=== PATIENT | female | born 1935 | race Caucasian/White ===

== ENCOUNTER 2016-09-02 21:01 | Emergency (ER) | payer OTHER, BC ==
[~2016-09-02] VITALS: Ht 154.9 cm; Wt 75.7 kg
[~2016-09-02 21:01] MED LIST: HYDR4TAB78 PO; NAPR1TAB9 PO
[2016-09-02 21:04] VITALS: TEMP 36.6; Ht 154.9 cm; Wt 75.7 kg
[2016-09-02] MEDS ORDERED: ATOR-22 PO (21:17)
[2016-09-02] MEDS ORDERED: LOSA1TAB PO (21:17)
[2016-09-02] MEDS ORDERED: ASPI81TA28 PO (21:17)
[2016-09-02] MEDS ORDERED: CHOL100041 PO (21:18)
[2016-09-02] MEDS ORDERED: PROPARACAINE HCL 0.5% OP SOLN 15 ML BTL ONE (21:44)
[2016-09-02] MEDS ORDERED: HOMATROPINE 5% OP SOLN 5 ML BTL OPR ONE (22:30)
[2016-09-02] MEDS ORDERED: ARTIFICIAL TEARS OP SOLN OPR STA ×2 (23:29)
[2016-09-02 23:56] VITALS: BP 155/95; PULSE 62; O2SAT 98
--- NOTE | 2016-09-03 02:31 | EMERGENCY ROOM VISIT NOTE ---
History Report prepared by Rj: Orville Reynoso Under the Supervision of: Dr. Partha Franco M.D. First contact with patient: 21:42 Chief Complaint: EYE ASSESSMENT Stated Complaint: SORENESS IN RT EYE History of Present Illness The patient is an 80 year old female who presents to the Emergency Room with complaints of constant right eye pain beginning prior to arrival. She currently rates her discomfort a 5/10 in severity. The patient states that she was sitting down watching television, and her vision began to blur. She reports that she felt is coming on. The patient notes that light makes her symptoms worse. She states that she has never had anything like this before. The patient reports that she has had cataracts removed from both her eyes, and she recently had a cleaning of her left eye. Pt denies LOC, headache, fevers, chills, diaphoresis, neck pain, chest pain, breathing difficulties, nausea, vomiting, abdominal pain, back pain, melena, hematochezia, urinary symptoms, numbness, weakness, lymphadenopathy, rash, or other complaints. Source of History: patient Onset: prior to arrival Position: eye (right) Symptom Intensity: 5/10 Timing: constant Modifying Factors (Worsening): other (light) Note: Associated symptoms: blurred vision Review of Systems See HPI for pertinent positives and negatives. A total of ten systems were reviewed and were otherwise negative. Past Medical & Surgical Medical Problems: (1) Bronchitis (2) Cholecystectomy (3) Deep venous thrombosis of lower extremity (4) Kidney stone (5) Knee surgery (6) Pancreatitis (7) Sciatica (8) Shoulder surgery Family History No pertinent family history stated. Social History Smoking Status: Never Smoker Alcohol Use: none Marital Status: Housing Status: lives with significant other Occupation Status: retired Current/Historical Medications Scheduled Aspirin (Aspirin Ec), 81 MG PO DAILY Atorvastatin (Lipitor), 1 TAB PO DAILY Cholecalciferol (D 1000), 1,000 PO DAILY Losartan Potassium (Cozaar), 1 TAB PO DAILY Allergies Coded Allergies: Latex (Verified Allergy, Intermediate, RASH - ITCHING, 09/02/16) Sulfa Antibiotics (Verified Allergy, Intermediate, HIVES, 09/02/16) Adhesives (Verified Allergy, Mild, RASH, 09/02/16) Amoxicillin (Verified Allergy, Mild, RASH, 09/02/16) Clavulanic Acid (Verified Allergy, Mild, RASH, 09/02/16) Oxycodone (Verified Allergy, Mild, RACING HEART, 09/02/16) Prednisone (Verified Adverse Reaction, Mild, GI SYMPTOMS, 09/02/16) Salicylates (Verified Adverse Reaction, Mild, GI SYMPTOMS, 09/02/16) Aspirin (Unverified Adverse Reaction, Unknown, NAUSEA, 09/02/16) Naproxen (Verified Adverse Reaction, Unknown, GI SYMPTOMS, 09/02/16) Penicillins (Unverified Adverse Reaction, Unknown, NAUSEA, 09/02/16) Procaine (Unverified Adverse Reaction, Unknown, HEART RACING, 09/02/16) Physical Exam Vital Signs Date Time Temp Pulse Resp B/P (MAP) Pulse Ox O2 Delivery O2 Flow Rate FiO2 09/02/16 23:56 62 16 155/95 98 09/02/16 23:20 62 16 155/95 96 Room Air 09/02/16 22:33 61 16 145/90 96 Room Air 09/02/16 21:04 36.6 67 16 193/91 98 Room Air Right Eye Acuity: 20/25, with no correction Left Eye Acuity: 20/25 Physical Exam GENERAL: Awake, alert, well-appearing, in no distress HENT: Normocephalic, atraumatic. Oropharynx unremarkable. EYES: PERRL, EOMI, see slit lamp procedure. NECK: Supple. No nuchal rigidity. FROM. No JVD. RESPIRATORY: Clear to auscultation. CARDIAC: Regular rate, normal rhythm. Extremities warm and well perfused. Pulses equal. MUSCULOSKELETAL: Chest examination reveals no tenderness. The back is symmetrical on inspection without obvious abnormality. There is no CVA tenderness to palpation. No joint edema. NEURO: Normal sensorium. No sensory or motor deficits noted. SKIN: No rash or jaundice noted. Medical Decision & Procedures Medications Administered Medications (Trade) Dose Ordered Sig/Doris Route Start Time Stop Time Status Last Admin Dose Admin Homatropine HBr (Isopto Homatropine 5% Oph Soln) 1 drops NOW ONCE OPR 09/02/16 22:30 09/02/16 22:31 DC 09/02/16 22:54 1 DROPS Artificial Tears (Artificial Tears) 2 drops NOW STAT OPR 09/02/16 23:29 09/02/16 23:30 DC 09/02/16 23:37 2 DROPS Procedure Slit Lamp Examination Indication: right eye pain The right eye was prepped with topical proparacaine. Slit lamp examination was performed in the standard fashion. Cornea appeared clear. Anterior chamber clear. Scleral and limbus injection are present. No discharge present. Fluorescein examination performed and revealed no ulcers, mild chemosis. No foreign bodies noted. Negative Santi sign. The patient tolerated the procedure well without complication. Pressure in the right eye was 11.5. Pressure in the left eye was 16. ED Course 2145: The patient was evaluated in room C03. A complete history and physical exam was performed. 2211: I discussed the patient's case with Dr. Lynn, Optometry. He agreed with the treatment plan, and a hold on antibiotics and oral antiinflammatory. 2230: Ordered Homatropine HBr 1 drops OPR 2238: I reevaluated the patient, and she is resting. 2321: I reevaluated the patient. Discussed results and discharge instructions: she verbalized understanding and agreement. The patient is ready for discharge. 2329: Ordered Artificial Tears 2 drops OPR Medical Decision Medication Reconciliation: I attest that I have personally reviewed the patient' s current medication list Blood pressure screening: Patient was found to have an elevated blood pressure and was referred to their primary doctor for recheck and further treatment. Triage Nursing notes reviewed and agree them. Additional history obtained from the patient's . The patient's history was concerning for eye complaints. Differential diagnosis: Etiologies such as trauma, corneal abrasion, corneal ulcer, foreign body, iritis , scleritis, retinal injury, vascular occlusion, hyphema, hypopyon, and orbital cellulitis, periorbital cellulitis, as well as others were entertained. Physical examination findings: As above. No periorbital cellulitis. There is no hyphema. No evidence of glaucoma. ~ Slit-lamp examination revealed limbal and scleral injection. ER treatment provided: Homatropine On reassessment the patient felt much better. Artificial tears Diagnostics interpretation by me: Deferred Consultation: A consultation was placed with the field inspector supervisor fabrication, Dr. Lynn. The case was discussed and diagnostics were reviewed. He recommended dilating drops, artificial tears, and anti-inflammatories. The patient is allergic to aspirin but can take Aleve by her and her 's report. She will do this when she is home. The patient was told to follow-up with his office tomorrow morning. By the evaluation outlined above emergent etiologies such as~trauma, corneal abrasion, corneal ulcer, foreign body, globe penetration, hyphema, hypopyon, and orbital cellulitis, periorbital cellulitis, as well as others were deemed relatively unlikely. The patient and were informed about the findings as listed above. All questions were answered and they were pleased with the treatment. Return instructions were outlined and the patient was discharged in stable condition. Outpatient prescription management: Homatropine Referral: The patient was referred to Dr. Lynn for follow-up for a recheck of the current condition tomorrow. Consults Time Called: 2205 Consulting Physician: Dr. Lynn, Optometry Returned Call: 2210 I discussed the patient's case with Dr. Lynn, Optometry. He agreed with the treatment plan, and a hold on antibiotics and oral antiinflammatory. Impression Primary Impression: Pain, eye, right Additional Impressions: Iritis Episcleritis Scribe Attestation The scribe's documentation has been prepared under my direction and personally reviewed by me in its entirety. I confirm that the note above accurately reflects all work, treatment, procedures, and medical decision making performed by me. Departure Information Dispostion Home / Self-Care Referrals No Doctor, Assigned (PCP) Forms HOME CARE DOCUMENTATION FORM, IMPORTANT VISIT INFORMATION, WORK / SCHOOL INSTRUCTIONS Patient Instructions My [facility] Additional Instructions Follow-up with Dr. Lynn tomorrow. Call the office at 8:30 for follow-up. Homatropine drops: One drop to the right eye twice daily until directed otherwise by ophthalmology. Artificial tears: 2 drops every 2-3 hours as needed. Acetaminophen(Tylenol) may be used for fever or pain. Use 1000mg every six hours as needed. Avoid using more than 4000mg in a 24 hour period. And/or Use Aleve as discussed. Cool compresses for 20 minutes at a time four times daily for 2-3 days. Avoid bright lights, wear sun glasses. Return to the ER for facial swelling, worsening vision, severe eye pain, fevers or as needed. Problem Qualifiers
== END 2016-09-02 23:35 | disposition home or self-care (01) ==
LOC: C.EDB 21:03 → C.EDC 23:35
DX: H57.11 Ocular pain, right eye (principal); H20.9 Unspecified iridocyclitis; H15.102 Unspecified episcleritis, left eye; Z79.82 Long term (current) use of aspirin; Z79.899 Other long term (current) drug therapy; Z87.09 Personal history of other diseases of the respiratory system; Z87.442 Personal history of urinary calculi; Z86.718 Personal history of other venous thrombosis and embolism

== ENCOUNTER → 2017-07-14 | Outpatient (CLI) | payer OTHER, BC ==
[~2017-07-14] MED LIST changes: +ASPI81TA28 PO; +ATOR-22 PO; +CHOL100041 PO; -HYDR4TAB78 PO; +LOSA1TAB PO; -NAPR1TAB9 PO
== END | disposition home or self-care (01) ==
LOC: C.LABSPEC 10:30
PROVIDERS: ATTEND Urology
DX: N39.0 Urinary tract infection, site not specified (principal)

== ENCOUNTER 2019-09-05 07:10 | Inpatient (IN) ==
[2019-09-05] MEDS ORDERED: MoRPHine SULFATE 4 MG/ML 1 ML CARP\\VIAL IV PRN ×2 (07:39→07:49)
[2019-09-05 07:57] LABS: Basophils # (auto) 0.01 K/uL (0-0.2); Basophils % (auto) 0.1 %; Eosinophils # (auto) 0.05 K/uL (0-0.5); Eosinophils % (auto) 0.4 %; Hematocrit (blood only) 41.7 % (37-47); Hemoglobin 13.7 g/dL (12.0-16.0); Immature Granulocytes # (auto) 0.02 K/uL (0.00-0.02); Immature Granulocytes % (auto) 0.2 %; Lymphocytes # (auto) 1.25 K/uL (1.2-3.4); Lymphocytes % (auto) 10.6 %; Mean Corpuscular Hemoglobin 31.6 pg (25-34); Mean Corpuscular Hgb Conc 32.9 g/dL (32-36); Mean Corpuscular Volume 96.3 fL (80-100); Mean Platelet Volume 8.9 fL (7.4-10.4); Monocytes # (auto) 0.57 K/uL (0.11-0.59); Monocytes % (auto) 4.9 %; Neutrophils # (auto) 9.85 K/uL (1.4-6.5); Neutrophils % (auto) 83.8 %; Platelet Count 244 K/uL (130-400); RDW Coefficient of Variation 14.6 % (11.5-14.5); RDW Standard Deviation 51.8 fL (36.4-46.3); Red Blood Count 4.33 M/uL (4.2-5.4); White Blood Count 11.75 K/uL (4.8-10.8)
[2019-09-05 08:14] LABS: Appearance Urine Cloudy (Clear); Bacteria Urine Automated Negative (Negative); Bilirubin Urine Negative (Negative); Blood Urine Negative (Negative); Color Urine Dark Yellow; Epithelial Cell Urine Auto >30 /lpf (0-5); Glucose Urine UA Negative (Negative); Ketones Urine Negative (Negative); Leukocyte Esterase Urine 3+ (Negative); Nitrite Urine Negative (Negative); Protein Urine Negative (Negative); Specific Gravity Urine 1.022 (1.000-1.030); Urobilinogen Urine Negative (Negative); pH Urine 7.5 (4.5-7.5)
--- NOTE | 2019-09-05 08:20 | Emergency Department Note ---
ED Visit Note This patient was seen in concert with Dr. Martinez. We discussed and agreed upon the history, physical, assessment and plan. . Resident Activity Tracking Resident Involvement: Resident Care Provided Care Provided: Adult ED : Abdominal pain Qualifiers: Abdominal location: lower abdomen, unspecified Qualified Code(s): R10.30 - Lower abdominal pain, unspecified
[2019-09-05 08:34] LABS: Alanine Aminotransferase 26 U/L (12-78); Albumin Level 3.1 gm/dl (3.4-5.0); Aspartate Aminotransferase 12 U/L (15-37); BUN Creatinine Ratio 21.1 (10-20); Blood Urea Nitrogen 17 mg/dl (7-18); Calcium 9.2 mg/dl (8.5-10.1); Carbon Dioxide 24 mmol/L (21-32); Chloride 106 mmol/L (98-107); Est GFR (African American) 77.9; Est GFR (Non-African American) 67.2; Glucose 118 mg/dl (70-99); Lipase 70 U/L (73-393); Potassium 3.5 mmol/L (3.5-5.1); Sodium 137 mmol/L (136-145)
[2019-09-05 08:37] LABS: Albumin Globulin Ratio 0.8 (0.9-2); Alkaline Phosphatase 94 U/L (45-117); Bilirubin,Total 1.2 mg/dl (0.2-1); Total Protein 7.1 gm/dl (6.4-8.2)
--- NOTE | 2019-09-05 08:48 | Emergency Department Note ---
Impression & Plan Diverticulitis, Abdominal pain ED Provider Note NAME: BRANDAN BALDERAS AGE: 83 SEX: F : 1935 ARRIVES VIA: Walk-In INFORMANT: Patient, ED PROVIDER(S): Mohit Martinez DO CHIEF COMPLAINT: Abdominal pain HPI: The patient is an 83-year-old female who presented to the emergency department for an acute onset of abdominal pain. She states his abdominal pain began last evening. She states the pain is lower in the suprapubic region and pelvic region but goes down into her vagina. She feels pain down into her rectum as well. She denied any GI bleeding. The patient has had no vomiting. She denies having any chest pain or trouble breathing. The patient does have a pessary which is normally changed at multiple times for the year. She denies having any vaginal bleeding or discharge. She denies having any dysuria freque ncy. She was not seen by her primary care physician for these complaints yet. ROS: See above HPI for pertinent positives & negatives. A total of 10 systems re viewed and were otherwise negative. PAST MEDICAL HISTORY: See Below PAST SURGICAL HISTORY: See Below FAMILY HISTORY: See Below SOCIAL HISTORY: See Below HOME MEDICATIONS: See Below ALLERGIES: See Below VITALS: See Below PHYSICAL EXAMINATION: GENERAL: The patient is awake and alert. She is uncomfortable appearing and looks anxious. EYES: The conjunctivae are clear. The pupils are round and reactive. EARS, NOSE, MOUTH AND THROAT: The nose is without any evidence of any deformity. Mucous membranes are moist. Tongue is midline. NECK: The neck is nontender and supple. RESPIRATORY: Normal respiratory effort is noted there is no evidence of wheezing rhonchi or rales CARDIOVASCULAR: Regular rate and rhythm noted there no murmurs rubs or gallops normal S1 normal S2. GASTROINTESTINAL: The abdomen is moderately distended and diffusely tender. There is guarding in the left lower quadrant. MUSCULOSKELETAL/EXTREMITIES: There is no evidence of gross deformity full range of motion is noted in the hips and shoulders. SKIN: There is no obvious evidence of any rash. Trace pedal edema was noted bilaterally. NEUROLOGIC: Patient is awake alert and oriented x3 strength is symmetric patellar reflexes are 2+ bilaterally MEDICAL DECISION MAKING: The patient is an 83-year-old female who presented to the emergency department for an evaluation of abdominal discomfort. The patient abdominal distention abdominal pain and radiation to the pelvis. The patient was treated with pain medication in the emergency department. We discussed the patient's laboratory and radiographic studies with her. Ultimately she was found to have signs of diverticulitis on CAT scan the abdomen and pelvis with microperforation. She was given IV antibiotics. We discussed her case with the on-call general surgical group as well as the on-call [facility] hospitalist group. They will evaluate the patient in the emergency department for further management and disposition. Triage Nursing notes reviewed. Prior medical records reviewed Vital Signs: reviewed and remarkable for no significant abnormalities Differential diagnosis: Etiologies such as appendicitis, diverticulitis, obstruction, inflammatory bowel disease, renal colic, PUD, biliary pathology, pancreatitis, mesenteric ischemia, aortic pathology, infections, genitourinary, UTI, perforated viscus, as well as others were entertained. ER treatment provided: See below Diagnostics interpreted by me: ECG: none Cardiac Monitoring: An order was placed for continuous cardiac monitoring. The monitor shows a rate of 88 with sinus rhythm. Laboratory studies: As stated above and show below. Imaging studies: See below Consultation(s): 1000: We discussed this case with the on-call surgical group. We discussed this case with Bradley Peters they will evaluate the patient in the emergency department for further management and disposition. 1005: We discussed this case with Abida who is on-call for the [facility] hospitalist group. They will evaluate the patient in the emergency department for further management and disposition. Past Med/Surg History Medical History (Updated 09/05/19 @ 12:48 by Lalita Tse PA-C) Chronic lower back pain (Chronic) Dyslipidemia Factor V Leiden HTN (hypertension) KIM (obstructive sleep apnea) Surgical History (Updated 09/05/19 @ 12:48 by Lalita Tse PA-C) H/O colonoscopy 2008: mild-moderate diverticulosis sigmoid colon History of cataract surgery Hx laparoscopic cholecystectomy Family History (Updated 09/05/19 @ 12:49 by Lalita Tse PA-C) Other Cancer Diabetes Heart disease Social History (Updated 09/05/19 @ 12:49 by Lalita Tse PA-C) Preferred Language: Greek Feels Safe at Home: Yes Smoking Status: Never smoker Hx Alcohol Use: No Hx Substance Use: No Allergies Allergies Allergy/AdvReac Type Severity Reaction Status Date / Time latex Allergy Intermediate RASH - Verified 09/05/19 08:15 ITCHING Sulfa (Sulfonamide Allergy Intermediate HIVES Verified 09/05/19 08:15 Antibiotics) adhesive Allergy Mild RASH Verified 09/05/19 08:15 amoxicillin Allergy Mild RASH Verified 09/05/19 08:15 clavulanic acid Allergy Mild RASH Verified 09/05/19 08:15 oxycodone Allergy Mild RACING Verified 09/05/19 08:15 HEART prednisone AdvReac Mild GI SYMPTOMS Verified 09/05/19 08:15 salicylates AdvReac Mild GI SYMPTOMS Verified 09/05/19 08:15 aspirin AdvReac Unknown NAUSEA Unverified 09/05/19 08:15 naproxen AdvReac Unknown GI SYMPTOMS Verified 09/05/19 08:15 Penicillins AdvReac Unknown NAUSEA Unverified 09/05/19 08:15 procaine AdvReac Unknown HEART Unverified 09/05/19 08:15 RACING Home Meds Home Medications Medication Instructions Recorded Confirmed aspirin 81 mg PO QAM #0 09/02/16 09/05/19 atorvastatin [Lipitor] 20 mg PO PM #0 tab 09/10/17 09/05/19 losartan [Cozaar] 25 mg PO QAM #0 tab 09/10/17 09/05/19 albuterol sulfate [Ventolin HFA] 3 puff INHALATION Q6H PRN 09/05/19 09/05/19 fluticasone propionate 1 spray INTRANASAL BID PRN 09/05/19 09/05/19 ibuprofen [Advil] 200 mg PO Q6H PRN 09/05/19 09/05/19 Results & Data (ED) Vital Signs Vital Signs - 24 hr 09/05/19 07:15 09/05/19 07:48 09/05/19 08:00 Temperature 36.9 C Temperature Source Oral Pulse Rate 94 H 82 Pulse Rate from SpO2 Sensor 83 Respiratory Rate 17 22 Respiratory Effort / Characteristics Non-Labored Respiratory Depth Normal Respiratory Pattern Regular Blood Pressure 157/68 H 154/67 H Blood Pressure Mean 97 80 Blood Pressure Position Sitting Pulse Oximetry 96 95 98 Oxygen Delivery Method Room Air Room Air Room Air Sepsis Recent Fever Within 48 Hours No Sepsis New/Unexplained Change in Mental Status No Sepsis Action Taken by Nursing No Action Required 09/05/19 08:30 09/05/19 09:10 09/05/19 09:30 Temperature Temperature Source Pulse Rate 83 87 78 Pulse Rate from SpO2 Sensor 82 87 78 Respiratory Rate 24 22 26 H Respiratory Effort / Characteristics Respiratory Depth Respiratory Pattern Blood Pressure 144/66 H 143/76 H 133/64 Blood Pressure Mean 93 113 102 Blood Pressure Position Pulse Oximetry 96 96 95 Oxygen Delivery Method Room Air Room Air Room Air Sepsis Recent Fever Within 48 Hours Sepsis New/Unexplained Change in Mental Status Sepsis Action Taken by Nursing 09/05/19 10:00 09/05/19 10:30 09/05/19 11:00 Temperature Temperature Source Pulse Rate 74 81 82 Pulse Rate from SpO2 Sensor 75 82 82 Respiratory Rate 24 24 19 Respiratory Effort / Characteristics Respiratory Depth Respiratory Pattern Blood Pressure 133/67 142/62 H 143/78 H Blood Pressure Mean 106 72 106 Blood Pressure Position Pulse Oximetry 97 96 95 Oxygen Delivery Method Room Air Room Air Room Air Sepsis Recent Fever Within 48 Hours Sepsis New/Unexplained Change in Mental Status Sepsis Action Taken by Nursing 09/05/19 11:31 09/05/19 12:00 09/05/19 12:30 Temperature Temperature Source Pulse Rate 89 70 72 Pulse Rate from SpO2 Sensor 89 70 72 Respiratory Rate 19 20 21 Respiratory Effort / Characteristics Respiratory Depth Respiratory Pattern Blood Pressure 123/65 106/49 L 127/55 L Blood Pressure Mean 93 60 60 Blood Pressure Position Pulse Oximetry 97 93 93 Oxygen Delivery Method Sepsis Recent Fever Within 48 Hours Sepsis New/Unexplained Change in Mental Status Sepsis Action Taken by Nursing 09/05/19 13:01 09/05/19 13:30 09/05/19 14:00 Temperature Temperature Source Pulse Rate 78 71 75 Pulse Rate from SpO2 Sensor 78 72 75 Respiratory Rate 21 22 24 Respiratory Effort / Characteristics Respiratory Depth Respiratory Pattern Blood Pressure 122/54 L 115/49 L 124/49 L Blood Pressure Mean 84 63 71 Blood Pressure Position Pulse Oximetry 97 98 95 Oxygen Delivery Method Sepsis Recent Fever Within 48 Hours Sepsis New/Unexplained Change in Mental Status Sepsis Action Taken by Nursing 09/05/19 14:30 Temperature Temperature Source Pulse Rate 77 Pulse Rate from SpO2 Sensor 77 Respiratory Rate 23 Respiratory Effort / Characteristics Respiratory Depth Respiratory Pattern Blood Pressure 124/59 L Blood Pressure Mean 90 Blood Pressure Position Pulse Oximetry 93 Oxygen Delivery Method Sepsis Recent Fever Within 48 Hours Sepsis New/Unexplained Change in Mental Status Sepsis Action Taken by [place] Medications Current Medication List: was personally reviewed by me Laboratory Data Attestation: I reviewed the patient's lab results. Result diagrams: 09/05/19 07:48 09/05/19 07:48 Lab Results 09/05/19 09/05/19 09/05/19 Range/Units 07:48 07:48 07:48 WBC 11.75 H (4.8-10.8) K/uL RBC 4.33 (4.2-5.4) M/uL Hgb 13.7 (12.0-16.0) g/dL Hct 41.7 (37-47) % MCV 96.3 (80-100) fL MCH 31.6 (25-34) pg MCHC 32.9 (32-36) g/dL RDW Std Deviation 51.8 H (36.4-46.3) fL RDW Coeff of Gunner 14.6 H (11.5-14.5) % Plt Count 244 (130-400) K/uL MPV 8.9 (7.4-10.4) fL Immature Gran % (Auto) 0.2 % Neut % (Auto) 83.8 % Lymph % (Auto) 10.6 % [place] % (Auto) 4.9 % Eos % (Auto) 0.4 % Baso % (Auto) 0.1 % Neut # (Auto) 9.85 H (1.4-6.5) K/uL Lymph # (Auto) 1.25 (1.2-3.4) K/uL [place] # (Auto) 0.57 (0.11-0.59) K/uL Eos # (Auto) 0.05 (0-0.5) K/uL Baso # (Auto) 0.01 (0-0.2) K/uL Immature Gran # (Auto) 0.02 (0.00-0.02) K/uL Sodium 137 (136-145) mmol/L Potassium 3.5 (3.5-5.1) mmol/L Chloride 106 (98-107) mmol/L Carbon Dioxide 24 (21-32) mmol/L Anion Gap 8.0 (3-11) BUN 17 (7-18) mg/dl Creatinine 0.80 (0.6-1.2) mg/dl Est Cr Clr Drug Dosing Not Reportable Est GFR ( Amer) 77.9 Est GFR (Non-Af Amer) 67.2 BUN/Creatinine Ratio 21.1 H (10-20) Glucose 118 H (70-99) mg/dl Calcium 9.2 (8.5-10.1) mg/dl Total Bilirubin 1.2 H (0.2-1) mg/dl AST 12 L (15-37) U/L ALT 26 (12-78) U/L Alkaline Phosphatase 94 (45-117) U/L Total Protein 7.1 (6.4-8.2) gm/dl Albumin 3.1 L (3.4-5.0) gm/dl Globulin 4.0 (2.5-4.0) gm/dl Albumin/Globulin Ratio 0.8 L (0.9-2) Lipase 70 L (73-393) U/L Urine Color Dark Yellow Urine Appearance Cloudy A (Clear) Urine pH 7.5 (4.5-7.5) Ur Specific [place] 1.022 (1.000-1.030) Urine Protein Negative (Negative) Urine Glucose (UA) Negative (Negative) Urine Ketones Negative (Negative) Urine Blood Negative (Negative) Urine Nitrite Negative (Negative) Urine Bilirubin Negative (Negative) Urine Urobilinogen Negative (Negative) Ur Leukocyte Esterase 3+ H (Negative) Urine WBC (Auto) 10-30 H (0-5) /hpf Urine RBC (Auto) 5-10 H (0-4) /hpf U Hyaline Cast (Auto) 5-10 H (0-5) /lpf U Epithel Cells (Auto) >30 H (0-5) /lpf Urine Bacteria (Auto) Negative (Negative) Administered Medications Promethazine HCl 6.25 mg/ (Sodium Chloride) 50.25 mls @ 201 mls/hr IV Q6H PRN PRN Reason: Nausea And Vomiting Stop: 10/05/19 11:07 Last Infusion: 09/05/19 12:16 Dose: 0 mls/hr Documented by: [id number] Admin: 09/05/19 11:47 Dose: 201 mls/hr Documented by: [id number] Potassium Chloride/Dextrose/Sod Cl (D5nss + 20meq Kcl) 20 meq in 1,000 mls @ 80 mls/hr IV .[id number] Stop: 09/06/19 14:16 Last Admin: 09/05/19 14:36 Dose: 80 mls/hr Documented by: [id number] Ioversol (Optiray 320 100ml) 94 ml IV ONCE PRN PRN Reason: Interaction Checking Stop: 09/09/19 09:10 Last Admin: 09/05/19 09:12 Dose: 94 ml Documented by: [id number] Morphine Sulfate (Morphine Sulfate) 2 mg IV Q15M PRN PRN Reason: Pain Stop: 09/19/19 07:38 Last Admin: 09/05/19 08:07 Dose: 2 mg Documented by: [id number] Discontinued Medications Ciprofloxacin (Cipro) 400 mg in 200 mls @ 100 mls/hr IV ONE ONE; Protocol Stop: 09/05/19 11:56 Last Infusion: 09/05/19 12:16 Dose: 0 mls/hr Documented by: [id number] Admin: 09/05/19 10:11 Dose: 100 mls/hr Documented by: [id number] Metronidazole (Flagyl) 500 mg in 100 mls @ 100 mls/hr IV NOW STA Stop: 09/05/19 10:54 Last Infusion: 09/05/19 11:38 Dose: 0 mls/hr Documented by: [id number] Admin: 09/05/19 10:12 Dose: 100 mls/hr Documented by: [id number] Promethazine HCl (Phenergan) Confirm Administered Dose 6.25 mg IV .STK-MED ONE Stop: 09/05/19 11:44 Last Admin: 09/05/19 11:53 Dose: Not Given Documented by: [id number] Imaging Data Radiologist's Impression: ABDOMEN AND PELVIS CT WITH IV CONTRAST CT DOSE: HISTORY: lower abd pain TECHNIQUE: Multiaxial CT images of the abdomen and pelvis were performed following the use of intravenous contrast. A dose lowering technique was utilized adhering to the principles of ALARA. COMPARISON STUDY: Abdomen and pelvis CT 12/24/2012. FINDINGS: Mild interstitial thickening at the lung bases. This is likely chronic. No suspicious lytic or blastic osseous lesions. There is a 1.8 cm ill- defined hypodense lesion within the anterior segment of the right hepatic lobe. This was preceded demonstrated to be a probable cyst and measured 5.1 cm. The appearance favors an involuting cyst. A few additional subcentimeter lesion noted within the liver also favor cysts. Dilated common bile duct, unchanged. This is likely due to the patient's postcholecystectomy state. The spleen, adrenal glands, pancreas, and kidneys are unremarkable. No retroperitoneal lymphadenopathy. Normal caliber abdominal aorta. Mild bladder wall thickening is likely due to underdistention. A pessary device is noted. The uterus and bilateral adnexa are within normal limits. Multiple colonic diverticula. Mild pericolonic fat stranding at the mid sigmoid colon. There is a punctate focus of extraluminal gas adjacent to the mid sigmoid colon best in image 304. Therefore, this is consistent with microperforation in the setting of an acute diverticulitis. No abscess identified. No evidence for bowel obstruction. Normal appendix. Mild thickening of the mid sigmoid colon is also noted. IMPRESSION: 1. Mild thickening and pericolonic fat stranding within the mid sigmoid colon. There is also a punctate focus of extraluminal gas consistent with microperforation in the setting of acute diverticulitis. No abscess identified. Recommend follow-up to ensure resolution. 2. Cholecystectomy. 3. Decrease in size in the ill-defined 1.8 cm hypodense lesion within the anterior segment of the right hepatic lobe. This favors an involuting cyst. 4. Additional findings as described above. ACT 112: Negative or not required by law. Electronically signed by: Rony Andrew M.D. 09/05/2019 9:39 AM Dictated: 09/05/19928 Transcribed: 09/05/19928 Blood Pressure Blood Pressure Findings: Normal blood pressure Discharge Plan Visit Data Chief Complaint: Abdominal Pain Stated Complaint: VAGINAL PAIN THROUGH TO RECTUM ED Provider: Mohit Martinez ED Midlevel Provider: Marsha Granda Discharge Problem: Diverticulitis, Abdominal pain Patient Disposition: Being Evaluated by Hospitalist Condition: Good Forms Stand Alone Forms: [facility], Virtual Emergency Department, Important Visit Information Prescriptions Prescriptions: No Action aspirin 81 mg Tablet,Delayed Release (Dr/Ec) 81 mg PO QAM Qty: 0 RF: 0 atorvastatin [Lipitor] 20 mg Tablet 20 mg PO PM Qty: 0 RF: 0 losartan [Cozaar] 25 mg Tablet 25 mg PO QAM Qty: 0 RF: 0 ibuprofen [Advil] 200 mg Tablet 200 mg PO Q6H PRN (Reason: Pain) RF: 0 fluticasone propionate 50 mcg/actuation spray,suspension 1 spray INTRANASAL BID PRN (Reason: Allergy Symptoms) RF: 0 albuterol sulfate [Ventolin HFA] 90 mcg/actuation Hfa Aerosol Inhaler 3 puff INHALATION Q6H PRN (Reason: SOB) RF: 0 Referrals Referrals: Jana Spears DO [Primary Care Provider] - Discharge Problem: Abdominal pain Qualifiers: Abdominal location: lower abdomen, unspecified Qualified Code(s): R10.30 - Lower abdominal pain, unspecified
[2019-09-05] MEDS ORDERED: IOVERSOL 100ml IV PRN (09:11)
--- NOTE | 2019-09-05 09:40 | CT Scan Report ---
ABDOMEN AND PELVIS CT WITH IV CONTRAST CT DOSE: HISTORY: lower abd pain TECHNIQUE: Multiaxial CT images of the abdomen and pelvis were performed following the use of intrave nous contrast. A dose lowering technique was utilized adhering to the principles of ALARA. COMPARISON STUDY: Abdomen and pelvis CT 12/24/2012. FINDINGS: Mild interstitial thickening at the lung bases. This is likely chronic. No suspicious lytic or blastic osseous lesions. There is a 1.8 cm ill-defined hypodense lesion within the anterior segme nt of the right hepatic lobe. This was preceded demonstrated to be a probable cyst and measured 5.1 c m. The appearance favors an involuting cyst. A few additional subcentimeter lesion noted within the l iver also favor cysts. Dilated common bile duct, unchanged. This is likely due to the patient's postc holecystectomy state. The spleen, adrenal glands, pancreas, and kidneys are unremarkable. No retroper itoneal lymphadenopathy. Normal caliber abdominal aorta. Mild bladder wall thickening is likely due t o underdistention. A pessary device is noted. The uterus and bilateral adnexa are within normal limit s. Multiple colonic diverticula. Mild pericolonic fat stranding at the mid sigmoid colon. There is a punctate focus of extraluminal gas adjacent to the mid sigmoid colon best in image 304. Therefore, th is is consistent with microperforation in the setting of an acute diverticulitis. No abscess identifi ed. No evidence for bowel obstruction. Normal appendix. Mild thickening of the mid sigmoid colon is a lso noted. IMPRESSION: 1. Mild thickening and pericolonic fat stranding within the mid sigmoid colon. There is also a puncta te focus of extraluminal gas consistent with microperforation in the setting of acute diverticulitis. No abscess identified. Recommend follow-up to ensure resolution. 2. Cholecystectomy. 3. Decrease in size in the ill-defined 1.8 cm hypodense lesion within the anterior segment of the rig ht hepatic lobe. This favors an involuting cyst. 4. Additional findings as described above. ACT 112: Negative or not required by law. Electronically signed by: Rony Andrew M.D. 09/05/2019 9:39 AM
[2019-09-05] MEDS ORDERED: metroNIDAZOLE 500 MG/100 ML BAG IV STA (09:55)
[2019-09-05] MEDS ORDERED: CIPROFLOXACIN / D5W 400 MG/200 ML BAG IV ONE (09:57)
--- NOTE | 2019-09-05 11:24 | History & Physical Report ---
Date of Service September 05, 2019 Assessment & Plan (1) Diverticulitis: (2) Abdominal pain: Diverticulitis, microperforation Pt is 83 y/o F with PMH HTN, dyslipidemia, Factor V Leiden, H/O RLE ?DVT in 05/2019, KIM presented to ER with c/o left lower abdominal pain started yesterday evening. Denies nausea or vomiting. Chills, no recorded fever In ER pt afebrile, P: 94, R: 17, BP: 157/68, 96% on RA. WBC: 11.7, UA: 3+ leuk est, 10-30 WBC, >[address] ABD/PELVIS: Mild thickening and pericolonic fat stranding within the mid sigmoid colon. There is also a punctate focus of extraluminal gas consistent with microperforation in the setting of acute diverticulitis. No abscess identified. Cholecystectomy. Decrease in size in the ill-defined 1.8 cm hypodense lesion within the anterior segment of the right hepatic lobe. This favors an involuting cyst. -In ER given Cipro, Flagyl, 2mg Morphine -Urine culture pending -Continue Cipro, Flagyl -NPO -IVF -General surgery consult, Dr Woody saw pt. Planned conservative management at this time -CBC, BMP in am (3) HTN (hypertension): Stable -Continue losartan with holding parameters (4) Dyslipidemia: -Hold atorvastatin for now (5) Factor V Leiden: H/O DVT many years ago Pt reports in 05/2019 in [place] had red sore spot to RLE and reports had US and had "blood clot" and took Xarelto for one week and f/u with vascular surgeon who recommended to discontinue Xarelto -On daily aspirin 81 mg (6) KIM (obstructive sleep apnea): -CPAP HS DVT Prophylaxis -Heparin SQ DNR/DNI as per discussion with pt Follows with Dr Jana Spears for routine care Pt was seen and care coordinated with Dr Graham. See addendum History of Present Illness Chief Complaint: Abdominal pain Primary Care Provider: Jana Spears, DO Pt is 83 y/o F with PMH HTN, dyslipidemia, Factor V Leiden, H/O RLE ?DVT in 05/2019, KIM presented to ER with c/o left lower abdominal pain started yesterday evening. Describes pain as sharp and constant and across mid lower and left lower abdomen and radiates to groin. Denies nausea or vomiting. Reports past week with constipation and yesterday morning took Miralax and had formed BM after. Last night felt hot and cold, did not take temperature. This morning with generalized weakness. No prior treatment. Denies vaginal discharge or bleeding. Reports chronic post nasal drip and cough in morning for years. Throat feels dry in mornings after removes CPAP. Denies any worsening cough, recent travel, known COVID exposure. Pt reports in 05/2019 in [place] had red sore spot to RLE and reports had US and had "blood clot" and took Xarelto for one week and f/u with vascular surgeon who recommended to discontinue Xarelto. Denies diaphoresis, melena, hematochezia, [place], dizziness, syncope, vision changes, neck pain, CP, SOB, orthopnea, palpitations, choking, otalgia, rhinorrhea, paresthesias, extremity edema, exremity erythema, rashes, urinary symptoms. H/O colonoscopy in 2007: mild-moderate diverticulosis sigmoid colon. Allergies Allergy/AdvReac Type Severity Reaction Status Date / Time latex Allergy Intermediate RASH - Verified 09/05/19 08:15 ITCHING Sulfa (Sulfonamide Allergy Intermediate HIVES Verified 09/05/19 08:15 Antibiotics) adhesive Allergy Mild RASH Verified 09/05/19 08:15 amoxicillin Allergy Mild RASH Verified 09/05/19 08:15 clavulanic acid Allergy Mild RASH Verified 09/05/19 08:15 oxycodone Allergy Mild RACING Verified 09/05/19 08:15 HEART prednisone AdvReac Mild GI SYMPTOMS Verified 09/05/19 08:15 salicylates AdvReac Mild GI SYMPTOMS Verified 09/05/19 08:15 aspirin AdvReac Unknown NAUSEA Unverified 09/05/19 08:15 naproxen AdvReac Unknown GI SYMPTOMS Verified 09/05/19 08:15 Penicillins AdvReac Unknown NAUSEA Unverified 09/05/19 08:15 procaine AdvReac Unknown HEART Unverified 09/05/19 08:15 RACING Home Medications Home Medications Medication Instructions Recorded Confirmed Type aspirin 81 mg PO QAM #0 09/02/16 09/05/19 History atorvastatin [Lipitor] 20 mg PO PM #0 tab 09/10/17 09/05/19 History losartan [Cozaar] 25 mg PO QAM #0 tab 09/10/17 09/05/19 History albuterol sulfate [Ventolin HFA] 3 puff INHALATION Q6H PRN 09/05/19 09/05/19 History fluticasone propionate 1 spray INTRANASAL BID PRN 09/05/19 09/05/19 History ibuprofen [Advil] 200 mg PO Q6H PRN 09/05/19 09/05/19 History Past Med/Surg History Medical History (Updated 09/05/19 @ 12:48 by Lalita Tse PA-C) Chronic lower back pain (Chronic) Dyslipidemia Factor V Leiden HTN (hypertension) KIM (obstructive sleep apnea) Surgical History (Updated 09/05/19 @ 12:48 by Lalita Tse PA-C) H/O colonoscopy 2008: mild-moderate diverticulosis sigmoid colon History of cataract surgery Hx laparoscopic cholecystectomy Family History (Updated 09/05/19 @ 12:49 by Lalita Tse PA-C) Other Cancer Diabetes Heart disease Social History (Updated 09/05/19 @ 12:49 by Lalita Tse PA-C) Preferred Language: Arabic Communication Ability: Effective Materials Management Manager Required: No Beliefs That Will Affect Care: None Current Living Situation: Spouse Feels Safe at Home: Yes Smoking Status: Never smoker Second Hand Exposure: No ; Hx Alcohol Use: No Hx Substance Use: No Review of Systems Review of Systems: All systems reviewed & are unremarkable except as noted in HPI & below Physical Exam Physical Exam: General: no distress, obese Head: normocephalic, atraumatic Eyes: PERRL, EOM's intact, conjunctiva non-injected, anicteric ENT: normal inspection external ears, nose, mucous membranes dry Neck: supple, trachea midline Lungs: clear, no respiratory distress, no wheezing/rhonchi/rales CV: RRR, no murmur, no pretibial edema Abd: normal BS, soft, protuberant, +tenderness to palpation across entire lower abdomen greatest over LLQ, no rebound Ext: no cyanosis or erythema, no calf tenderness Neuro: A&O x 3, no focal deficits noted, normal affect Skin: warm, dry Results & Data Results & Data ([facility]) Vital Signs (Past 12 Hours) Vital Signs Temp Pulse Resp BP Pulse Ox 09/05/19 11:00 82 19 143/78 H 95 09/05/19 10:30 81 24 142/62 H 96 09/05/19 10:00 74 24 133/67 97 09/05/19 09:30 78 26 H 133/64 95 09/05/19 09:10 87 22 143/76 H 96 09/05/19 08:30 83 24 144/66 H 96 09/05/19 08:00 82 22 154/67 H 98 09/05/19 07:48 95 09/05/19 07:15 36.9 C 94 H 17 157/68 H 96 Laboratory Results Short CBC 09/05/19 Range/Units 07:48 WBC 11.75 H (4.8-10.8) K/uL Hgb 13.7 (12.0-16.0) g/dL Hct 41.7 (37-47) % Plt Count 244 (130-400) K/uL BMP 09/05/19 07:48 Sodium 137 Potassium 3.5 Chloride 106 Carbon Dioxide 24 BUN 17 Creatinine 0.80 Glucose 118 H Calcium 9.2 Liver Function 09/05/19 Range/Units 07:48 Total Bilirubin 1.2 H (0.2-1) mg/dl AST 12 L (15-37) U/L ALT 26 (12-78) U/L Alkaline Phosphatase 94 (45-117) U/L Albumin 3.1 L (3.4-5.0) gm/dl Urine 09/05/19 Range/Units 07:48 Urine Color Dark Yellow Urine Appearance Cloudy A (Clear) Urine pH 7.5 (4.5-7.5) Ur Specific [place] 1.022 (1.000-1.030) Urine Protein Negative (Negative) Urine Glucose (UA) Negative (Negative) Diagnostic Findings CT ABD/PELVIS: IMPRESSION: 1. Mild thickening and pericolonic fat stranding within the mid sigmoid colon. There is also a punctate focus of extraluminal gas consistent with microperforation in the setting of acute diverticulitis. No abscess identified. Recommend follow-up to ensure resolution. 2. Cholecystectomy. 3. Decrease in size in the ill-defined 1.8 cm hypodense lesion within the anterior segment of the right hepatic lobe. This favors an involuting cyst. 4. Additional findings as described above. Code Status & VTE Plan VTE Prophylaxis Plan VTE Prophylaxis will be ordered: Yes Supervising Physician Co-Signing Physician Notes Patient is an 82-year-old female with history of factor V Leiden, GERD dyslipidemia, hypertension and other medical problems presents with left lower abdominal pain which is sharp, constant, radiates to groin. Please review HPI for complete details of presentation. CT abdomen showed findings suggestive of microperforation in setting of acute diverticulitis. Also noted ill-defined 1.8 cm hypodense lesion within the anterior segment of the right hepatic lobe. On exam patient is obese, no apparent distress, normocephalic atraumatic, lungs are clear to auscultation, S1-S2, no murmur, abdomen soft, tender lower abdomen, predominantly left lower, trace pedal edema, grossly no focal neurological deficit. Patient is admitted for management of acute diverticulitis with microperforation. Agree with bowel rest, IV fluids, IV antibiotics, pain control. Appreciate surgery input. I personally reviewed the record. Patient is interviewed and examined at bedside. Patient's care is coordinated with Lalita Tse PA-C. Please refer to the documentation above for details of patient's presentation and for discussion of other issues. (1) Abdominal pain Abdominal location: lower abdomen, unspecified Qualified Code(s): R10.30 - Lower abdominal pain, unspecified
--- NOTE | 2019-09-05 11:29 | Surgery Consultation ---
Date of Consultation September 05, 2019 Assessment & Plan (1) Diverticulitis: No acute abdominal findings. Cipro, Flagyl ordered given PCN allergy. NPO for tonight, clears tomorrow if improving. Seen in ED with Dr. Woody. Supervising Physician Co-Signing Physician Notes Patient seen and examined, labs and imaging reviewed, agree with above. 83-year-old female with onset of lower abdominal pain. CT scan reveals diver ticulitis with microperforation. No evidence of abscess or free air. Afebrile, stable vitals. Slight leukocytosis. CT reviewed, and appears consistent with acute, uncomplicated diverticulitis. No acute surgical intervention indicated N.p.o., IV antibiotics Admit to medicine, appreciate assistance with patient Surgery will follow, call with questions or concerns History of Present Illness History of Present Illness 83 y/o female with history of diverticulitis 20 years ago ate a lot of corn yesterday, began having lower abdominal pain last night. No other attacks of diverticulitis since treated in [place] years ago. Last colonscopy 6 years ago or so and was not planning to repeat. Allergies Allergy/AdvReac Type Severity Reaction Status Date / Time latex Allergy Intermediate RASH - Verified 09/05/19 08:15 ITCHING Sulfa (Sulfonamide Allergy Intermediate HIVES Verified 09/05/19 08:15 Antibiotics) adhesive Allergy Mild RASH Verified 09/05/19 08:15 amoxicillin Allergy Mild RASH Verified 09/05/19 08:15 clavulanic acid Allergy Mild RASH Verified 09/05/19 08:15 oxycodone Allergy Mild RACING Verified 09/05/19 08:15 HEART prednisone AdvReac Mild GI SYMPTOMS Verified 09/05/19 08:15 salicylates AdvReac Mild GI SYMPTOMS Verified 09/05/19 08:15 aspirin AdvReac Unknown NAUSEA Unverified 09/05/19 08:15 naproxen AdvReac Unknown GI SYMPTOMS Verified 09/05/19 08:15 Penicillins AdvReac Unknown NAUSEA Unverified 09/05/19 08:15 procaine AdvReac Unknown HEART Unverified 09/05/19 08:15 RACING Home Medications Home Medications Medication Instructions Recorded Confirmed Type aspirin 81 mg PO QAM #0 09/02/16 09/05/19 History atorvastatin [Lipitor] 20 mg PO PM #0 tab 09/10/17 09/05/19 History losartan [Cozaar] 25 mg PO QAM #0 tab 09/10/17 09/05/19 History albuterol sulfate [Ventolin HFA] 3 puff INHALATION Q6H PRN 09/05/19 09/05/19 History fluticasone propionate 1 spray INTRANASAL BID PRN 09/05/19 09/05/19 History ibuprofen [Advil] 200 mg PO Q6H PRN 09/05/19 09/05/19 History Patient History Medical History Chronic lower back pain (Chronic) Surgical History (Updated 09/05/19 @ 11:32 by Dakota Mclaughlin Jr, PA-C) Hx laparoscopic cholecystectomy Social History Preferred Language: Mongolian Feels Safe at Home: Yes Smoking Status: Never smoker Review of Systems Constitutional: no fever and no chills Gastrointestinal: + abdominal pain, + bloating and + constipation; no nausea and no vomiting Physical Exam Constitutional: WD/WN, vitals as above Respiratory: normal respiratory effort Cardiovascular: Rate/Rhythm: regular rate Gastrointestinal (Abdomen): Inspection/Auscultation: + abdomen distended (slightly) Percussion/Palpation: + abdomen tender (moderate LLQ) and abdomen soft Results & Data Vital Signs (Past 12 Hours) Vital Signs Temp Pulse Resp BP Pulse Ox 09/05/19 11:00 82 19 143/78 H 95 09/05/19 10:30 81 24 142/62 H 96 09/05/19 10:00 74 24 133/67 97 09/05/19 09:30 78 26 H 133/64 95 09/05/19 09:10 87 22 143/76 H 96 09/05/19 08:30 83 24 144/66 H 96 09/05/19 08:00 82 22 154/67 H 98 09/05/19 07:48 95 09/05/19 07:15 36.9 C 94 H 17 157/68 H 96 PG Care Time/CCT Total # of Minutes Spent Total Time Spent with Patient: Total time spent is greater than 50% in coordination of care (as documented) at patient's floor/unit and/or counseling patient: Coding Level of Care Code 09315 Initial Inpt Care Lvl 1 Diagnoses Diverticulitis K57.92
[2019-09-05] MEDS: PROMETHAZINE HCL 6.25 MG in SODIUM CHLORIDE 0.9% 50 ML IV PRN (11:47)
[2019-09-05] MEDS: PROMETHAZINE 6.25 MG/50.25 ML NSS IV ONE ×2 (11:47→11:53)
[2019-09-05] MEDS: D5NSS + 20MEQ KCL 20 MEQ/1,000 ML BAG IV SCH (14:36)
[2019-09-05] MEDS ORDERED: ACETAMINOPHEN 325 MG TAB PO PRN (16:00)
[2019-09-05] MEDS ORDERED: FLUTICASONE PROPIONATE NA SPR 16 GM BTL NAE PRN (16:00)
[2019-09-05] MEDS ORDERED: ACETAMINOPHEN 1,000 MG/100 ML VIAL IV PRN (16:00)
[2019-09-05] MEDS ORDERED: ALBUTEROL HFA 8 GM INHALER INH PRN (16:00)
[2019-09-05] MEDS: HEPARIN SOD 5,000 UNIT/0.5 ML VIAL SQ SCH ×2 (16:34→22:09)
[2019-09-05] MEDS: metroNIDAZOLE 500 MG/100 ML BAG IV SCH (18:35)
[2019-09-05] MEDS: MoRPHine SULFATE 2 MG/ML CARP IV PRN (18:37)
[2019-09-05] MEDS: CIPROFLOXACIN / D5W 400 MG/200 ML BAG IV SCH (22:09)
[2019-09-06] MEDS: metroNIDAZOLE 500 MG/100 ML BAG IV SCH ×3 (03:03→18:02)
[2019-09-06] MEDS: D5NSS + 20MEQ KCL 20 MEQ/1,000 ML BAG IV SCH ×2 (04:05→18:05)
[2019-09-06] MEDS: HEPARIN SOD 5,000 UNIT/0.5 ML VIAL SQ SCH ×3 (06:14→21:55)
[2019-09-06 06:15] LABS: Hematocrit (blood only) 37.1 % (37-47); Hemoglobin 11.9 g/dL (12.0-16.0); Mean Corpuscular Hemoglobin 31.3 pg (25-34); Mean Corpuscular Hgb Conc 32.1 g/dL (32-36); Mean Corpuscular Volume 97.6 fL (80-100); Mean Platelet Volume 9.5 fL (7.4-10.4); Platelet Count 227 K/uL (130-400); RDW Coefficient of Variation 14.9 % (11.5-14.5); RDW Standard Deviation 52.9 fL (36.4-46.3); White Blood Count 7.48 K/uL (4.8-10.8)
[2019-09-06 06:54] LABS: BUN Creatinine Ratio 13.7 (10-20); Calcium 8.6 mg/dl (8.5-10.1); Creatinine Clr Calc Pharmacy 57.5 ml/min; Est GFR (Non-African American) 79.4; Potassium 3.9 mmol/L (3.5-5.1)
[2019-09-06] MEDS: MoRPHine SULFATE 2 MG/ML CARP IV PRN ×3 (07:24→19:26)
[2019-09-06] MEDS: LOSARTAN POTASSIUM 25 MG TAB PO SCH (07:30)
[2019-09-06] MEDS: ASPIRIN 81 MG ECTAB PO SCH (07:30)
--- NOTE | 2019-09-06 08:21 | Surgery Progress Note ---
Date of Service September 06, 2019 Assessment & Plan (1) Diverticulitis: improved WBC normal, afebrile left flank pain more musculoskeletal clear liquids Supervising Physician Co-Signing Physician Notes Patient seen and examined, labs reviewed, agree with above. Admitted for diverticulitis, pain improved, afebrile with normal white count. On exam minimally tender in left lower quadrant, improved from yesterday. Advance to clears this morning, may advance to low residual diet over the next 24 hours if doing well. Follow-up for colonoscopy as an outpatient. Subjective c/o left flank pain this Am, some nausea after pain meds Physical Exam Gastrointestinal (Abdomen): Inspection/Auscultation: abdomen not distended Percussion/Palpation: + abdomen tender (less tender LLQ) and abdomen soft Results & Data Vital Signs (Past 12 Hours) Vital Signs Temp Pulse Pulse Resp BP Pulse Ox 09/06/19 07:51 98 H 09/06/19 07:29 36.7 C 79 18 158/64 H 95 09/06/19 03:00 36.9 C 72 20 113/73 90 09/06/19 01:03 76 09/05/19 22:00 36.8 C 87 16 161/79 H 92 PG Care Time/CCT Total # of Minutes Spent Total Time Spent with Patient: Total time spent is greater than 50% in coordination of care (as documented) at patient's floor/unit and/or counseling patient: Coding Level of Care Code 70255 Inpt Consult Level 1 Diagnoses Diverticulitis K57.92
--- NOTE | 2019-09-06 09:19 | Hospitalist Progress Note ---
Date of Service September 06, 2019 Assessment & Plan (1) Diverticulitis: (2) Abdominal pain: Diverticulitis, suspected microperforation Admitted 09/05/2019 for lower abdominal pain without fever. Pt is 83 y/o F with PMH HTN, dyslipidemia, Factor V Leiden, H/O RLE ?DVT in 05/2019, KIM presented to ER with c/o left lower abdominal pain started yesterday evening. Denies nausea or vomiting. Chills, no recorded fever CT ABD/PELVIS: Mild thickening and pericolonic fat stranding within the mid sigmoid colon. There is also a punctate focus of extraluminal gas consistent with microperforation in the setting of acute diverticulitis. No abscess identified. Cholecystectomy. Decrease in size in the ill-defined 1.8 cm hypodense lesion within the anterior segment of the right hepatic lobe. This favors an involuting cyst. -Overnight vitals stable, no fever or chills -Reports decreased lower abdominal pain today -Today with resolved leukocytosis, yesterday mild leukocytosis with WBC: 11.8 -New left flank pain without CVA tenderness. Will obtain KUB to r/o air. Yesterday CT without mention of renal stones. DDX: musculoskeletal. Was able to reposition pt to more upright position in bed with relief of left flank discomfort -KUB WNL -Urine culture and blood cultures pending -Continue Giancarlo Art -General surgery consult, Dr Woody saw pt. Planned conservative management at this time. Will advance diet to clear liquids today -CBC, BMP in am (3) HTN (hypertension): Stable -Continue losartan with holding parameters (4) Dyslipidemia: -Hold atorvastatin for now (5) Factor V Leiden: H/O DVT many years ago Pt reports in 05/2019 in [place] had red sore spot to RLE and reports had US and had "blood clot" and took Xarelto for one week and f/u with vascular surgeon who recommended to discontinue Xarelto -On daily aspirin 81 mg (6) H/O sciatica: h/o left sided sciatica Feels aggravated with sleeping position last night. Pt able to be repositioned in bed with improvement of left buttock discomfort Monitor. may need to consider adding head pack, lidocaine patch, or muscle relaxer or considering outpatient PT (7) KIM (obstructive sleep apnea): -CPAP HS DVT Prophylaxis -Heparin SQ Pt was seen and care coordinated with Dr Graham. See addendum Admission and Anticipated Discharge Date Admission Date: September 05, 2019 Supervising Physician Co-Signing Physician Notes Patient is seen and examined at bedside. Abdominal pain is much improved today. Tolerating clear liquid diet. Denies nausea, vomiting. Complains of left- sided muscular pain which improved. On exam patient is moderately built and nourished, no apparent distress, normocephalic atraumatic, lungs are clear to auscultation, S1-S2, no murmur, trace pedal edema, abdomen soft, mild tenderness left lower quadrant, no guarding or rigidity, normal bowel sounds, grossly no focal neurological deficits. Will continue IV fluids, IV antibiotics for perf orated diverticulitis. No surgical intervention needed currently. White blood cell count normalized. Will need colonoscopy as outpatient. We will plan to advance diet as tolerated. Appreciate surgery input.I personally reviewed the record. Patient is interviewed and examined at bedside. Patient's care is coordinated with Lalita Tse PA-C. Please refer to the documentation above for details of patient's presentation and for discussion of other issues. Subjective Pt seen and examined. Lying slouched down in bed. Reports still with lower abdominal pain but feels it has decreased since yesterday. Reports during the night started with pain to left side that is aching and aggravated with movement. Pain improved with sitting in upright position and no pain when up ambulating. denies pain with inspiration. Denies dysuria, hematuria, urinary frequency or retention. Reports chronic sciatica type pain to left buttocks. She feels her positioning in bed has aggravated her left buttock pain. Had some nausea after receiving dose of morphine. Pt reports always gets nausea with pain medication. Reports passing flatus. No BM today. Denies fever/chills, diaphoresis, vomiting, [place], dizziness, syncope, vision changes, neck pain, CP, SOB, orthopnea, palpitations, cough, sore throat, choking, otalgia, rhinorrhea, paresthesias, extremity weakness, extremity edema, rashes. Review of Systems Review of Systems: All systems reviewed & are unremarkable except as noted in HPI & below Physical Exam Physical Exam: General: no distress, obese Head: normocephalic, atraumatic Eyes: conjunctiva non-injected, anicteric ENT: normal inspection external ears, nose, mucous membranes dry Neck: supple, trachea midline Lungs: clear, no respiratory distress, no wheezing/rhonchi/rales CV: RRR, no murmur, no pretibial edema Abd: normal BS, soft, protuberant, +tenderness to palpation across entire lower abdomen, no rebound, +slight tenderness to palpation around left flank however +tenderness to left flank with rotation of torso, no CVA tenderness to percussion; no skin discolorations Back: no spinous process tenderness to palpation, +tenderness to palpation of left buttock, no skin discolorations Ext: no cyanosis or erythema, no calf tenderness Neuro: A&O x 3, no focal deficits noted, normal affect Skin: warm, dry Results & Data Results & Data ([facility]) Vital Signs (Past 12 Hours) Vital Signs Temp Pulse Pulse Resp BP Pulse Ox 09/06/19 07:51 98 H 09/06/19 07:29 36.7 C 79 18 158/64 H 95 09/06/19 03:00 36.9 C 72 20 113/73 90 09/06/19 01:03 76 09/05/19 22:00 36.8 C 87 16 161/79 H 92 Laboratory Results Short CBC 09/06/19 Range/Units 05:50 WBC 7.48 (4.8-10.8) K/uL Hgb 11.9 L (12.0-16.0) g/dL Hct 37.1 (37-47) % Plt Count 227 (130-400) K/uL BMP 09/06/19 05:50 Sodium 139 Potassium 3.9 Chloride 111 H Carbon Dioxide 24 BUN 9 D Creatinine 0.69 Glucose 126 H Calcium 8.6 (1) Abdominal pain Abdominal location: lower abdomen, unspecified Qualified Code(s): R10.30 - Lower abdominal pain, unspecified
[2019-09-06] MEDS: CIPROFLOXACIN / D5W 400 MG/200 ML BAG IV SCH ×2 (10:28→21:54)
--- NOTE | 2019-09-06 10:31 | XRay Report ---
XR KUB/Abdomen 1 view CLINICAL HISTORY: left abd pain pain COMPARISON STUDY: No previous studies for comparison. FINDINGS: The soft tissues, psoas shadows, renal outlines and intestinal gas pattern appear normal. T here is no evidence for bowel obstruction. No abnormal abdominal calcifications are seen. IMPRESSION: Normal study. ACT 112: Negative or not required by law. The above report was generated using voice recognition software. It may contain grammatical, syntax or spelling errors. Electronically signed by: Pernell Diaz M.D. 09/06/2019 10:29 AM
[2019-09-06] MEDS: PROMETHAZINE HCL 6.25 MG in SODIUM CHLORIDE 0.9% 50 ML IV PRN (17:59)
[2019-09-07] MEDS: metroNIDAZOLE 500 MG/100 ML BAG IV SCH ×3 (01:57→17:35)
[2019-09-07] MEDS: MoRPHine SULFATE 2 MG/ML CARP IV PRN ×2 (03:11→08:19)
[2019-09-07] MEDS: HEPARIN SOD 5,000 UNIT/0.5 ML VIAL SQ SCH ×3 (06:21→21:05)
[2019-09-07] MEDS: D5NSS + 20MEQ KCL 20 MEQ/1,000 ML BAG IV SCH ×2 (06:23→17:35)
[2019-09-07] MEDS: LOSARTAN POTASSIUM 25 MG TAB PO SCH (08:20)
[2019-09-07] MEDS: ASPIRIN 81 MG ECTAB PO SCH (08:20)
[2019-09-07 08:24] LABS: Hematocrit (blood only) 39.1 % (37-47); Hemoglobin 12.8 g/dL (12.0-16.0); Mean Corpuscular Hemoglobin 31.4 pg (25-34); Mean Corpuscular Hgb Conc 32.7 g/dL (32-36); Mean Corpuscular Volume 95.8 fL (80-100); Mean Platelet Volume 9.6 fL (7.4-10.4); Platelet Count 231 K/uL (130-400); RDW Coefficient of Variation 14.5 % (11.5-14.5); RDW Standard Deviation 51.3 fL (36.4-46.3); Red Blood Count 4.08 M/uL (4.2-5.4); White Blood Count 5.42 K/uL (4.8-10.8)
--- NOTE | 2019-09-07 08:43 | Surgery Progress Note ---
Date of Service September 07, 2019 Assessment & Plan (1) Diverticulitis: appears to be getting better. wbc normal yesterday. symptoms c/w left kidney stone. +blood in urine on recent UA will obtain CT scan with renal stone protocol to evaluate symptom control. Dr. Stanlye covering for weekend. (2) Flank pain, acute: Subjective pt seen. her "diverticulitis" pain has essentially resolved however she now has a left flank pain that is colicky and states feel similar to her prior kidney stones. Physical Exam Physical Exam: alert. intermittently uncomfortable . holding left upper flank abd: soft. mild LLQ ttp. no g/r/r. Results & Data Vital Signs (Past 12 Hours) Vital Signs Temp Pulse Pulse Resp BP Pulse Ox 09/07/19 07:27 37.1 C 72 18 154/74 H 93 09/07/19 07:17 66 09/07/19 03:20 36.6 C 66 20 124/76 96 09/07/19 01:30 78 09/06/19 23:00 37.3 C 77 20 129/70 94 PG Care Time/CCT Total # of Minutes Spent Total Time Spent with Patient: Total time spent is greater than 50% in coordination of care (as documented) at patient's floor/unit and/or counseling patient: Coding Level of Care Code 04738 Subseq Hosp Care Lvl 3 Diagnoses Diverticulitis K57.92 Flank pain, acute R10.9
--- NOTE | 2019-09-07 08:43 | Surgery Progress Note ---
Date of Service September 07, 2019 Assessment & Plan (1) Diverticulitis: Patient here with diverticulitis WBC 5.4 today and patient afebrile Appears to be improving from abdominal standpoint, however patient with ongoing complaints of L flank pain. UA had + RBC's. We will obtain a CT a/p to evaluate for kidney stones. CT will also give us a picture of how her diverticulitis is doing Pending CT scan results she may be able to advance her diet as tolerates May need Urology consult if + for kidney stones Will need to complete course of abx Should obtain colonoscopy in 6-8 weeks Subjective Patient examined sitting up in chair. Abdominal pain improving, but since yesterday has been complaining of waxing and waning left flank pain. She is tolerating clears. Physical Exam Physical Exam: awake/alert Constitutional: sitting in chair. Appears in some pain due to L flank pain, using Ice pack. Results & Data Vital Signs (Past 12 Hours) Vital Signs Temp Pulse Pulse Resp BP Pulse Ox 09/07/19 07:27 37.1 C 72 18 154/74 H 93 09/07/19 07:17 66 09/07/19 03:20 36.6 C 66 20 124/76 96 09/07/19 01:30 78 09/06/19 23:00 37.3 C 77 20 129/70 94 PG Care Time/CCT Total # of Minutes Spent Total Time Spent with Patient: Total time spent is greater than 50% in coordina tion of care (as documented) at patient's floor/unit and/or counseling patient: Coding Level of Care Code 50090 Subseq Hosp Care Lvl 1 Diagnoses Diverticulitis K57.92
[2019-09-07 08:45] LABS: Calcium 8.6 mg/dl (8.5-10.1); Creatinine Clr Calc Pharmacy 61.5 ml/min; Est GFR (African American) 93.8; Potassium 3.8 mmol/L (3.5-5.1)
[2019-09-07] MEDS: CIPROFLOXACIN / D5W 400 MG/200 ML BAG IV SCH ×2 (10:05→21:00)
--- NOTE | 2019-09-07 10:31 | CT Scan Report ---
CT OF THE ABDOMEN AND PELVIS WITHOUT CONTRAST CLINICAL HISTORY: L flank pain, evaluate for kidney stones. COMPARISON STUDY: CT of the abdomen and pelvis September 05, 2019. KUB September 06, 2019. TECHNIQUE: Axial images of the abdomen and pelvis were obtained without IV contrast. Images were revi ewed in the axial, sagittal, and coronal planes. Automated exposure control was utilized for the adarsh dy. A dose lowering technique was utilized adhering to the principles of ALARA. FINDINGS: Minimal airspace opacity within the left lower lobe is noted. Biliary ductal dilatation is unchanged and likely related to cholecystectomy. The spleen, adrenal glands and pancreas are unremark able on this unenhanced examination. No renal, ureteral or bladder calculi are present. There is no h ydronephrosis or hydroureter. Colonic diverticulosis is noted. Mild infiltration adjacent to the mid sigmoid colon is similar to prior exam. A locule of extraluminal gas is noted. There is no abscess. P essary device is in place. There are no suspicious osseous lesions. IMPRESSION: 1. No urinary calculi or hydronephrosis. 2. No significant change in findings consistent with acute sigmoid diverticulitis. Minimal extralumin al gas, as before. No abscess. ACT 112: Negative or not required by law. Electronically signed by: Blu Betancur M.D. 09/07/2019 10:29 AM
--- NOTE | 2019-09-07 14:30 | XRay Report ---
XR chest 2V PA/lateral HISTORY: cough COMPARISON: Chest 09/10/2017. FINDINGS: Cardiac silhouette is normal in size. No pleural effusions. No pneumothorax. Mild chronic i nterstitial thickening, unchanged. No new focal lung consolidations. Mild calcified plaque within the aortic arch. IMPRESSION: No significant change compared to the prior study. No acute process. ACT 112: Negative or not required by law. Electronically signed by: Rony Andrew M.D. 09/07/2019 2:29 PM
[2019-09-07] MEDS ORDERED: POLYETHYLENE (MIRALAX) 17 GM PACK PO PRN (17:55)
[2019-09-07] MEDS ORDERED: LOSARTAN POTASSIUM 25 MG TAB PO SCH (18:00)
--- NOTE | 2019-09-07 18:05 | Hospitalist Progress Note ---
Date of Service September 07, 2019 Assessment & Plan (1) Diverticulitis: (2) Abdominal pain: Acute Diverticulitis Suspected microperforation --CT ABD: Mild thickening and pericolonic fat stranding within the mid sigmoid colon. There is also a punctate focus of extraluminal gas consistent with ronel roperforation in the setting of acute diverticulitis. No abscess identified. Cholecystectomy. Decrease in size in the ill-defined 1.8 cm hypodense lesion within the anterior segment of the right hepatic lobe. This favors an involuting cyst. -Continue IV antibiotics --No surgical intervention needed currently --Appreciate surgery input --Continue IV fluids --Pain control --Advance diet as tolerated Left flank pain without CVA tenderness Likely musculoskeletal in origin H/O sciatica Repeat CT ABD:No urinary calculi or hydronephrosis. No significant change in findings consistent with acute sigmoid diverticulitis. Minimal extraluminal gas, as before. No abscess. Pain control Cough CXR:No significant change compared to the prior study. No acute process. Continue antibiotics as above for possible bronchitis (3) HTN (hypertension): BP elevated Likely situational secondary to pain Continue losartan Monitor BP (4) Dyslipidemia: Resume atorvastatin as able (5) Factor V Leiden: H/O DVT many years ago Pt reports in 05/2019 in [place] had red sore spot to RLE and reports had US and had "blood clot" and took Xarelto for one week and f/u with vascular surgeon who recommended to discontinue Xarelto On daily aspirin 81 mg (6) H/O sciatica: Management as above (7) KIM (obstructive sleep apnea): CPAP HS DVT Px Heparin SQ Admission and Anticipated Discharge Date Admission Date: September 05, 2019 Subjective Patient is seen and examined at bedside Abdominal pain much improved States having left flank pain CT not suggestive of nephrolithiasis/ureteral stone States having cough Denies chest pain, shortness of breath, dizziness Tolerating diet Review of Systems Review of Systems: All systems reviewed & are unremarkable except as noted in HPI & below Physical Exam Physical Exam: Physical Exam: Vitals signs as noted above General Appearance:Moderately built and nourished, no apparent distress Head: normocephalic, Atraumatic Eyes: normal inspection, EOMI Neck: supple, Trachea midline Respiratory/Chest: Normal breath sounds, CTA Cardiovascular: S1, S2, No murmur Abdomen/GI:Soft, mild LLQ tender, Mild left flank tender, Bowel sounds present Extremities/Musculoskelatal:normal inspection, no edema Neurologic/Psych:AAOX3, grossly no focal neurological deficits Skin: normal color, warm Results & Data Results & Data ([facility]) Vital Signs (Past 12 Hours) Vital Signs Temp Pulse Pulse Resp BP Pulse Ox 09/07/19 15:37 36.4 C L 63 18 174/84 H 94 09/07/19 15:09 77 09/07/19 11:35 36.5 C 72 18 131/73 93 09/07/19 07:27 37.1 C 72 18 154/74 H 93 09/07/19 07:17 66 Laboratory Results Short CBC 09/07/19 Range/Units 07:45 WBC 5.42 (4.8-10.8) K/uL Hgb 12.8 (12.0-16.0) g/dL Hct 39.1 (37-47) % Plt Count 231 (130-400) K/uL BMP 09/07/19 07:45 Sodium 141 Potassium 3.8 Chloride 112 H Carbon Dioxide 23 BUN 5 L Creatinine 0.65 Glucose 115 H Calcium 8.6 (1) Abdominal pain Abdominal location: lower abdomen, unspecified Qualified Code(s): R10.30 - Lower abdominal pain, unspecified
[2019-09-07] MEDS ORDERED: LIDOCAINE 5% 1 PATCH TD SCH (18:15)
[2019-09-07] MEDS ORDERED: Nursing to Pharmacy Communication SCH (20:00)
[2019-09-07] MEDS: LIDOCAINE 5% 1 PATCH TD SCH (21:03)
[2019-09-08] MEDS: metroNIDAZOLE 500 MG/100 ML BAG IV SCH ×3 (02:31→19:00)
[2019-09-08] MEDS: HEPARIN SOD 5,000 UNIT/0.5 ML VIAL SQ SCH ×3 (06:27→21:56)
[2019-09-08] MEDS: LOSARTAN POTASSIUM 25 MG TAB PO SCH (07:44)
[2019-09-08] MEDS: ASPIRIN 81 MG ECTAB PO SCH (07:45)
[2019-09-08 08:23] LABS: Hematocrit (blood only) 40.9 % (37-47); Hemoglobin 13.3 g/dL (12.0-16.0); Mean Corpuscular Hemoglobin 31.1 pg (25-34); Mean Corpuscular Hgb Conc 32.5 g/dL (32-36); Mean Corpuscular Volume 95.8 fL (80-100); Mean Platelet Volume 10.3 fL (7.4-10.4); Platelet Count 255 K/uL (130-400); RDW Coefficient of Variation 14.4 % (11.5-14.5); RDW Standard Deviation 50.5 fL (36.4-46.3); Red Blood Count 4.27 M/uL (4.2-5.4); White Blood Count 4.65 K/uL (4.8-10.8)
--- NOTE | 2019-09-08 08:24 | Surgery Progress Note ---
Date of Service September 08, 2019 Assessment & Plan (1) Diverticulitis: switch to po abx soon advance diet as tolerated home soon Present on Admission?: Yes Subjective eating well CT scan without stones or abdominal issues clinically improving without fevers and pain minimal Review of Systems Constitutional: no fever and no chills Respiratory: no cough and no dyspnea Cardiovascular: no chest pain Gastrointestinal: + abdominal pain (better); no nausea, no vomiting and no change in bowel habits Musculoskeletal: + back pain Integumentary: no rash and no lesions Physical Exam Constitutional: well developed and well nourished Neck: trachea midline Respiratory: normal respiratory effort, lungs clear to auscultation Cardiovascular: RRR, no murmur, no edema Gastrointestinal (Abdomen): Inspection/Auscultation: abdomen normal to inspection and normal bowel sounds; abdomen not distended Percussion/Palpation: + abdomen tender and abdomen soft; no guarding and abdomen not rigid Musculoskeletal: Head/Neck/Chest: normocephalic and head atraumatic Skin: no rashes, warm and dry Results & Data Vital Signs (Past 12 Hours) Vital Signs Temp Pulse Pulse Resp BP BP Pulse Ox 09/08/19 07:30 36.6 C 74 20 187/82 H 96 09/08/19 04:09 36.8 C 80 18 174/82 H 94 09/07/19 23:13 36.9 C 77 18 149/74 H 95 09/07/19 22:[address] OF THE ABDOMEN AND PELVIS WITHOUT CONTRAST CLINICAL HISTORY: L flank pain, evaluate for kidney stones. COMPARISON STUDY: CT of the abdomen and pelvis September 05, 2019. KUB September 06, 2019. TECHNIQUE: Axial images of the abdomen and pelvis were obtained without IV contrast. Images were reviewed in the axial, sagittal, and coronal planes. Automated exposure control was utilized for the study. A dose lowering technique was utilized adhering to the principles of ALARA. FINDINGS: Minimal airspace opacity within the left lower lobe is noted. Biliary ductal dilatation is unchanged and likely related to cholecystectomy. The spleen, adrenal glands and pancreas are unremarkable on this unenhanced examination. No renal, ureteral or bladder calculi are present. There is no hydronephrosis or hydroureter. Colonic diverticulosis is noted. Mild infiltrat ion adjacent to the mid sigmoid colon is similar to prior exam. A locule of extraluminal gas is noted. There is no abscess. Pessary device is in place. There are no suspicious osseous lesions. IMPRESSION: 1. No urinary calculi or hydronephrosis. 2. No significant change in findings consistent with acute sigmoid diverticulitis. Minimal extraluminal gas, as before. No abscess.
[2019-09-08 08:46] LABS: BUN Creatinine Ratio 5.1 (10-20); Calcium 9.1 mg/dl (8.5-10.1); Creatinine Clr Calc Pharmacy 60.8 ml/min; Est GFR (African American) 93.4; Est GFR (Non-African American) 80.6; Potassium 3.9 mmol/L (3.5-5.1)
[2019-09-08] MEDS: CIPROFLOXACIN / D5W 400 MG/200 ML BAG IV SCH (11:56)
[2019-09-08] MEDS: D5NSS + 20MEQ KCL 20 MEQ/1,000 ML BAG IV SCH (16:33)
--- NOTE | 2019-09-08 17:00 | Hospitalist Progress Note ---
Date of Service September 08, 2019 Assessment & Plan (1) Diverticulitis: (2) Abdominal pain: Acute Diverticulitis Suspected microperforation --CT ABD: Mild thickening and pericolonic fat stranding within the mid sigmoid colon. There is also a punctate focus of extraluminal gas consistent with mi croperforation in the setting of acute diverticulitis. No abscess identified. Cholecystectomy. Decrease in size in the ill-defined 1.8 cm hypodense lesion within the anterior segment of the right hepatic lobe. This favors an involuting cyst. --Repeat CT: No urinary calculi or hydronephrosis. No significant change in findings consistent with acute sigmoid diverticulitis. Minimal extraluminal gas, as before. No abscess. --Continue IV antibiotics --No surgical intervention needed currently --Appreciate surgery input --Received IV fluids --Pain is controlled --Tolerating low fiber diet --Plan to transition PO antibiotics tmw Left flank pain without CVA tenderness Likely musculoskeletal in origin H/O sciatica Repeat CT ABD:No urinary calculi or hydronephrosis. No significant change in fin dings consistent with acute sigmoid diverticulitis. Minimal extraluminal gas, as before. No abscess. Pain control Cough CXR:No significant change compared to the prior study. No acute process. Continue antibiotics as above for possible bronchitis (3) HTN (hypertension): BP Variable Likely situational secondary to pain Continue losartan Monitor BP (4) Dyslipidemia: On statin (5) Factor V Leiden: H/O DVT many years ago Pt reports in 05/2019 in [place] had red sore spot to RLE and reports had US and had "blood clot" and took Xarelto for one week and f/u with vascular surgeon who recommended to discontinue Xarelto On daily aspirin 81 mg (6) H/O sciatica: Management as above (7) KIM (obstructive sleep apnea): CPAP HS DVT Px Heparin SQ Admission and Anticipated Discharge Date Admission Date: September 05, 2019 Subjective Patient is seen and examined at bedside Doing better today Tolerating diet Afebrile Cough improved Had bowel movement today Left lower quadrant abdominal pain, flank pain improved Denies chest pain, shortness of breath, dizziness Review of Systems Review of Systems: All systems reviewed & are unremarkable except as noted in HPI & below Physical Exam Physical Exam: Physical Exam: Vitals signs as noted above General Appearance:Moderately built and nourished, no apparent distress Head: normocephalic, Atraumatic Eyes: normal inspection, EOMI Neck: supple, Trachea midline Respiratory/Chest: Normal breath sounds, CTA Cardiovascular: S1, S2, No murmur Abdomen/GI:Soft, mild LLQ tender, Mild left flank tender, Bowel sounds present Extremities/Musculoskelatal:normal inspection, no edema Neurologic/Psych:AAOX3, grossly no focal neurological deficits Skin: normal color, warm Results & Data Results & Data ([facility]) Vital Signs (Past 12 Hours) Vital Signs Temp Pulse Resp BP BP Pulse Ox 09/08/19 15:50 36.4 C L 79 20 164/78 H 96 09/08/19 10:55 168/74 H 09/08/19 07:30 36.6 C 74 20 187/82 H 96 Laboratory Results Short CBC 09/08/19 Range/Units 07:48 WBC 4.65 L (4.8-10.8) K/uL Hgb 13.3 (12.0-16.0) g/dL Hct 40.9 (37-47) % Plt Count 255 (130-400) K/uL BMP 09/08/19 07:48 Sodium 139 Potassium 3.9 Chloride 111 H Carbon Dioxide 22 BUN 3 L Creatinine 0.66 Glucose 116 H Calcium 9.1 (1) Abdominal pain Abdominal location: lower abdomen, unspecified Qualified Code(s): R10.30 - Lower abdominal pain, unspecified
[2019-09-08] MEDS: LIDOCAINE 5% 1 PATCH TD SCH (19:03)
[2019-09-08] MEDS ORDERED: ATORVASTATIN 20 MG TAB PO SCH (21:00)
[2019-09-09] MEDS: CIPROFLOXACIN / D5W 400 MG/200 ML BAG IV SCH ×2 (00:02→12:16)
[2019-09-09] MEDS: metroNIDAZOLE 500 MG/100 ML BAG IV SCH ×2 (04:14→12:17)
[2019-09-09] MEDS: HEPARIN SOD 5,000 UNIT/0.5 ML VIAL SQ SCH ×2 (05:52→14:01)
[2019-09-09] MEDS: PROMETHAZINE HCL 6.25 MG in SODIUM CHLORIDE 0.9% 50 ML IV PRN (08:03)
[2019-09-09] MEDS: LOSARTAN POTASSIUM 25 MG TAB PO SCH (08:04)
[2019-09-09] MEDS: ASPIRIN 81 MG ECTAB PO SCH (08:04)
--- NOTE | 2019-09-09 09:33 | Surgery Progress Note ---
Date of Service September 09, 2019 Assessment & Plan (1) Diverticulitis: steady improvement switch to po abx and discharge per medical team will need 10days abx Present on Admission?: Yes Subjective HD #2 feels well but some nausea last night taking po well no fevers or chills Review of Systems Constitutional: no fever, no chills and no anorexia Respiratory: no cough and no dyspnea Cardiovascular: no chest pain Gastrointestinal: + abdominal pain; no nausea, no vomiting and no change in bowel habits Genitourinary: no dysuria Musculoskeletal: no back pain Integumentary: no rash and no lesions Neurologic: no localized weakness and no generalized weakness Physical Exam Constitutional: WD/WN, vitals as above Neck: trachea midline Respiratory: normal respiratory effort, lungs clear to auscultation Cardiovascular: RRR, no murmur, no edema Gastrointestinal (Abdomen): Inspection/Auscultation: abdomen normal to i nspection and normal bowel sounds; abdomen not distended Percussion/Palpation: abdomen nontender, no guarding and no hernia Musculoskeletal: Head/Neck/Chest: normocephalic and head atraumatic Skin: no rashes, warm and dry Results & Data Vital Signs (Past 12 Hours) Vital Signs Temp Pulse Pulse Resp BP BP Pulse Ox 09/09/19 07:39 36.7 C 87 20 174/70 H 93 09/09/19 02:52 36.9 C 69 19 165/75 H 93 09/09/19 01:18 82 09/08/19 23:13 36.8 C 82 18 155/75 H 95
--- NOTE | 2019-09-09 12:53 | Hospitalist Progress Note ---
Date of Service September 09, 2019 Assessment & Plan (1) Diverticulitis: (2) Abdominal pain: Acute Diverticulitis Suspected microperforation --CT ABD: Mild thickening and pericolonic fat stranding within the mid sigmoid colon. There is also a punctate focus of extraluminal gas consistent with mi croperforation in the setting of acute diverticulitis. No abscess identified. Cholecystectomy. Decrease in size in the ill-defined 1.8 cm hypodense lesion within the anterior segment of the right hepatic lobe. This favors an involuting cyst. --Repeat CT: No urinary calculi or hydronephrosis. No significant change in findings consistent with acute sigmoid diverticulitis. Minimal extraluminal gas, as before. No abscess. --Received IV antibiotics--Cipro, flagyl --No surgical intervention needed currently --Appreciate surgery input --Received IV fluids --Pain is controlled --Tolerated low fiber diet --Plan to transition to PO antibiotics to complete 10-day course of antibiotics. Needs follow-up with surgery upon discharge Left flank pain without CVA tenderness Likely musculoskeletal in origin H/O sciatica Repeat CT ABD:No urinary calculi or hydronephrosis. No significant change in findings consistent with acute sigmoid diverticulitis. Minimal extraluminal gas, as before. No abscess. Pain control Cough CXR:No significant change compared to the prior study. No acute process. Continue antibiotics as above for possible bronchitis Improved (3) HTN (hypertension): BP Variable Likely situational secondary to pain Continue losartan Monitor BP Will increase losartan to 50 mg daily to better control blood pressure (4) Dyslipidemia: On statin (5) Factor V Leiden: H/O DVT many years ago Pt reports in 05/2019 in [place] had red sore spot to RLE and reports had US and had "blood clot" and took Xarelto for one week and f/u with vascular surgeon who recommended to discontinue Xarelto On daily aspirin 81 mg (6) H/O sciatica: Management as above (7) KIM (obstructive sleep apnea): CPAP HS DVT Px Heparin SQ Admission and Anticipated Discharge Date Admission Date: September 05, 2019 Subjective Patient is seen and examined at bedside Doing well today Abdominal pain only minimal Tolerating diet No new complaints Denies chest pain, shortness of breath, dizziness Review of Systems Review of Systems: All systems reviewed & are unremarkable except as noted in HPI & below Physical Exam Physical Exam: Physical Exam: Vitals signs as noted above General Appearance:Moderately built and nourished, no apparent distress Head: normocephalic, Atraumatic Eyes: normal inspection, EOMI Neck: supple, Trachea midline Respiratory/Chest: Normal breath sounds, CTA Cardiovascular: S1, S2, No murmur Abdomen/GI:Soft, non tender, Bowel sounds present Extremities/Musculoskelatal:normal inspection, no edema Neurologic/Psych:AAOX3, grossly no focal neurological deficits Skin: normal color, warm Results & Data Results & Data ([facility]) Vital Signs (Past 12 Hours) Vital Signs Temp Pulse Pulse Resp BP Pulse Ox 09/09/19 07:39 36.7 C 87 20 174/70 H 93 09/09/19 07:00 72 09/09/19 02:52 36.9 C 69 19 165/75 H 93 09/09/19 01:18 82 (1) Abdominal pain Abdominal location: lower abdomen, unspecified Qualified Code(s): R10.30 - Lower abdominal pain, unspecified
--- NOTE | 2019-09-09 13:01 | Discharge Summary ---
Date of Service September 09, 2019 Admission HPI Per Admitting Provider Pt is 83 y/o F with PMH HTN, dyslipidemia, Factor V Leiden, H/O RLE ?DVT in 05/2019, KIM presented to ER with c/o left lower abdominal pain started yesterday evening. Describes pain as sharp and constant and across mid lower and left lower abdomen and radiates to groin. Denies nausea or vomiting. Reports past week with constipation and yesterday morning took Miralax and had formed BM after. Last night felt hot and cold, did not take temperature. This morning with generalized weakness. No prior treatment. Denies vaginal discharge or bleeding. Reports chronic post nasal drip and cough in morning for years. Throat feels dry in mornings after removes CPAP. Denies any worsening cough, recent travel, known COVID exposure. Pt reports in 05/2019 in [place] had red sore spot to RLE and reports had US and had "blood clot" and took Xarelto for one week and f/u with vascular surgeon who recommended to discontinue Xarelto. Denies diaphoresis, melena, hematochezia, [place], dizziness, syncope, vision changes, neck pain, CP, SOB, or thopnea, palpitations, choking, otalgia, rhinorrhea, paresthesias, extremity edema, exremity erythema, rashes, urinary symptoms. H/O colonoscopy in 2007: mild-moderate diverticulosis sigmoid colon. Admission Exam Per Admitting Provider Physical Exam Physical Exam: General: no distress, obese Head: normocephalic, atraumatic Eyes: PERRL, EOM's intact, conjunctiva non-injected, anicteric ENT: normal inspection external ears, nose, mucous membranes dry Neck: supple, trachea midline Lungs: clear, no respiratory distress, no wheezing/rhonchi/rales CV: RRR, no murmur, no pretibial edema Abd: normal BS, soft, protuberant, +tenderness to palpation across entire lower abdomen greatest over LLQ, no rebound Ext: no cyanosis or erythema, no calf tenderness Neuro: A&O x 3, no focal deficits noted, normal affect Skin: warm, dry Principal Diagnosis Acute Diverticulitis Suspected microperforation Discharge Data Allergies Allergy/AdvReac Type Severity Reaction Status Date / Time latex Allergy Intermediate RASH - Verified 09/05/19 08:15 ITCHING Sulfa (Sulfonamide Allergy Intermediate HIVES Verified 09/05/19 08:15 Antibiotics) adhesive Allergy Mild RASH Verified 09/05/19 08:15 amoxicillin Allergy Mild RASH Verified 09/05/19 08:15 clavulanic acid Allergy Mild RASH Verified 09/05/19 08:15 oxycodone Allergy Mild RACING Verified 09/05/19 08:15 HEART prednisone AdvReac Mild GI SYMPTOMS Verified 09/05/19 08:15 salicylates AdvReac Mild GI SYMPTOMS Verified 09/05/19 08:15 aspirin AdvReac Unknown NAUSEA Unverified 09/05/19 08:15 naproxen AdvReac Unknown GI SYMPTOMS Verified 09/05/19 08:15 Penicillins AdvReac Unknown NAUSEA Unverified 09/05/19 08:15 procaine AdvReac Unknown HEART Unverified 09/05/19 08:15 RACING chocolate flavor AdvReac Verified 09/06/19 11:21 Orion And Derivatives AdvReac Verified 09/06/19 11:40 peanut AdvReac Verified 09/06/19 11:21 Consultations 09/05/19 10:08 ED Decision to Admit Stat 09/05/19 16:00 Consult Case Management - Discharge Planning Routine Consult General Surgery Routine Procedures Performed --CT ABD: Mild thickening and pericolonic fat stranding within the mid sigmoid colon. There is also a punctate focus of extraluminal gas consistent with microperforation in the setting of acute diverticulitis. No abscess identified. Cholecystectomy. Decrease in size in the ill-defined 1.8 cm hypodense lesion within the anterior segment of the right hepatic lobe. This favors an involuting cyst. --Repeat CT: No urinary calculi or hydronephrosis. No significant change in findings consistent with acute sigmoid diverticulitis. Minimal extraluminal gas, as before. No abscess. Ordered Studies 09/05/19 07:45 CT abd pelvis IV con only Stat 09/07/19 08:22 CT abd pelvis wo con Routine Hospital Course (1) Diverticulitis: (2) Abdominal pain: Acute Diverticulitis Suspected microperforation --CT ABD: Mild thickening and pericolonic fat stranding within the mid sigmoid colon. There is also a punctate focus of extraluminal gas consistent with microperforation in the setting of acute diverticulitis. No abscess identified. Cholecystectomy. Decrease in size in the ill-defined 1.8 cm hypodense lesion within the anterior segment of the right hepatic lobe. This favors an involuting cyst. --Repeat CT: No urinary calculi or hydronephrosis. No significant change in findings consistent with acute sigmoid diverticulitis. Minimal extraluminal gas, as before. No abscess. --Received IV antibiotics--Cipro, flagyl --No surgical intervention needed currently --Appreciate surgery input --Received IV fluids --Pain is controlled --Tolerated low fiber diet --Plan to transition to PO antibiotics to complete 10-day course of antibiotics. Needs follow-up with surgery upon discharge Left flank pain without CVA tenderness Likely musculoskeletal in origin H/O sciatica Repeat CT ABD:No urinary calculi or hydronephrosis. No significant change in findings consistent with acute sigmoid diverticulitis. Minimal extraluminal gas, as before. No abscess. Pain control Cough CXR:No significant change compared to the prior study. No acute process. Continue antibiotics as above for possible bronchitis Improved (3) HTN (hypertension): BP Variable Likely situational secondary to pain Continue losartan Monitor BP Will increase losartan to 50 mg daily to better control blood pressure (4) Dyslipidemia: On statin (5) Factor V Leiden: H/O DVT many years ago Pt reports in 05/2019 in [place] had red sore spot to RLE and reports had US and had "blood clot" and took Xarelto for one week and f/u with vascular surgeon who recommended to discontinue Xarelto On daily aspirin 81 mg (6) H/O sciatica: Management as above (7) KIM (obstructive sleep apnea): CPAP HS DVT Px Heparin SQ Total Time Total Time Spent Total Time Spent (In Minutes): 37 minutes Total Time Includes: Examination of the Patient, Discharge Planning, Medication Reconciliation, Communication With Other Providers and Other Discharge Plan Discharge Items Patient Disposition: Home - Self-Care Reason For Visit: DIVERTICULITIS Discharge Diagnosis: Acute Diverticulitis Suspected microperforation Condition on Discharge: Good Activity: Resume your previous activity Exercise/Sports: Gradually increase as tolerated Non-emergency contact: Primary Care Provider and Surgeon Call non-emergency contact if: you have any medication questions, your symptoms worsen, your pain is not controlled, your pain is worsening, your pain is unusual for you, your pain is concerning for you and you have a fever Follow-up/Referrals: Jana Spears, [Primary Care Provider] - 09/11/19 12:00 pm (09/11/2019 12:00 PM Provider Duane Ramírez MD Department Family Practice [facility] ) Diet: Low Fiber Addtl Attending Provider Instructions: Follow-up with your primary care physician Dr. Mitchell in 1 week as advised Follow-up with your surgeon Dr. Woody in 2 to 3 weeks Complete antibiotic course as prescribed: Ciprofloxacin and metronidazole for 5 more days. Your losartan is increased from 25 mg daily to 50 mg daily for better control of your blood pressure. Follow-up with your primary care physician for further adjustment of your medications for blood pressure control. Final blood cultures are pending at the time of discharge. Follow-up with your physician for results. Avoid using ibuprofen and other nonsteroidal anti-inflammatory drugs if able. If your pain is uncontrolled, discussed with your physician for further assistance. Seek immediate medical attention if your symptoms reoccur or worsen Pending Studies at Discharge: Yes Studies:: Blood Cultures Stand-Alone Forms: My [facility], Smoking Cessation Medications and DC Order Prescriptions: New ciprofloxacin HCl 500 mg tablet 500 mg PO BID 5 Days Qty: 10 RF: 0 metronidazole [Flagyl] 500 mg tablet 500 mg PO Q8H 5 Days Qty: 15 RF: 0 losartan 50 mg tablet 50 mg PO DAILY Qty: 30 RF: 0 Continued aspirin 81 mg Tablet,Delayed Release (Dr/Ec) 81 mg PO QAM Qty: 0 RF: 0 atorvastatin [Lipitor] 20 mg Tablet 20 mg PO PM Qty: 0 RF: 0 fluticasone propionate 50 mcg/actuation spray,suspension 1 spray INTRANASAL BID PRN (Reason: Allergy Symptoms) RF: 0 albuterol sulfate [Ventolin HFA] 90 mcg/actuation Hfa Aerosol Inhaler 3 puff INHALATION Q6H PRN (Reason: SOB) RF: 0 Changed ibuprofen [Advil] 200 mg Tablet 200 mg PO Q12 PRN (Reason: Pain) Qty: 0 RF: 0 Discontinued losartan [Cozaar] 25 mg Tablet 25 mg PO QAM Qty: 0 RF: 0 Discharge Orders: Discharge Order (Routine); Ordered 09/09/19 Ordered By: Paulino Graham Admission Data Admit Date/Time: 09/05/19 10:29 Attending Provider: Paulino Graham Admit Provider: Paulino Graham Primary Care Provider: Jana Spears Other Providers: Paulino Graham ; Fidel Woody Other Interventions: Discharge Summary Assessment (RN) Last Done: 09/09/19 14:46 DC Date/Time DO NOT enter until pt leaves facility: 09/09/19 15:36
== END 2019-09-09 15:36 | disposition home or self-care (01) | DRG 392 ==
LOC: ED 07:10 → 2W 10:29

== ENCOUNTER 2021-09-05 16:16 | Inpatient (IN) ==
[2021-09-05] MEDS ORDERED: hydrALAZINE HCL 20 MG/ML VIAL IV STA (16:30)
--- NOTE | 2021-09-05 17:05 | XRay Report ---
XR knee RT 1 or 2V routine CLINICAL HISTORY: Trauma TECHNIQUE: 2 views of the right knee were obtained. Comparison: None available at the time of this dictation. FINDINGS: There is no evidence of an acute fracture. Degenerative changes are seen in the knee joint. These are most prominent in the medial compartment. No joint effusion is seen. No soft tissue abnormality is s een. IMPRESSION: No evidence of acute osseous injury. ACT 112: Negative or not required by law. Electronically signed by: Ayan Villa M.D. 09/05/2021 5:04 PM
--- NOTE | 2021-09-05 17:05 | XRay Report ---
XR shoulder RT min 2V routine CLINICAL HISTORY: Trauma TECHNIQUE: 3 views of the right shoulder were obtained. Comparison: Comparison is made to right shoulder 07/26/2021 FINDINGS: There is no evidence of an acute fracture. Joint spaces are well-preserved. The overlying soft tissue s are unremarkable. The visualized portions of the lungs are clear. IMPRESSION: No evidence of acute osseous injury. ACT 112: Negative or not required by law. Electronically signed by: Ayan Villa M.D. 09/05/2021 5:03 PM
--- NOTE | 2021-09-05 17:22 | CT Scan Report ---
CT head/brain wo con CLINICAL HISTORY: Trauma Technique: Contiguous axial CT images of the head were acquired from the base of the skull to the michelle jacinto without intravenous contrast administration. Images were viewed in brain, subdural and [facility] . Automated dose lowering techniques and/or adjustment according to patient size were utilized for this exam. Comparison: None available at the time of this dictation. Findings: The ventricles, basal cisterns, and cerebral sulci are normal. There is no acute intracranial hemorrh age or evidence of acute territorial infarction. Neither mass effect, shift of the midline structures , nor abnormal extra-axial fluid collections are shown. Imaged portions of the paranasal sinuses and mastoid air cells are clear. The orbits appear normal. There are no acute fractures of the calvaria or scalp swelling. Impression: No acute intracranial hemorrhage, no evidence of acute territorial infarction or other acute intracra nial disease process. ACT 112: Negative or not required by law. Electronically signed by: Ayan Villa M.D. 09/05/2021 5:20 PM
--- NOTE | 2021-09-05 17:23 | CT Scan Report ---
CT cervical spine wo con CLINICAL HISTORY: Fall TECHNIQUE: Multidetector row helical CT of the cervical spine was performed without administration of intravenous contrast. Coronal and sagittal reformations were obtained. Automated dose lowering techn iques and/or adjustment according to patient size were utilized for this exam. Comparison: None available at the time of this dictation. FINDINGS: No acute fractures or subluxations are identified. Degenerative changes are seen in the visualized sp ine. The alignment is normal. Soft tissues are unremarkable. IMPRESSION: Degenerative changes without evidence of acute bony injury. ACT 112: Negative or not required by law. Electronically signed by: Ayan Villa M.D. 09/05/2021 5:21 PM
--- NOTE | 2021-09-05 17:30 | CT Scan Report ---
CT facial bones wo con CLINICAL HISTORY: Fall TECHNIQUE: Multidetector row helical CT of the maxillofacial bones was performed without administrati on of intravenous contrast, and processed with bone and soft tissue algorithms. Coronal and sagittal reformations were obtained. Automated dose lowering techniques and/or adjustment according to patient size were utilized for this exam. Comparison: None available at the time of this dictation. FINDINGS: Nasal bones are normal. The mandible is intact. The temporomandibular joints are anatomically aligned . Pterygoid plates are intact. There is a fracture of the right zygomatic arch which appears chronic with no surrounding edema or hematoma. The globes are normal and symmetric, without proptosis, obvious disruption or lens dislocation. Ther e is no orbital radiopaque foreign body. The orbital reich are intact. The retrobulbar fat is without evidence of disruption. Extraocular muscles are normal and symmetric. Optic nerve sheath complexes are normal in course and caliber. Mucous retention cyst is seen in the left maxillary sinus. IMPRESSION: 1. No acute facial fracture. 2. Right zygomatic arch fracture is favored to be chronic. ACT 112: Negative or not required by law. Electronically signed by: Ayan Villa M.D. 09/05/2021 5:28 PM
[2021-09-05 18:01] LABS: Basophils # (auto) 0.03 K/uL (0-0.2); Basophils % (auto) 0.3 %; Eosinophils # (auto) 0.31 K/uL (0-0.5); Eosinophils % (auto) 3.2 %; Hematocrit (blood only) 38.5 % (37-47); Hemoglobin 12.8 g/dL (12.0-16.0); Immature Granulocytes # (auto) 0.05 K/uL (0.00-0.02); Immature Granulocytes % (auto) 0.5 %; Lymphocytes # (auto) 1.54 K/uL (1.2-3.4); Lymphocytes % (auto) 16.1 %; Mean Corpuscular Hemoglobin 30.4 pg (25-34); Mean Corpuscular Hgb Conc 33.2 g/dL (32-36); Mean Corpuscular Volume 91.4 fL (80-100); Mean Platelet Volume 9.3 fL (7.4-10.4); Monocytes # (auto) 0.78 K/uL (0.11-0.59); Monocytes % (auto) 8.1 %; Neutrophils # (auto) 6.88 K/uL (1.4-6.5); Neutrophils % (auto) 71.8 %; Platelet Count 398 K/uL (130-400); RDW Coefficient of Variation 13.4 % (11.5-14.5); RDW Standard Deviation 44.5 fL (36.4-46.3); Red Blood Count 4.21 M/uL (4.2-5.4); White Blood Count 9.59 K/uL (4.8-10.8)
[2021-09-05 18:11] LABS: Alanine Aminotransferase 13 U/L (7-52); Albumin Globulin Ratio 1.1 (0.9-2); Albumin Level 3.7 gm/dl (3.4-5.0); Alkaline Phosphatase 109 U/L (34-104); Anion Gap 6 (3-11); Aspartate Aminotransferase 20 U/L (13-39); BUN Creatinine Ratio 28.4 (10-20); Bilirubin,Total 0.6 mg/dl (0.2-1.0); Blood Urea Nitrogen 23 mg/dl (6-23); Calcium 9.7 mg/dl (8.5-10.1); Carbon Dioxide 30 mmol/L (21-32); Chloride 103 mmol/L (98-107); Est GFR (African American) 75.7 ml/min; Est GFR (Non-African American) 65.3 ml/min; Globulin 3.5 gm/dl (2.5-4.0); Glucose 117 mg/dl (70-99(Fasting)); Potassium 4.2 mmol/L (3.5-5.1); Sodium 139 mmol/L (136-145); Total Protein 7.2 gm/dl (6.0-8.3)
[2021-09-05] MEDS ORDERED: LABETALOL HCL IV 5 MG/ML 20ML IV STA (18:38)
--- NOTE | 2021-09-05 18:57 | XRay Report ---
XR chest 1V portable CLINICAL HISTORY: chest pain TECHNIQUE: Single frontal radiograph of the chest was obtained. Comparison: Comparison is made to rib series 12/21/2019 FINDINGS: No lines and tubes are seen. The aorta is tortuous. The remainder of the cardiomediastinal silhouette is unremarkable. Prominence and cephalization of the vasculature is seen. No evidence of pleural eff usion or pneumothorax. IMPRESSION: Mild pulmonary edema. ACT 112: Negative or not required by law. Electronically signed by: Ayan Villa M.D. 09/05/2021 6:55 PM
--- NOTE | 2021-09-05 18:58 | XRay Report ---
XR finger(s) RT min 2V CLINICAL HISTORY: middle, trauma TECHNIQUE: 3 views of the right third digit were obtained. Comparison: None available at the time of this dictation. FINDINGS: There is no evidence of an acute fracture. Joint spaces are well-maintained. No soft tissue abnormali ty is seen. IMPRESSION: No evidence of acute osseous injury. ACT 112: Negative or not required by law. Electronically signed by: Ayan Villa M.D. 09/05/2021 6:56 PM
[2021-09-05] MEDS ORDERED: FUROSEMIDE INJ 20 MG/2 ML VIAL IV STA (19:07)
[2021-09-05 19:37] LABS: Partial Thromboplastin Time 27.3 Seconds (21.0-31.0)
[2021-09-05] MEDS ORDERED: NITROGLYCERIN SL 0.4 MG/TAB TAB SL STA (19:55)
--- NOTE | 2021-09-05 20:04 | History & Physical Report ---
Date of Service September 05, 2021 Assessment & Plan (1) CHF (congestive heart failure): Plan: Possibly from uncontrolled hypertension/fluid retention from NSAID intake Chest pain secondary to above hx coronary artery calcification on previous imaging Musculoskeletal component given reproducibility Rule out ACS given nitro relief hyperlipidemia on statin Rx hx DVT, history of factor V Leiden mutation, no prior history off anticoagulation as per patient account Hyperglycemia rule out DM Fall PCU Strict I/Os, daily weights, CHF education Add beta-job patient BP regimen Stop home metoprolol TTE, Cardiology consult Re: CHF 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 Lovenox subcu Full code Text document was generated using [employer] voice recognition software. It may contain grammatical or spelling errors. Kindly contact undersigned for clarification of any documentation item in question. History of Present Illness Chief Complaint: Chest pain, fall Primary Care Provider: Paco Spears, History obtained from patient, family, and records. Medical history significant for coronary artery calcification on previous imaging as per records, hypertension, hyperlipidemia, history of DVT, history of factor V Leiden mutation as per records. Last confinement September 2019 for acute diverticulitis with suspected microperforation status post conservative management. Patient has been having intermittent left-sided chest discomfort going across her chest since last night. Some shortness of breath. No cough symptoms. Usual stress at home. Patient not sure about fluid retention. Chest pain not related to shoulder pain for which [id number] Etodolac has been prescribed the last few months by email campaign specialist. Patient stumbled at her daughter's home today resulting in some head trauma and right hand pain. No LOC, no syncope. Patient brought to the ER for evaluation. Initial SBP at the ER 230s. Labetalol and hydralazine subsequently administered. Lasix given for CHF. Some improvement of chest pain with nitroglycerin administration at the ER. 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 Allergies Allergy/AdvReac Type Severity Reaction Status Date / Time latex Allergy Intermediate RASH - Verified 09/05/21 17:30 ITCHING Sulfa (Sulfonamide Allergy Intermediate HIVES Verified 09/05/21 17:30 Antibiotics) adhesive Allergy Mild RASH Verified 01/30/20 11:18 amoxicillin Allergy Mild RASH Verified 09/05/21 17:30 clavulanic acid Allergy Mild RASH Verified 09/05/21 17:30 oxycodone Allergy Mild RACING Verified 09/05/21 17:30 HEART prednisone AdvReac Mild GI SYMPTOMS Verified 09/05/21 17:30 salicylates AdvReac Mild GI SYMPTOMS Verified 09/05/21 17:30 tramadol AdvReac Mild did not Verified 09/05/21 21:51 feel well aspirin AdvReac Unknown NAUSEA Unverified 09/05/21 17:30 naproxen AdvReac Unknown GI SYMPTOMS Verified 09/05/21 17:30 Penicillins AdvReac Unknown NAUSEA Unverified 01/30/20 11:18 procaine AdvReac Unknown HEART Unverified 01/30/20 11:18 RACING chocolate flavor AdvReac Verified 09/05/21 17:31 Rooks And Derivatives AdvReac Verified 09/05/21 17:31 peanut AdvReac Verified 09/05/21 17:31 Home Medications Medication Instructions Recorded Confirmed Type atorvastatin 20 mg tablet (Lipitor) 20 mg PO HS #0 tab 09/10/17 09/05/21 History losartan 25 mg tablet 25 mg PO QAM 07/26/21 09/05/21 History aspirin 81 mg tablet,delayed 81 mg PO DAILY 09/05/21 09/05/21 History release etodolac 500 mg tablet 500 mg PO .AM &HS 09/05/21 09/05/21 History Past Med/Surg History Medical History (Updated 09/06/21 @ 04:46 by Kyle Baldwin MD) Blood clot in vein Chronic lower back pain Dyslipidemia Factor V Leiden H/O sciatica HTN (hypertension) KIM (obstructive sleep apnea) Surgical History H/O colonoscopy 2007: mild-moderate diverticulosis sigmoid colon History of cataract surgery Hx laparoscopic cholecystectomy Family History Other Cancer Diabetes Heart disease Social History Smoking Status: Unknown if ever smoked Second Hand Exposure: No; Hx Alcohol Use: No Hx Substance Use: No Preferred Language: Mosotho Communication Ability: Effective 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 Beliefs That Will Affect Care: None marital status: Current Living Situation: Spouse current occupational status: retired How many Children do You have: 4 Other Information That Helps Us Care for You: No Feels Safe at Home: Yes Safety Concerns: Feels Safe At This Time Assistive Devices: None Review of Systems Review of Systems: As per HPI, all other systems reviewed and negative Physical Exam Physical Exam: GENERAL: Comfortable, slightly anxious, obese, no respiratory distress SKIN: Normal color, warm HEENT: [place] palpebral conjunctivae, no ptosis, dry buccal mucosa NECK : Supple, short neck, no tenderness CHEST : CTA, anterior chest wall tenderness HEART : RRR, no obvious murmurs ABDOMEN: Some distention, nontender EXTREMITIES : Minimal LE swelling, no LE tenderness, chronic shoulder tenderness NEUROLOGIC : Coherent, no facial asymmetry, no other gross focality Results & Data Results & Data ([facility]) Vital Signs (Past 12 Hours) Vital Signs Temp Pulse Resp BP Pulse Ox 09/05/21 18:40 103 H 99 09/05/21 18:33 146/113 H 97 09/05/21 18:32 139 H 09/05/21 18:20 101 H 26 H 09/05/21 18:10 97 H 26 H 09/05/21 18:00 94 H 19 143/90 H 98 09/05/21 17:50 96 H 30 H 99 09/05/21 17:40 86 32 H 97 09/05/21 17:37 78 27 H 183/74 H 97 09/05/21 17:31 70 22 215/69 H 94 09/05/21 17:30 70 21 95 09/05/21 17:20 74 25 H 96 09/05/21 17:15 76 33 H 09/05/21 17:00 73 22 212/73 H 95 09/05/21 16:50 73 29 H 95 09/05/21 16:40 67 27 H 94 09/05/21 16:35 77 23 213/124 H 95 09/05/21 16:30 76 20 234/97 H 96 09/05/21 16:29 238/99 H 09/05/21 16:28 99 09/05/21 16:05 36.4 C L 70 20 238/99 H 96 Laboratory Results Laboratory Results WBC 9.59 K/uL (4.8-10.8) 09/05/21 17: RBC 4.21 M/uL (4.2-5.4) 09/05/21 17:28 Hgb 12.8 g/dL (12.0-16.0) 09/05/21 17:28 Hct 38.5 % (37-47) 09/05/21 17:28 MCV 91.4 fL (80-100) 09/05/21 17:28 MCH 30.4 pg (25-34) 09/05/21 17: MCHC 33.2 g/dL (32-36) 09/05/21 17: RDW Std Deviation 44.5 fL (36.4-46.3) 09/05/21 17: RDW Coeff of Gunner 13.4 % (11.5-14.5) 09/05/21 17: Plt Count 398 K/uL (130-400) 09/05/21 17: MPV 9.3 fL (7.4-10.4) 09/05/21 17:28 Immature Gran % (Auto) 0.5 % 09/05/21 17: Neut % (Auto) 71.8 % 09/05/21 17:28 Lymph % (Auto) 16.1 % 09/05/21 17:28 [place] % (Auto) 8.1 % 09/05/21 17:28 Eos % (Auto) 3.2 % 09/05/21 17:28 Baso % (Auto) 0.3 % 09/05/21 17:28 Neut # (Auto) 6.88 K/uL (1.4-6.5) H 09/05/21 17:28 Lymph # (Auto) 1.54 K/uL (1.2-3.4) 09/05/21 17:28 [place] # (Auto) 0.78 K/uL (0.11-0.59) H 09/05/21 17:28 Eos # (Auto) 0.31 K/uL (0-0.5) 09/05/21 17:28 Baso # (Auto) 0.03 K/uL (0-0.2) 09/05/21 17:28 Immature Gran # (Auto) 0.05 K/uL (0.00-0.02) H 09/05/21 17:28 APTT 27.3 Seconds (21.0-31.0) 09/05/21 17:28 PTT Ratio 1.0 09/05/21 17:28 Sodium 139 mmol/L (136-145) 09/05/21 17:28 Potassium 4.2 mmol/L (3.5-5.1) 09/05/21 17:28 Chloride 103 mmol/L (98-107) 09/05/21 17:28 Carbon Dioxide 30 mmol/L (21-32) 09/05/21 17:28 Anion Gap 6 (3-11) 09/05/21 17:28 BUN 23 mg/dl (6-23) 09/05/21 17: Creatinine 0.81 mg/dl (0.6-1.2) 09/05/21 17:28 Est Cr Clr Drug Dosing Not Reportable 09/05/21 17:28 Est GFR ( Amer) 75.7 ml/min 09/05/21 17:28 Est GFR (Non-Af Amer) 65.3 ml/min 09/05/21 17:28 BUN/Creatinine Ratio 28.4 (10-20) H 09/05/21 17:28 Glucose 117 mg/dl (70-99(Fasting)) H 09/05/21 17:28 Calcium 9.7 mg/dl (8.5-10.1) 09/05/21 17:28 Magnesium 2.1 mg/dl (1.7-2.4) 09/05/21 17:28 Total Bilirubin 0.6 mg/dl (0.2-1.0) 09/05/21 17:28 AST 20 U/L (13-39) 09/05/21 17:28 ALT 13 U/L (7-52) 09/05/21 17:28 Alkaline Phosphatase 109 U/L (34-104) H 09/05/21 17:28 Troponin I High Sens 6.6 pg/ml (0-14) 09/05/21 17:28 Total Protein 7.2 gm/dl (6.0-8.3) 09/05/21 17:28 Albumin 3.7 gm/dl (3.4-5.0) 09/05/21 17:28 Globulin 3.5 gm/dl (2.5-4.0) 09/05/21 17:28 Albumin/Globulin Ratio 1.1 (0.9-2) 09/05/21 17:28 TSH 3.329 uIu/ml (0.300-4.500) 09/05/21 17:28 SARS-CoV-2, RNA, NAAT NEGATIVE (NEGATIVE) 09/05/21 19:26 Impressions Knee X-Ray 09/05/21 16:28 XR knee RT 1 or 2V routine CLINICAL HISTORY: Trauma TECHNIQUE: 2 views of the right knee were obtained. Comparison: None available at the time of this dictation. FINDINGS: There is no evidence of an acute fracture. Degenerative changes are seen in the knee joint. These are most prominent in the medial compartment. No joint effusion is seen. No soft tissue abnormality is seen. IMPRESSION: No evidence of acute osseous injury. ACT 112: Negative or not required by law. Electronically signed by: Ayan Villa M.D. 09/05/2021 5:04 PM Shoulder X-Ray 09/05/21 16:28 XR shoulder RT min 2V routine CLINICAL HISTORY: Trauma TECHNIQUE: 3 views of the right shoulder were obtained. Comparison: Comparison is made to right shoulder 07/26/2021 FINDINGS: There is no evidence of an acute fracture. Joint spaces are well-preserved. The overlying soft tissues are unremarkable. The visualized portions of the lungs are clear. IMPRESSION: No evidence of acute osseous injury. ACT 112: Negative or not required by law. Electronically signed by: Ayan Villa M.D. 09/05/2021 5:[address] 09/05/21 16:30 CT cervical spine wo con CLINICAL HISTORY: Fall TECHNIQUE: Multidetector row helical CT of the cervical spine was performed without administration of intravenous contrast. Coronal and sagittal reformations were obtained. Automated dose lowering techniques and/or adjustment according to patient size were utilized for this exam. Comparison: None available at the time of this dictation. FINDINGS: No acute fractures or subluxations are identified. Degenerative changes are seen in the visualized spine. The alignment is normal. Soft tissues are unremarkable. IMPRESSION: Degenerative changes without evidence of acute bony injury. ACT 112: Negative or not required by law. Electronically signed by: Ayan Villa M.D. 09/05/2021 5:[address] 09/05/21 16:30 CT facial bones wo con CLINICAL HISTORY: Fall TECHNIQUE: Multidetector row helical CT of the maxillofacial bones was performed without administration of intravenous contrast, and processed with bone and soft tissue algorithms. Coronal and sagittal reformations were obtained. Automated dose lowering techniques and/or adjustment according to patient size were utilized for this exam. Comparison: None available at the time of this dictation. FINDINGS: Nasal bones are normal. The mandible is intact. The temporomandibular joints are anatomically aligned. Pterygoid plates are intact. There is a fracture of the right zygomatic arch which appears chronic with no surrounding edema or hematoma. The globes are normal and symmetric, without proptosis, obvious disruption or lens dislocation. There is no orbital radiopaque foreign body. The orbital reich are intact. The retrobulbar fat is without evidence of disruption. Extraocular muscles are normal and symmetric. Optic nerve sheath complexes are normal in course and caliber. Mucous retention cyst is seen in the left maxillary sinus. IMPRESSION: 1. No acute facial fracture. 2. Right zygomatic arch fracture is favored to be chronic. ACT 112: Negative or not required by law. Electronically signed by: Ayan Villa M.D. 09/05/2021 5:[address] 09/05/21 16:30 CT head/brain wo con CLINICAL HISTORY: Trauma Technique: Contiguous axial CT images of the head were acquired from the base of the skull to the vertex without intravenous contrast administration. Images were viewed in brain, subdural and bone windows. Automated dose lowering techniques and/or adjustment according to patient size were utilized for this exam. Comparison: None available at the time of this dictation. Findings: The ventricles, basal cisterns, and cerebral sulci are normal. There is no acute intracranial hemorrhage or evidence of acute territorial infarction. Neither mass effect, shift of the midline structures, nor abnormal extra-axial fluid collections are shown. Imaged portions of the paranasal sinuses and mastoid air cells are clear. The orbits appear normal. There are no acute fractures of the calvaria or scalp swelling. Impression: No acute intracranial hemorrhage, no evidence of acute territorial infarction or other acute intracranial disease process. ACT 112: Negative or not required by law. Electronically signed by: Ayan Villa M.D. 09/05/2021 5:20 PM Chest X-Ray 09/05/21 18:15 XR chest 1V portable CLINICAL HISTORY: chest pain TECHNIQUE: Single frontal radiograph of the chest was obtained. Comparison: Comparison is made to rib series 12/21/2019 FINDINGS: No lines and tubes are seen. The aorta is tortuous. The remainder of the cardiomediastinal silhouette is unremarkable. Prominence and cephalization of the vasculature is seen. No evidence of pleural effusion or pneumothorax. IMPRESSION: Mild pulmonary edema. ACT 112: Negative or not required by law. Electronically signed by: Ayan Villa M.D. 09/05/2021 6:55 PM Finger X-Ray 09/05/21 18:38 XR finger(s) RT min 2V CLINICAL HISTORY: middle, trauma TECHNIQUE: 3 views of the right third digit were obtained. Comparison: None available at the time of this dictation. FINDINGS: There is no evidence of an acute fracture. Joint spaces are well-maintained. No soft tissue abnormality is seen. IMPRESSION: No evidence of acute osseous injury. ACT 112: Negative or not required by law. Electronically signed by: Ayan Villa M.D. 09/05/2021 6:56 PM Diagnostic Findings EKG as per my interpretation: Rate 95, NSR, LAD, LAFB, LVH, septal infarct Code Status & VTE Plan VTE Prophylaxis Plan VTE Prophylaxis will be ordered: Yes
[2021-09-05] MEDS ORDERED: XOPENEX/ATROVENT 1.25mg/0.5MG NEB COMBO NEB STA (20:20)
[2021-09-05] MEDS ORDERED: traMADol HCL 50 MG TABLET PO PRN (21:01)
[2021-09-05] MEDS ORDERED: PROMETHAZINE HCL 12.5 MG in SODIUM CHLORIDE 0.9% 50 ML IV PRN (21:01)
[2021-09-05] MEDS ORDERED: NITROGLYCERIN SL 0.4 MG/TAB TAB SL PRN (21:01)
[2021-09-05] MEDS ORDERED: MoRPHine SULFATE 2 MG/ML CARP IV PRN (21:01)
[2021-09-05] MEDS ORDERED: ACETAMINOPHEN W/CODEINE #3 1 TAB PO PRN (21:50)
[2021-09-05] MEDS: METOPROLOL TARTRATE 25 MG TAB PO SCH (21:54)
[2021-09-05] MEDS: ATORVASTATIN 20 MG TAB PO SCH (21:54)
[2021-09-05] MEDS: ACETAMINOPHEN 325 MG TAB PO PRN (21:54)
[2021-09-05] MEDS: IPRATROPIUM BROMIDE NEB SOLN 0.02% 2.5 ML VIAL INH SCH (23:55)
[2021-09-05] MEDS: LEVALBUTEROL 1.25MG/0.5ML NEB INH SCH (23:55)
[2021-09-06] MEDS ORDERED: Heparin IV Adult Wt-Based Standard *NO* Bolus Protocol IV STA (01:28)
--- NOTE | 2021-09-06 01:30 | Communication Note ---
Date of Service: September 06, 2021 Made aware by RN of progressive troponin elevation. 0 -> 48.4 -> 367.5 Patient currently comfortable. AP Non-STEMI Initiate IV heparin
[2021-09-06 02:18] LABS: Basophils # (auto) 0.03 K/uL (0-0.2); Basophils % (auto) 0.3 %; Eosinophils # (auto) 0.26 K/uL (0-0.5); Eosinophils % (auto) 2.9 %; Hematocrit (blood only) 37.6 % (37-47); Hemoglobin 12.5 g/dL (12.0-16.0); Immature Granulocytes # (auto) 0.02 K/uL (0.00-0.02); Immature Granulocytes % (auto) 0.2 %; Lymphocytes # (auto) 2.39 K/uL (1.2-3.4); Lymphocytes % (auto) 27.1 %; Mean Corpuscular Hemoglobin 30.3 pg (25-34); Mean Platelet Volume 9.1 fL (7.4-10.4); Monocytes # (auto) 0.79 K/uL (0.11-0.59); Monocytes % (auto) 8.9 %; Neutrophils # (auto) 5.34 K/uL (1.4-6.5); Neutrophils % (auto) 60.6 %; Platelet Count 345 K/uL (130-400); RDW Coefficient of Variation 13.6 % (11.5-14.5); RDW Standard Deviation 45.2 fL (36.4-46.3); Red Blood Count 4.13 M/uL (4.2-5.4); White Blood Count 8.83 K/uL (4.8-10.8)
[2021-09-06 02:27] LABS: Partial Thromboplastin Time 27.4 Seconds (21.0-31.0); Prothrombin Time 10.7 Seconds (9.0-12.0)
[2021-09-06 02:30] LABS: Potassium 3.8 mmol/L (3.5-5.1)
[2021-09-06 02:34] LABS: Mean Corpuscular Hgb Conc 33.2 g/dL (32-36)
[2021-09-06 02:48] LABS: BUN Creatinine Ratio 38.3 (10-20); Calcium 9.2 mg/dl (8.5-10.1); Chol HDL Ratio 2.2 (0-5); Creatinine Clr Calc Pharmacy 64.6 ml/min
[2021-09-06] MEDS: HEPARIN SODIUM/DEXTROSE 25,000 UNITS/500 ML BAG IV SCH (02:49)
[2021-09-06] MEDS: ASPIRIN 81 MG ECTAB PO SCH (08:04)
[2021-09-06] MEDS: METOPROLOL TARTRATE 25 MG TAB PO SCH ×2 (08:05→20:49)
[2021-09-06] MEDS: LOSARTAN POTASSIUM 25 MG TAB PO SCH (08:05)
[2021-09-06] MEDS ORDERED: ENOXAPARIN INJ 40 MG/0.4 ML SYR SQ SCH (09:00)
[2021-09-06 09:47] LABS: Partial Thromboplastin Ratio 1.8
[2021-09-06 09:55] LABS: Partial Thromboplastin Time 50.1 Seconds (21.0-31.0)
--- NOTE | 2021-09-06 13:45 | Cardiology Consultation ---
Date of Consultation September 06, 2021 Assessment & Plan (1) NSTEMI (non-ST elevated myocardial infarction): (2) Factor V Leiden: (3) HTN (hypertension): (4) Dyslipidemia: 85-year-old female (1) NSTEMI (non-ST elevated myocardial infarction): -Patient found to have elevated at bedtime troponin, abnormal EKG which is progressed since her initial presentation. Her symptoms are difficult to characterize, as there does appear to be a reproducible chest wall pain, however she describes a separate vague chest tightness that occurred 2 days prior to her most recent fall and is suggestive of angina. Currently she is asymptomatic from a cardiac perspective, without on going angina. She is on unfractionated heparin infusion. Echocardiogram reveals normal biventricular wall motion and LVEF. Recommend ongoing medical therapy with aspirin, metoprolol, losartan, atorv astatin, unfractionated heparin. I am however concerned about her risk of venous thromboembolic disease as described below. (2) Factor V Leiden: The patient has a history of homozygous Factor V Leiden mutation as well as IgG positive anticardiolipin antibody dating back to 1998. I am uncertain why the hypercoagulable work-up was performed before, as the hematology note from that time specifically describes lack of clinical history of venous thromboembolic event. Her outpatient chart does describe diagnosis of " DVT, October 2012" however I specifically found a scanned venous duplex report performed at [facility] at that time that was actually negative for DVT, and I do not see evidence in the patient's chart that she has ever been on long-term anticoagulation. Given her history of inherited hypercoagulable state, recommend proceeding with CT angiogram to exclude pulmonary embolism prior to further cardiac work-up. (3) HTN (hypertension): -Blood pressure elevated on presentation with noted measurement of 238/99 yesterday at 1605. Patient's pain is now well controlled, and she is on her home antihypertensives and most recent blood pressure well controlled at 119/76. Continue metoprolol, losartan. (4) Dyslipidemia: Continue atorvastatin. Most recent LDL cholesterol as an outpatient April, was well controlled at 48 mg/dL. History of Present Illness Attending Physician: Paulino Graham MD History of Present Illness Tanisha Hollingsworth is an 85 year old female seen in cardiology consultation per the request of Dr Baldwin for the evaluation of chest pain, suspected NSTEMI. Patient describes that the recent concerns with her health dates back to 2 years. She had a mechanical fall with resultant fracture of the left proximal humerus. She had a long slow recovery to that regard, and has been following with Dr. 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 She believes that she has had a total of four significant falls over the last 2 years. She notes that both of her arms hurt her on a chronic basis, and her activity has been limited. She has been taking Etodolac for this discomfort especially in her right shoulder, and the dose had recently been increased a few weeks ago. Yesterday she was at her daughter's house, and at 4:00, upon getting ready to leave for the visit, she got up and describes having had a fall impacting her right side on a wall. She presented to the emergency department and trauma work-up was negative. Chest x-ray however was interpreted as revealing mild interstitial edema. Her EKG revealed inferior T wave inversions. At bedtime troponin was trended, with initial measurement 09/05/2021 that was low at 6.6, however it has since trended up to 48.4, 367.5, and 387 PG per mL, with most recent measurement having been performed at 5:11 AM this morning. Her EKG has evolved as well, with repeat EKG having been performed at 2:40 AM revealing progressive deep T wave inversions in the inferior leads, as well as new T wave inversions in the anterior precordial leads. No ST segment elevation. On further discussion with the patient, she recalls that 2 evenings ago on 09/04/2021, she had vague chest discomfort that waxed and waned when she was in bed. At present, she describes an ache in her chest that is reproduced on palpation. Patient's history is notable for having homozygous Factor V Leiden mutation. She had been seen by hematology dating back to 1998, and her IgG anticardiolipin antibody was also positive at that time. She has no clinical history of venous thrombotic disease. Family History: Notes a strong family history of coronary heart disease with her father having of an HI in his 60s, paternal grandfather of a presumed myocardial infarction at age of 31, brother of myocardial infarction at the age of 60, and she has a sister who is alive, who had cardiac stents in her early 80s. Social History: , lives with , Willy. 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 Allergies Allergy/AdvReac Type Severity Reaction Status Date / Time latex Allergy Intermediate RASH - Verified 09/05/21 17:30 ITCHING Sulfa (Sulfonamide Allergy Intermediate HIVES Verified 09/05/21 17:30 Antibiotics) adhesive Allergy Mild RASH Verified 01/30/20 11:18 amoxicillin Allergy Mild RASH Verified 09/05/21 17:30 clavulanic acid Allergy Mild RASH Verified 09/05/21 17:30 oxycodone Allergy Mild RACING Verified 09/05/21 17:30 HEART prednisone AdvReac Mild GI SYMPTOMS Verified 09/05/21 17:30 salicylates AdvReac Mild GI SYMPTOMS Verified 09/05/21 17:30 tramadol AdvReac Mild did not Verified 09/05/21 21:51 feel well aspirin AdvReac Unknown NAUSEA Unverified 09/05/21 17:30 naproxen AdvReac Unknown GI SYMPTOMS Verified 09/05/21 17:30 Penicillins AdvReac Unknown NAUSEA Unverified 01/30/20 11:18 procaine AdvReac Unknown HEART Unverified 01/30/20 11:18 RACING chocolate flavor AdvReac Verified 09/05/21 17:31 [place] And Derivatives AdvReac Verified 09/05/21 17:31 peanut AdvReac Verified 09/05/21 17:31 Home Medications Medication Instructions Recorded Confirmed Type atorvastatin 20 mg tablet (Lipitor) 20 mg PO HS #0 tab 09/10/17 09/05/21 History losartan 25 mg tablet 25 mg PO QAM 07/26/21 09/05/21 History aspirin 81 mg tablet,delayed 81 mg PO DAILY 09/05/21 09/05/21 History release etodolac 500 mg tablet 500 mg PO .AM &HS 09/05/21 09/05/21 History Patient History Medical History (Updated 09/06/21 @ 14:02 by Darrius Leslie, ) Blood clot in vein Chronic lower back pain Dyslipidemia Factor V Leiden H/O sciatica HTN (hypertension) KIM (obstructive sleep apnea) Surgical History H/O colonoscopy 2008: mild-moderate diverticulosis sigmoid colon History of cataract surgery Hx laparoscopic cholecystectomy Family History Other Cancer Diabetes Heart disease Social History Smoking Status: Unknown if ever smoked Second Hand Exposure: No; Hx Alcohol Use: No Hx Substance Use: No Preferred Language: Cymro Communication Ability: Effective Golf Ball 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 Required: No Beliefs That Will Affect Care: None marital status: Current Living Situation: Spouse current occupational status: retired How many Children do You have: 4 Other Information That Helps Us Care for You: No Feels Safe at Home: Yes Safety Concerns: Feels Safe At This Time Assistive Devices: None Review of Systems Review of Systems: All systems reviewed & are unremarkable except as noted in HPI & below Physical Exam Constitutional: WD/WN, vitals as above Respiratory: normal respiratory effort, lungs clear to auscultation Cardiovascular: RRR, no murmur, no edema Chest (Breasts): Additional Comments: Some degree of reproducible chest discomfort on palpation Gastrointestinal (Abdomen): normal bowel sounds, soft, nontender, no hepatosplenomegaly Neurologic: PERRL, EOMI, accommodation nl, no face palsy, no dysarthria Results & Data ([facility]) Vital Signs (Past 12 Hours) Vital Signs Temp Pulse Pulse Resp BP Pulse Ox 09/06/21 09:30 60 18 119/76 90 09/06/21 07:59 36.8 C 62 18 159/75 H 96 09/06/21 07:32 58 L 09/06/21 03:00 37.0 C 59 L 18 128/75 93 Laboratory Results Cardiac Enzymes 09/05/21 09/05/21 09/05/21 Range/Units 17:28 17:28 20:35 AST 20 (13-39) U/L Troponin I High Sens 6.6 48.4 H D (0-14) pg/ml 09/06/21 09/06/21 Range/Units 00:42 05:11 AST (13-39) U/L Troponin I High Sens 367.5 H* D 387.0 H* (0-14) pg/ml Coagulation 09/05/21 09/06/21 09/06/21 Range/Units 17:28 02:01 08:33 PT 10.7 (9.0-12.0) Seconds APTT 27.3 27.4 50.1 H* (21.0-31.0) Seconds Lipids 09/06/21 Range/Units 02:01 Triglycerides 43 (0-150) mg/dl Cholesterol 111 (0-200) mg/dl HDL Cholesterol 51 mg/dl Cholesterol/HDL Ratio 2.2 (0-5) CBC 09/05/21 09/06/21 Range/Units 17:28 02:01 WBC 9.59 8.83 (4.8-10.8) K/uL RBC 4.21 4.13 L (4.2-5.4) M/uL Hgb 12.8 12.5 (12.0-16.0) g/dL Hct 38.5 37.6 (37-47) % Plt Count 398 345 (130-400) K/uL Neut # (Auto) 6.88 H 5.34 (1.4-6.5) K/uL Lymph # (Auto) 1.54 2.39 (1.2-3.4) K/uL [place] # (Auto) 0.78 H 0.79 H (0.11-0.59) K/uL Eos # (Auto) 0.31 0.26 (0-0.5) K/uL Baso # (Auto) 0.03 0.03 (0-0.2) K/uL Comprehensive Metabolic Panel 09/05/21 09/06/21 Range/Units 17:28 02:01 Sodium 139 136 (136-145) mmol/L Potassium 4.2 3.8 (3.5-5.1) mmol/L Chloride 103 104 (98-107) mmol/L Carbon Dioxide 30 24 (21-32) mmol/L BUN 23 23 (6-23) mg/dl Creatinine 0.81 0.60 (0.6-1.2) mg/dl Glucose 117 H 121 H (70-99(Fasting)) mg/dl Calcium 9.7 9.2 (8.5-10.1) mg/dl AST 20 (13-39) U/L ALT 13 (7-52) U/L Alkaline Phosphatase 109 H (34-104) U/L Total Protein 7.2 (6.0-8.3) gm/dl Albumin 3.7 (3.4-5.0) gm/dl Intake and Output 09/05/21 09/06/21 09/06/21 22:59 06:59 14:59 Intake Total 170.5 / 170.5 159.867 / 159.867 Output Total 400 / 900 500 / 900 Balance -400 / -729.5 -329.5 / -729.5 159.867 / 159.867 Intake: IV 50.5 / 50.5 159.867 / 159.867 Heparin Sodium/Dextrose 25,000 159.867 / 159.867 units In 500 ml @ 1,100 UNITS/ HR 22 mls/hr IV .[id number] [facility] Rx #:[id number] Promethazine HCl 12.5 mg In 50.5 / 50.5 Sodium Chloride 0.9% 50 ml @ 202 mls/hr IV Q6H PRN Rx#: [id number] Oral 120 / 120 Output: Urine 400 / 900 500 / 900 Other: Weight 86.5 kg 85.2 kg Weight Measurement Method Standing Scale Built in [facility] Diagnostic Findings Echocardiogram performed today and reviewed independently revealed moderate concentric left ventricular hypertrophy, left ventricular ejection fraction 55 to 60%, with normal left ventricular wall motion, normal right ventricular chamber size and systolic function. The aortic valve is mildly calcified without aortic stenosis. Grade 1 diastolic dysfunction noted.
--- NOTE | 2021-09-06 14:38 | Hospitalist Progress Note ---
Date of Service September 06, 2021 Assessment & Plan (1) CHF (congestive heart failure): Plan: NSTEMI Pulmonary Edema --ECHO: Moderate concentric LVH. No regional wall motion abnormality. EF 55 to 60%. Right ventricle is normal in size and function. Grade 1 diastolic dysfunction. --CXR:Mild pulmonary edema. --CTA pending Continue aspirin, metoprolol, losartan, atorvastatin Continue IV heparin Appreciate cardiology input Planned for Cardiac cath as able Monitor volume status Hypertensive Urgency Likely situational Continue Metoprolol, Losartan Factor V [place] H/O DVT Currently not on any anticoagulation baseline On IV heparin for now H/O coronary artery calcification on previous imaging Continue home medications Hyperlipidemia on statin Hyperglycemia A1c pending Fall Reports H/O multiple Falls Face CT:Right zygomatic arch fracture is favored to be chronic. CT Head:No acute intracranial hemorrhage, no evidence of acute territorial infarction or other acute intracranial disease process. R finger X ray:No evidence of acute osseous injury. Neck CT:Degenerative changes without evidence of acute bony injury. R Shoulder X ray:No evidence of acute osseous injury. R middle finger X ray:No evidence of acute osseous injury. Pain control Fall Precautions PT/OT as able DVT Px: IV Heparin Code Status Full code Admission and Anticipated Discharge Date Admission Date: September 05, 2021 Subjective Patient is seen and examined at bedside States feeling tired today Had transient episode of nausea associated with dizziness while sitting in chair, resolved on lying Denies any chest pain during my encounter Also denies any shortness of breath, abdominal pain Discussed with cardiology Offers no other complaints Review of Systems Review of Systems: All systems reviewed & are unremarkable except as noted in Subjective Physical Exam Physical Exam: Physical Exam: Vitals signs as noted above General Appearance:Moderately built and nourished, no apparent distress Head: normocephalic, Atraumatic Eyes: normal inspection, EOMI Neck: supple, Trachea midline Respiratory/Chest: Normal breath sounds, CTA, No accessory muscle use, +reproducible chest pain Cardiovascular: S1, S2, No murmur Abdomen/GI:Soft, Non tender, Bowel sounds present Extremities/Musculoskeletal:normal inspection, Trace edema, R middle finger swelling, tender Neurologic/Psych:AAOX3, grossly no focal neurological deficits Skin: normal color, warm Results & Data Results & Data ([facility]) Vital Signs (Past 12 Hours) Vital Signs Temp Pulse Pulse Resp BP Pulse Ox 09/06/21 09:30 60 18 119/76 90 09/06/21 07:59 36.8 C 62 18 159/75 H 96 09/06/21 07:32 58 L 09/06/21 03:00 37.0 C 59 L 18 128/75 93 Laboratory Results Short CBC 09/05/21 09/06/21 Range/Units 17:28 02:01 WBC 9.59 8.83 (4.8-10.8) K/uL Hgb 12.8 12.5 (12.0-16.0) g/dL Hct 38.5 37.6 (37-47) % Plt Count 398 345 (130-400) K/uL BMP 09/05/21 09/06/21 17:28 02:01 Sodium 139 136 Potassium 4.2 3.8 Chloride 103 104 Carbon Dioxide 30 24 BUN 23 23 Creatinine 0.81 0.60 Glucose 117 H 121 H Calcium 9.7 9.2 Liver Function 09/05/21 Range/Units 17:28 Total Bilirubin 0.6 (0.2-1.0) mg/dl AST 20 (13-39) U/L ALT 13 (7-52) U/L Alkaline Phosphatase 109 H (34-104) U/L Albumin 3.7 (3.4-5.0) gm/dl
--- NOTE | 2021-09-06 15:11 | Emergency Department Note ---
Impression & Plan Closed fracture of zygomatic arch with routine healing, Fall as cause of accidental injury at home as place of occurrence, Contusion of right shoulder, Contusion of knee, Closed head injury ED Provider Note CHIEF COMPLAINT: Fall, right shoulder pain, right knee pain, closed head injury HISTORY OF PRESENT ILLNESS: This 85-year-old female patient presents to the emergency department with complaints of a fall. Patient states she was visiting her daughter's house today when she was walking through the dining room on her way out the car. She lost her balance and fell against the wall, hitting her head, then landing on her right knee, right shoulder and onto her anterior chest and abdomen. Patient denies losing consciousness. Her family was able to assist her immediately. She does not use a walker or cane regularly although she has not fallen 5 times in the last year. She and her reside at [facility]. She states she has been instructed to use a cane although uses the railing along the wall most of the time. She denies any recent fevers, chills, chest pain shortness of breath. She denies any recent urinary symptoms. Patient is noted to be hypertensive and states she did take her blood pressure medications this morning. REVIEW OF SYSTEMS: A review of systems was performed with positives and pertinent negatives listed in the history of present illness. 10 systems were reviewed and are otherwise negative. ALLERGIES: see below MEDICATIONS: see below PMH: see below SOCIAL HISTORY: see below DDx: Fracture, dislocation, contusion, intra-abdominal, pneumothorax, intrathoracic, intracranial, neurologic, compartment syndrome, rhabdomyolysis, as well as other pathologies. PHYSICAL EXAM: Vital signs reviewed. General: Elderly 85-year-old female, in no significant distress. HEENT: No scleral icterus, PERRLA, neck supple. Atraumatic. Cardiovascular: Regular rate and rhythm, no extra sounds. Pulmonary: Clear to auscultation bilaterally, normal work of breathing. Abdomen: Soft, nontender, nondistended, positive bowel sounds. No evidence of trauma. Musculoskeletal: Atraumatic, no peripheral edema. Tender to palpation of the left paraspinous muscles of the neck, nontender to the thoracic and lumbar spine. Minimal ecchymotic area noted along the right shoulder and right knee over the patella. No crepitus or significant pain with range of motion of the knee or shoulder. There is no discomfort to palpation in the anterior chest and ribs. Neurologic: Patient awake alert and oriented x 3, speech is clear Skin: Warm, dry, no rash EMERGENCY DEPARTMENT COURSE/MDM: This patient was evaluated and appeared to be in no significant distress. IV access was obtained and laboratory work was drawn. Patient was medicated with IV hydralazine for marked elevation in the blood pressure. CT imaging was performed of the head, face and neck and is negative for acute traumatic finding. There is evidence of an old right zygomatic arch fracture. X-ray of the right shoulder, right knee and right middle finger were performed and are negative for acute fracture or dislocation. Chest x-ray was performed and is significant for some mild pulmonary vascular change. Laboratory work was fairly reassuring. Patient was medicated with 20 mg of IV Lasix. I did explain the findings to the patient and her at the bedside. She developed some chest discomfort. An EKG was repeated and reveals an intraventricular conduction delay and a tachycardia. A second EKG was performed and not transmitted to [facility] for documentation. A troponin was added to the patient's laboratory work, she was given IV labetalol 10 mg for rate control and further blood pressure management. It is unclear if the patient is suffering a musculoskeletal chest pain from the mechanical fall onto her chest and abdomen or if this is indicative of a cardiac process. Patient's initial troponin is negative however I am concerned that the patient may have mendoza ffered a coronary event secondary to the stress of the fall and the marked hypertension. EKG changes are indicative. Patient is also unsteady on her feet and will require PT/OT evaluation for further recommendation. Patient's case was discussed with the [facility] hospitalist who will evaluate the patient for admission and further management. MONITORING: An order for cardiac monitoring was placed and the patient is noted to be in a normal sinus rhythm at 76 beats per minute. RADIOLOGY: See below EKG: NSR 73 bpm, T wave inversion in inferior and anterior leads. QTc 451, no PVC, no PAC. When compared to previous dated September 10, 2017, T wave inversions are new. 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: 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 Beliefs That Will Affect Care: None marital status: Current Living Situation: Spouse current occupational status: retired How many Children do You have: 4 Other Information That Helps Us Care for You: No Feels Safe at Home: Yes Safety Concerns: Feels Safe At This Time Assistive Devices: None Allergies Allergies Allergy/AdvReac Type Severity Reaction Status Date / Time latex Allergy Intermediate RASH - Verified 09/05/21 17:30 ITCHING Sulfa (Sulfonamide Allergy Intermediate HIVES Verified 09/05/21 17:30 Antibiotics) adhesive Allergy Mild RASH Verified 01/30/20 11:18 amoxicillin Allergy Mild RASH Verified 09/05/21 17:30 clavulanic acid Allergy Mild RASH Verified 09/05/21 17:30 oxycodone Allergy Mild RACING Verified 09/05/21 17:30 HEART prednisone AdvReac Mild GI SYMPTOMS Verified 09/05/21 17:30 salicylates AdvReac Mild GI SYMPTOMS Verified 09/05/21 17:30 tramadol AdvReac Mild did not Verified 09/05/21 21:51 feel well aspirin AdvReac Unknown NAUSEA Unverified 09/05/21 17:30 naproxen AdvReac Unknown GI SYMPTOMS Verified 09/05/21 17:30 Penicillins AdvReac Unknown NAUSEA Unverified 01/30/20 11:18 procaine AdvReac Unknown HEART Unverified 01/30/20 11:18 RACING chocolate flavor AdvReac Verified 09/05/21 17:31 [place] And Derivatives AdvReac Verified 09/05/21 17:31 peanut AdvReac Verified 09/05/21 17:31 Home Meds Home Medications Medication Instructions Recorded Confirmed atorvastatin 20 mg tablet (Lipitor) 20 mg PO HS #0 tab 09/10/17 09/05/21 losartan 25 mg tablet 25 mg PO QAM 07/26/21 09/05/21 aspirin 81 mg tablet,delayed 81 mg PO DAILY 09/05/21 09/05/21 release etodolac 500 mg tablet 500 mg PO .AM &HS 09/05/21 09/05/21 Results & Data (ED) Vital Signs Vital Signs - 24 hr 09/05/21 16:05 09/05/21 16:28 09/05/21 16:29 Temperature 36.4 C L Temperature Source Oral Pulse Rate 70 Pulse Rate from SpO2 Sensor Pulse Rhythm Regular Pulse Strength Normal Respiratory Rate 20 Respiratory Effort / Characteristics Non-Labored Respiratory Depth Normal Blood Pressure 238/99 H 238/99 H Blood Pressure Mean 145 145 Blood Pressure Position Lying Pulse Oximetry 96 99 Oxygen Delivery Method Room Air Room Air Sepsis Recent Fever Within 48 Hours No Sepsis New/Unexplained Change in Mental Status No Sepsis Action Taken by Nursing No Action Required 09/05/21 16:30 09/05/21 16:35 09/05/21 16:40 Temperature Temperature Source Pulse Rate 76 77 67 Pulse Rate from SpO2 Sensor 75 77 67 Pulse Rhythm Pulse Strength Respiratory Rate 20 23 27 H Respiratory Effort / Characteristics Respiratory Depth Blood Pressure 234/97 H 213/124 H Blood Pressure Mean 142 153 Blood Pressure Position Pulse Oximetry 96 95 94 Oxygen Delivery Method Sepsis Recent Fever Within 48 Hours Sepsis New/Unexplained Change in Mental Status Sepsis Action Taken by Nursing 09/05/21 16:50 09/05/21 17:00 09/05/21 17:15 Temperature Temperature Source Pulse Rate 73 73 76 Pulse Rate from SpO2 Sensor 73 72 Pulse Rhythm Pulse Strength Respiratory Rate 29 H 22 33 H Respiratory Effort / Characteristics Respiratory Depth Blood Pressure 212/73 H Blood Pressure Mean 119 Blood Pressure Position Pulse Oximetry 95 95 Oxygen Delivery Method Sepsis Recent Fever Within 48 Hours Sepsis New/Unexplained Change in Mental Status Sepsis Action Taken by Nursing 09/05/21 17:20 09/05/21 17:30 09/05/21 17:31 Temperature Temperature Source Pulse Rate 74 70 70 Pulse Rate from SpO2 Sensor 74 70 70 Pulse Rhythm Pulse Strength Respiratory Rate 25 H 21 22 Respiratory Effort / Characteristics Respiratory Depth Blood Pressure 215/69 H Blood Pressure Mean 117 Blood Pressure Position Pulse Oximetry 96 95 94 Oxygen Delivery Method Sepsis Recent Fever Within 48 Hours Sepsis New/Unexplained Change in Mental Status Sepsis Action Taken by Nursing 09/05/21 17:37 09/05/21 17:40 09/05/21 17:50 Temperature Temperature Source Pulse Rate 78 86 96 H Pulse Rate from SpO2 Sensor 79 86 96 H Pulse Rhythm Pulse Strength Respiratory Rate 27 H 32 H 30 H Respiratory Effort / Characteristics Respiratory Depth Blood Pressure 183/74 H Blood Pressure Mean 110 Blood Pressure Position Pulse Oximetry 97 97 99 Oxygen Delivery Method Sepsis Recent Fever Within 48 Hours Sepsis New/Unexplained Change in Mental Status Sepsis Action Taken by Nursing 09/05/21 18:00 09/05/21 18:10 09/05/21 18:20 Temperature Temperature Source Pulse Rate 94 H 97 H 101 H Pulse Rate from SpO2 Sensor 95 H Pulse Rhythm Pulse Strength Respiratory Rate 19 26 H 26 H Respiratory Effort / Characteristics Respiratory Depth Blood Pressure 143/90 H Blood Pressure Mean 107 Blood Pressure Position Pulse Oximetry 98 Oxygen Delivery Method Sepsis Recent Fever Within 48 Hours Sepsis New/Unexplained Change in Mental Status Sepsis Action Taken by Nursing 09/05/21 18:32 09/05/21 18:33 09/05/21 18:40 Temperature Temperature Source Pulse Rate 139 H 103 H Pulse Rate from SpO2 Sensor 116 H 104 H Pulse Rhythm Pulse Strength Respiratory Rate Respiratory Effort / Characteristics Respiratory Depth Blood Pressure 146/113 H Blood Pressure Mean 124 Blood Pressure Position Pulse Oximetry 97 99 Oxygen Delivery Method Sepsis Recent Fever Within 48 Hours Sepsis New/Unexplained Change in Mental Status Sepsis Action Taken by Nursing 09/05/21 18:50 09/05/21 19:00 09/05/21 19:01 Temperature Temperature Source Pulse Rate 80 84 79 Pulse Rate from SpO2 Sensor 80 84 77 Pulse Rhythm Pulse Strength Respiratory Rate Respiratory Effort / Characteristics Respiratory Depth Blood Pressure 132/65 Blood Pressure Mean 87 Blood Pressure Position Pulse Oximetry 97 96 96 Oxygen Delivery Method Sepsis Recent Fever Within 48 Hours Sepsis New/Unexplained Change in Mental Status Sepsis Action Taken by Nursing 09/05/21 19:10 09/05/21 19:20 09/05/21 19:30 Temperature Temperature Source Pulse Rate 77 81 76 Pulse Rate from SpO2 Sensor 77 81 76 Pulse Rhythm Pulse Strength Respiratory Rate 20 Respiratory Effort / Characteristics Respiratory Depth Blood Pressure 159/66 H Blood Pressure Mean 97 Blood Pressure Position Pulse Oximetry 96 97 96 Oxygen Delivery Method Sepsis Recent Fever Within 48 Hours Sepsis New/Unexplained Change in Mental Status Sepsis Action Taken by Nursing 09/05/21 19:40 09/05/21 19:50 Temperature Temperature Source Pulse Rate 73 74 Pulse Rate from SpO2 Sensor 73 76 Pulse Rhythm Pulse Strength Respiratory Rate 27 H 26 H Respiratory Effort / Characteristics Respiratory Depth Blood Pressure Blood Pressure Mean Blood Pressure Position Pulse Oximetry 94 96 Oxygen Delivery Method Sepsis Recent Fever Within 48 Hours Sepsis New/Unexplained Change in Mental Status Sepsis Action Taken by [facility] Medications Current Medication List: was personally reviewed by me Laboratory Data Attestation: I reviewed the patient's lab results. Result diagrams: 09/06/21 02:01 09/06/21 02:01 Lab Results 09/05/21 09/05/21 09/05/21 Range/Units 17:28 17:28 17:28 WBC 9.59 (4.8-10.8) K/uL RBC 4.21 (4.2-5.4) M/uL Hgb 12.8 (12.0-16.0) g/dL Hct 38.5 (37-47) % MCV 91.4 (80-100) fL MCH 30.4 (25-34) pg MCHC 33.2 (32-36) g/dL RDW Std Deviation 44.5 (36.4-46.3) fL RDW Coeff of Gunner 13.4 (11.5-14.5) % Plt Count 398 (130-400) K/uL MPV 9.3 (7.4-10.4) fL Immature Gran % (Auto) 0.5 % Neut % (Auto) 71.8 % Lymph % (Auto) 16.1 % [place] % (Auto) 8.1 % Eos % (Auto) 3.2 % Baso % (Auto) 0.3 % Neut # (Auto) 6.88 H (1.4-6.5) K/uL Lymph # (Auto) 1.54 (1.2-3.4) K/uL [place] # (Auto) 0.78 H (0.11-0.59) K/uL Eos # (Auto) 0.31 (0-0.5) K/uL Baso # (Auto) 0.03 (0-0.2) K/uL Immature Gran # (Auto) 0.05 H (0.00-0.02) K/uL APTT (21.0-31.0) Seconds PTT Ratio Sodium 139 (136-145) mmol/L Potassium 4.2 (3.5-5.1) mmol/L Chloride 103 (98-107) mmol/L Carbon Dioxide 30 (21-32) mmol/L Anion Gap 6 (3-11) BUN 23 (6-23) mg/dl Creatinine 0.81 (0.6-1.2) mg/dl Est Cr Clr Drug Dosing Not Reportable Est GFR ( Amer) 75.7 ml/min Est GFR (Non-Af Amer) 65.3 ml/min BUN/Creatinine Ratio 28.4 H (10-20) Glucose 117 H (70-99(Fasting)) mg/dl Calcium 9.7 (8.5-10.1) mg/dl Magnesium (1.7-2.4) mg/dl Total Bilirubin 0.6 (0.2-1.0) mg/dl AST 20 (13-39) U/L ALT 13 (7-52) U/L Alkaline Phosphatase 109 H (34-104) U/L Troponin I High Sens 6.6 (0-14) pg/ml Total Protein 7.2 (6.0-8.3) gm/dl Albumin 3.7 (3.4-5.0) gm/dl Globulin 3.5 (2.5-4.0) gm/dl Albumin/Globulin Ratio 1.1 (0.9-2) TSH (0.300-4.500) uIu/ml SARS-CoV-2, RNA, NAAT (NEGATIVE) 09/05/21 09/05/21 09/05/21 Range/Units 17:28 17:28 17:28 WBC (4.8-10.8) K/uL RBC (4.2-5.4) M/uL Hgb (12.0-16.0) g/dL Hct (37-47) % MCV (80-100) fL MCH (25-34) pg MCHC (32-36) g/dL RDW Std Deviation (36.4-46.3) fL RDW Coeff of Gunner (11.5-14.5) % Plt Count (130-400) K/uL MPV (7.4-10.4) fL Immature Gran % (Auto) % Neut % (Auto) % Lymph % (Auto) % [place] % (Auto) % Eos % (Auto) % Baso % (Auto) % Neut # (Auto) (1.4-6.5) K/uL Lymph # (Auto) (1.2-3.4) K/uL [place] # (Auto) (0.11-0.59) K/uL Eos # (Auto) (0-0.5) K/uL Baso # (Auto) (0-0.2) K/uL Immature Gran # (Auto) (0.00-0.02) K/uL APTT 27.3 (21.0-31.0) Seconds PTT Ratio 1.0 Sodium (136-145) mmol/L Potassium (3.5-5.1) mmol/L Chloride (98-107) mmol/L Carbon Dioxide (21-32) mmol/L Anion Gap (3-11) BUN (6-23) mg/dl Creatinine (0.6-1.2) mg/dl Est Cr Clr Drug Dosing Est GFR ( Amer) ml/min Est GFR (Non-Af Amer) ml/min BUN/Creatinine Ratio (10-20) Glucose (70-99(Fasting)) mg/dl Calcium (8.5-10.1) mg/dl Magnesium 2.1 (1.7-2.4) mg/dl Total Bilirubin (0.2-1.0) mg/dl AST (13-39) U/L ALT (7-52) U/L Alkaline Phosphatase (34-104) U/L Troponin I High Sens (0-14) pg/ml Total Protein (6.0-8.3) gm/dl Albumin (3.4-5.0) gm/dl Globulin (2.5-4.0) gm/dl Albumin/Globulin Ratio (0.9-2) TSH 3.329 (0.300-4.500) uIu/ml SARS-CoV-2, RNA, NAAT (NEGATIVE) 09/05/21 Range/Units 19:26 WBC (4.8-10.8) K/uL RBC (4.2-5.4) M/uL Hgb (12.0-16.0) g/dL Hct (37-47) % MCV (80-100) fL MCH (25-34) pg MCHC (32-36) g/dL RDW Std Deviation (36.4-46.3) fL RDW Coeff of Gunner (11.5-14.5) % Plt Count (130-400) K/uL MPV (7.4-10.4) fL Immature Gran % (Auto) % Neut % (Auto) % Lymph % (Auto) % [place] % (Auto) % Eos % (Auto) % Baso % (Auto) % Neut # (Auto) (1.4-6.5) K/uL Lymph # (Auto) (1.2-3.4) K/uL [place] # (Auto) (0.11-0.59) K/uL Eos # (Auto) (0-0.5) K/uL Baso # (Auto) (0-0.2) K/uL Immature Gran # (Auto) (0.00-0.02) K/uL APTT (21.0-31.0) Seconds PTT Ratio Sodium (136-145) mmol/L Potassium (3.5-5.1) mmol/L Chloride (98-107) mmol/L Carbon Dioxide (21-32) mmol/L Anion Gap (3-11) BUN (6-23) mg/dl Creatinine (0.6-1.2) mg/dl Est Cr Clr Drug Dosing Est GFR ( Amer) ml/min Est GFR (Non-Af Amer) ml/min BUN/Creatinine Ratio (10-20) Glucose (70-99(Fasting)) mg/dl Calcium (8.5-10.1) mg/dl Magnesium (1.7-2.4) mg/dl Total Bilirubin (0.2-1.0) mg/dl AST (13-39) U/L ALT (7-52) U/L Alkaline Phosphatase (34-104) U/L Troponin I High Sens (0-14) pg/ml Total Protein (6.0-8.3) gm/dl Albumin (3.4-5.0) gm/dl Globulin (2.5-4.0) gm/dl Albumin/Globulin Ratio (0.9-2) TSH (0.300-4.500) uIu/ml SARS-CoV-2, RNA, NAAT NEGATIVE (NEGATIVE) Administered Medications Acetaminophen (Acetaminophen 325 Mg Tab) 650 mg PO Q4H PRN PRN Reason: Pain or Fever Stop: 10/05/21 21:00 Last Admin: 09/05/21 21:54 Dose: 650 mg Documented by: [id number] Aspirin (Aspirin 81 Mg Ectab) 81 mg PO DAILY [facility] Stop: 10/06/21 08:59 Last Admin: 09/06/21 08:04 Dose: 81 mg Documented by: [id number] Atorvastatin Calcium (Atorvastatin 20 Mg Tab) 20 mg PO HS [facility] Stop: 10/05/21 21:00 Last Admin: 09/05/21 21:54 Dose: 20 mg Documented by: [id number] Promethazine HCl 12.5 mg/ (Sodium Chloride) 50.5 mls @ 202 mls/hr IV Q6H PRN PRN Reason: Nausea And Vomiting Stop: 10/05/21 21:00 Last Infusion: 09/06/21 02:52 Dose: 0 mls/hr Documented by: [id number] Admin: 09/06/21 02:33 Dose: 202 mls/hr Documented by: [id number] Heparin Sodium/Dextrose (Heparin Sodium/Dextrose) 25,000 units in 500 mls @ 22 mls/hr IV .[id number] [facility]; Protocol Stop: 10/06/21 01:44 Last Titration: 09/06/21 10:05 Dose: 1,100 units/hr, 22 mls/hr Documented by: [id number] Cosigned by: [id number] Admin: 09/06/21 02:49 Dose: 1,100 units/hr, 22 mls/hr Documented by: [id number] Cosigned by: [id number] Ipratropium [place] (Ipratropium [place] Neb Soln 0.02% 2.5 Ml Vial) 0.5 mg INH DAILY@1800 [facility] Stop: 10/05/21 20:29 Last Admin: 09/05/21 23:55 Dose: Not Given Documented by: [id number] Levalbuterol HCl (Levalbuterol 1.25mg/0.5ml Neb) 1.25 mg INH DAILY@1800 [facility] Stop: 10/05/21 20:29 Last Admin: 09/05/21 23:55 Dose: Not Given Documented by: [id number] Losartan Potassium (Losartan Potassium 25 Mg Tab) 25 mg PO QAM [facility] Stop: 10/06/21 08:59 Last Admin: 09/06/21 08:05 Dose: 25 mg Documented by: [id number] Metoprolol Tartrate (Metoprolol Tartrate 25 Mg Tab) 12.5 mg PO BID [facility] Stop: 10/05/21 21:00 Last Admin: 09/06/21 08:05 Dose: 12.5 mg Documented by: [id number] Admin: 09/05/21 21:54 Dose: 12.5 mg Documented by: [id number] Discontinued Medications Acetaminophen/Codeine Phosphate (Acetaminophen W/Codeine #3 1 Tab) 1 tab PO QID PRN PRN Reason: pain not relieved by tylenol Stop: 10/05/21 21:49 Last Admin: 09/05/21 23:47 Dose: 1 tab Documented by: [id number] Furosemide (Furosemide Inj 20 Mg/2 Ml Vial) 20 mg IV NOW STA Stop: 09/05/21 19:08 Last Admin: 09/05/21 19:27 Dose: 20 mg Documented by: [id number] Hydralazine HCl (Hydralazine Hcl 20 Mg/Ml Vial) 10 mg IV NOW STA Stop: 09/05/21 16:31 Last Admin: 09/05/21 17:34 Dose: 10 mg Documented by: [id number] Labetalol HCl (Labetalol Hcl Iv 5 Mg/Ml 20ml) 10 mg IV NOW STA Stop: 09/05/21 18:39 Last Admin: 09/05/21 18:43 Dose: 10 mg Documented by: [id number] Cosigned by: [id number] Nitroglycerin (Nitroglycerin Sl 0.4 Mg/Tab Tab) 0.4 mg SL NOW STA Stop: 09/05/21 19:56 Last Admin: 09/05/21 20:18 Dose: 0.4 mg Documented by: [id number] Imaging Data Radiologist's Impression: Knee X-Ray 09/05/21 16:28 XR knee RT 1 or 2V routine CLINICAL HISTORY: Trauma TECHNIQUE: 2 views of the right knee were obtained. Comparison: None available at the time of this dictation. FINDINGS: There is no evidence of an acute fracture. Degenerative changes are seen in the knee joint. These are most prominent in the medial compartment. No joint effusion is seen. No soft tissue abnormality is seen. IMPRESSION: No evidence of acute osseous injury. ACT 112: Negative or not required by law. Electronically signed by: Ayan Villa M.D. 09/05/2021 5:04 PM Shoulder X-Ray 09/05/21 16:28 XR shoulder RT min 2V routine CLINICAL HISTORY: Trauma TECHNIQUE: 3 views of the right shoulder were obtained. Comparison: Comparison is made to right shoulder 07/26/2021 FINDINGS: There is no evidence of an acute fracture. Joint spaces are well-preserved. The overlying soft tissues are unremarkable. The visualized portions of the lungs are clear. IMPRESSION: No evidence of acute osseous injury. ACT 112: Negative or not required by law. Electronically signed by: Ayan Villa M.D. 09/05/2021 5:[address] 09/05/21 16:30 CT cervical spine wo con CLINICAL HISTORY: Fall TECHNIQUE: Multidetector row helical CT of the cervical spine was performed without administration of intravenous contrast. Coronal and sagittal reformations were obtained. Automated dose lowering techniques and/or adjustment according to patient size were utilized for this exam. Comparison: None available at the time of this dictation. FINDINGS: No acute fractures or subluxations are identified. Degenerative changes are seen in the visualized spine. The alignment is normal. Soft tissues are unremarkable. IMPRESSION: Degenerative changes without evidence of acute bony injury. ACT 112: Negative or not required by law. Electronically signed by: Ayan Villa M.D. 09/05/2021 5:[address] 09/05/21 16:30 CT facial bones wo con CLINICAL HISTORY: Fall TECHNIQUE: Multidetector row helical CT of the maxillofacial bones was performed without administration of intravenous contrast, and processed with bone and soft tissue algorithms. Coronal and sagittal reformations were obtained. Automated dose lowering techniques and/or adjustment according to patient size were utilized for this exam. Comparison: None available at the time of this dictation. FINDINGS: Nasal bones are normal. The mandible is intact. The temporomandibular joints are anatomically aligned. Pterygoid plates are intact. There is a fracture of the right zygomatic arch which appears chronic with no surrounding edema or hematoma. The globes are normal and symmetric, without proptosis, obvious disruption or lens dislocation. There is no orbital radiopaque foreign body. The orbital reich are intact. The retrobulbar fat is without evidence of disruption. Extr aocular muscles are normal and symmetric. Optic nerve sheath complexes are normal in course and caliber. Mucous retention cyst is seen in the left maxillary sinus. IMPRESSION: 1. No acute facial fracture. 2. Right zygomatic arch fracture is favored to be chronic. ACT 112: Negative or not required by law. Electronically signed by: Ayan Villa M.D. 09/05/2021 5:[address] 09/05/21 16:30 CT head/brain wo con CLINICAL HISTORY: Trauma Technique: Contiguous axial CT images of the head were acquired from the base of the skull to the vertex without intravenous contrast administration. Images were viewed in brain, subdural and bone windows. Automated dose lowering techniques and/or adjustment according to patient size were utilized for this exam. Comparison: None available at the time of this dictation. Findings: The ventricles, basal cisterns, and cerebral sulci are normal. There is no acute intracranial hemorrhage or evidence of acute territorial infarction. Neither mass effect, shift of the midline structures, nor abnormal extra-axial fluid collections are shown. Imaged portions of the paranasal sinuses and mastoid air cells are clear. The orbits appear normal. There are no acute fractures of the calvaria or scalp s welling. Impression: No acute intracranial hemorrhage, no evidence of acute territorial infarction or other acute intracranial disease process. ACT 112: Negative or not required by law. Electronically signed by: Ayan Villa M.D. 09/05/2021 5:20 PM Chest X-Ray 09/05/21 18:15 XR chest 1V portable CLINICAL HISTORY: chest pain TECHNIQUE: Single frontal radiograph of the chest was obtained. Comparison: Comparison is made to rib series 12/21/2019 FINDINGS: No lines and tubes are seen. The aorta is tortuous. The remainder of the cardiomediastinal silhouette is unremarkable. Prominence and cephalization of the vasculature is seen. No evidence of pleural effusion or pneumothorax. IMPRESSION: Mild pulmonary edema. ACT 112: Negative or not required by law. Electronically signed by: Ayan Villa M.D. 09/05/2021 6:55 PM Finger X-Ray 09/05/21 18:38 XR finger(s) RT min 2V CLINICAL HISTORY: middle, trauma TECHNIQUE: 3 views of the right third digit were obtained. Comparison: None available at the time of this dictation. FINDINGS: There is no evidence of an acute fracture. Joint spaces are well-maintained. No soft tissue abnormality is seen. IMPRESSION: No evidence of acute osseous injury. ACT 112: Negative or not required by law. Electronically signed by: Ayan Villa M.D. 09/05/2021 6:56 PM Blood Pressure Blood Pressure Findings: Elevated blood pressure Blood Pressure Disposition: further management by hospitalist Head Trauma GCS Score: 15 Discharge Plan Visit Data Chief Complaint: Fall Stated Complaint: Fall ED Provider: Mildred Orozco Discharge Problem: Closed fracture of zygomatic arch with routine healing, Fall as cause of accidental injury at home as place of occurrence, Contusion of right shoulder, Contusion of knee, Closed head injury Patient Disposition: Home - Self-Care Condition: Good Discharge Instructions Interventions: ED Discharge Assessment Last Done: 09/05/21 20:29 Discharge Problem: Closed fracture of zygomatic arch with routine healing Qualifiers: Laterality: right Qualified Code(s): S02.40ED - Zygomatic fracture, right side, subsequent encounter for fracture with routine healing Fall as cause of accidental injury at home as place of occurrence Qualifiers: Encounter type: initial encounter Qualified Code(s): W19.XXXA - Unspecified fall, initial encounter Contusion of right shoulder Qualifiers: Encounter type: initial encounter Qualified Code(s): S40.011A - Contusion of right shoulder, initial encounter Contusion of knee Qualifiers: Encounter type: initial encounter Laterality: right Qualified Code(s): S80.01XA - Contusion of right knee, initial encounter Closed head injury Qualifiers: Encounter type: initial encounter Qualified Code(s): S09.90XA - Unspecified injury of head, initial encounter
[2021-09-06] MEDS ORDERED: OPTIRAY 320 125ml IV ONE (16:22)
--- NOTE | 2021-09-06 17:10 | CT Scan Report ---
CT ANGIOGRAPHY OF THE CHEST, PULMONARY EMBOLUS PROTOCOL CLINICAL HISTORY: Chest pain. Evaluate for pulmonary embolus. COMPARISON STUDY: Chest CT October 25, 2012. Chest radiograph September 05, 2021. TECHNIQUE: Following IV administration of 88 mL of Optiray, helical axial images of the chest were ob tained utilizing the pulmonary embolus protocol. Maximal intensity projections and sagittal and tristin nal reformats were viewed on an independent 3D workstation. IV contrast was administered without com plication. Automated exposure control was utilized for the study. A dose lowering technique was uti lized adhering to the principles of ALARA. CT DOSE: 699.59 mGy.cm FINDINGS: No pulmonary emboli are identified. There is mild dilatation of the central pulmonary salo renato. Cardiomegaly is noted. There is moderate coronary artery calcification. There is no pericardial effusion. No enlarged thoracic images are present. Old bilateral rib deformities are present. There is no consolidation to suggest pneumonia. Subpleural ground glass opacities favor atelectasis. Note i s made of a nondisplaced sternal fracture involving the anterior cortex of the sternum, just inferior to the sternomanubrial articulation. This fracture is age indeterminate but new since CT of October 062012. IMPRESSION: 1. No pulmonary emboli identified. Mild dilatation of the central pulmonary arteries. 2. Age indeterminate nondisplaced sternal fracture. ACT 112: Negative or not required by law. Electronically signed by: Blu Betancur M.D. 09/06/2021 5:08 PM
[2021-09-06] MEDS ORDERED: ACETAMINOPHEN 1,000 MG/100 ML VIAL IV PRN (17:26)
[2021-09-06] MEDS ORDERED: LABETALOL HCL IV 5 MG/ML 20ML IV PRN (17:27)
[2021-09-06] MEDS: IPRATROPIUM BROMIDE NEB SOLN 0.02% 2.5 ML VIAL INH SCH (19:20)
[2021-09-06] MEDS: LEVALBUTEROL 1.25MG/0.5ML NEB INH SCH (19:20)
[2021-09-06] MEDS: ATORVASTATIN 20 MG TAB PO SCH (20:49)
[2021-09-07] MEDS: HEPARIN SODIUM/DEXTROSE 25,000 UNITS/500 ML BAG IV SCH (02:23)
[2021-09-07 07:44] LABS: Basophils # (auto) 0.02 K/uL (0-0.2); Basophils % (auto) 0.3 %; Eosinophils # (auto) 0.44 K/uL (0-0.5); Eosinophils % (auto) 6.6 %; Hemoglobin 12.2 g/dL (12.0-16.0); Immature Granulocytes # (auto) 0.02 K/uL (0.00-0.02); Immature Granulocytes % (auto) 0.3 %; Lymphocytes # (auto) 2.53 K/uL (1.2-3.4); Mean Corpuscular Hemoglobin 30.2 pg (25-34); Mean Corpuscular Volume 91.6 fL (80-100); Mean Platelet Volume 9.3 fL (7.4-10.4); Monocytes # (auto) 0.75 K/uL (0.11-0.59); Monocytes % (auto) 11.3 %; Neutrophils # (auto) 2.89 K/uL (1.4-6.5); Neutrophils % (auto) 43.5 %; Platelet Count 364 K/uL (130-400); RDW Coefficient of Variation 13.9 % (11.5-14.5); RDW Standard Deviation 46.2 fL (36.4-46.3); Red Blood Count 4.04 M/uL (4.2-5.4); White Blood Count 6.65 K/uL (4.8-10.8)
[2021-09-07 07:55] LABS: Partial Thromboplastin Ratio 1.6
[2021-09-07] MEDS: METOPROLOL TARTRATE 25 MG TAB PO SCH (08:17)
[2021-09-07] MEDS: ASPIRIN 81 MG ECTAB PO SCH (08:17)
[2021-09-07] MEDS: LOSARTAN POTASSIUM 25 MG TAB PO SCH (08:17)
[2021-09-07 09:12] LABS: Estimated Average Glucose 128 mg/dl; Hemoglobin A1C 6.1 % (4.5-5.6)
[2021-09-07] MEDS: METOPROLOL SUCC 25MG EXT REL TAB PO SCH (10:02)
[2021-09-07] MEDS ORDERED: DEXTROMETHORPHAN POLYMR COMPLX 30 MG/5 ML UDP PO PRN ×2 (11:05→15:53)
[2021-09-07] MEDS ORDERED: FUROSEMIDE INJ 20 MG/2 ML VIAL IV ONE ×2 (11:28→12:01)
--- NOTE | 2021-09-07 11:36 | Cardiology Progress Note ---
Date of Service September 07, 2021 Assessment & Plan (1) NSTEMI (non-ST elevated myocardial infarction): (2) Factor V Leiden: (3) HTN (hypertension): (4) Dyslipidemia: Plan: 85-year-old female (1) NSTEMI (non-ST elevated myocardial infarction): -Patient found to have elevated at HS troponin, abnormal EKG which is progressed since her initial presentation. Echocardiogram reveals normal biventricular wall motion and LVEF. Recommend ongoing medical therapy with aspirin, metoprolol, losartan, atorvastatin, unfractionated heparin. Plan for cardiac catheterization 09/08/21. NPO after MN. Will continue heparin until timing of catheterization determined tomorrow. With regards to wheeze and cough. Concerned about an element of mild volume overload. Update BMP, if renal function stable , proceed with dose of furosemide. (2) Factor V Leiden: The patient has a history of homozygous Factor V Leiden mutation as well as IgG positive anticardiolipin antibody dating back to 1998. CTA chest performed 09/06/21: 1. No pulmonary emboli identified. Mild dilatation of the central pulmonary arteries. 2. Age indeterminate nondisplaced sternal fracture. (3) HTN (hypertension): -Blood pressure elevated remains above goal. Change metoprolol tartrate to succinate 25 mg daily. Continue losartan 25 mg daily, possible lasix after bmp results available. (4) Dyslipidemia: LDL 51 mg/dl this admission. Continue atorvastatin. Admission and Anticipated Discharge Date Admission Date: September 05, 2021 Subjective Patient seen in cardiology follow-up of chief complaint of chest discomfort, working diagnosis non-ST segment elevation myocardial infarction. She feels well. Telemetry reveals sinus rhythm in the 60s. No anginal symptoms at present. Unfractionated heparin infusing without complication. She notes a wheeze with expiration, and a mild cough. Had CT angiogram performed yesterday, with results as outlined. Review of Systems Review of Systems: All systems reviewed & are unremarkable except as noted in HPI & below Physical Exam Constitutional: WD/WN, vitals as above Respiratory: normal respiratory effort, lungs clear to auscultation Cardiovascular: RRR, no murmur, no edema Gastrointestinal (Abdomen): normal bowel sounds, soft, nontender, no hepatosplenomegaly Neurologic: PERRL, EOMI, accommodation nl, no face palsy, no dysarthria Results & Data ([facility]) Vital Signs (Past 12 Hours) Vital Signs Temp Pulse Resp BP Pulse Ox 09/07/21 08:11 36.9 C 69 20 173/75 H 93 09/07/21 03:24 36.8 C 70 18 162/75 H 91 Laboratory Results Coagulation 09/07/21 Range/Units 06:19 APTT 45.0 H (21.0-31.0) Seconds CBC 09/07/21 Range/Units 06:19 WBC 6.65 (4.8-10.8) K/uL RBC 4.04 L (4.2-5.4) M/uL Hgb 12.2 (12.0-16.0) g/dL Hct 37.0 (37-47) % Plt Count 364 (130-400) K/uL Neut # (Auto) 2.89 (1.4-6.5) K/uL Lymph # (Auto) 2.53 (1.2-3.4) K/uL [place] # (Auto) 0.75 H (0.11-0.59) K/uL Eos # (Auto) 0.44 (0-0.5) K/uL Baso # (Auto) 0.02 (0-0.2) K/uL Intake and Output 09/06/21 09/07/21 09/07/21 22:59 06:59 14:59 Intake Total 1160 / 1660.000 340.133 / 1660.000 279.9 / 279.9 Output Total Balance 1159 / 1659.000 340.133 / 1659.000 279.9 / 279.9 Intake: IV 340.133 / 500.000 119.9 / 119.9 Heparin Sodium/Dextrose 25,000 340.133 / 500.000 119.9 / 119.9 units In 500 ml @ 1,100 UNITS/ HR 22 mls/hr IV .[id number] [facility] Rx #:[id number] Oral 1160 / 1160 160 / 160 Output: Urine Other: # Unmeasured Voids 1 1 Weight 85.2 kg 86.9 kg Weight Measurement Method Built in [facility] Diagnostic Findings EKG performed today 09/07/2021 reveals normal sinus rhythm at 63 bpm, with deep inferior T wave inversions consistent with ischemia, T wave inversions in the precordial leads consistent of anterolateral ischemia. Compared to 09/06/2021, the lateral T wave inversions are more prominent.
[2021-09-07] MEDS: FLUTICASONE PROPIONATE NA SPR 16 GM BTL NAE SCH (12:02)
[2021-09-07 12:10] LABS: BUN Creatinine Ratio 26.1 (10-20); Calcium 9.5 mg/dl (8.5-10.1); Creatinine Clr Calc Pharmacy 56.3 ml/min; Est GFR (African American) 90.7 ml/min; Est GFR (Non-African American) 78.3 ml/min; Potassium 4.1 mmol/L (3.5-5.1)
--- NOTE | 2021-09-07 12:19 | Consultation Report ---
DATE OF CONSULTATION: 09/07/2021. HISTORY OF PRESENT ILLNESS: This is an 85-year-old right-hand dominant female seen at the request of Dr. Paulino Graham regarding chest wall pain. The patient had been admitted to the hospitalist serv ice due to left-sided chest discomfort going across her chest since the night prior to admission. Sh yoselin had some shortness of breath, no cause except some usual stress at home. She had shoulder pain on the left. She had a recent proximal humerus fracture, for which she is under the care at first of Dr. Ameya Thompson on behalf of either Dr. Street or Dr. Romero and was then scheduled to see Juan Zaman MD over in [place] for followup. The patient states she likely has a rotator cuff tear o n the right as previously diagnosed and concerned regarding a rotator cuff tear on the left with a sl owly healing proximal humerus fracture. The patient has had multiple falls. She stumbled most recen tly in her daughter's home on the day of admission, resulting in some head trauma, right hand pain, f wade sprain and some swelling. No loss of consciousness or syncope. She was seen in the Emergency Department. She was then admitted to the hospitalist service for further care and management. Ortho pedics was consulted as the patient was getting a CT of her chest and noted an age indeterminate frac ture of her sternum at the sternomanubrial junction; orthopedics was consulted. Upon consultation wi th the patient, she stated that she has had multiple falls and she does have chest wall pain primari ly anteriorly. The left-sided pain, which was noted previously, had essentially resolved and has bee n stable. She does have complaints of left and right shoulder pain, the left side is slightly more a cute than the right as the right-sided rotator cuff tear has been chronic. Left side shoulder pain is more related to her fracture and likely a new onset rotator cuff tear on the left. PAST MEDICAL HISTORY: Coronary artery disease, hypertension, left proximal humerus fracture, hyperli pidemia, history of DVT, factor V Leiden mutation. PAST SURGICAL HISTORY: Cholecystectomy, knee surgery, cataract surgery, right shoulder surgery. ALLERGIES: LATEX, SULFA, ADHESIVES, AMOXICILLIN, CLAVULANIC ACID, OXYCODONE, PREDNISONE, SALICYLATES , TRAMADOL, ASPIRIN, NAPROXEN, PENICILLINS, PROCAINE, CHOCOLATE FLAVOR, CITRUS AND DERIVATIVES, AND P EANUTS. MEDICATIONS: Atorvastatin, losartan, aspirin and etodolac. SOCIAL HISTORY: Denies tobacco, alcohol or drug use. She is and lives with her spouse. 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 PHYSICAL EXAMINATION: This is a pleasant 85-year-old female, in the monitored care unit in the PCU. She is alert and oriented x3. Speech clear and fluent. Affect is appropriate. Sitting upright at bedside. No acute distress. Focused examination of the chest wall notes intact skin, warm, dry and intact. Radial pulses 2/4 bilateral, pulses are 2/4. Sensation intact in bilateral upper extremitie s. She has tenderness to palpation over the anterior sternum at the sternomanubrial junction. Tende rness with palpation appropriate for exam. No subcuticular free air is noted. IMAGING: Radiographs and CT scan reviewed demonstrating an age-indeterminate minimally displaced/non displaced sternal fracture of the sternomanubrial junction. Multiple rib calcifications and calcific ation of the costochondral junction. IMPRESSION: 1. Age-indeterminate sternal fracture, anterior chest wall at the sternomanubrial junction, nonopera tive. 2. Chest wall pain. 3. Multiple medical comorbidities. 4. Bilateral rotator cuff pathology and recent left proximal humerus fracture, treated conservativel y. RECOMMENDATION: Continue nonoperative management. Supportive care and observation. Should the nick ent continue to have symptoms related to her nondisplaced age-indeterminate sternal fracture, she may follow up as an outpatient in my clinic at [facility]. Thank you for the opportunity to consult in the care of this pleasant patient. Job ID: [id number]
--- NOTE | 2021-09-07 14:34 | Hospitalist Progress Note ---
Date of Service September 07, 2021 Assessment & Plan (1) CHF (congestive heart failure): Plan: NSTEMI Pulmonary Edema --ECHO: Moderate concentric LVH. No regional wall motion abnormality. EF 55 to 60%. Right ventricle is normal in size and function. Grade 1 diastolic dysfunction. --CXR:Mild pulmonary edema. --CTA pending Continue aspirin, metoprolol, losartan, atorvastatin Continue IV heparin Appreciate cardiology input Monitor volume status N.p.o. after midnight Plan for cardiac catheterization tomorrow IV Lasix as needed Hypertensive Urgency Likely situational Continue Metoprolol, Losartan Metoprolol changed to succinate Factor V [place] H/O DVT Currently not on any anticoagulation baseline On IV heparin for now H/O coronary artery calcification on previous imaging Continue home medications Hyperlipidemia on statin Prediabetes HbA1c 6.1 Fall Reports H/O multiple Falls Age indeterminate nondisplaced sternal fracture --Face CT:Right zygomatic arch fracture is favored to be chronic. --CT Head:No acute intracranial hemorrhage, no evidence of acute territorial infarction or other acute intracranial disease process. --R finger X ray:No evidence of acute osseous injury. --Neck CT:Degenerative changes without evidence of acute bony injury. --R Shoulder X ray:No evidence of acute osseous injury. --R middle finger X ray:No evidence of acute osseous injury. --CTA:No pulmonary emboli identified. Mild dilatation of the central pulmonary arteries. Age indeterminate nondisplaced sternal fracture. Pain control Fall Precautions PT/OT as able Appreciate orthopedics input Incentive spirometer DVT Px: IV Heparin Code Status Full code Admission and Anticipated Discharge Date Admission Date: September 05, 2021 Subjective Patient is seen and examined at bedside States having minimal cough, right middle finger pain Also reports chronic right shoulder pain Chest pain with movement, pleuritic Offers no other complaints Review of Systems Review of Systems: All systems reviewed & are unremarkable except as noted in Subjective Physical Exam Physical Exam: Physical Exam: Vitals signs as noted above General Appearance:Moderately built and nourished, no apparent distress Head: normocephalic, Atraumatic Eyes: normal inspection, EOMI Neck: supple, Trachea midline Respiratory/Chest: Normal breath sounds, CTA, No accessory muscle use, +reproducible chest pain Cardiovascular: S1, S2, No murmur Abdomen/GI:Soft, Non tender, Bowel sounds present Extremities/Musculoskeletal:normal inspection, Trace edema, R middle finger swelling, tender Neurologic/Psych:AAOX3, grossly no focal neurological deficits Skin: normal color, warm Results & Data Results & Data ([facility]) Vital Signs (Past 12 Hours) Vital Signs Temp Pulse Resp BP Pulse Ox 09/07/21 08:11 36.9 C 69 20 173/75 H 93 09/07/21 03:24 36.8 C 70 18 162/75 H 91 Laboratory Results Short CBC 09/07/21 Range/Units 06:19 WBC 6.65 (4.8-10.8) K/uL Hgb 12.2 (12.0-16.0) g/dL Hct 37.0 (37-47) % Plt Count 364 (130-400) K/uL BMP 09/07/21 11:41 Sodium 137 Potassium 4.1 Chloride 103 Carbon Dioxide 27 BUN 18 Creatinine 0.69 Glucose 93 Calcium 9.5
[2021-09-07 14:55] LABS: Partial Thromboplastin Ratio 1.2; Partial Thromboplastin Time 32.3 Seconds (21.0-31.0)
[2021-09-07] MEDS ORDERED: HEPARIN SOD (PORCINE) 1000 UNIT/ML IV ONE (16:00)
[2021-09-07] MEDS: LEVALBUTEROL 1.25MG/0.5ML NEB INH SCH (19:00)
[2021-09-07] MEDS ORDERED: LEVALBUTEROL HCL 1.25 MG/3 ML NEB ONE (19:27)
[2021-09-07] MEDS: IPRATROPIUM BROMIDE NEB SOLN 0.02% 2.5 ML VIAL INH SCH (19:37)
[2021-09-07] MEDS: ATORVASTATIN 20 MG TAB PO SCH (22:30)
--- NOTE | 2021-09-07 22:42 | Electrocardiogram Report ---
Test Reason : Blood Pressure : / mmHG Vent. Rate : 073 BPM Atrial Rate : 073 BPM P-R Int : 142 ms QRS Dur : 080 ms QT Int : 410 ms P-R-T Axes : 030 031 -34 degrees QTc Int : 451 ms Normal sinus rhythm T wave abnormality, consider inferior ischemia Abnormal ECG When compared with ECG of 10-SEP-2017 18:09, T wave inversion now evident in Inferior leads T wave inversion now evident in Anterior leads Confirmed by Pipe Morris ([id number]) on 09/07/2021 10:42:36 PM Referred By: REFERRED SELF Confirmed By:Pipe Morris
[2021-09-08] MEDS: HEPARIN SODIUM/DEXTROSE 25,000 UNITS/500 ML BAG IV SCH ×2 (00:19→07:36)
--- NOTE | 2021-09-08 05:51 | Electrocardiogram Report ---
Test Reason : Blood Pressure : / mmHG Vent. Rate : 058 BPM Atrial Rate : 058 BPM P-R Int : 128 ms QRS Dur : 078 ms QT Int : 496 ms P-R-T Axes : 000 041 -43 degrees QTc Int : 488 ms Sinus bradycardia Prolonged QT Abnormal ECG When compared with ECG of 05-SEP-2021 18:11, Vent. rate has decreased BY 39 BPM Left bundle branch block is no longer Present Confirmed by Pipe Morris ([id number]) on 09/08/2021 5:51:29 AM Referred By: REFERRED SELF Confirmed By:Pipe Morris
[2021-09-08 06:33] LABS: Hematocrit (blood only) 36.1 % (37-47); Mean Corpuscular Hemoglobin 30.6 pg (25-34); Mean Corpuscular Hgb Conc 33.2 g/dL (32-36); Mean Corpuscular Volume 92.1 fL (80-100); Mean Platelet Volume 9.1 fL (7.4-10.4); Platelet Count 349 K/uL (130-400); RDW Coefficient of Variation 13.7 % (11.5-14.5); RDW Standard Deviation 46.3 fL (36.4-46.3); Red Blood Count 3.92 M/uL (4.2-5.4); White Blood Count 7.02 K/uL (4.8-10.8)
[2021-09-08 06:58] LABS: Albumin Globulin Ratio 1.1 (0.9-2); Albumin Level 3.4 gm/dl (3.4-5.0); BUN Creatinine Ratio 25.4 (10-20); Bilirubin,Total 0.7 mg/dl (0.2-1.0); Calcium 8.8 mg/dl (8.5-10.1); Creatinine Clr Calc Pharmacy 57.9 ml/min; Est GFR (African American) 91.6 ml/min; Globulin 3.2 gm/dl (2.5-4.0); Potassium 3.7 mmol/L (3.5-5.1); Total Protein 6.6 gm/dl (6.0-8.3)
[2021-09-08 07:01] LABS: Partial Thromboplastin Ratio 2.7
[2021-09-08 07:17] LABS: Partial Thromboplastin Time 72.9 Seconds (21.0-31.0)
--- NOTE | 2021-09-08 08:13 | Pre Anesthesia Assessment ---
Date of Service September 08, 2021 Pre Sedation Assessment Vital Signs Temp Pulse Pulse Pulse Resp BP BP 09/08/21 07:53 64 09/08/21 07:17 98.1 F 78 19 164/73 H 09/08/21 02:51 98.1 F 74 18 166/78 H 09/07/21 23:16 80 09/07/21 23:07 98.4 F 87 18 168/63 H 09/07/21 19:38 70 18 09/07/21 19:09 98.8 F 75 20 154/79 H 09/07/21 16:06 98.4 F 68 18 156/83 H 09/07/21 14:47 67 Pulse Ox 09/08/21 07:53 09/08/21 07:17 93 09/08/21 02:51 92 09/07/21 23:16 09/07/21 23:07 93 09/07/21 19:38 91 09/07/21 19:09 93 09/07/21 16:06 96 09/07/21 14:47 Cardiovascular RRR, no murmur, no edema Respiratory normal respiratory effort, lungs clear to auscultation Pre-Sedation Airway Assessment Smoking Status: Unknown if ever smoked Hx Sleep Apnea: No Hx Difficult Intubation: No Short, Thick Neck: No Thyromental Distance: > or= 3.5 Finger Breadths Oral Cavity: + Dental Abnormalities and + WNL Mallampati Class: III ASA: ASA3 Procedure Planning Contraindications for Sedation: none Current Medications Reviewed: Yes Notes The planned sedation has been discussed with the patient. Informed Consent was obtained. I have identified the patient, determined the appropriateness of sedation and have assessed the patient immediately prior to the procedure. All medicine(s) and interventions are by my order.
[2021-09-08] MEDS ORDERED: ASPIRIN 81 MG CHEW PO ONE (08:47)
[2021-09-08] MEDS ORDERED: ASPIRIN 81 MG CHEW ONE (08:53)
[2021-09-08] MEDS ORDERED: [UNRECOGNIZED DRUG - REMARK] ONE (09:00)
[2021-09-08] MEDS ORDERED: HEPARIN (PORCINE) 1000 UNIT/ML 10 ML (CATH LAB USE ONLY) ONE (09:03)
[2021-09-08] MEDS ORDERED: fentaNYL citrate 100 MCG/2 ML VIAL ONE (09:03)
[2021-09-08] MEDS ORDERED: MIDAZOLAM HCL 1 MG/ML 2ML VIAL ONE (09:03)
[2021-09-08] MEDS ORDERED: niCARdipine HCL INJ 2.5 MG/ML 10 ML AMP ONE (09:03)
[2021-09-08] MEDS ORDERED: NITROGLYCERIN/D5W 100MCG/ML 20ML SYR ONE (09:04)
[2021-09-08] MEDS: METOPROLOL SUCC 25MG EXT REL TAB PO SCH (09:05)
[2021-09-08] MEDS: LOSARTAN POTASSIUM 25 MG TAB PO SCH (09:05)
[2021-09-08] MEDS ORDERED: ADENOSINE IV SOLN 3 MG/ML 20 ML VIAL IV ONE (09:42)
--- NOTE | 2021-09-08 10:24 | Post Anesthesia Assessment ---
Date of Service September 08, 2021 Post Sedation Assessment Vital Signs Temp Pulse Pulse Pulse Resp BP BP 09/08/21 08:46 98.6 F 73 16 183/75 H 09/08/21 07:53 64 09/08/21 07:17 98.1 F 78 19 164/73 H 09/08/21 02:51 98.1 F 74 18 166/78 H 09/07/21 23:16 80 09/07/21 23:07 98.4 F 87 18 168/63 H 09/07/21 19:38 70 18 09/07/21 19:09 98.8 F 75 20 154/79 H 09/07/21 16:06 98.4 F 68 18 156/83 H 09/07/21 14:47 67 Pulse Ox 09/08/21 08:46 94 09/08/21 07:53 09/08/21 07:17 93 09/08/21 02:51 92 09/07/21 23:16 09/07/21 23:07 93 09/07/21 19:38 91 09/07/21 19:09 93 09/07/21 16:06 96 09/07/21 14:47 Recovery Score Activity: Moves 4 extremities Respiration: Deep Breath/Cough Circulation: +/-20% PreAnes Value Consciousness: Fully Awake Oxygen Saturation: O2 needed for >90% Discharge Sedation Level of Care: Fast Track Phase II Post Sedation Plan On clinical assessment, the patient appears to have tolerated the sedation without complications. Patient is recovering as anticipated. Patient will continue to be monitored by nursing and may be discharged when sedation discharge criteria are met per below protocol. Upon Completions of procedure up to 15 minutes continue every 5 minute vital signs and the P.A.R. score; then discharge to a Phase I or Fast Track to Phase II per the following guidelines: * Discharge Patient to appropriate Phase II area if PAR is 8 or greater or return to pre- procedure baseline. The post - procedure orders will be as directed. * If PAR score is less than 8 or not return to pre-procedure baseline then patient will follow Phase I monitoring till PAR is reached for Phase II. The Phase I may be done in procedure room or may call to secure a Phase I area. * If naloxone or flumazenil are used for reversal, hold in Phase I for continued monitoring from when last reversal dose was given for a minimum of 60 minutes or longer pending the nurse and/or physician discretion of patient condition before discharge to Phase II. Please call the Sedation Physician to re-evaluate and complete post-note for discharge to Phase II area. Do NOT discharge from procedure sedation or Phase 1 until post- sedation evaluation note is complete by procedure /sedation MD Sedation Discharge Instructions to be given to the patient at discharge to home.
--- NOTE | 2021-09-08 10:29 | Post Operative Brief Note ---
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 No coronary complications. Recommend medical management of branch vessel disease. Anesthesia Type RN Sedation Complications none Disposition Accompanied Patient To Recovery: Yes Disposition: PCU Overlapping Procedure I was present for: the critical portions of procedure. I was immediately available: during the entire case. Back up surgeon: was not required during procedure.
[2021-09-08] MEDS ORDERED: SODIUM CHLORIDE 0.9% 1000ML 1,000 ML IV SCH (10:30)
[2021-09-08] MEDS: FLUTICASONE PROPIONATE NA SPR 16 GM BTL NAE SCH (10:53)
--- NOTE | 2021-09-08 15:16 | Cardiology Progress Note ---
Date of Service September 08, 2021 Assessment & Plan (1) NSTEMI (non-ST elevated myocardial infarction): (2) Factor V Leiden: (3) HTN (hypertension): (4) Dyslipidemia: Plan: 85-year-old female (1) NSTEMI (non-ST elevated myocardial infarction): -Patient found to have elevated at HS troponin, abnormal EKG which is progressed since her initial presentation. Echocardiogram reveals normal biventricular wall motion and LVEF. Cardiac catheterization 09/08/21, with findings of an intermediate LAD stenosis, not hemodynamically significant by FFR. Diagonal stenosis, and OM stenosis. OM not amenable to PCI (small vessel). PCI of Diagonal attempted, but not successful. Recommend ongoing medical therapy with aspirin, metoprolol, losartan, atorvastatin, unfractionated heparin. (2) Factor V Leiden: The patient has a history of homozygous Factor V Leiden mutation as well as IgG positive anticardiolipin antibody dating back to 1998. CTA chest performed 09/06/21: 1. No pulmonary emboli identified. Mild dilatation of the central pulmonary arteries. 2. Age indeterminate nondisplaced sternal fracture. (3) HTN (hypertension): -Blood pressure elevated remains above goal. Change metoprolol tartrate to succinate 25 mg daily. Continue losartan 25 mg daily, possible lasix after bmp results available. (4) Dyslipidemia: LDL 51 mg/dl this admission. Continue atorvastatin. (5) Left radial hematoma -radial band care per protocol. heparin discontinued. Continue ASA. Hold of on clopidogrel for medical rx of NSTEMI due to bleeding risk, recurrent falls. Pt appears to have a mild degree of cognitive impairment. Admission and Anticipated Discharge Date Admission Date: September 05, 2021 Subjective Pt seen in cardiology follow up. Most recent BP while I am in her room at 3:10 pm, 148/82. Pt denies angina. Comfortable. Physical Exam Constitutional: WD/WN, vitals as above Respiratory: normal respiratory effort, lungs clear to auscultation Cardiovascular: RRR, no murmur, no edema (left radial cath size, radial band in place small hematoma) Gastrointestinal (Abdomen): normal bowel sounds, soft, nontender, no hepatosplenomegaly Neurologic: PERRL, EOMI, accommodation nl, no face palsy, no dysarthria Results & Data ([facility]) Vital Signs (Past 12 Hours) Vital Signs Temp Pulse Pulse Pulse Resp BP BP 09/08/21 14:10 36.8 C 67 18 150/78 H 09/08/21 13:10 36.7 C 74 18 150/77 H 09/08/21 12:10 36.8 C 66 18 146/70 H 09/08/21 11:40 36.8 C 68 18 167/92 H 09/08/21 11:15 36.7 C 66 19 155/69 H 09/08/21 10:55 36.9 C 66 18 167/78 H 09/08/21 10:45 62 20 148/92 H 09/08/21 10:40 36.9 C 63 18 129/76 09/08/21 10:30 65 20 151/94 H 09/08/21 08:46 37 C 73 16 183/75 H 09/08/21 08:00 09/08/21 07:53 64 09/08/21 07:17 36.7 C 78 19 164/73 H Pulse Ox Pulse Ox 09/08/21 14:10 09/08/21 13:10 94 09/08/21 12:10 94 09/08/21 11:40 94 09/08/21 11:15 95 09/08/21 10:55 94 09/08/21 10:45 94 09/08/21 10:40 94 09/08/21 10:30 96 09/08/21 08:46 94 09/08/21 08:00 94 09/08/21 07:53 09/08/21 07:17 93
--- NOTE | 2021-09-08 15:45 | Hospitalist Progress Note ---
Date of Service September 08, 2021 Assessment & Plan (1) CHF (congestive heart failure): Plan: NSTEMI Acute diastolic CHF Acute pulmonary edema --ECHO: Moderate concentric LVH. No regional wall motion abnormality. EF 55 to 60%. Right ventricle is normal in size and function. Grade 1 diastolic dysfunction. --CXR:Mild pulmonary edema. --S/P Cardiac Cath: 40 to 50% mid LAD, 95% proximal D1, 80 to 90% stenosis in proximal/distal OM 2 OM not amenable to PCI. PCI of diagonal attempted, but unsuccessful. Continue aspirin, metoprolol, losartan, atorvastatin IV heparin held due to Right radial hematoma post procedure Appreciate cardiology input Monitor volume status IV Lasix as needed Hypertensive Urgency Likely situational Continue Metoprolol, Losartan Metoprolol changed to succinate 25 mg daily Factor V Leyden H/O DVT Currently not on any anticoagulation baseline H/O coronary artery calcification on previous imaging Continue home medications Hyperlipidemia on statin Prediabetes HbA1c 6.1 Fall Reports H/O multiple Falls Age indeterminate nondisplaced sternal fracture --Face CT:Right zygomatic arch fracture is favored to be chronic. --CT Head:No acute intracranial hemorrhage, no evidence of acute territorial infarction or other acute intracranial disease process. --R finger X ray:No evidence of acute osseous injury. --Neck CT:Degenerative changes without evidence of acute bony injury. --R Shoulder X ray:No evidence of acute osseous injury. --R middle finger X ray:No evidence of acute osseous injury. --CTA:No pulmonary emboli identified. Mild dilatation of the central pulmonary arteries. Age indeterminate nondisplaced sternal fracture. Pain control Fall Precautions PT/OT as able Appreciate orthopedics input Incentive spirometer DVT Px: IV Heparin held due to Right radial hematoma SCDs for now Code Status Full code Admission and Anticipated Discharge Date Admission Date: September 05, 2021 Subjective Patient is seen and examined at bedside Patient had Cardiac Cath earlier today Denies any significant chest pain, dyspnea No other complaints Review of Systems Review of Systems: All systems reviewed & are unremarkable except as noted in Subjective Physical Exam Physical Exam: Physical Exam: Vitals signs as noted above General Appearance:Moderately built and nourished, no apparent distress Head: normocephalic, Atraumatic Eyes: normal inspection, EOMI Neck: supple, Trachea midline Respiratory/Chest: Normal breath sounds, CTA, No accessory muscle use, +reproducible chest pain Cardiovascular: S1, S2, No murmur Abdomen/GI:Soft, Non tender, Bowel sounds present Extremities/Musculoskeletal:normal inspection, Trace edema, R middle finger swelling, tender Neurologic/Psych:AAOX3, grossly no focal neurological deficits Skin: normal color, warm Results & Data Results & Data ([facility]) Vital Signs (Past 12 Hours) Vital Signs Temp Pulse Pulse Pulse Resp BP BP 09/08/21 15:24 36.8 C 69 20 148/82 H 09/08/21 15:10 36.8 C 67 18 146/70 H 09/08/21 14:10 36.8 C 67 18 150/78 H 09/08/21 13:10 36.7 C 74 18 150/77 H 09/08/21 12:10 36.8 C 66 18 146/70 H 09/08/21 11:40 36.8 C 68 18 167/92 H 09/08/21 11:15 36.7 C 66 19 155/69 H 09/08/21 10:55 36.9 C 66 18 167/78 H 09/08/21 10:45 62 20 148/92 H 09/08/21 10:40 36.9 C 63 18 129/76 09/08/21 10:30 65 20 151/94 H 09/08/21 08:46 37 C 73 16 183/75 H 09/08/21 08:00 09/08/21 07:53 64 09/08/21 07:17 36.7 C 78 19 164/73 H Pulse Ox Pulse Ox 09/08/21 15:24 94 09/08/21 15:10 94 09/08/21 14:10 09/08/21 13:10 94 09/08/21 12:10 94 09/08/21 11:40 94 09/08/21 11:15 95 09/08/21 10:55 94 09/08/21 10:45 94 09/08/21 10:40 94 09/08/21 10:30 96 09/08/21 08:46 94 09/08/21 08:00 94 09/08/21 07:53 09/08/21 07:17 93 Laboratory Results Short CBC 09/08/21 Range/Units 06:01 WBC 7.02 (4.8-10.8) K/uL Hgb 12.0 (12.0-16.0) g/dL Hct 36.1 L (37-47) % Plt Count 349 (130-400) K/uL BMP 09/08/21 06:01 Sodium 136 Potassium 3.7 Chloride 104 Carbon Dioxide 25 BUN 17 Creatinine 0.67 Glucose 100 H Calcium 8.8 Liver Function 09/08/21 Range/Units 06:01 Total Bilirubin 0.7 (0.2-1.0) mg/dl AST 20 (13-39) U/L ALT 16 (7-52) U/L Alkaline Phosphatase 82 (34-104) U/L Albumin 3.4 (3.4-5.0) gm/dl
--- NOTE | 2021-09-08 17:21 | Cardiac Catheterization ---
[facility] Data: Rag Collector Cardiac Status Clinical evaluation leading to the procedure CAD Presenation: Non STEMI Anginal Classification: CCS III Diagnostic Physicians Name: Brandon Garrison MD Closure Device Recommendations: Medical Therapy and/or Counseling Cardiac Cath Procedure Full Procedure Date September 08, 2021 Pre-Procedure Diagnosis Pre-Procedure Diagnosis: Non STEMI AUC Score AUC Score: 8 Post-Procedure Diagnosis Post-Procedure Diagnosis: Severe CAD, Unsuccessful PCI and Normal Intracardiac Pressures Procedure(s) Performed Procedure(s) Performed: Coronary Angiography, Left Heart Cath and PTCA Security Agent Brandon Garrison MD Spanish Teacher(s) [place] Estimated Blood Loss Estimated Blood Loss: 10 Medication(s) Medication(s): Fentanyl, Heparin, Lidocaine 1%, Nicardipine, Nitroglycerin and Versed Summary of Findings Indication: NSTEMI Access: 6 Fr right radial artery Catheters: [place], 5 Fr EBU 3.5 guide Findings: LM -Short, no significant disease LAD -medium caliber, 40 to 50% mid segment stenosis, remainder of vessel without significant disease and wraps around apex. Medium D1 with 95% proximal, 70% mid stenosis. Circumflex -large caliber, no significant disease. Medium OM2 70% proximal, small distal vessel with 90% stenosis. RCA -dominant, medium caliber, proximal/mid segment luminal irregularities. Small distal LAD/PDA without significant disease LVEDP -13 Procedure: Antithrombotic therapyHeparin -Left main cannulated with 5 Fr EBU 3.5 guide -BMW wire placed into distal LAD -ACIST Catheter placed across stenosis -Pd/Pa 0.95 -FFR 0.92 Catheter removed. Wire redirected into D1 across proximal/mid stenosis Attempt made to pass 2.0, 1.5 balloon across proximal stenosis but unable to pass balloon despite gentle inflation with 1.5 balloon, body wire, rewiring with mailman wire. As patient had CECILY-3 flow, no chest pain, decision made to forego further attempts at intervention to diagonal. Post angioplasty attempt CECILY 3 flow no apparent cardiac complications. Arterial Closure: TR band Summary: 1. Moderate nonobstructive 40-50% mid LAD disease (FFR 0.92). 2. Severe branch vessel disease Medium D1 95% proximal, 70% mid -Medium OM2 70% proximal, small distal vessel with 90% stenosis 3. Normal intracardiac filling pressure 4. Unsuccessful attempted PCI to proximal/mid diagonal due to inability to pass balloon across proximal stenosis. Recommendations: Recommend medical management of severe branch vessel disease. If refractory angina in the future additional attempt at intervention to diagonal and/or OM could be made with more supportive equipment. Hemodynamics Rest Ao:: 150/67/88 Final Ao: 121/42/121 LV: 164/13 Recommendations Recommendations: Medical Therapy and/or Counseling Radiation Exposure (mGy) 2220 Contrast (mls) 85 Anesthesia Moderate 1112-3324 Procedural Complication(s) None Disposition PCU I attest to the content of the Intraoperative Record and any orders documented therein. Any exceptions are noted below. [facility] Card Cath Procedure Codes Cardiac Catheterization Procedure 1: Cardiovascular Cath Procedures: 26767 Coronaries and LHC (+/-LV) Procedure 2: Cardiovascular Cath Procedures: 56546 (Doppler) Pressure Wire Moderate Sedation Procedure 1: Sedation/Anesthesia: 15792 Mod Sedation by the same physician;Init15 Min Child Age 5 & Up Procedure 2: Sedation/Anesthesia: 56670 Mod Sedation by the same physician; Ea Addition al15 Minutes Angioplasty Procedure 1: Cardiovascular Angioplasty Procedures: 13414 PTCA; Single mafor coronary artery or branch RC LC LD PG Care Time/CCT Total # of Minutes Spent Total Time Spent with Patient: Total time spent is greater than 50% in coordination of care (as documented) at patient's floor/unit and/or counseling patient:
[2021-09-08] MEDS: IPRATROPIUM BROMIDE NEB SOLN 0.02% 2.5 ML VIAL INH SCH (17:58)
[2021-09-08] MEDS: LEVALBUTEROL 1.25MG/0.5ML NEB INH SCH (17:58)
[2021-09-08] MEDS: ATORVASTATIN 20 MG TAB PO SCH (20:52)
--- NOTE | 2021-09-08 21:05 | Electrocardiogram Report ---
Test Reason : Blood Pressure : / mmHG Vent. Rate : 063 BPM Atrial Rate : 063 BPM P-R Int : 138 ms QRS Dur : 078 ms QT Int : 406 ms P-R-T Axes : 034 012 -33 degrees QTc Int : 415 ms Poor data quality, interpretation may be adversely affected Normal sinus rhythm Possible Left atrial enlargement T wave abnormality, consider inferior ischemia T wave abnormality, consider anterior ischemia Abnormal ECG When compared with ECG of 06-SEP-2021 02:40, No significant change was found Confirmed by Pipe Morris ([id number]) on 09/08/2021 9:05:00 PM Referred By: REFERRED SELF Confirmed By:Pipe Morris
[2021-09-08] MEDS: ACETAMINOPHEN 325 MG TAB PO PRN (23:19)
[2021-09-09] MEDS: ACETAMINOPHEN 325 MG TAB PO PRN ×2 (03:36→08:19)
--- NOTE | 2021-09-09 06:26 | Electrocardiogram Report ---
Test Reason : Blood Pressure : / mmHG Vent. Rate : 065 BPM Atrial Rate : 065 BPM P-R Int : 166 ms QRS Dur : 148 ms QT Int : 464 ms P-R-T Axes : 050 -55 092 degrees QTc Int : 482 ms Normal sinus rhythm Left axis deviation Left bundle branch block Abnormal ECG When compared with ECG of 07-SEP-2021 09:55, Left bundle branch block is now Present Confirmed by Pipe Morris ([id number]) on 09/09/2021 6:26:13 AM Referred By: REFERRED SELF Confirmed By:Pipe Morris
[2021-09-09 07:24] LABS: Basophils # (auto) 0.03 K/uL (0-0.2); Basophils % (auto) 0.3 %; Eosinophils # (auto) 0.15 K/uL (0-0.5); Eosinophils % (auto) 1.6 %; Hematocrit (blood only) 35.6 % (37-47); Hemoglobin 11.5 g/dL (12.0-16.0); Immature Granulocytes # (auto) 0.03 K/uL (0.00-0.02); Immature Granulocytes % (auto) 0.3 %; Lymphocytes # (auto) 1.57 K/uL (1.2-3.4); Lymphocytes % (auto) 16.4 %; Mean Corpuscular Hemoglobin 29.6 pg (25-34); Mean Corpuscular Hgb Conc 32.3 g/dL (32-36); Mean Corpuscular Volume 91.5 fL (80-100); Mean Platelet Volume 9.1 fL (7.4-10.4); Monocytes # (auto) 1.31 K/uL (0.11-0.59); Monocytes % (auto) 13.7 %; Neutrophils # (auto) 6.47 K/uL (1.4-6.5); Neutrophils % (auto) 67.7 %; Platelet Count 333 K/uL (130-400); RDW Coefficient of Variation 13.8 % (11.5-14.5); RDW Standard Deviation 45.6 fL (36.4-46.3); Red Blood Count 3.89 M/uL (4.2-5.4); White Blood Count 9.56 K/uL (4.8-10.8)
[2021-09-09 07:42] LABS: BUN Creatinine Ratio 28.3 (10-20); Calcium 8.7 mg/dl (8.5-10.1); Creatinine Clr Calc Pharmacy 72.9 ml/min; Est GFR (African American) 98.9 ml/min; Est GFR (Non-African American) 85.4 ml/min; Potassium 3.7 mmol/L (3.5-5.1)
[2021-09-09] MEDS: ASPIRIN 81 MG ECTAB PO SCH (08:15)
[2021-09-09] MEDS: LOSARTAN POTASSIUM 25 MG TAB PO SCH (08:15)
[2021-09-09] MEDS: METOPROLOL SUCC 25MG EXT REL TAB PO SCH (08:16)
[2021-09-09] MEDS: FLUTICASONE PROPIONATE NA SPR 16 GM BTL NAE SCH (08:16)
--- NOTE | 2021-09-09 13:39 | Cardiology Progress Note ---
Date of Service September 09, 2021 Assessment & Plan (1) NSTEMI (non-ST elevated myocardial infarction): (2) Factor V Leiden: (3) HTN (hypertension): (4) Dyslipidemia: Plan: 85-year-old female (1) NSTEMI (non-ST elevated myocardial infarction): -Patient found to have elevated at HS troponin, abnormal EKG which is progressed since her initial presentation. Echocardiogram reveals normal biventricular wall motion and LVEF. Cardiac catheterization 09/08/21, with findings of an intermediate LAD stenosis, not hemodynamically significant by FFR. Diagonal stenosis, and OM stenosis. OM not amenable to PCI (small vessel). PCI of Diagonal attempted, but not successful. Recommend ongoing medical therapy with aspirin, metoprolol, losartan, atorvastatin. Add Imdur 09/09/21 for further angina treatment and for HTN. (2) Factor V Leiden: The patient has a history of homozygous Factor V Leiden mutation as well as IgG positive anticardiolipin antibody dating back to 1998. CTA chest performed 09/06/21: 1. No pulmonary emboli identified. Mild dilatation of the central pulmonary arteries. 2. Age indeterminate nondisplaced sternal fracture. -Add Sq lovenox for DVT prophylaxis 40 mg daily. (3) HTN (hypertension): -Blood pressure elevated remains above goal. Change metoprolol tartrate to succinate 25 mg daily. Continue losartan 25 mg daily. Imdur added. (4) Dyslipidemia: LDL 51 mg/dl this admission. Continue atorvastatin. (5) Left radial hematoma -radial band care per protocol. heparin discontinued. Continue ASA. Hold of on clopidogrel for medical rx of NSTEMI due to bleeding risk, recurrent falls. Pt appears to have a mild degree of cognitive impairment. -Patient with age indeterminate sternal fracture on CT and has chronic arthritis complaints , with worsening hip pain while hospitalized. Off of home NSAID therapy. Increase activity as tolerated. Most significant barrier to discharge is her mus culoskeletal pain. Admission and Anticipated Discharge Date Admission Date: September 05, 2021 Subjective Patient seen in follow up of NSTEMI. No angina. Telemetry reveals stable SR. Physical Exam Constitutional: WD/WN, vitals as above Respiratory: normal respiratory effort, lungs clear to auscultation Cardiovascular: Rate/Rhythm: regular rate and regular rhythm Heart Sounds: no murmur Extremities: no edema Mild ecchymosis at right radial access site, stable Gastrointestinal (Abdomen): normal bowel sounds, soft, nontender, no hepatosplenomegaly Neurologic: PERRL, EOMI, accommodation nl, no face palsy, no dysarthria Results & Data ([facility]) Vital Signs (Past 12 Hours) Vital Signs Temp Pulse Resp BP BP Pulse Ox 09/09/21 11:27 36.6 C 70 18 156/86 H 95 09/09/21 07:30 36.5 C 68 20 131/77 91 09/09/21 02:58 36.7 C 77 18 181/69 H 93 Laboratory Results CBC 09/09/21 Range/Units 07:01 WBC 9.56 (4.8-10.8) K/uL RBC 3.89 L (4.2-5.4) M/uL Hgb 11.5 L (12.0-16.0) g/dL Hct 35.6 L (37-47) % Plt Count 333 (130-400) K/uL Neut # (Auto) 6.47 (1.4-6.5) K/uL Lymph # (Auto) 1.57 (1.2-3.4) K/uL [place] # (Auto) 1.31 H (0.11-0.59) K/uL Eos # (Auto) 0.15 (0-0.5) K/uL Baso # (Auto) 0.03 (0-0.2) K/uL Comprehensive Metabolic Panel 09/09/21 Range/Units 07:01 Sodium 136 (136-145) mmol/L Potassium 3.7 (3.5-5.1) mmol/L Chloride 107 (98-107) mmol/L Carbon Dioxide 24 (21-32) mmol/L BUN 15 (6-23) mg/dl Creatinine 0.53 L (0.6-1.2) mg/dl Glucose 121 H (70-99(Fasting)) mg/dl Calcium 8.7 (8.5-10.1) mg/dl Intake and Output 09/08/21 09/09/21 09/09/21 22:59 06:59 14:59 Intake Total 753.333 / 1333.100 Output Total 600 / 1400 500 / 1400 Balance 153.333 / -66.900 -500 / -66.900 Intake: IV 603.333 / 863.100 Sodium Chloride 0.9% 1000ML 1, 603.333 / 603.333 000 ml @ 100 mls/hr IV .Q10H [facility] Rx#:[id number] Oral 150 / 470 Output: Urine 600 / 1400 500 / 1400 Other: Weight 86.2 kg Weight Measurement Method Built in [facility]
[2021-09-09] MEDS: ENOXAPARIN INJ 40 MG/0.4 ML SYR SQ SCH (14:10)
[2021-09-09] MEDS: ISOSORBIDE MONO EXTENDED REL 30 MG TABCR PO SCH (14:10)
--- NOTE | 2021-09-09 15:43 | Hospitalist Progress Note ---
Date of Service September 09, 2021 Assessment & Plan (1) CHF (congestive heart failure): Plan: PER DR. CARRION'S NOTES WITH ADDENDUM: NSTEMI Acute diastolic CHF Acute pulmonary edema --ECHO: Moderate concentric LVH. No regional wall motion abnormality. EF 55 to 60%. Right ventricle is normal in size and function. Grade 1 diastolic dysfunction. --CXR:Mild pulmonary edema. --S/P Cardiac Cath: 40 to 50% mid LAD, 95% proximal D1, 80 to 90% stenosis in proximal/distal OM 2 OM not amenable to PCI. PCI of diagonal attempted, but unsuccessful. Continue aspirin, metoprolol, losartan, atorvastatin IV heparin held due to Right radial hematoma post procedure Appreciate cardiology input Monitor volume status IV Lasix as needed 09/09 Imdur added Continue aspirin, metoprolol, losartan, atorvastatin Hypertensive Urgency Likely situational Continue Metoprolol, Losartan Metoprolol changed to succinate 25 mg daily Imdur added BL Pelvis, Hip Pain - obtain xrays of pelvis, hip, femur, knees Factor V Leyden H/O DVT Currently not on any anticoagulation baseline -- on Lovenox 40mg SC H/O coronary artery calcification on previous imaging Continue home medications Hyperlipidemia on statin Prediabetes HbA1c 6.1 Fall Reports H/O multiple Falls Age indeterminate nondisplaced sternal fracture --Face CT:Right zygomatic arch fracture is favored to be chronic. --CT Head:No acute intracranial hemorrhage, no evidence of acute territorial infarction or other acute intracranial disease process. --R finger X ray:No evidence of acute osseous injury. --Neck CT:Degenerative changes without evidence of acute bony injury. --R Shoulder X ray:No evidence of acute osseous injury. --R middle finger X ray:No evidence of acute osseous injury. --CTA:No pulmonary emboli identified. Mild dilatation of the central pulmonary arteries. Age indeterminate nondisplaced sternal fracture. Pain control Fall Precautions PT/OT as able Appreciate orthopedics input Incentive spirometer 09/09 additional xray per above Tylenol 1g q8h DVT Px: on Lovenox Code Status Full code Disposition would like to return home with PT/OT Admission and Anticipated Discharge Date Admission Date: September 05, 2021 Subjective ff up s/p fall, chest pain, etc seen resting in bed, not in distress reports pain on the manubirum area, radiating to L lower ribs also reports bilateral pelvic pain, and hip pain sciatica pain seems to be flaring up has mild cough with clear sputum no fever/chills no palpitations, dizziness, dyspnea no other symptoms Review of Systems Review of Systems: all noted and negative except for above Physical Exam Physical Exam: General- oriented x 3, not in distress, speaks in sentences with no effort or accessory muscle use Eyes- anicteric Neck- no JVD Lungs- faint rales on the left base clear on the right (+) mild tenderness lower sternum area Heart- normal rate, regular rhythm; no murmurs Abdomen- normal bowel sounds, nondistended, soft, nontender Extremities- no pretibial edema, no calf tenderness Neuro- alert, oriented x 3; no gross focal neurologic deficits Skin- warm & dry Results & Data Results & Data ([facility]) Vital Signs (Past 12 Hours) Vital Signs Temp Pulse Resp BP BP Pulse Ox 09/09/21 11:27 36.6 C 70 18 156/86 H 95 09/09/21 07:30 36.5 C 68 20 131/77 91 all noted and reviewed including below
--- NOTE | 2021-09-09 17:14 | XRay Report ---
XR knee RT 1 or 2V routine CLINICAL HISTORY: Right knee pain following fall. COMPARISON: Right knee radiographs September 05, 2021. FINDINGS: Alignment of the right knee is anatomic. There is no acute fracture. There is no joint eff usion. Spurring of the superior patella is noted. Mild right knee osteophytosis is noted. IMPRESSION: No acute fracture or joint effusion of the right knee. ACT 112: Negative or not required by law. Electronically signed by: Blu Betancur M.D. 09/09/2021 5:13 PM
[2021-09-09] MEDS: ACETAMINOPHEN 500 MG TAB PO SCH ×2 (17:16→23:55)
[2021-09-09] MEDS: IPRATROPIUM BROMIDE NEB SOLN 0.02% 2.5 ML VIAL INH SCH (19:28)
[2021-09-09] MEDS: LEVALBUTEROL 1.25MG/0.5ML NEB INH SCH (19:28)
[2021-09-09] MEDS: ATORVASTATIN 20 MG TAB PO SCH (20:13)
--- NOTE | 2021-09-09 20:59 | XRay Report ---
XR hip AMARA 2v w pelvis CLINICAL HISTORY: pain, s/p fall COMPARISON STUDY: CT of the abdomen and pelvis September 05, 2019. FINDINGS: A pessary device is in place. No acute fracture is identified within the pelvis or hips. Th ere is mild bilateral hip osteoarthritis. No osseous lesions are noted. IMPRESSION: No acute fracture within the pelvis or hips. ACT 112: Negative or not required by law. Electronically signed by: Blu Betancur M.D. 09/09/2021 8:58 PM
--- NOTE | 2021-09-09 21:01 | XRay Report ---
XR femur RT 2V routine CLINICAL HISTORY: fall, pain COMPARISON: Right knee radiographs September 05, 2021. FINDINGS: No acute fracture within the right femur is identified. There is no suspicious osseous les ion. There is no right knee joint effusion. Mild right hip osteoarthritis is present. There is also r ight knee osteoarthritis. IMPRESSION: No acute fracture within the right femur. ACT 112: Negative or not required by law. Electronically signed by: Blu Betancur M.D. 09/09/2021 8:59 PM
--- NOTE | 2021-09-09 21:11 | XRay Report ---
XR knee LT 1 or 2V routine CLINICAL HISTORY: fall, pain COMPARISON: Knee radiographs January 01, 2013. FINDINGS: Alignment of left knee is anatomic. There is no acute fracture. There is no joint effusion . Chondrocalcinosis within the menisci is noted. Joint space narrowing of the patellofemoral articula tion is suboptimally assessed on this study. Medial compartment joint space narrowing is present. IMPRESSION: 1. No acute fracture or joint effusion of the left knee. 2. Chondrocalcinosis within the menisci. Moderate left knee osteoarthritis. ACT 112: Negative or not required by law. Electronically signed by: Blu Betancur M.D. 09/09/2021 9:10 PM
--- NOTE | 2021-09-09 21:20 | XRay Report ---
XR chest 1V not portable CLINICAL HISTORY: cough, rule out pneumonia COMPARISON STUDY: Chest radiograph September 05, 2021. Chest CT September 06, 2021. FINDINGS: Old deformity of the proximal left humerus is incidentally noted. There is no pneumothorax or pleural effusion. Cardiomegaly is unchanged. Pulmonary vascular congestion is again noted. Left mi d and lower lung airspace opacity is noted. No consolidation within the right lung. IMPRESSION: 1. Left basilar and midlung airspace opacity which may reflect pneumonia. 2. Stable cardiomegaly with pulmonary vascular congestion. ACT 112: Negative or not required by law. Electronically signed by: Blu Betancur M.D. 09/09/2021 9:19 PM
--- NOTE | 2021-09-09 21:21 | XRay Report ---
XR femur LT 2V routine CLINICAL HISTORY: fall, pain COMPARISON: Knee radiographs January 01, 2013. FINDINGS: No evidence for a left knee joint effusion. Chondrocalcinosis within the menisci of the le ft knee are noted. There is moderate left knee osteoarthritis. No acute fracture within the left femu r is present. Mild to moderate left hip osteoarthritis is present. Pessary device is incidentally not ed. IMPRESSION: No acute fracture within the left femur. ACT 112: Negative or not required by law. Electronically signed by: Blu Betancur M.D. 09/09/2021 9:20 PM
[2021-09-10] MEDS: ACETAMINOPHEN 500 MG TAB PO SCH ×2 (08:09→18:00)
[2021-09-10] MEDS: ISOSORBIDE MONO EXTENDED REL 30 MG TABCR PO SCH (08:10)
[2021-09-10] MEDS: ASPIRIN 81 MG ECTAB PO SCH (08:10)
[2021-09-10] MEDS: LOSARTAN POTASSIUM 25 MG TAB PO SCH (08:10)
[2021-09-10] MEDS: METOPROLOL SUCC 25MG EXT REL TAB PO SCH (08:11)
[2021-09-10] MEDS: FLUTICASONE PROPIONATE NA SPR 16 GM BTL NAE SCH (08:11)
[2021-09-10] MEDS: ENOXAPARIN INJ 40 MG/0.4 ML SYR SQ SCH (08:11)
[2021-09-10] MEDS ORDERED: LOSARTAN POTASSIUM 25 MG TAB PO ONE (11:49)
--- NOTE | 2021-09-10 11:53 | Cardiology Progress Note ---
Date of Service September 10, 2021 Assessment & Plan (1) NSTEMI (non-ST elevated myocardial infarction): (2) Factor V Leiden: (3) HTN (hypertension): (4) Dyslipidemia: Plan: 85-year-old female (1) NSTEMI (non-ST elevated myocardial infarction): -Patient found to have elevated at HS troponin, abnormal EKG which is progressed since her initial presentation. Echocardiogram reveals normal biventricular wall motion and LVEF. Cardiac catheterization 09/08/21, with findings of an intermediate LAD stenosis, not hemodynamically significant by FFR. Diagonal stenosis, and OM stenosis. OM not amenable to PCI (small vessel). PCI of Diagonal attempted, but not successful. Recommend ongoing medical therapy with aspirin, metoprolol, losartan, atorvastatin. Added Imdur 09/09/21 for further angina treatment and for HTN. (2) Factor V Leiden: The patient has a history of homozygous Factor V Leiden mutation as well as IgG positive anticardiolipin antibody dating back to 1998. CTA chest performed 09/06/21: 1. No pulmonary emboli identified. Mild dilatation of the central pulmonary arteries. 2. Age indeterminate nondisplaced sternal fracture. -Sq lovenox for DVT prophylaxis 40 mg daily. (3) HTN (hypertension): -Blood pressure elevated remains above goal. Increase losartan to 50 mg daily. (4) Dyslipidemia: LDL 51 mg/dl this admission. Continue atorvastatin. (5) Left radial hematoma -radial band care per protocol. heparin discontinued. Continue ASA. Hold of on clopidogrel for medical rx of NSTEMI due to bleeding risk, recurrent falls. Pt appears to have a mild degree of cognitive impairment. (6) osteoarthritis, age-indeterminate sternal fracture -Patient with age indeterminate sternal fracture on CT and has chronic arthritis complaints , with worsening hip pain while hospitalized. Off of home NSAID therapy. At present her musculoskeletal pain is the most significant barrier to discharge. Prior to hospital treatment with NSAIDs has been discontinued due to her cardiac event. Will discuss options for pain management with hospitalist service. One consideration would be to consider pain management consultation to consider intercostal nerve block to help with her sternum pain, however she has multiple other aches and pains as well. Increase activity as tolerated. Most significant barrier to discharge is her musculoskeletal pain. Admission and Anticipated Discharge Date Admission Date: September 05, 2021 Subjective Patient seen in follow-up. No angina. Worsening musculoskeletal pain including left chest wall pain, mid sternum pain, aches and pains in both of her arms and hips. Physical Exam Constitutional: WD/WN, vitals as above Respiratory: normal respiratory effort, lungs clear to auscultation Cardiovascular: RRR, no murmur, no edema Gastrointestinal (Abdomen): normal bowel sounds, soft, nontender, no hepatosplenomegaly Neurologic: PERRL, EOMI, accommodation nl, no face palsy, no dysarthria Results & Data ([facility]) Vital Signs (Past 12 Hours) Vital Signs Temp Pulse Pulse Pulse Resp BP BP 09/10/21 08:00 77 09/10/21 07:11 36.5 C 78 22 195/73 H 09/10/21 03:07 36.6 C 71 18 177/77 H 09/10/21 00:00 76 Pulse Ox 09/10/21 08:00 09/10/21 07:11 95 09/10/21 03:07 93 09/10/21 00:00 Laboratory Results Intake and Output 09/09/21 09/10/21 09/10/21 22:59 06:59 14:59 Intake Total 250 / 930 200 / 930 Output Total 501 / 901 Balance - / 200 / 29 Intake: Oral 250 / 930 200 / 930 Output: Urine 500 / 900 # Bowel Movements Other: Weight 85.6 kg Weight Measurement Method Built in [facility]
--- NOTE | 2021-09-10 17:37 | Hospitalist Progress Note ---
Date of Service September 10, 2021 Assessment & Plan (1) CHF (congestive heart failure): Plan: NSTEMI Acute diastolic CHF Acute pulmonary edema --ECHO: Moderate concentric LVH. No regional wall motion abnormality. EF 55 to 60%. Right ventricle is normal in size and function. Grade 1 diastolic dysfunction. --CXR:Mild pulmonary edema. --S/P Cardiac Cath: 40 to 50% mid LAD, 95% proximal D1, 80 to 90% stenosis in proximal/distal OM 2 OM not amenable to PCI. PCI of diagonal attempted, but unsuccessful. Continue aspirin, metoprolol, losartan, atorvastatin IV heparin held due to Right radial hematoma post procedure Appreciate cardiology input Monitor volume status IV Lasix as needed 09/09 Imdur added Continue aspirin, metoprolol, losartan, atorvastatin Hypertensive Urgency Likely situational Continue Metoprolol, Losartan Metoprolol changed to succinate 25 mg daily Imdur added BL Pelvis, Hip Pain - obtained xrays of pelvis, hip, femur, knees - negative for acute process/ or fracture Factor V Leiden H/O DVT Currently not on any anticoagulation baseline -- on Lovenox 40mg SC H/O coronary artery calcification on previous imaging Continue home medications Hyperlipidemia on statin Prediabetes HbA1c 6.1 Fall Reports H/O multiple Falls Age indeterminate nondisplaced sternal fracture --Face CT:Right zygomatic arch fracture is favored to be chronic. --CT Head:No acute intracranial hemorrhage, no evidence of acute territorial infarction or other acute intracranial disease process. --R finger X ray:No evidence of acute osseous injury. --Neck CT:Degenerative changes without evidence of acute bony injury. --R Shoulder X ray:No evidence of acute osseous injury. --R middle finger X ray:No evidence of acute osseous injury. --CTA:No pulmonary emboli identified. Mild dilatation of the central pulmonary arteries. Age indeterminate nondisplaced sternal fracture. Pain control Fall Precautions PT/OT as able Appreciate orthopedics input Incentive spirometer 09/09 additional xray per above Tylenol 1g q8h 09/10 continues to complain of pain, pain management consulted However patient hesitant to take any other p.o. meds besides Tylenol DVT Px: on Lovenox Code Status Full code Disposition would like to return home with PT/OT Admission and Anticipated Discharge Date Admission Date: September 05, 2021 Subjective Patient seen in follow-up of chest pain, sternal fracture, shoulder pain /other joints as well Patient's at the bedside Discussed possibility of pain management, will place consult No fevers, chills, shortness of breath. Patient reports some chronic cough. No abdominal pain, nausea or vomiting. Overall she is just uncomfortable due to her sternal fracture, has chest pains with movements Review of Systems Review of Systems: All systems reviewed & are unremarkable except as noted in Subjective Physical Exam Physical Exam: General- oriented x 3, not in distress, speaks in sentences with no effort or accessory muscle use Eyes-EOMI, PERRL , anicteric Neck- no JVD Lungs- faint rales on the left base clear on the right (+) mild tenderness lower sternum area Heart- normal rate, regular rhythm; no murmurs Abdomen- normal bowel sounds, nondistended, soft, nontender Extremities- no pretibial edema, no calf tenderness Neuro- alert, oriented x 3; no gross focal neurologic deficits Skin- warm & dry Results & Data Results & Data ([facility]) Vital Signs (Past 12 Hours) Vital Signs Temp Pulse Pulse Pulse Resp BP Pulse Ox 09/10/21 16:00 72 09/10/21 15:12 36.5 C 78 20 160/73 H 94 09/10/21 11:05 36.8 C 75 22 135/67 93 09/10/21 08:00 77 09/10/21 07:11 36.5 C 78 22 195/73 H 95
[2021-09-10] MEDS ORDERED: levoFLOXacin 750 MG TAB PO STA (17:51)
[2021-09-10] MEDS: IPRATROPIUM BROMIDE NEB SOLN 0.02% 2.5 ML VIAL INH SCH (19:09)
[2021-09-10] MEDS: LEVALBUTEROL 1.25MG/0.5ML NEB INH SCH (19:09)
[2021-09-10] MEDS: guaiFENesin 600 MG TABCR PO SCH (20:21)
[2021-09-10] MEDS: ATORVASTATIN 20 MG TAB PO SCH (20:21)
[2021-09-11] MEDS: ACETAMINOPHEN 500 MG TAB PO SCH ×3 (00:31→18:31)
[2021-09-11 07:31] LABS: Hematocrit (blood only) 33.3 % (34.1-44.9); Mean Corpuscular Hemoglobin 29.7 pg (25.0-34.0); Mean Platelet Volume 9.8 fL (9.4-12.3); Platelet Count 312 K/uL (130-400); White Blood Count 6.11 K/ul (4.8-10.8)
[2021-09-11 08:02] LABS: BUN Creatinine Ratio 16.7 (10-20); Calcium 8.8 mg/dl (8.5-10.1); Creatinine Clr Calc Pharmacy 71.6 ml/min; Est GFR (African American) 98.3 ml/min; Est GFR (Non-African American) 84.8 ml/min; Magnesium 2.1 mg/dl (1.7-2.4); Phosphorus 2.8 mg/dl (2.5-4.9)
[2021-09-11] MEDS: ENOXAPARIN INJ 40 MG/0.4 ML SYR SQ SCH (08:18)
[2021-09-11] MEDS: ASPIRIN 81 MG ECTAB PO SCH (08:18)
[2021-09-11] MEDS: FLUTICASONE PROPIONATE NA SPR 16 GM BTL NAE SCH (08:19)
[2021-09-11] MEDS: guaiFENesin 600 MG TABCR PO SCH ×2 (08:20→20:44)
[2021-09-11] MEDS: LOSARTAN POTASSIUM 50 MG TAB PO SCH (08:20)
[2021-09-11] MEDS: ISOSORBIDE MONO EXTENDED REL 30 MG TABCR PO SCH (08:20)
[2021-09-11] MEDS: METOPROLOL SUCC 25MG EXT REL TAB PO SCH (08:21)
[2021-09-11] MEDS ORDERED: levoFLOXacin 750 MG TAB PO SCH (09:00)
--- NOTE | 2021-09-11 09:11 | Pain Management Consultation ---
Date of Consultation September 11, 2021 Assessment & Plan (1) Fall as cause of accidental injury at home as place of occurrence: Encounter type: initial encounter Qualified Code(s): W19.XXXA - Unspecified fall, initial encounter; Y92.009 - Unspecified place in unspecified non-institutional (private) residence as the place of occurrence of the external cause We have discussed oral pain medications that may alleviate some of the sternal and shoulder pain. She does have allergies listed to Oxycodone, Naproxen, and Tramadol. We have discussed switching the Tylenol to Tylenol with codeine for additional pain relief. She is leery to start a pain medication given her previous side effects to medications. She states that she would like to think about it and talk to the hospitalist about this. Thank you for the consultation. Please contact with any questions or concerns. History of Present Illness Attending Physician: Osmar Francisco MD History of Present Illness Mrs. Hollingsworth is an 85 year old female that came into the Emergency Department for a fall that occurred at her daughter home and also chest pain. She has had several falls over the last several months. She was found to have a chronic right zygomatic arch fracture and an age indeterminate fracture of the sternum. She does have a know right proximal humerus fracture that is healing and right rotator cuff tear. Patient is currently receiving Tylenol 1000mg x 8 hours. She states that the Tylenol is not providing any pain relief. Her pain is currently a 4/10. Patient has previously had side effects to medications including oxycodone, tramadol, naproxen. Allergies Allergy/AdvReac Type Severity Reaction Status Date / Time latex Allergy Intermediate RASH - Verified 09/05/21 17:30 ITCHING Sulfa (Sulfonamide Allergy Intermediate HIVES Verified 09/05/21 17:30 Antibiotics) adhesive Allergy Mild RASH Verified 01/30/20 11:18 amoxicillin Allergy Mild RASH Verified 09/05/21 17:30 clavulanic acid Allergy Mild RASH Verified 09/05/21 17:30 oxycodone Allergy Mild RACING Verified 09/05/21 17:30 HEART prednisone AdvReac Mild GI SYMPTOMS Verified 09/05/21 17:30 salicylates AdvReac Mild GI SYMPTOMS Verified 09/05/21 17:30 tramadol AdvReac Mild did not Verified 09/05/21 21:51 feel well aspirin AdvReac Unknown NAUSEA Unverified 09/05/21 17:30 naproxen AdvReac Unknown GI SYMPTOMS Verified 09/05/21 17:30 Penicillins AdvReac Unknown NAUSEA Unverified 01/30/20 11:18 procaine AdvReac Unknown HEART Unverified 01/30/20 11:18 RACING chocolate flavor AdvReac Verified 09/05/21 17:31 citric acid AdvReac Verified 09/08/21 07:[address] And Derivatives AdvReac Verified 09/05/21 17:31 peanut AdvReac Verified 09/05/21 17:31 Home Medications Medication Instructions Recorded Confirmed Type atorvastatin 20 mg tablet (Lipitor) 20 mg PO HS #0 tab 09/10/17 09/05/21 History losartan 25 mg tablet 25 mg PO QAM 07/26/21 09/05/21 History aspirin 81 mg tablet,delayed 81 mg PO DAILY 09/05/21 09/05/21 History release etodolac 500 mg tablet 500 mg PO .AM &HS 09/05/21 09/05/21 History Patient History Medical History Blood clot in vein Chronic lower back pain Dyslipidemia Factor V Leiden H/O sciatica HTN (hypertension) KIM (obstructive sleep apnea) Surgical History H/O colonoscopy 2007: mild-moderate diverticulosis sigmoid colon History of cataract surgery Hx laparoscopic cholecystectomy Family History Other Cancer Diabetes Heart disease Social History Smoking Status: Unknown if ever smoked Second Hand Exposure: No; Hx Alcohol Use: No Hx Substance Use: No Preferred Language: [place] Islander Communication Ability: Effective Jacquard Loom Fixer Required: No Beliefs That Will Affect Care: None marital status: Current Living Situation: Spouse current occupational status: retired How many Children do You have: 4 Other Information That Helps Us Care for You: No Feels Safe at Home: Yes Safety Concerns: Feels Safe At This Time Assistive Devices: Cane Physical Exam Physical Exam: GENERAL: This is an 85 year old female that is sitting in the hospital chair in no acute distress. HEAD/FACE: Normocephalic and atraumatic. EYES: No drainage or conjunctival injection. ENT: Nose without bleeding or discharge. Oral mucosa moist. NECK: Full ROM without apparent pain. No swelling or masses noted. RESPIRATORY: Patient with unlabored breathing. No signs of respiratory distress. CHEST/AXILLA: Chest movement symmetrical. No deformities noted. ABDOMEN/GI: No distension BACK: Moves without difficulty SKIN: [place], warm and dry. No rash noted. MS/EXTREMITY: No swelling, no deformities. NEURO: Alert and appears oriented. Speech is fluent. Cranial Nerves are grossly intact. PSYCH: Alert, pleasant, affect is calm
--- NOTE | 2021-09-11 13:48 | Cardiology Progress Note ---
Date of Service September 11, 2021 Assessment & Plan (1) NSTEMI (non-ST elevated myocardial infarction): (2) Factor V Leiden: (3) HTN (hypertension): (4) Dyslipidemia: Plan: 85-year-old female (1) NSTEMI (non-ST elevated myocardial infarction): -Patient found to have elevated at HS troponin, abnormal EKG which is progressed since her initial presentation. Echocardiogram reveals normal biventricular wall motion and LVEF. Cardiac catheterization 09/08/21, with findings of an intermediate LAD stenosis, not hemodynamically significant by FFR. Diagonal stenosis, and OM stenosis. OM not amenable to PCI (small vessel). PCI of Diagonal attempted, but not successful. Recommend ongoing medical therapy with aspirin, metoprolol, losartan, atorvastatin. Added Imdur 09/09/21 for further angina treatment and for HTN. Most recent EKG 09/08/2021 reveals left bundle branch block with findings of intermittent left bundle branch block noted on telemetry. (2) Factor V Leiden: The patient has a history of homozygous Factor V Leiden mutation as well as IgG positive anticardiolipin antibody dating back to 1998. CTA chest performed 09/06/21: 1. No pulmonary emboli identified. Mild dilatation of the central pulmonary arteries. 2. Age indeterminate nondisplaced sternal fracture. -Sq lovenox for DVT prophylaxis 40 mg daily. (3) HTN (hypertension): -Blood pressure elevated remains above goal. Losartan increased from 25 mg daily to 50 mg daily on 09/10/2021 (4) Dyslipidemia: LDL 51 mg/dl this admission. Continue atorvastatin. (5) right radial hematoma -radial band care per protocol. heparin discontinued. Continue ASA. Hold of on clopidogrel for medical rx of NSTEMI due to bleeding risk, recurrent falls. Pt appears to have a mild degree of cognitive impairment. (6) osteoarthritis, age-indeterminate sternal fracture -Patient with age indeterminate sternal fracture on CT and has chronic arthritis complaints , with worsening hip pain while hospitalized. Off of home NSAID therapy. At present her musculoskeletal pain is the most significant barrier to discharge. Prior to hospital treatment with NSAIDs has been discontinued due to her cardiac event. Pain management input noted and appreciated. Case discussed with patient and her daughter, Dacia at bedside. I would recommend treatment with a course of prednisone 5 mg daily, along with an H2 job or PPI for GI prophylaxis. Patient notes past GI upset with prednisone, but per my discussion with her, she was enthusiastic to try this. I think this is a better alternative than resuming her nonsteroidal anti- inflammatory medications, and her chronic arthritis symptoms as well as the symptoms from the sternal fracture hopefully respond to this. (7) Cough Patient has had an intermittent complaint of cough. She is not volume overloaded on exam. Radiology report of most recent chest x-ray raises concerns of mild left lower lobe infiltrate, however not very impressive. Personally, I would recommend ongoing observation off of antibiotics. Anticipate discharge perhaps in the next 24 hours if her arthritis pain is better controlled. We will arrange cardiology follow-up as outpatient. Case discussed with Dr. Francisco. Admission and Anticipated Discharge Date Admission Date: September 05, 2021 Subjective Patient seen cardiology follow-up. Chief complaint subjectively is ongoing musculoskeletal aches and pains from her sternal fracture, ribs, bilateral shoulders, hips. Patient has multiple allergies. Telemetry reveals sinus rhythm with conduction delay. Review of Systems Review of Systems: All systems reviewed & are unremarkable except as noted in HPI & below Physical Exam Constitutional: + obese; no acute distress Respiratory: normal respiratory effort, lungs clear to auscultation Cardiovascular: RRR, no murmur, no edema Right radial artery access with mild ecchymosis, well-healing bruising. Gastrointestinal (Abdomen): normal bowel sounds, soft, nontender, no hepatosplenomegaly Neurologic: PERRL, EOMI, accommodation nl, no face palsy, no dysarthria Results & Data ([facility]) Vital Signs (Past 12 Hours) Vital Signs Temp Pulse Pulse Resp BP BP Pulse Ox 09/11/21 11:42 36.6 C 72 16 145/83 H 95 09/11/21 08:10 36.8 C 70 16 163/81 H 94 09/11/21 07:00 67 09/11/21 03:57 36.6 C 76 18 162/90 H 95 Laboratory Results CBC 09/11/21 Range/Units 06:34 WBC 6.11 (4.8-10.8) K/ul RBC 3.70 L (3.93-5.22) M/uL Hgb 11.0 L (12.0-16.0) g/dl Hct 33.3 L (34.1-44.9) % Plt Count 312 (130-400) K/uL Comprehensive Metabolic Panel 09/11/21 Range/Units 06:34 Sodium 135 L (136-145) mmol/L Potassium 4.0 (3.5-5.1) mmol/L Chloride 105 (98-107) mmol/L Carbon Dioxide 23 (21-32) mmol/L BUN 9 (6-23) mg/dl Creatinine 0.54 L (0.6-1.2) mg/dl Glucose 98 (70-99(Fasting)) mg/dl Calcium 8.8 (8.5-10.1) mg/dl Intake and Output 09/10/21 09/11/21 09/11/21 22:59 06:59 14:59 Other: # Unmeasured Voids 1 Weight 86.3 kg Weight Measurement Method Built in [facility]
[2021-09-11] MEDS ORDERED: predniSONE 5 MG TAB PO ONE (13:49)
[2021-09-11] MEDS: PANTOprazole 40 MG TAB PO SCH (15:56)
[2021-09-11] MEDS: IPRATROPIUM BROMIDE NEB SOLN 0.02% 2.5 ML VIAL INH SCH (19:16)
[2021-09-11] MEDS: LEVALBUTEROL 1.25MG/0.5ML NEB INH SCH (19:16)
[2021-09-11] MEDS: ATORVASTATIN 20 MG TAB PO SCH (20:44)
--- NOTE | 2021-09-11 21:45 | Hospitalist Progress Note ---
Date of Service September 11, 2021 Assessment & Plan (1) CHF (congestive heart failure): Plan: NSTEMI Acute diastolic CHF Acute pulmonary edema --ECHO: Moderate concentric LVH. No regional wall motion abnormality. EF 55 to 60%. Right ventricle is normal in size and function. Grade 1 diastolic dysfunction. --CXR:Mild pulmonary edema. --S/P Cardiac Cath: 40 to 50% mid LAD, 95% proximal D1, 80 to 90% stenosis in proximal/distal OM 2 OM not amenable to PCI. PCI of diagonal attempted, but unsuccessful. Continue aspirin, metoprolol, losartan, atorvastatin IV heparin held due to Right radial hematoma post procedure Appreciate cardiology input Monitor volume status IV Lasix as needed 09/09/2021 Imdur added Continue aspirin, metoprolol, losartan, atorvastatin Hypertensive Urgency Likely situational Continue Metoprolol, Losartan Metoprolol changed to succinate 25 mg daily Imdur added BL Pelvis, Hip Pain - obtained xrays of pelvis, hip, femur, knees - negative for acute process/ or fracture Factor V Leiden H/O DVT Currently not on any anticoagulation baseline -- on Lovenox 40mg SC H/O coronary artery calcification on previous imaging Continue home medications Hyperlipidemia on statin Prediabetes HbA1c 6.1 Fall Reports H/O multiple Falls Age indeterminate nondisplaced sternal fracture --Face CT:Right zygomatic arch fracture is favored to be chronic. --CT Head:No acute intracranial hemorrhage, no evidence of acute territorial infarction or other acute intracranial disease process. --R finger X ray:No evidence of acute osseous injury. --Neck CT:Degenerative changes without evidence of acute bony injury. --R Shoulder X ray:No evidence of acute osseous injury. --R middle finger X ray:No evidence of acute osseous injury. --CTA:No pulmonary emboli identified. Mild dilatation of the central pulmonary arteries. Age indeterminate nondisplaced sternal fracture. Pain control Fall Precautions PT/OT as able Appreciate orthopedics input Incentive spirometer 09/09 additional xray per above Tylenol 1g q8h 09/11 continues to complain of pain, pain management consulted intercostal block not likely helpful However patient hesitant to take any other p.o. meds besides Tylenol Discussed w/ cardiology - NSAIDs stopped, can try small dose prednisone 5 mg daily, also start PPI DVT Px: on Lovenox Code Status : Full code Disposition: would like to return home with PT/OT Admission and Anticipated Discharge Date Admission Date: September 05, 2021 Subjective Patient seen in follow-up of chest pain, sternal fracture, shoulder pain /other joints as well Seen by pain management Patient reports feeling better today No fevers, chills, shortness of breath. Patient reports some chronic cough. No abdominal pain, nausea or vomiting. Overall she is just uncomfortable due to her sternal fracture, has chest pains with movements Review of Systems Review of Systems: All systems reviewed & are unremarkable except as noted in Subjective Physical Exam Physical Exam: General- oriented x 3, not in distress, speaks in sentences with no effort or accessory muscle use Eyes-EOMI, PERRL , anicteric Neck- no JVD Lungs- faint rales on the left base clear on the right (+) mild tenderness lower sternum area Heart- normal rate, regular rhythm; no murmurs Abdomen- normal bowel sounds, nondistended, soft, nontender Extremities- no pretibial edema, no calf tenderness Neuro- alert, oriented x 3; no gross focal neurologic deficits Skin- warm & dry Results & Data Results & Data ([facility]) Vital Signs (Past 12 Hours) Vital Signs Temp Pulse Pulse Resp BP BP Pulse Ox 09/11/21 20:03 37.0 C 87 16 161/70 H 92 09/11/21 19:16 75 18 91 09/11/21 16:40 36.7 C 85 16 153/82 H 97 09/11/21 14:30 77 09/11/21 11:42 36.6 C 72 16 145/83 H 95 Laboratory Results 09/11/21 09/11/21 09/11/21 Range/Units 06:34 06:34 06:34 WBC 6.11 (4.8-10.8) K/ul RBC 3.70 L (3.93-5.22) M/uL Hgb 11.0 L (12.0-16.0) g/dl Hct 33.3 L (34.1-44.9) % MCV 90.0 (80.0-100.0) fL MCH 29.7 (25.0-34.0) pg MCHC 33.0 (32.0-36.0) g/dL RDW Std Deviation 43.0 (36.4-46.3) fL RDW Coeff of Gunner 13.0 (11.5-14.5) % Plt Count 312 (130-400) K/uL MPV 9.8 (9.4-12.3) fL Sodium 135 L (136-145) mmol/L Potassium 4.0 (3.5-5.1) mmol/L Chloride 105 (98-107) mmol/L Carbon Dioxide 23 (21-32) mmol/L Anion Gap 7 (3-11) BUN 9 (6-23) mg/dl Creatinine 0.54 L (0.6-1.2) mg/dl Est Cr Clr Drug Dosing 71.6 ml/min Est GFR ( Amer) 98.3 ml/min Est GFR (Non-Af Amer) 84.8 ml/min BUN/Creatinine Ratio 16.7 (10-20) Glucose 98 (70-99(Fasting)) mg/dl Calcium 8.8 (8.5-10.1) mg/dl Phosphorus 2.8 (2.5-4.9) mg/dl Magnesium 2.1 (1.7-2.4) mg/dl Procalcitonin 0.07 (0-0.5) ng/ml Medications Administered Current Inpatient Medications Acetaminophen (Acetaminophen 500 Mg Tab) 1,000 mg PO Q8H [facility] Stop: 10/09/21 16:59 Last Admin: 09/11/21 18:31 Dose: 1,000 mg Documented by: Aspirin (Aspirin 81 Mg Ectab) 81 mg PO QAM [facility] Stop: 10/09/21 08:59 Last Admin: 09/11/21 08:18 Dose: 81 mg Documented by: Atorvastatin Calcium (Atorvastatin 20 Mg Tab) 20 mg PO [facility] Stop: 10/05/21 21:00 Last Admin: 09/11/21 20:44 Dose: 20 mg Documented by: Dextromethorphan Polymer Complex (Dextromethorphan Polymr Complx 30 Mg/5 Ml Udp) 30 mg PO Q12 PRN PRN Reason: Cough Stop: 10/07/21 15:52 Last Admin: 09/11/21 00:42 Dose: 30 mg Documented by: Enoxaparin Sodium (Enoxaparin Inj 40 Mg/0.4 Ml Syr) 40 mg SQ QAM [facility] Stop: 10/09/21 13:59 Last Admin: 09/11/21 08:18 Dose: 40 mg Documented by: Fluticasone Propionate (Fluticasone Propionate Na Spr 16 Gm Btl) 2 sprays ALEX DAILY [facility] Stop: 10/07/21 11:14 Last Admin: 09/11/21 08:19 Dose: 2 sprays Documented by: Guaifenesin (Guaifenesin 600 Mg Tabcr) 600 mg PO Q12 [facility] Stop: 10/10/21 20:59 Last Admin: 09/11/21 20:44 Dose: 600 mg Documented by: Promethazine HCl 12.5 mg/ (Sodium Chloride) 50.5 mls @ 202 mls/hr IV Q6H PRN PRN Reason: Nausea And Vomiting Stop: 10/05/21 21:00 Last Infusion: 09/06/21 02:52 Dose: Infused Documented by: Ipratropium Bloomingrose (Ipratropium Bloomingrose Neb Soln 0.02% 2.5 Ml Vial) 0.5 mg INH DAILY@1800 [facility] Stop: 10/05/21 20:29 Last Admin: 09/11/21 19:16 Dose: 0.5 mg Documented by: Isosorbide Mononitrate (Isosorbide Tift Extended Rel 30 Mg Tabcr) 30 mg PO QAM [facility] Stop: 10/09/21 13:14 Last Admin: 09/11/21 08:20 Dose: 30 mg Documented by: Labetalol HCl (Labetalol Hcl Iv 5 Mg/Ml 20ml) 10 mg IV Q6H PRN PRN Reason: HypertensionSBP>180orDBP>100 Stop: 10/06/21 17:26 Levalbuterol HCl (Levalbuterol 1.25mg/0.5ml Neb) 1.25 mg INH DAILY@1800 [facility] Stop: 10/05/21 20:29 Last Admin: 09/11/21 19:16 Dose: 1.25 mg Documented by: Losartan Potassium (Losartan Potassium 50 Mg Tab) 50 mg PO QAM [facility] Stop: 10/11/21 08:59 Last Admin: 09/11/21 08:20 Dose: 50 mg Documented by: Metoprolol Succinate (Metoprolol Succ 25mg Ext Rel Tab) 25 mg PO QAM [facility] Stop: 10/07/21 09:29 Last Admin: 09/11/21 08:21 Dose: 25 mg Documented by: Morphine Sulfate (Morphine Sulfate 2 Mg/Ml Carp) 2 mg IV Q3H PRN PRN Reason: Pain Stop: 09/19/21 21:00 Nitroglycerin (Nitroglycerin Sl 0.4 Mg/Tab Tab) 0.4 mg SL UD PRN PRN Reason: Chest Pain Stop: 10/05/21 21:00 Pantoprazole Sodium (Pantoprazole 40 Mg Tab) [facility] [place] Stop: 09/14/21 09:01 Last Admin: 09/11/21 15:56 Dose: 40 mg Documented by:
[2021-09-12] MEDS: ACETAMINOPHEN 500 MG TAB PO SCH ×2 (01:08→09:58)
[2021-09-12] MEDS: LOSARTAN POTASSIUM 50 MG TAB PO SCH (09:58)
[2021-09-12] MEDS: METOPROLOL SUCC 25MG EXT REL TAB PO SCH (09:59)
[2021-09-12] MEDS: ISOSORBIDE MONO EXTENDED REL 30 MG TABCR PO SCH (09:59)
[2021-09-12] MEDS: PANTOprazole 40 MG TAB PO SCH (09:59)
[2021-09-12] MEDS: guaiFENesin 600 MG TABCR PO SCH (09:59)
[2021-09-12] MEDS: ENOXAPARIN INJ 40 MG/0.4 ML SYR SQ SCH (09:59)
[2021-09-12] MEDS: ASPIRIN 81 MG ECTAB PO SCH (10:00)
[2021-09-12] MEDS: FLUTICASONE PROPIONATE NA SPR 16 GM BTL NAE SCH (10:00)
--- NOTE | 2021-09-12 11:37 | Hospitalist Progress Note ---
Date of Service September 12, 2021 Assessment & Plan (1) CHF (congestive heart failure): Plan: NSTEMI Acute diastolic CHF Acute pulmonary edema --ECHO: Moderate concentric LVH. No regional wall motion abnormality. EF 55 to 60%. Right ventricle is normal in size and function. Grade 1 diastolic dysfunction. --CXR:Mild pulmonary edema. --S/P Cardiac Cath: 40 to 50% mid LAD, 95% proximal D1, 80 to 90% stenosis in proximal/distal OM 2 OM not amenable to PCI. PCI of diagonal attempted, but unsuccessful. Continue aspirin, metoprolol, losartan, atorvastatin IV heparin held due to Right radial hematoma post procedure Appreciate cardiology input Monitor volume status IV Lasix as needed 09/09/2021 Imdur added Continue aspirin, metoprolol, losartan, atorvastatin Hypertensive Urgency Likely situational Continue Metoprolol, Losartan Metoprolol changed to succinate 25 mg daily Imdur added (as above) BL Pelvis, Hip Pain - obtained xrays of pelvis, hip, femur, knees - negative for acute process/ or fracture Factor V Leiden H/O DVT Currently not on any anticoagulation baseline -- on Lovenox 40mg SC H/O coronary artery calcification on previous imaging Continue home medications Hyperlipidemia on statin Prediabetes HbA1c 6.1 Fall Reports H/O multiple Falls Age indeterminate nondisplaced sternal fracture --Face CT:Right zygomatic arch fracture is favored to be chronic. --CT Head:No acute intracranial hemorrhage, no evidence of acute territorial infarction or other acute intracranial disease process. --R finger X ray:No evidence of acute osseous injury. --Neck CT:Degenerative changes without evidence of acute bony injury. --R Shoulder X ray:No evidence of acute osseous injury. --R middle finger X ray:No evidence of acute osseous injury. --CTA:No pulmonary emboli identified. Mild dilatation of the central pulmonary arteries. Age indeterminate nondisplaced sternal fracture. Pain control Fall Precautions PT/OT as able Appreciate orthopedics input Incentive spirometer 09/09 additional xray per above Tylenol 1g q8h 09/11 continues to complain of pain, pain management consulted intercostal block not likely helpful However patient hesitant to take any other p.o. meds besides Tylenol Discussed w/ cardiology - NSAIDs stopped, can try small dose prednisone 5 mg daily, also start PPI Cough Patient has some chronic intermittent cough Chest x-ray with mild left lower lobe opacity White blood cell count is not elevated, and Pro-Kendell is negative. Afebrile. Per patient cough does not seem new. Does not appear fluid overloaded Recommend to closely follow-up with PCP in a week. In the meantime recommended guaifenesin, flutter valve incentive spirometer. DVT Px: on Lovenox Code Status : Full code Disposition: Plan to DC home Admission and Anticipated Discharge Date Admission Date: September 05, 2021 Subjective Patient seen in follow-up of chest pain, NSTEMI, sternal fracture, shoulder pain /other joints as well Seen by pain management yesterday Patient reports feeling well today No fevers, chills, shortness of breath. Patient reports some chronic cough. No abdominal pain, nausea or vomiting. Overall she is just uncomfortable due to her sternal fracture, has chest pains with movements or cough. Review of Systems Review of Systems: All systems reviewed & are unremarkable except as noted in Subjective Physical Exam Physical Exam: General- oriented x 3, not in distress, speaks in sentences with no effort or accessory muscle use Eyes-EOMI, PERRL , anicteric Neck- no JVD Lungs- faint rales on the left base, no wheezing clear on the right (+) mild tenderness lower sternum area Heart- normal rate, regular rhythm; no murmurs Abdomen- normal bowel sounds, nondistended, soft, nontender Extremities- no pretibial edema, no calf tenderness, moves extremities Neuro- alert, oriented x 3; no gross focal neurologic deficits Skin- warm & dry Results & Data Results & Data ([facility]) Vital Signs (Past 12 Hours) Vital Signs Temp Pulse Pulse Resp BP BP Pulse Ox 09/12/21 11:28 36.7 C 66 18 167/101 H 93 09/12/21 07:40 63 09/12/21 07:33 36.5 C 69 18 153/74 H 92 09/12/21 04:06 36.6 C 80 17 159/72 H 94 09/12/21 00:08 36.9 C 79 16 182/89 H 91 Medications Administered Current Inpatient Medications Acetaminophen (Acetaminophen 500 Mg Tab) 1,000 mg PO Q8H SOFIYA Stop: 10/09/21 16:59 Last Admin: 09/12/21 09:58 Dose: 1,000 mg Documented by: Aspirin (Aspirin 81 Mg Ectab) [facility] [place]: 10/09/21 08:59 Last Admin: 09/12/21 10:00 Dose: 81 mg Documented by: Atorvastatin Calcium (Atorvastatin 20 Mg Tab) 20 mg PO HS [facility] Stop: 10/05/21 21:00 Last Admin: 09/11/21 20:44 Dose: 20 mg Documented by: Dextromethorphan Polymer Complex (Dextromethorphan Polymr Complx 30 Mg/5 Ml Udp) 30 mg PO Q12 PRN PRN Reason: Cough Stop: 10/07/21 15:52 Last Admin: 09/11/21 00:42 Dose: 30 mg Documented by: Enoxaparin Sodium (Enoxaparin Inj 40 Mg/0.4 Ml Syr) [facility] Stop: 10/09/21 13:59 Last Admin: 09/12/21 09:59 Dose: 40 mg Documented by: Fluticasone Propionate (Fluticasone Propionate Na Spr 16 Gm Btl) 2 sprays ALEX DAILY [facility] Stop: 10/07/21 11:14 Last Admin: 09/12/21 10:00 Dose: 2 sprays Documented by: Guaifenesin (Guaifenesin 600 Mg Tabcr) 600 mg PO Q12 [facility] Stop: 10/10/21 20:59 Last Admin: 09/12/21 09:59 Dose: 600 mg Documented by: Promethazine HCl 12.5 mg/ (Sodium Chloride) 50.5 mls @ 202 mls/hr IV Q6H PRN PRN Reason: Nausea And Vomiting Stop: 10/05/21 21:00 Last Infusion: 09/06/21 02:52 Dose: Infused Documented by: Ipratropium [place] (Ipratropium [place] Neb Soln 0.02% 2.5 Ml Vial) 0.5 mg INH DAILY@1800 [facility] Stop: 10/05/21 20:29 Last Admin: 09/11/21 19:16 Dose: 0.5 mg Documented by: Isosorbide Mononitrate (Isosorbide [place] Extended Rel 30 Mg Tabcr) 30 mg PO QAM [facility] Stop: 10/09/21 13:14 Last Admin: 09/12/21 09:59 Dose: 30 mg Documented by: Labetalol HCl (Labetalol Hcl Iv 5 Mg/Ml 20ml) 10 mg IV Q6H PRN PRN Reason: HypertensionSBP>180orDBP>100 Stop: 10/06/21 17:26 Levalbuterol HCl (Levalbuterol 1.25mg/0.5ml Neb) 1.25 mg INH DAILY@1800 [facility] Stop: 10/05/21 20:29 Last Admin: 09/11/21 19:16 Dose: 1.25 mg Documented by: Losartan Potassium (Losartan Potassium 50 Mg Tab) 50 mg PO [facility] Stop: 10/11/21 08:59 Last Admin: 09/12/21 09:58 Dose: 50 mg Documented by: Metoprolol Succinate (Metoprolol Succ 25mg Ext Rel Tab) 25 mg PO [facility] Stop: 10/07/21 09:29 Last Admin: 09/12/21 09:59 Dose: 25 mg Documented by: Morphine Sulfate (Morphine Sulfate 2 Mg/Ml Carp) 2 mg IV Q3H PRN PRN Reason: Pain Stop: 09/19/21 21:00 Nitroglycerin (Nitroglycerin Sl 0.4 Mg/Tab Tab) 0.4 mg SL UD PRN PRN Reason: Chest Pain Stop: 10/05/21 21:00 Pantoprazole Sodium (Pantoprazole 40 Mg Tab) 40 mg PO [facility] Stop: 09/14/21 09:01 Last Admin: 09/12/21 09:59 Dose: 40 mg Documented by:
--- NOTE | 2021-09-12 12:31 | Discharge Summary ---
Date of Service September 12, 2021 Admission HPI Per Admitting Provider History obtained from patient, family, and records. Medical history significant for coronary artery calcification on previous imaging as per records, hypertension, hyperlipidemia, history of DVT, history of factor V Leiden mutation as per records. Last confinement September 2019 for acute diverticulitis with suspected microperforation status post conservative management. Patient has been having intermittent left-sided chest discomfort going across her chest since last night. Some shortness of breath. No cough symptoms. Usual stress at home. Patient not sure about fluid retention. Chest pain not related to shoulder pain for which [id number] Etodolac has been prescribed the last few months by retail selling specialist. Patient stumbled at her daughter's home today resulting in some head trauma and right hand pain. No LOC, no syncope. Patient brought to the ER for evaluation. Initial SBP at the ER 230s. Labetalol and hydralazine subsequently administered. Lasix given for CHF. Some improvement of chest pain with nitroglycerin administration at the ER. 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 Admission Exam Per Admitting Provider GENERAL: Comfortable, slightly anxious, obese, no respiratory distress SKIN: Normal color, warm HEENT: [place] palpebral conjunctivae, no ptosis, dry buccal mucosa NECK : Supple, short neck, no tenderness CHEST : CTA, anterior chest wall tenderness HEART : RRR, no obvious murmurs ABDOMEN: Some distention, nontender EXTREMITIES : Minimal LE swelling, no LE tenderness, chronic shoulder tenderness NEUROLOGIC : Coherent, no facial asymmetry, no other gross focality Principal Diagnosis NSTEMI Hypertension Sternal fracture Acute diastolic CHF Acute pulmonary edema Discharge Exam General- oriented x 3, not in distress, speaks in sentences with no effort or accessory muscle use Eyes-EOMI, PERRL , anicteric Neck- no JVD Lungs- faint rales on the left base, no wheezing clear on the right (+) mild tenderness lower sternum area Heart- normal rate, regular rhythm; no murmurs Abdomen- normal bowel sounds, nondistended, soft, nontender Extremities- no pretibial edema, no calf tenderness, moves extremities Neuro- alert, oriented x 3; no gross focal neurologic deficits Skin- warm & dry Discharge Data Allergies Allergy/AdvReac Type Severity Reaction Status Date / Time latex Allergy Intermediate RASH - Verified 09/05/21 17:30 ITCHING Sulfa (Sulfonamide Allergy Intermediate HIVES Verified 09/05/21 17:30 Antibiotics) adhesive Allergy Mild RASH Verified 01/30/20 11:18 amoxicillin Allergy Mild RASH Verified 09/05/21 17:30 clavulanic acid Allergy Mild RASH Verified 09/05/21 17:30 oxycodone Allergy Mild RACING Verified 09/05/21 17:30 HEART prednisone AdvReac Mild GI SYMPTOMS Verified 09/05/21 17:30 salicylates AdvReac Mild GI SYMPTOMS Verified 09/05/21 17:30 tramadol AdvReac Mild did not Verified 09/05/21 21:51 feel well aspirin AdvReac Unknown NAUSEA Unverified 09/05/21 17:30 naproxen AdvReac Unknown GI SYMPTOMS Verified 09/05/21 17:30 Penicillins AdvReac Unknown NAUSEA Unverified 01/30/20 11:18 procaine AdvReac Unknown HEART Unverified 01/30/20 11:18 RACING chocolate flavor AdvReac Verified 09/05/21 17:31 citric acid AdvReac Verified 09/08/21 07:28 Becenti And Derivatives AdvReac Verified 09/05/21 17:31 peanut AdvReac Verified 09/05/21 17:31 Consultations 09/05/21 21:01 Consult Cardiology Routine 09/06/21 17:24 Consult Orthopedic Surgery Routine 09/10/21 17:23 Consult Pain Management Routine Procedures Performed Operation Date: 09/08/21 09:30 Actual Procedures p Cath, Left with Cors and Vent - Manohar Garrison MD s POBA SGL Vessel - Manohar Garrison MD s Cineradiography w/Routine Exam - Manohar Garrison MD Ordered Studies 09/05/21 16:30 CT cervical spine wo con Stat IMPRESSION: Degenerative changes without evidence of acute bony injury. CT facial bones wo con Stat IMPRESSION: 1. No acute facial fracture. 2. Right zygomatic arch fracture is favored to be chronic. CT head/brain wo con Stat Findings: The ventricles, basal cisterns, and cerebral sulci are normal. There is no acute intracranial hemorrhage or evidence of acute territorial infarction. Neither mass effect, shift of the midline structures, nor abnormal extra-axial fluid collections are shown. Imaged portions of the paranasal sinuses and mastoid air cells are clear. The orbits appear normal. There are no acute fractures of the calvaria or scalp swelling. Impression: No acute intracranial hemorrhage, no evidence of acute territorial infarction or other acute intracranial disease process. 09/06/21 14:14 CT angio chest PE protocol Stat IMPRESSION: 1. No pulmonary emboli identified. Mild dilatation of the central pulmonary arteries. 2. Age indeterminate nondisplaced sternal fracture. 09/08/21 06:59 CL Cath Imgs for PACS use only Routine Hospital Course (1) CHF (congestive heart failure): NSTEMI Acute diastolic CHF Acute pulmonary edema --ECHO: Moderate concentric LVH. No regional wall motion abnormality. EF 55 to 60%. Right ventricle is normal in size and function. Grade 1 diastolic dysfunction. --CXR:Mild pulmonary edema. --S/P Cardiac Cath: 40 to 50% mid LAD, 95% proximal D1, 80 to 90% stenosis in proximal/distal OM 2 OM not amenable to PCI. PCI of diagonal attempted, but unsuccessful. Continue aspirin, metoprolol, losartan, atorvastatin IV heparin held due to Right radial hematoma post procedure Appreciate cardiology input Monitor volume status IV Lasix as needed 09/09/2021 Imdur added Continue aspirin, metoprolol, losartan, atorvastatin Hypertensive Urgency Likely situational Continue Metoprolol, Losartan Metoprolol changed to succinate 25 mg daily Imdur added (as above) BL Pelvis, Hip Pain - obtained xrays of pelvis, hip, femur, knees - negative for acute process/ or fracture Factor V Leiden H/O DVT Currently not on any anticoagulation baseline -- on Lovenox 40mg SC H/O coronary artery calcification on previous imaging Continue home medications Hyperlipidemia on statin Prediabetes HbA1c 6.1 Fall Reports H/O multiple Falls Age indeterminate nondisplaced sternal fracture --Face CT:Right zygomatic arch fracture is favored to be chronic. --CT Head:No acute intracranial hemorrhage, no evidence of acute territorial infarction or other acute intracranial disease process. --R finger X ray:No evidence of acute osseous injury. --Neck CT:Degenerative changes without evidence of acute bony injury. --R Shoulder X ray:No evidence of acute osseous injury. --R middle finger X ray:No evidence of acute osseous injury. --CTA:No pulmonary emboli identified. Mild dilatation of the central pulmonary arteries. Age indeterminate nondisplaced sternal fracture. Pain control Fall Precautions PT/OT as able Appreciate orthopedics input Incentive spirometer 09/09 additional xray per above Tylenol 1g q8h 09/11 continues to complain of pain, pain management consulted intercostal block not likely helpful However patient hesitant to take any other p.o. meds besides Tylenol Discussed w/ cardiology - NSAIDs stopped, can try small dose prednisone 5 mg daily, also start PPI Cough Patient has some chronic intermittent cough Chest x-ray with mild left lower lobe opacity White blood cell count is not elevated, and Pro-Kendell is negative. Afebrile. Per patient cough does not seem new. Does not appear fluid overloaded Recommend to closely follow-up with PCP in a week. In the meantime recommended guaifenesin, flutter valve incentive spirometer. Total Time Total Time Spent Total Time Spent (In Minutes): 40 Discharge Plan Discharge Items Patient Disposition: Home - Self-Care Reason For Visit: CHF Discharge Diagnosis: NSTEMI Hypertension Sternal fracture Acute diastolic CHF Acute pulmonary edema Condition on Discharge: Good Activity: Per Instructions section Non-emergency contact: Primary Care Provider Call non-emergency contact if: you have any medication questions and your symptoms worsen Follow-up/Referrals: Paco Spears DO [Primary Care Provider] - Diet: Heart Healthy Addtl Attending Provider Instructions: Follow-up with your primary care doctor within 1 week. For your heart, take aspirin, metoprolol, losartan, atorvastatin, and Imdur. Continue using incentive spirometer and flutter valve, guaifenesin. You were also started on prednisone to help with joint pain, please do not take NSAIDs such as Motrin, Aleve, naproxen. Take Protonix while you are on prednisone. Pending Studies at Discharge: No Stand-Alone Forms: [facility] [employer], Smoking Cessation Medications and DC Order Prescriptions: New acetaminophen [Tylenol Extra Strength] 500 mg Tablet 1,000 mg PO Q8H 5 Days Qty: 30 RF: 0 aspirin 81 mg Tablet,Delayed Release (Dr/Ec) 81 mg PO QAM Qty: 30 RF: 0 pantoprazole 40 mg Tablet,Delayed Release (Dr/Ec) 40 mg PO QAM Qty: 30 RF: 0 guaifenesin [Mucinex] 600 mg Tablet Extended Release 12hr 600 mg PO Q12 5 Days Qty: 10 RF: 0 isosorbide mononitrate 30 mg Tablet Extended Release 24 Hr 30 mg PO QAM Qty: 30 RF: 0 losartan 50 mg Tablet 50 mg PO QAM Qty: 30 RF: 0 metoprolol succinate 25 mg Tablet Extended Release 24 Hr 25 mg PO QAM Qty: 30 RF: 0 Continued atorvastatin [Lipitor] 20 mg Tablet 20 mg PO HS Qty: 0 RF: 0 aspirin [Aspir-Low] 81 mg Tablet,Delayed Release (Dr/Ec) 81 mg PO DAILY RF: 0 Changed losartan 25 mg tablet 50 mg PO QAM Qty: 0 RF: 0 Discontinued etodolac 500 mg tablet 500 mg PO .AM &HS RF: 0 Discharge Orders: Discharge Order (Routine); Ordered 09/12/21 Ordered By: Osmar Francisco Admission Data Admit Date/Time: 09/05/21 20:00 Attending Provider: Osmar Francisco Admit Provider: Kyle Baldwin Primary Care Provider: Paco Spears Other Providers: Fidel Lang ; Darrius Leslie ; Fabricio Ibarra ; Rodger Garcia ; Scot Warren ; Pernell Godoy ; Heather Bolaños ; Venita Correia ; Lawanda Juan ; Gianni Mccrary ; Isaiah Goncalves ; Leo Chang ; Lars Price ; Anita Menendez ; Rodger Enriquez ; Elen Sosa ; Owen Abreu ; Brandon Baer ; Pernell Brown ; Rosas Blanca ; Manohar Kwok ; Scot Smith ; Marcello Grant ; Moise Snow ; Elen Tinsley ; Omar Morrison ; Inessa La ; Partha Baig ; Anni Machuca ; Pablo Mosqueda ; Paulino Graham ; Santos Rahman ; Christina Negron
--- NOTE | 2021-09-15 13:38 | Coding Query ---
CODING QUERY To promote full compliance with coding requirements relating to patient care, provider participation is requested in all cases of insurance coder uncertainty. Please assist us with the question(s) below: Coding Question(s): Left Radial Hematoma is documented beginning on the 09/08 Cardiology Progress Note through the 09/10 Cardiology Progress Note, then on the 09/11 Cardiology Progress Note, Right Radial Hematoma is documented, and the Discharge Summary documents, "IV heparin held due to Right radial hematoma post procedure". Please specify below, in your clinical opinion, regarding the Radial Hematoma post procedure. ( ) Right Radial Hematoma. Please specify further below: ( ) likely a complication of the procedure ( ) not a complication of the procedure (x ) Other: Please Specify ( ) Left Radial Hematoma. Please specify further below: ( ) likely a complication of the procedure ( ) not a complication of the procedure ( x ) Other: Please Specify Physician's Response(s): Thank you Keerthi Wright Principal Diagnosis: "that condition established after study, to be chiefly responsible for occasioning the admission of the patient to the hospital for care." Co-Existing Principal Diagnosis: "when two or more diagnoses equally meet the criteria for principal diagnosis as determined by the circumstances of admission, diagnostic work up, and/or therapy provided, and the Alphabetic Index, Tabular List, or another coding guideline does not provide sequencing direction, any one of the diagnoses may be sequenced first." "When the physician has documented what appears to be a current diagnosis in the body of the record, but has not included the diagnosis in the final diagnostic statement, the physician should be asked whether the diagnosis should be added." (Source Coding [facility] 2 QTR90. p3-4) KRISTAN
== END 2021-09-12 13:59 | disposition home or self-care (01) | DRG 280 ==
LOC: ED 16:16 → 2S 20:00 → SUATTDRO 20:00 → 2S 20:29

== ENCOUNTER 2023-11-17 21:17 | Observation (INO) ==
[2023-11-17 22:03] LABS: Basophils # (auto) 0.04 K/uL (0.00-0.20); Basophils % (auto) 0.6 %; Eosinophils # (auto) 0.15 K/uL (0.00-0.50); Eosinophils % (auto) 2.2 %; Hematocrit (blood only) 38.9 % (37.0-47.0); Hemoglobin 13.1 g/dl (12.0-16.0); Immature Granulocytes # (auto) 0.02 K/uL (0.01-0.20); Immature Granulocytes % (auto) 0.3 %; Lymphocytes % (auto) 37.4 %; Mean Corpuscular Hemoglobin 30.5 pg (25.0-34.0); Mean Corpuscular Hgb Conc 33.7 g/dL (32.0-36.0); Mean Corpuscular Volume 90.7 fL (80.0-100.0); Monocytes # (auto) 0.77 K/uL (0.11-0.59); Monocytes % (auto) 11.1 %; Neutrophils # (auto) 3.38 K/uL (1.40-6.50); Neutrophils % (auto) 48.4 %; Platelet Count 298 K/uL (130-400); RDW Coefficient of Variation 14.1 % (11.5-14.5); RDW Standard Deviation 47.1 fL (36.4-46.3); Red Blood Count 4.29 M/uL (4.20-5.40); White Blood Count 6.96 K/ul (4.8-10.8)
[2023-11-17 22:19] LABS: Alanine Aminotransferase 19 U/L (7-52); Albumin Globulin Ratio 1.2 (0.9-2); Alkaline Phosphatase 110 U/L (34-104); Anion Gap 7 (3-11); Aspartate Aminotransferase 17 U/L (13-39); BUN Creatinine Ratio 29.9 (10-20); Bilirubin,Total 0.4 mg/dl (0.2-1.0); Blood Urea Nitrogen 20 mg/dl (6-23); Calcium 9.4 mg/dl (8.6-10.3); Carbon Dioxide 26 mmol/L (21-32); Chloride 99 mmol/L (98-107); Est GFR (African American) 90.3 ml/min; Est GFR (Non-African American) 77.9 ml/min; Globulin 3.3 gm/dl (2.5-4.0); Glucose 101 mg/dl (70-99(Fasting)); Lipase 14 U/L (11-82); Potassium 3.8 mmol/L (3.5-5.1); Sodium 132 mmol/L (136-145); Total Protein 7.3 gm/dl (6.0-8.3)
[2023-11-17 22:24] LABS: Troponin I High Sensitivity 39.8 pg/ml (0-14)
[2023-11-17 22:44] LABS: Prothrombin Time 10.5 Seconds (9.0-12.0)
[2023-11-17] MEDS: HYDROmorphone INJ 0.5 MG/0.5 ML SYR IV PRN (23:56)
[2023-11-17] MEDS: ONDANSETRON INJ 2 MG/ML 2 ML VIAL IV STA (23:56)
--- NOTE | 2023-11-18 00:10 | Emergency Department Note ---
Impression & Plan Acute right flank pain, Severe hypertension, Elevated troponin ED Provider Note NAME: BRANDAN BALDERAS AGE: 87 SEX: Female INFORMANT: Patient ED PROVIDER(S): Partha Franco MD CHIEF COMPLAINT: Right flank pain PLAN: Disposition: Admitted Outpatient prescription management: none Referral: None MEDICAL DECISION MAKING: Patient present because of right flank pain. ECG was performed and revealed no acute ischemic findings. Patient was markedly hypertensive. She was uncomfortable. Patient had an unremarkable CBC and chemistry panel. LFTs negative. She did have an elevated troponin. Patient has a history of non- STEMI 2 years ago. Denies any chest pain but does note feeling weak and rundown. Did discuss medications with patient as she was requesting analgesia. She does have a host of allergies. She was given a small dose of Dilaudid as she was unsure what she could take. She was also given Zofran. Patient was sent for CT imaging to further evaluate the flank pain. As per radiology was no acute findings noted on the CT imaging. Urinalysis did not reveal signs of infection or hematuria. With analgesia of the patient's pain was markedly improved and her blood pressure was as well. Repeat cardiac troponin was performed and there was no significant delta. Given the marked hypertension, weakness, borderline troponin elevation, her age and pain further management in the hospital was felt to be appropriate. Given the elevated troponin, her weakness and symptoms it was felt the patient would benefit from further evaluation management in the hospital. [facility], Dr. Renae. Patient was evaluated in the ER and admitted for further management. 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 Vital Signs: reviewed and remarkable for severe hypertension Additional History obtained from: none Chronic Medical/Social Conditions affecting care: CAD, hypertension, dyslipidemia Prior/ Outside/ External records reviewed: Prior record reviewed regarding NSTEMI from 2021. Differential Diagnosis: Renal colic, UTI, appendicitis, diverticulitis, mesenteric ischemia, aortic pathology, infections, inflammatory bowel disease, PUD, biliary pathology, cardiac sources, as well as other pathologies. Diagnostics, independently interpreted by me: ECG: Twelve-lead ECG reveals normal sinus rhythm at 78 beats per minute. No evidence of pericarditis, ischemia, ectopy, or dysrhythmia. Cardiac Monitoring: Cardiac monitoring ordered by me: The patient was placed on continuous cardiac monitoring and observed. It revealed a normal sinus rhythm at 74 beats per minute without ectopy or evidence of dysrhythmia. Medical decision rules: none Imaging studies: Chest x-ray. Findings: A chest x-ray was performed and revealed no pneumothorax, effusion, infiltrate, pulmonary edema, free air under the diaphragm, or wide mediastinum. Impression: No acute disease. I refer you to the EMR for further details. HPI: 87 year old Female arrives for evaluation of right low back pain. This started this morning and is worsening throughout the day. Patient describes it as coming and going. Has history of kidney stones but is unsure if this is the same.. The patient also notes the following associated symptoms, feeling weak and rundown, mild cough and congestion that has been present for 4-week. The patient has found no relieving factors. Current pain is rated as 9/10. Pt denies LOC, headache, fevers, chills, diaphoresis, visual changes, neck pain, chest pain, breathing difficulties, nausea, vomiting, abdominal pain, left-sided back pain, melena, hematochezia, urinary symptoms, numbness, focal weakness, lymphadenopathy, rash, or other complaints.. PAST MEDICAL HISTORY: See Below, CAD, hypertension PAST SURGICAL HISTORY: See Below, SOCIAL HISTORY: See Below, HOME MEDICATIONS: See Below ALLERGIES: See Below VITALS: See Below PHYSICAL EXAMINATION: GENERAL: Awake, alert, uncomfortable-appearing, in no distress HENT: Normocephalic, atraumatic. Oropharynx unremarkable. EYES: Normal conjunctiva. Sclera non-icteric. NECK: Inspection normal. Non-tender. Supple. No nuchal rigidity. FROM. No masses. RESPIRATORY: Clear to auscultation. No wheezes. No rales. Normal respiratory effort. CARDIAC: Normal rate. Normal rhythm. No murmurs. No rubs. Extremities warm and well perfused. Pulses equal. No JVD. GI: Soft, non-distended. No tenderness to palpation. No rebound or guarding. No masses. RECTAL: Deferred. MUSCULOSKELETAL: Atraumatic. Chest examination reveals no tenderness. The back is mildly kyphotic on inspection without obvious abnormality. There is right CVA tenderness to palpation. No joint edema. LOWER EXTREMITIES: Calves are equal size bilaterally and non-tender. No edema. No discoloration. NEURO: Normal sensorium. No sensory or motor deficits noted. SKIN: No rash or jaundice noted. PROCEDURES: none CRITICAL CARE: none OBSERVATION NOTE: none Past Med/Surg History Problem List (Updated 11/18/23 @ 00:10 by Partha Franco MD) Elevated troponin (Acute) Severe hypertension (Acute) Acute right flank pain (Acute) NSTEMI (non-ST elevated myocardial infarction) CHF (congestive heart failure) Closed fracture of zygomatic arch with routine healing (Acute) Fall as cause of accidental injury at home as place of occurrence (Acute) Contusion of right shoulder (Acute) Contusion of knee (Acute) Closed head injury (Acute) Rotator cuff tear arthropathy of left shoulder Proximal humeral fracture Diverticulitis Bronchitis (Acute 10/25/12) Deep venous thrombosis of lower extremity (Acute 10/25/12) Gross hematuria (Acute) Kidney stone (Acute 10/25/12) H/O knee surgery (Acute 10/25/12) Pancreatitis (Acute 10/25/12) Prolapse of vaginal reich (Acute) Pyuria (Acute) Sciatica (Acute 11/28/12) H/O shoulder surgery (Acute 10/25/12) Urge incontinence (Acute) H/O sciatica KIM (obstructive sleep apnea) Factor V Leiden Dyslipidemia HTN (hypertension) Diverticulitis (Acute) Abdominal pain (Acute) Episcleritis (Acute) Iritis (Acute) Pain, eye, right (Acute) Medical History (Updated 11/18/23 @ 00:10 by Partha Franco MD) Blood clot in vein Chronic lower back pain Surgical History H/O colonoscopy 2008: mild-moderate diverticulosis sigmoid colon History of cataract surgery Hx laparoscopic cholecystectomy Family History Other Cancer Diabetes Heart disease Social History Smoking Status: Never smoker Second Hand Exposure: No; Do You Dip or Chew Tobacco: No; Hx Alcohol Use: No Hx Substance Use: No Preferred Language: Green[place]ic Communication Ability: Effective [place] Law Clerk Required: No Beliefs That Will Affect Care: None marital status: Current Living Situation: Spouse current occupational status: retired How many Children do You have: 4 Feels Safe at Home: Yes Assistive Devices: Cane Allergies Allergies Allergy/AdvReac Type Severity Reaction Status Date / Time latex Allergy Intermediate RASH - Verified 09/05/21 17:30 ITCHING Sulfa (Sulfonamide Allergy Intermediate HIVES Verified 09/05/21 17:30 Antibiotics) adhesive Allergy Mild RASH Verified 01/30/20 11:18 amoxicillin Allergy Mild RASH Verified 09/05/21 17:30 clavulanic acid Allergy Mild RASH Verified 09/05/21 17:30 oxycodone Allergy Mild RACING Verified 09/05/21 17:30 HEART prednisone AdvReac Mild GI SYMPTOMS Verified 09/05/21 17:30 salicylates AdvReac Mild GI SYMPTOMS Verified 09/05/21 17:30 tramadol AdvReac Mild did not Verified 09/05/21 21:51 feel well aspirin AdvReac Unknown NAUSEA Unverified 09/05/21 17:30 naproxen AdvReac Unknown GI SYMPTOMS Verified 09/05/21 17:30 Penicillins AdvReac Unknown NAUSEA Unverified 01/30/20 11:18 procaine AdvReac Unknown HEART Unverified 01/30/20 11:18 RACING chocolate flavor AdvReac Verified 09/05/21 17:31 citric acid AdvReac Verified 09/08/21 07:28 [place] And Derivatives AdvReac Verified 09/05/21 17:31 peanut AdvReac Verified 09/05/21 17:31 Home Meds Home Medications Medication Instructions Recorded Confirmed albuterol sulfate 90 mcg/actuation 2 puff inhalation QID PRN 11/18/23 11/18/23 aerosol inhaler Shortness Of Breath Or Wheezing aspirin 81 mg tablet,delayed 81 mg PO DAILY 11/18/23 11/18/23 release atorvastatin 20 mg tablet 20 mg PO DAILY 11/18/23 11/18/23 benzonatate 100 mg capsule 100 mg PO TID PRN Cough 11/18/23 11/18/23 cholecalciferol (vitamin D3) 50 50 mcg PO DAILY 11/18/23 11/18/23 mcg (2,000 unit) capsule fluticasone 250 mcg-salmeterol 50 1 inh inhalation BID 11/18/23 11/18/23 mcg/dose blistr powdr for inhalation hydrochlorothiazide 25 mg tablet 12.5 mg PO DAILY 11/18/23 11/18/23 mirabegron 50 mg tablet,extended 50 mg PO DAILY 11/18/23 11/18/23 release 24 hr (Myrbetriq) Results & Data (ED) Vital Signs Vital Signs - 24 hr 11/17/23 21:27 11/17/23 21:44 11/17/23 21:45 Temperature 36.6 C Temperature Source Temporal Artery Scan Pulse Rate 78 77 Pulse Rate [Apical] 77 Pulse Rhythm Pulse Rhythm [Apical] Regular Pulse Strength [Apical] Respiratory Rate 18 20 Respiratory Effort / Characteristics Non-Labored Spontaneous Respiratory Depth Normal Respiratory Pattern Regular Blood Pressure 211/8 H Blood Pressure [Left Arm] Blood Pressure [Right Arm] 203/90 H Blood Pressure Mean 75 Blood Pressure Mean [Left Arm] Blood Pressure Mean [Right Arm] 127 Blood Pressure Position Sitting Blood Pressure Position [Left Arm] Blood Pressure Position [Right Arm] Pulse Oximetry 96 96 Oxygen Delivery Method Room Air Room Air Oxygen Flow Rate Sepsis Recent Fever Within 48 Hours No Sepsis New/Unexplained Change in Mental Status N/A Sepsis Action Taken by Nursing No Action Required 11/17/23 21:45 11/17/23 23:18 11/18/23 01:48 Temperature Temperature Source Pulse Rate 78 72 Pulse Rate [Apical] 72 Pulse Rhythm Regular Pulse Rhythm [Apical] Regular Pulse Strength [Apical] Normal Respiratory Rate 20 20 Respiratory Effort / Characteristics Non-Labored Spontaneous Respiratory Depth Normal Respiratory Pattern Regular Blood Pressure Blood Pressure [Left Arm] Blood Pressure [Right Arm] 191/104 H Blood Pressure Mean Blood Pressure Mean [Left Arm] Blood Pressure Mean [Right Arm] 133 Blood Pressure Position Blood Pressure Position [Left Arm] Blood Pressure Position [Right Arm] Lying Pulse Oximetry 96 91 Oxygen Delivery Method Room Air Room Air Oxygen Flow Rate Sepsis Recent Fever Within 48 Hours Sepsis New/Unexplained Change in Mental Status Sepsis Action Taken by Nursing 11/18/23 02:00 11/18/23 04:00 Temperature Temperature Source Pulse Rate Pulse Rate [Apical] 68 65 Pulse Rhythm Pulse Rhythm [Apical] Regular Regular Pulse Strength [Apical] Normal Normal Respiratory Rate 18 16 Respiratory Effort / Characteristics Non-Labored Spontaneous Non-Labored Spontaneous Respiratory Depth Normal Normal Respiratory Pattern Regular Blood Pressure Blood Pressure [Left Arm] 146/56 H 130/56 L Blood Pressure [Right Arm] Blood Pressure Mean Blood Pressure Mean [Left Arm] 86 80 Blood Pressure Mean [Right Arm] Blood Pressure Position Blood Pressure Position [Left Arm] Lying Blood Pressure Position [Right Arm] Lying Pulse Oximetry 97 96 Oxygen Delivery Method Nasal Cannula Nasal Cannula Oxygen Flow Rate 2 2 Sepsis Recent Fever Within 48 Hours Sepsis New/Unexplained Change in Mental Status Sepsis Action Taken by Nursing Laboratory Data 11/17/23 21:40 11/17/23 21:40 Lab Results 11/17/23 11/17/23 11/18/23 Range/Units 21:40 23:36 00:43 WBC 6.96 (4.8-10.8) K/ul RBC 4.29 (4.20-5.40) M/uL Hgb 13.1 (12.0-16.0) g/dl Hct 38.9 (37.0-47.0) % MCV 90.7 (80.0-100.0) fL MCH 30.5 (25.0-34.0) pg MCHC 33.7 (32.0-36.0) g/dL RDW Std Deviation 47.1 H (36.4-46.3) fL RDW Coeff of Gunner 14.1 (11.5-14.5) % Plt Count 298 (130-400) K/uL MPV 9.0 L (9.4-12.4) fL Immature Gran % (Auto) 0.3 % Neut % (Auto) 48.4 % Lymph % (Auto) 37.4 % [place] % (Auto) 11.1 % Eos % (Auto) 2.2 % Baso % (Auto) 0.6 % Neut # (Auto) 3.38 (1.40-6.50) K/uL Lymph # (Auto) 2.60 (1.20-3.40) K/uL [place] # (Auto) 0.77 H (0.11-0.59) K/uL Eos # (Auto) 0.15 (0.00-0.50) K/uL Baso # (Auto) 0.04 (0.00-0.20) K/uL Immature Gran # (Auto) 0.02 (0.01-0.20) K/uL PT 10.5 (9.0-12.0) Seconds INR 1.0 (0.9-1.1) Sodium 132 L (136-145) mmol/L Potassium 3.8 (3.5-5.1) mmol/L Chloride 99 (98-107) mmol/L Carbon Dioxide 26 (21-32) mmol/L Anion Gap 7 (3-11) BUN 20 (6-23) mg/dl Creatinine 0.67 (0.6-1.2) mg/dl Est Cr Clr Drug Dosing Not Reportable Est GFR ( Amer) 90.3 ml/min Est GFR (Non-Af Amer) 77.9 ml/min BUN/Creatinine Ratio 29.9 H (10-20) Glucose 101 H (70-99(Fasting)) mg/dl Calcium 9.4 (8.6-10.3) mg/dl Total Bilirubin 0.4 (0.2-1.0) mg/dl AST 17 (13-39) U/L ALT 19 (7-52) U/L Alkaline Phosphatase 110 H (34-104) U/L Troponin I High Sens 39.8 H 35.4 H (0-14) pg/ml Total Protein 7.3 (6.0-8.3) gm/dl Albumin 4.0 (3.4-5.0) gm/dl Globulin 3.3 (2.5-4.0) gm/dl Albumin/Globulin Ratio 1.2 (0.9-2) Lipase 14 (11-82) U/L Urine Color Urine Appearance (Clear) Urine pH (4.5-7.5) Ur Specific [place] (1.000-1.030) Urine Protein (Negative) Urine Glucose (UA) (Negative) Urine Ketones (Negative) Urine Blood (Negative) Urine Nitrite (Negative) Urine Bilirubin (Negative) Urine Urobilinogen (Negative) Ur Leukocyte Esterase (Negative) Adenovirus (PCR) Not Detected (NotDetected) B. pertussis DNA (PCR) Not Detected (NotDetected) B.parapertussis DNA PCR Not Detected (NotDetected) C. pneumoniae DNA (PCR) Not Detected (NotDetected) Coronavirus OC43 (PCR) Not Detected (NotDetected) Coronavirus HKU1 (PCR) Not Detected (NotDetected) Coronavirus 229E (PCR) Not Detected (NotDetected) SARS-CoV-2 (PCR) Not Detected (NotDetected) Coronavirus NL63 (PCR) Not Detected (NotDetected) Human Metapneumovir PCR Not Detected (NotDetected) Influenza Type A (PCR) Not Detected (NotDetected) Influenza Type B (PCR) Not Detected (NotDetected) M. pneumoniae (PCR) Not Detected (NotDetected) Parainfluenza 1 (PCR) Not Detected (NotDetected) Parainfluenza 2 (PCR) Not Detected (NotDetected) Parainfluenza 3 (PCR) Not Detected (NotDetected) Parainfluenza 4 (PCR) Not Detected (NotDetected) RSV (PCR) Not Detected (NotDetected) Entero/Rhino (PCR) Not Detected (NotDetected) 11/18/23 Range/Units 02:20 WBC (4.8-10.8) K/ul RBC (4.20-5.40) M/uL Hgb (12.0-16.0) g/dl Hct (37.0-47.0) % MCV (80.0-100.0) fL MCH (25.0-34.0) pg MCHC (32.0-36.0) g/dL RDW Std Deviation (36.4-46.3) fL RDW Coeff of Gunner (11.5-14.5) % Plt Count (130-400) K/uL MPV (9.4-12.4) fL Immature Gran % (Auto) % Neut % (Auto) % Lymph % (Auto) % [place] % (Auto) % Eos % (Auto) % Baso % (Auto) % Neut # (Auto) (1.40-6.50) K/uL Lymph # (Auto) (1.20-3.40) K/uL [place] # (Auto) (0.11-0.59) K/uL Eos # (Auto) (0.00-0.50) K/uL Baso # (Auto) (0.00-0.20) K/uL Immature Gran # (Auto) (0.01-0.20) K/uL PT (9.0-12.0) Seconds INR (0.9-1.1) Sodium (136-145) mmol/L Potassium (3.5-5.1) mmol/L Chloride (98-107) mmol/L Carbon Dioxide (21-32) mmol/L Anion Gap (3-11) BUN (6-23) mg/dl Creatinine (0.6-1.2) mg/dl Est Cr Clr Drug Dosing Est GFR ( Amer) ml/min Est GFR (Non-Af Amer) ml/min BUN/Creatinine Ratio (10-20) Glucose (70-99(Fasting)) mg/dl Calcium (8.6-10.3) mg/dl Total Bilirubin (0.2-1.0) mg/dl AST (13-39) U/L ALT (7-52) U/L Alkaline Phosphatase (34-104) U/L Troponin I High Sens (0-14) pg/ml Total Protein (6.0-8.3) gm/dl Albumin (3.4-5.0) gm/dl Globulin (2.5-4.0) gm/dl Albumin/Globulin Ratio (0.9-2) Lipase (11-82) U/L Urine Color Yellow Urine Appearance Clear (Clear) Urine pH 6.0 (4.5-7.5) Ur Specific [place] 1.015 (1.000-1.030) Urine Protein Negative (Negative) Urine Glucose (UA) Negative (Negative) Urine Ketones Negative (Negative) Urine Blood Negative (Negative) Urine Nitrite Negative (Negative) Urine Bilirubin Negative (Negative) Urine Urobilinogen Negative (Negative) Ur Leukocyte Esterase Negative (Negative) Adenovirus (PCR) (NotDetected) B. pertussis DNA (PCR) (NotDetected) B.parapertussis DNA PCR (NotDetected) C. pneumoniae DNA (PCR) (NotDetected) Coronavirus OC43 (PCR) (NotDetected) Coronavirus HKU1 (PCR) (NotDetected) Coronavirus 229E (PCR) (NotDetected) SARS-CoV-2 (PCR) (NotDetected) Coronavirus NL63 (PCR) (NotDetected) Human Metapneumovir PCR (NotDetected) Influenza Type A (PCR) (NotDetected) Influenza Type B (PCR) (NotDetected) M. pneumoniae (PCR) (NotDetected) Parainfluenza 1 (PCR) (NotDetected) Parainfluenza 2 (PCR) (NotDetected) Parainfluenza 3 (PCR) (NotDetected) Parainfluenza 4 (PCR) (NotDetected) RSV (PCR) (NotDetected) Entero/Rhino (PCR) (NotDetected) Administered Medications Discontinued Medications Hydromorphone HCl (Hydromorphone Inj 0.5 Mg/0.5 Ml Syr) 0.25 mg IV Q15M PRN PRN Reason: Pain Stop: 12/01/23 23:22 Last Admin: 11/17/23 23:56 Dose: 0.25 mg Documented By: NABILA Ondansetron HCl (Ondansetron Inj 2 Mg/Ml 2 Ml Vial) 4 mg IV NOW STA Stop: 11/17/23 23:24 Last Admin: 11/17/23 23:56 Dose: 4 mg Documented By: NABILA Imaging Data Radiologist's Impression: Abdomen/Pelvis CT 11/17/23 23:23 Exam(s): CT ABDOMEN + PELVIS Without Contrast EXAM: CT Abdomen and Pelvis Without Intravenous Contrast CLINICAL HISTORY: Reason for exam: right flank pain. TECHNIQUE: Axial computed tomography images of the abdomen and pelvis without intravenous contrast. CTDI is 27.98 mGy and DLP is 1190.84 mGy-cm. Automated exposure control was utilized for the study. A dose lowering technique was utilized adhering to the principles of ALARA. COMPARISON: CT abdomen/pelvis on 09/07/2019 FINDINGS: Lung bases: Unremarkable. No mass. No consolidation. Heart: Coronary artery calcifications. ABDOMEN: Liver: Unremarkable. Gallbladder and bile ducts: Prior cholecystectomy. No ductal dilation. Pancreas: Atrophy of the pancreas. No ductal dilation. Spleen: Unremarkable. No splenomegaly. Adrenals: Unremarkable. No mass. Kidneys and ureters: Unremarkable. No obstructing stones. No hydronephrosis. Stomach and bowel: Evaluation of the stomach is limited underdistention. Diverticulosis without evidence of diverticulitis. No small bowel obstruction. PELVIS: Appendix: Normal appendix. Bladder: Unremarkable. No stones. Reproductive: Unremarkable as visualized. ABDOMEN and PELVIS: Intraperitoneal space: Unremarkable. No free air. No significant fluid collection. Bones/joints: Degenerative changes of the spine. Grade 1 anterolisthesis of L4 on L5 and L5 on S1. No acute fracture. No dislocation. Soft tissues: Small fat-containing umbilical hernia. Vasculature: Atherosclerotic changes of the vasculature. No abdominal aortic aneurysm. Lymph nodes: Unremarkable. No enlarged lymph nodes. IMPRESSION: No acute findings in the abdomen or pelvis. Electronically signed by: Jr Love M.D. 11/18/23 04:17 AM Chest X-Ray 11/17/23 23:25 XR chest 1V portable CLINICAL HISTORY: Cough. COMPARISON STUDY: Chest CT September 05, 2021. Chest radiograph September 09, 2021. FINDINGS: Old deformity of the left humeral head and neck is incidentally noted. Lung volumes are normal. Lungs are clear. There is no pneumothorax or pleural effusion. Cardiomediastinal silhouette is stable. There is no evidence for pulmonary edema. IMPRESSION: No acute cardiopulmonary findings. ACT 112: Negative or not required by law. Electronically signed by: Blu Betancur M.D. 11/18/2023 7:05 AM Discharge Plan Visit Data Chief Complaint: Back Injury/Pain Stated Complaint: BACK/FLANK/RIB PAIN ED Provider: Partha Franco Discharge Problem: Acute right flank pain, Severe hypertension, Elevated troponin Patient Disposition: Admitted As Inpatient
[2023-11-18 01:49] LABS: Adenovirus PCR Not Detected (NotDetected); Bordetella parapertussis PCR Not Detected (NotDetected); Bordetella pertussis PCR Not Detected (NotDetected); Chlamydia pneumoniae PCR Not Detected (NotDetected); Coronavirus 229E PCR Not Detected (NotDetected); Coronavirus CoV-2 (COVID19)PCR Not Detected (NotDetected); Coronavirus HKU1 PCR Not Detected (NotDetected); Coronavirus NL63 PCR Not Detected (NotDetected); Coronavirus OC43PCR Not Detected (NotDetected); Human Metapneumovirus PCR Not Detected (NotDetected); Influenza A PCR Not Detected (NotDetected); Influenza B PCR Not Detected (NotDetected); Mycoplasma pneumoniae PCR Not Detected (NotDetected); Parainfluenza Virus 1 PCR Not Detected (NotDetected); Parainfluenza Virus 2 PCR Not Detected (NotDetected); Parainfluenza Virus 3 PCR Not Detected (NotDetected); Parainfluenza Virus 4 PCR Not Detected (NotDetected); Respiratory Syncytial VirusPCR Not Detected (NotDetected); Rhinovirus/Enterovirus PCR Not Detected (NotDetected)
[2023-11-18 03:25] LABS: Appearance Urine Clear (Clear); Bilirubin Urine Negative (Negative); Blood Urine Negative (Negative); Color Urine Yellow; Glucose Urine UA Negative (Negative); Ketones Urine Negative (Negative); Leukocyte Esterase Urine Negative (Negative); Nitrite Urine Negative (Negative); Protein Urine Negative (Negative); Specific Gravity Urine 1.015 (1.000-1.030); Urobilinogen Urine Negative (Negative)
--- OUTSIDE RECORDS SUMMARY | 2023-11-18 04:09 | External Medical Summary | Summary of Care ---
Author Name Unknown Organization [facility] Address [address] [place] [address] Phone [phone] Care Team Providers Care Inspector Exhaust Emissions Name Role Phone Paco Spears DO Primary Care Provider [phone] Reason for Visit * Reason Onset Date Comments Encounter Created in Error 08/02/2023 Encounter Details Date Type Department Care Team (Late st Contact Info) Description 08/02/2023 Telephone Family Practice [facility] [place] [address] [facility] [place] [address] Paco Spears DO [address] [facility] [place] [address] Encounter Created in Error Allergies Active Allergy Reactions Criticality Noted Date Comments Acetic Acid 04/14/2021 Heart palpatations Adhesive Tape 08/14/2001 local skin irritation Amoxicillin-Pot Clavulanate Edema Other,Other (Please comment) Medium 11/19/2010 palpitations Chocolate Flavor 12/21/2019 Nolic 12/21/2019 Latex Rash High 12/21/2019 Naproxen Other (Please comment) Low 12/13/2011 Palpitations, stomach upset, and "nervousness" Oxycodone Low 12/21/2019 Other reaction(s): RACING HEART Oxycodone-Acetaminoph en 04/30/2021 Other reaction(s): Irregular Heart Rate Peanut Oil 12/21/2019 Penicillins Low 12/21/2019 Other reaction(s): NAUSEA, RASH Percocet 10/25/2006 Very sick to stomach Prednisone Other (Please comment) 01/07/2011 Heart racing per pt Procaine 12/21/2019 Other reaction(s): HEART RACING Salicylates 09/27/1997 GI upset Sulfa Antibiotics High 09/27/1997 Heart palpatations Tramadol 10/08/2020 Stomach upset, palpitations documented as of this encounter (statuses as of 08/16/2023) Medications Medication Sig Dispensed Refills Start Date End Date Status aspirin 81 MG chewable tabletIndications:C arotid stenosis, non-symptomatic, bilateral Take 1 Tablet by mouth in the morning. with food.. 100 Tab 5 07/20/2016 Active Acetaminophen 500 MG Oral Tablet Chewable Take by mouth as needed for Pain, Breakthrough. Active Clobetasol Propionate 0.05 % External Ointment (Temovate)Indicatio ns:Rash and nonspecific skin eruption APPLY TO RASH ON TRUNK AND EXTREMITIES TWICE A DAY NEEDED 120 g 05/14/2022 Active Fluticasone-Salmete rol 250-50 MCG/ACT Inhalation Aerosol Powder Breath Activated (Advair Diskus) Inhale 1 Puff by mouth in the morning and 1 Puff before bedtime. 60 Each 5 10/01/2022 Active ProAir HFA 108 (90 Base) MCG/ACT Inhalation Aerosol Solution Inhale 2 Puffs by mouth in the morning and 2 Puffs at noon and 2 Puffs in the evening and 2 Puffs before bedtime. -using 2/d. 8 g 3 10/13/2022 Active Atorvastatin Calcium 20 MG Oral Tablet (Lipitor)Indication s:History of non-ST elevation myocardial infarction (NSTEMI),Dyslipidem ia,Carotid stenosis, non-symptomatic, bilateral TAKE ONE TABLET BY MOUTH EVERY MORNING 90 Tablet 3 01/10/2023 Active Vitamin D3 50 MCG (1999 UT) Oral CapsuleIndications: Vitamin D deficiency Take 1 Capsule by mouth in the morning. 90 Capsule 1 03/30/2023 Active hydroCHLOROthiazide 25 MG Oral Tablet (Hydrodiuril)Indica tions:HTN, goal below 130/80 Take 1 Tablet by mouth in the morning. 30 Tablet 11 03/30/2023 Active Myrbetriq 50 MG Oral Tablet Extended Release 24 Hour (Mirabegron ER) Take 1 Tablet by mouth in the morning. 90 Tablet 3 07/06/2023 Active Meclizine HCl 12.5 MG Oral Tablet (Antivert)Indicatio ns:Dizziness Take 1 Tablet by mouth 3 times a day as needed for Dizziness. 90 Tablet 3 07/29/2023 Active Hospital, Clinic, or Other Facility Administered Medication Ordered Dose Route Frequency Start Date End Date Status Albuterol Sulfate (Proventil) (2.5 MG/3ML) 0.083% inhalation solution 2.5 mgIndications:Chronic cough 2.5 mg NEBULIZER ONCE PRN 09/17/2022 09/17/2023 Active Albuterol Sulfate (Proventil) (2.5 MG/3ML) 0.083% inhalation solution 2.5 mgIndications:Malaise and fatigue,SOB (shortness of breath) on exertion,Light headedness,Chronic diastolic heart failure secondary to coronary artery disease (HCC),LVH (left ventricular hypertrophy) 2.5 mg NEBULIZER ONCE PRN 02/09/2023 02/09/2024 Active documented as of this encounter (statuses as of 08/16/2023) Active Problems Problem Noted Date Diagnosed Date Prediabetes 02/14/2023 Overview: Per Prediabetes protocol Trigger finger of right thumb 11/24/2022 Trigeminal neuralgia 11/02/2022 Acute on chronic diastolic congestive heart fail ure 08/05/2022 PVD (peripheral vascular disease) 08/05/2022 History of non-ST elevation myocardial infarctio n (NSTEMI) 09/15/2021 Closed fracture of sternum with routine healing 09/15/2021 Chronic diastolic heart fail ure secondary to coronary artery disease 09/15/2021 Gastroesophageal reflux disease without esophagi tis 09/15/2021 Advanced directives, counseling/discussion 05/08 Severe obesity with body mas s index (BMI) of 35.0 to 39.9 with serious comorbidity 05/21/2020 Cystocele, lateral 08/25/2018 Urinary incontinence without sensory awareness 0 08/04/2018 High risk for fracture due to osteoporosis by DE XA scan 07/20/2016 HTN, goal below 130/80 07/20/2015 Dyslipidemia 01/25/2013 Coronary artery calcification seen on CAT scan 0 10/31/2012 Degeneration of lumbosacral intervertebral disc 09/23/2009 Degeneration of thoracic intervertebral disc Homozygous Factor V Leiden mutation 08/08/1998 documented as of this encounter (statuses as of 08/16/2023) Resolved Problems Problem Noted Date Diagnosed Date Resolved Date Carpal tunnel syndrome 12/13/201809/10 ADVANCE DIRECTIVE INFORMATION 08/25/2018 09/11/2019 Overview: Pt accepted brochure Scanned 2014 Vaginal irritation from pessary 08/25/2018 03/22/2022 Vaginal erosion secondary to pessary use 08/04/2018 05/21/2020 Stress incontinence 08/04/2018 09/11/19 20 Nocturnal enuresis 08/04/2018 0 Papilloma of vestibule of nose 11/18/2016 09/11/2019 Acute bronchitis, complicated 11/11/2009 07/20/2016 Dyslipidemia, goal to be determined 02/11/2009 01/25/2013 Overview: Per Lipid Taxonomy. Cystocele, midline 10/29/2004 0 Headache 10/17/1997 07/20/2016 Overview: ICD-10 update of inactive term PURE HYPERCHOLESTEROLEM 10/17/199710/2008 Overview: Per Lipid Taxonomy. Menopause 10/14/1997 07/20/2016 FAMILY HX [place]- father and brother 09/11/2019 FAM HX- COLON CANCER: mgm + (2) maternal aunts 09/11/2019 Abdominal pain 07/20/2016 Other osteoporosis without c urrent pathological fracture 07/20/2016 Overview: ICD-10 update of inactive term documented as of this encounter (statuses as of 08/16/2023) Immunizations Name Administration Dates Next Due COVID-19 mRNA, LNP-s, No Pre serve, 2-Dose Series (Specialized Pharmaceuticalss) 07/23/2021,06/24/2021,01/06/2021,04/26,04/05/2020 Covid-19 Ad26, Single Dose (Donny/J&J) 04/26/2020,04/05/2020 Pneumococcal Conjugate Vacc, 13 Valent (Prevnar) 01/05/2015 Pneumococcal Polysaccharide PPV23 (Pneumovax) 04/24/2014 Season Influenza, Quad, PF, Adjuvanted, 65+ Yrs, IM (FLUAD) 12/04/2019 Seasonal Influenza Virus Vac cine, Unspecified Formulation 11/17/2018 Seasonal Influenza, PF, 6 M & above, IM , (FluLaval or Fluzone) 11/29/2017 Seasonal Influenza, Quadriva lent Hd (Fluzone Hd) 12/06/2022,11/23/2021,11/18/2020 Seasonal Influenza, Quadriva lent, No Preserve, IM 11/18/2016,12/10/2015,12/10/2014 Seasonal Influenza, Split, I IV3, No Preserve, Inj 02/26/2015 Seasonal Influenza, Split, I IV3, With Preserve, Inj 11/12/2013,12/13/2012,11/16/2011,11/19,12/16/2009,12/09/2008,12/11/2007 ,12/19/2006,01/06/2006 Seasonal Influenza, Trivalen t, Adjuvanted, 65+ yrs 12/04/2019,11/17/2018 Seasonal Influenza, Trivalen t, High Dose, No Preserve, IM 12/05/2018,12/24/2016,12/06/2015 TD, Preservative Free 11/19/2010 TDAP, Age 7 and older, IM (Adacel) 05/05/2013 documented as of this encounter Social History Tobacco Use Types Packs/Day Years Used Date Smoking Tobacco: Never Smokeless Tobacco: Never Alcohol Use Standard Drinks/Week Comments No 0 (1 standard drink = 0.6 oz pur e alcohol) PHQ-2 Answer Date Recorded PHQ Adult Total Score 0 03/22/2022 Hunger Vital Sign Answer Date Recorded Worried About Running Out of Food in the Last Ye ar Never true 09/11/2019 Ran Out of Food in the Last Year Never true 09/11/2019 Sex and Gender Information Value Date Recorded Sex Assigned at Female 12/26/2019 5:17 PM EDT Gender Identity Female 12/26/2019 5:17 PM EDT Sexual Orientation Straight 12/26/2019 5: 17 PM EDT Job Start Date Occupation Industry Not on file Not on file Not on file documented as of this encounter Plan of Treatment Upcoming Encounters Date Type Department Care Team (Late st Contact Info) Description 10/05/2023 12:40 PM EDT Office Visit Otolaryngology [facility] [address] [place] [address] Russ Granados PA-C [address] [place] [address] 03/05/2024 3:00 PM EST Office Visit Family Practice [facility] [address] [facility] [place] [address] Paco Spears DO [address] [facility] [place] [address] 06/22/2024 11:20 AM EDT Office Visit Neurology [facility] [address] [facility] [place] [address] Venita Carlson MD [address] [facility] [place] [address] Health Maintenance Due Date Last Done Comments Albumin/Creatinine Ratio 12/28/1953 Zoster Vaccines (1 of 2) 12/28/1983 *BISPHONATE OR OTHER ACCEPTABLE MEDICATION NEEDED FOR OSTEOPOROSIS (REFER TO SMARTSET #1146) 10/09/2019 DXA Scan 12/05/2020 12/05/2018, 12/06, 12/31/2015, Additional history exists COVID-19 Vaccine ( season) 2022 07/23/2021, 06/24/2021, 01/06/2021, Additional history exists Depression Screening 03/22/2023 03/22/2022 DTaP,Tdap,and Td Vaccines (2 - Td or Tdap) 05/06/2023 05/05/2013, 11/19/2010, 12/07/1999 HbA1c 02/10/2024 02/09/2023 Pneumococcal Vaccine: 65+ Years Completed 01/05/2015, 04/24/2014, 03/04/2005, Additional history exists Influenza Vaccine (FLU shot) Completed 04/2022, 11/23/2021, 11/18/2020, Additional history exists VITAMIN D LEVEL ONCE IN A LIFETIME-USE SMARTSET# 92927 Completed 02/09/2023, 01/20/2022, 10/31/2019, Additional history exists GARDASIL-HPV IMMUNIZATION SERIES Aged Out No longer eligible based on patient's age to complete this topic Hepatitis B Aged Out No longer eligi ble based on patient's age to complete this topic MENINGOCOCCAL (MENACTRA/MENVEO) Aged Out No longer eligible based on patient's age to complete this topic documented as of this encounter Medical Devices Not on filedocumented as of this encounter Care Teams Inspector Exhaust Emissions Relationship Specialty Start Date End Date Paco Spears DO [address] [place] [address] PCP - General Family Medicine 04/22/21 documented as of this encounter
--- OUTSIDE RECORDS SUMMARY | 2023-11-18 04:09 | External Medical Summary | Summary of Care ---
Author Name Unknown Organization [facility] Address [address] [place] [address] Phone [phone] Care Team Prov[address] Care Rd Scientist Name Role Phone KevinPaco zaman Primary Care Provider [phone] Reason for Visit * Reason Onset Date Comments Advice 08/02/2023 Re: CPAP Encounter Details Date Type Department Care Team (Late st Contact Info) Description 08/02/2023 Telephone [facility] [address] [facility] [place] [address] Suni Garcia DO [address] [place] [address] Advice (Re: CPAP) Allergies Active Allergy Reactions Criticality Noted Date Comments Acetic Acid 04/14/2021 Heart palpatations Adhesive Tape 08/14/2001 local skin irritation Amoxicillin-Pot Clavulanate Edema Other,Other (Please comment) Medium 11/19/2010 palpitations Chocolate Flavor 12/21/2019 [place] 12/21/2019 Latex Rash High 12/21/2019 Naproxen Other [...] as of this encounter (statuses as of 08/05/2023) Medications Medication Sig Dispensed Refills Start Date [...] 3 01/10/2023 Active Vitamin D3 50 MCG (2000 UT) Oral CapsuleIndications: Vitamin D deficiency Take [...] as of this encounter (statuses as of 08/05/2023) Active Problems Problem Noted Date Diagnosed Date [...] as of this encounter (statuses as of 08/05/2023) Resolved Problems Problem Noted Date Diagnosed Date [...] Lipid Taxonomy. Menopause 10/14/1997 07/20/2016 FAMILY HX [place]- father and brother 09/11/2019 FAM HX- COLON CANCER: mgm + (2) maternal aunts 09/11/2019 Abdominal pain 07/20/2016 Other osteoporosis without c urrent pathological fracture 07/20/2016 Overview: ICD-10 update of inactive term documented as of this encounter (statuses as of 08/05/2023) Immunizations Name Administration Dates Next Due COVID-19 mRNA, LNP-s, No Pre serve, 2-Dose Series ([email or web address]) 07/23/2021,06/24/2021,01/06/2021,04/26,04/05/2020 Covid-19 Ad26, Single Dose (Donny/J&J) 04/26/2020,04/05/2020 Pneumococcal Conjugate Vacc, 13 Valent (Prevnar) 01/05/2015 Pneumococcal Polysaccharide PPV23 (Pneumovax) 04/24/2014,03/04/2005,12/07/1999 Season Influenza, Quad, PF, Adjuvanted, 65+ Yrs, IM (FLUAD) 12/04/2019 Seasonal Influenza Virus Vac cine, Unspecified Formulation 11/17/2018,01/01/1998 Seasonal Influenza, PF, 6 M & above, IM , (FluLaval or Fluzone) 11/29/2017 Seasonal Influenza, Quadriva lent Hd (Fluzone Hd) 12/06/2022,11/23/2021,11/18/2020 Seasonal Influenza, Quadriva lent, No Preserve, IM 11/18/2016,12/10/2015,12/10/2014 Seasonal Influenza, Split, I IV3, No Preserve, Inj 02/26/2015 Seasonal Influenza, Split, I IV3, With Preserve, Inj 11/12/2013,12/13/2012,11/16/2011,11/19,12/16/2009,12/09/2008,12/11/2007 ,12/19/2006,01/06/2006,12/16/2004,01/05,2002,12/28/2001, 1,01/20/2000,01/09/1999 Seasonal Influenza, Trivalen t, Adjuvanted, 65+ yrs 12/04/2019,11/17/2018 Seasonal Influenza, Trivalen t, High Dose, No Preserve, IM 12/05/2018,12/24/2016,12/06/2015 TD - Tetanus/Diptheria (ADULT) 12/07/1999 TD, Preservative Free 11/19/2010 TDAP, Age 7 [...] on file documented as of this encounter Miscellaneous Notes * Telephone Encounter - Shira Robb LPN - 08/05/2023 9:49 AM EDT MyG sent. * Telephone Encounter - Suni Garcia DO - 08/05/2023 7:49 AM EDT If she does get an oral appliance, typically the dentist will let her know when it is time to come back to sleep medicine. * Telephone Encounter - Chantal Gooden OSA - 08/02/2023 2:16 PM EDT Patients called back to say they have made appt with Dentist to nils mouthpiece direction * Telephone Encounter - Shira Robb LPN - 08/02/2023 11:26 AM EDT I spoke with Sarojberhane, who says, "Bottom line, please tell Dr Jose Garay doesn't want to use theCPAP or oral device." I talked with him about health risks associated with untreated KIM, but he said they are "aware and willing to take the risk." * Telephone Encounter - Chantal Gooden OSA - 08/02/2023 10:43 AM EDT Patients would like to talk to Dr. Garcia about . Please call [phone] documented in this encounter Plan of Treatment Upcoming Encounters Date Type Department Care Team (Late st Contact Info) Description 10/05/2023 12:40 PM EDT Office Visit Otolaryngology [facility] [address] [place] [address] Russ Granados PA-C [address] [place] [address] 03/05/2024 3:00 PM EST Office Visit Family Practice [facility] [address] [place] [address] Paco Spears DO [address] [facility] [place] [address] 06/22/2024 11:20 AM EDT Office Visit Neurology [facility] [address] [place] [address] Venita Carlson MD [address] [facility] [place] [address] Health Maintenance Due Date Last Done Comments [...] D LEVEL ONCE IN A LIFETIME-USE SMARTSET# [id number] Completed 02/09/2023, 01/20/2022, 10/31/2019, Additional history exists [...] filedocumented as of this encounter Care Teams Rd Scientist Relationship Specialty Start Date End Date Paco Spears DO [address] [place] [address] PCP - General Family Medicine 04/22/21 documented as of this encounter
--- OUTSIDE RECORDS SUMMARY | 2023-11-18 04:09 | External Medical Summary | Summary of Care ---
Author Name Unknown Organization [facility] Address [address] [place] [address] Phone [phone] Care Team Providers Care House Worker Name Role Phone KevinPaco zaman Primary Care Provider [phone] Reason for Visit * Reason Comments Cough Sinus drainage, coug h x sev wks Encounter Details Date Type Department Care Team (Late st Contact Info) Description 10/12/2023 1:40 PM EDT Office Visit [facility] [address] [place] [address] Dayne Dean MD [address] [place] [address] Acute maxillary sinusitis, recurrence not specified*; Risk and functional assessment; Acute cough; Light headedness Allergies Active Allergy Reactions Criticality Noted Date Comments Acetic Acid 04/14/2021 Heart palpatations Adhesive Tape 08/14/2001 local skin irritation Amoxicillin-Pot Clavulanate Edema Other,Other (Please comment) Medium 11/19/2010 palpitations Chocolate Flavor 12/21/2019 [place] 12/21/2019 Latex Rash High 12/21/2019 Naproxen Other [...] as of this encounter (statuses as of 10/12/2023) Medications Medication Sig Dispensed Refills Start Date End Date Status aspirin 81 MG chewable tabletIndications:C arotid stenosis, non-symptomatic, bilateral Take 1 Tablet by mouth in the morning. with food.. 100 Tab 5 07/20/2016 Active Acetaminophen 500 MG Oral Tablet Chewable Take by mouth as needed for Pain, Breakthrough. Active Fluticasone-Salmete rol 250-50 MCG/ACT Inhalation Aerosol [...] EVERY MORNING 90 Tablet 3 01/10/2023 Active hydroCHLOROthiazide 25 MG Oral Tablet (Hydrodiuril)Indica [...] for Dizziness. 90 Tablet 3 07/29/2023 Active Vitamin D3 50 MCG (2000 UT) Oral CapsuleIndications: Vitamin D deficiency TAKE ONE CAPSULE BY MOUTH EVERY MORNING 90 Capsule 1 09/30/2023 Active Clobetasol Propionate 0.05 % External Ointment (Temovate)Indicatio ns:Rash and nonspecific skin eruption Apply to rash on trunk and extremities twice a day as needed 120 g 10/11/2023 Active Azithromycin 250 MG Oral Tablet (Zithromax Z-Nigel)Indications:A cute maxillary sinusitis, recurrence not specified Take two tablets by mouth on first day, then 1 tablet daily until gone 6 Tablet 10/12/2023 Active Benzonatate 100 MG Oral Capsule (Tessalon Perles)Indications: Acute cough Take 1 Capsule by mouth 3 times a day as needed for Cough. Do not cut, crush, or chew. 50 Capsule 1 10/12/2023 Active Hospital, Clinic, or Other Facility Administered Medication Ordered Dose Route Frequency Start Date End Date Status Albuterol Sulfate (Proventil) (2.5 MG/3ML) 0.083% inhalation solution 2.5 mgIndications:Malaise and fatigue,SOB (shortness of breath) on exertion,Light headedness,Chronic diastolic heart failure secondary to coronary artery disease (HCC),LVH (left ventricular hypertrophy) 2.5 mg NEBULIZER ONCE PRN 02/09/2023 02/09/2024 Active documented as of this encounter (statuses as of 10/12/2023) Active Problems Problem Noted Date Diagnosed Date [...] as of this encounter (statuses as of 10/12/2023) Resolved Problems Problem Noted Date Diagnosed Date Resolved Date Carpal tunnel syndrome 12/13/201809/10 ADVANCE DIRECTIVE INFORMATION 08/25/2018 09/11/2019 Overview: Pt accepted brochure Scanned 2013 Vaginal irritation from pessary 08/25/2018 03/22/2022 Vaginal [...] Lipid Taxonomy. Menopause 10/14/1997 07/20/2016 FAMILY HX [place]- father and brother 09/11/2019 FAM HX- COLON CANCER: mgm + (2) maternal aunts 09/11/2019 Abdominal pain 07/20/2016 Other osteoporosis without c urrent pathological fracture 07/20/2016 Overview: ICD-10 update of inactive term documented as of this encounter (statuses as of 10/12/2023) Immunizations Name Administration Dates Next Due COVID-19 mRNA, LNP-s, No Pre serve, 2-Dose Series ([employer]) 07/23/2021,06/24/2021,01/06/2021,04/26,04/05/2020 Covid-19 Ad26, Single Dose ([employer]J&J) 04/26/2020,04/05/2020 Pneumococcal Conjugate Vacc, 13 Valent (Prevnar) [...] Date Smoking Tobacco: Never Smokeless Tobacco: Never Tobacco Cessation:Counseling Given: Not Answered Alcohol Use Standard Drinks/Week Comments No 0 (1 standard drink = 0.6 oz pur e alcohol) PHQ-2 Answer Date Recorded PHQ Adult Total Score 0 03/22/2022 Hunger Vital Sign Answer Date Recorded Worried About Running Out of Food in the Last Ye ar Never true 09/11/2019 Ran Out of Food in the Last Year Never true 09/11/2019 Utilities Answer Date Recorded Do you have trouble paying y our heating, water, or electric bill? (Adult - for ages 18 years and over) Not on file 08/23/2023 Is your family able to pay t he heat, water, or electric bill? (Household - for ages 0-17 years) Not on file 08/23/2023 Does your family have access to good internet? (Household - for ages 0-17 years) Not on file 08/23/2023 Social Connections Answer Date Recorded How often do you feel lonely or isolated from those around you? (Adult - for ages 18 years and over) Not on file 08/23/2023 Sex and Gender Information Value Date Recorded Sex Assigned at Female 12/26/2019 5:17 PM EDT Gender Identity Female 12/26/2019 5:17 PM EDT Sexual Orientation Straight 12/26/2019 5: 17 PM EDT Job Start Date Occupation Industry Not on file Not on file Not on file documented as of this encounter Last Filed Vital Signs Vital Sign Reading Time Taken Comments Blood Pressure 120/72 10/12/2023 1:46 PM EDT Pulse 72 10/12/2023 1:46 PM EDT Temperature 36.4 C (97.5 F) 10/12/2023 1:46 PM ED T Respiratory Rate 16 10/12/2023 1:46 PM EDT Oxygen Saturation 97% 10/12/2023 1:46 PM EDT Inhaled Oxygen Concentration - - Weight 87.9 kg (193 lb 12.8 oz) 10/12/2023 1:46 PM EDT Height - - Body Mass Index 37.85 07/29/2023 1:29 PM EDT documented in this encounter Patient Instructions * Patient Instructions* Dayne Dean MD - 10/12/2023 1:49 PM EDT Patient Instructions - Fall Prevention (This education is for all patients over 65 regardless of symptoms) Remember to take your current medications as prescribed. In order to prevent falls, you are encouraged to: Exercise Utilize assistive/adaptive devices Avoid multifocal lenses when walking Avoid hazards in home Maintain a regular toileting schedule Any questions please contact our office. Preventing Falls in the Home (This education is for all patients over 65 regardless of symptoms) As you get older, falls are more likely. Thats because your reaction time slows. Your muscles and joints may also get stiffer, making them less flexible. Illness, medications, and vision changes can also affect your balance. A fall could leave you unable to live on your own. To make your home safer, follow these tips: Floors Put nonskid pads under area rugs Remove throw rugs Replace worn floor coverings Tack carpets firmly to each step on carpeted stairs. Put nonskid strips on the edges of uncarpeted stairs Keep floors and stairs free of clutter and cords Arrange furniture so there are clear pathways Clean up any spills right away Bathrooms Install grab bars in the tub or shower Apply nonskid strips or put a nonskid rubber mat in the tub or shower Sit on a bath chair to bathe Use bathmats with nonskid backing Lighting Keep a flashlight in each room Put a nightlight along the pathway between the bedroom and the bathroom [employer] Patient Education Copyright 2008 - 2010 [employer] except where otherwise noted Preventing Falls: Exercises to Improve Balance, Flexibility, Strength, and Staying Power (This education is for all patients over 65 regardless of symptoms) Certain types of exercises may help make you less likely to fall. Try the ones below. Or do other exercises that your healthcare provider suggests. Depending on your health, you may need to start slowly. Dont let that stop you. Even small amounts of exercise can help you. Be sure to talk to yourhealthcare provider before starting any exercise program. Improve Balance Many types of exercise can help improve balance. Danish chi and yoga are good examples. Heres another one to try. You can do it anytime and almost anywhere. Stand next to a counter or solid support. Push yourself up onto your tiptoes. Hold for 5 seconds. If you start to lose your balance, hold on to the counter. Rest and repeat 5 times. Work up to holding for 20 to 30 seconds, if you can. Increase Flexibility Being more flexible makes it easier for you to move around safely. Try exercises like the seated hamstring stretch. Sit in a chair and put one foot on a stool. Straighten your leg and reach with both hands down either side of your leg. Reach as far down your leg as you can. Hold for about 20 seconds. Go back to the starting position. Then repeat 5 times. Switch legs. Build Strength Resistance exercises help build strength. You can do them without equipment. Or you can use weights, elastic bands, or special machines. One such exercise is called the biceps curl. You can hold a 1 pound weight or even a can of soup. Do this exercise at least 3 times a week. Strive for everyday. Sit up straight in a chair. Keep your elbow close to your body and your wrist straight. Bend your arm, moving your hand up to your shoulder. Then slowly lower your arm. Repeat 5 times. Switch to the other arm. Build Your Staying Power Aerobic exercises make your heart and lungs stronger so you can keep moving longer. Walking and swimming are two of the best types of exercises you can do. Using a stationary bike is great, too. Find an aerobic exercise that you enjoy. Start slowly and build up. Even 5 minutes is helpful. Aimfor a goal of 30 minutes, at least 3 times a week. You dont have to do 30 minutes in one session. Break it up and walk a little throughout the day. More Helpful Tips Start easy. Slowly work up to doing more. Talk with your healthcare provider about the best exercises for you. Call senior centers or health clubs about exercise programs. If needed, have a family member watch you walk every so often to check your stability. Exercise with a friend. Choose an activity you both enjoy. Try exercises that you can do anytime, anywhere. Here are two examples. Have someone with you when you first try these: Practice walking by placing one foot right in front of the other. Stand up and sit down 10 times. Repeat this throughout the day. [employer] Patient Education Copyright 2009 - 2010 [employer] except where otherwise noted. Preventing Falls: Moving Safely Using a Cane or Walker (This education is for all patients over 65 regardless of symptoms) Keep the cane away from your feet so you dont trip. A walking aid, such as a cane or walker, can help you stay more independent and avoid falls. Remember to keep your walking aid within easy reach when youre in a chair or in bed. And learn how to use it safely so you dont injure yourself. Using a Cane If you have a stronger side, hold the cane on that side. Get your balance. Move the cane and your weaker leg forward. Support your weight on both the cane and your weaker side. Step with your stronger leg. Start again from step 1. If youre using a folding walker, be sure you know how to lock it open. Check that its locked open before each use. Using a Walker Roll the walker (or lift it, if youre using one without wheels) forward about 12 inches. Step forward with your weaker leg first. Use the walker to help keep your balance. Bring your other foot forward to the center of the walker. Start again from step 1. Helpful Tips Check with your healthcare provider about the right walking aid to use. Ask about a walker with a seat attached. Check the tips of your cane or walker to make sure they have nonskid covers. Move slowly from room to room. Dont gant. Sit down to get dressed. Use a christina pack or backpack to keep your hands free. Get help for jobs that mean climbing, even on a stepstool. [employer] Patient Education Copyright 2008 - 2010 [employer] except where otherwise noted. Urinary Incontinence Plan of Care Documentation: (This education is for all patients over 65 regardless of symptoms) Current medications reconciled. Patient encouraged to: Practice kegal exercises Provide education materials Use the restroom every 2 hours throughout the day Limit caffeine, alcohol, spicy foods and acidic foods Keep a bladder diary Limit fluid intake 3-4 hours before bed Lose weight Prevent constipation Take fluid pills at a time when you can get to the bathroom quickly Control sugar better if diabetic Limit fluid intake to 60 oz. per day Wear support stockings (TEDs)if you have edema Rosa Elena Alvarez LPN 10/12/2023 Kegel Exercises Kegel exercises dont require special clothing or equipment. Theyre easy to learn and simple to do. And if you do them right, no one can tell youre doing them, so they can be done almost anywhere. Your doctor, nurse, or physical therapist can answer any questions you have and help you get started. A Weak Pelvic Floor The pelvic floor muscles may weaken due to aging, and vaginal childbirth, injury, surgery, chronic cough, or lack of exercise. If the pelvic floor is weak, your bladder and other pelvic organs may sag out of place. The urethra may also open too easily and allow urine to leak out. Kegel exercises can help you strengthen your pelvic floor muscles so they can better support the pelvic organs and control urine flow. How Kegel Exercises Are Done Try each of the Kegel exercises described below. When youre doing them, try not to move your leg, buttock, or stomach muscles. While youre urinating, try to stop the flow of urine. Start and stop it as often as you can. Contract as if you were stopping your urine stream, but do it when youre not urinating. Tighten your rectum as if trying not to pass gas. Contract your anus, but dont move your buttocks. Helpful Hints Do your Kegels as often as you can. The more you do them, the faster youll feel the results. Pick an activity you do often as a reminder. For instance, do your Kegels every time you sit down. Tighten your pelvic floor before you sneeze, get up from a chair, cough, laugh, or lift. This protects your pelvic floor from injury and can help prevent urine leakage. Try to hold each Kegel for a slow count to five. You probably wont be able to hold them for thatlong at first, but keep practicing. It will get easier as your pelvic floor gets stronger. Eventually, special weights that you place in your vagina may be recommended to help make your Kegels even more effective. [employer] Patient Education Copyright 2009 - 2010 [employer] except where otherwise noted. Here are some helpful tips for your urinary incontinence: (This education is for all patients over 65 regardless of symptoms) Practice Kegel exercises Use the restroom every 2 hours throughout the day Limit caffeine, alcohol, spicy foods, and acidic foods Keep a bladder diary Limit fluid intake 3-4 hours before bed Lose weight Prevent constipation Take fluid pills at a time when can get to the bathroom quickly Control sugar better if diabetic Limit fluid intake to 60 oz. per day Any questions, please feel free to contact our office. documented in this encounter Progress Notes * Rosa Elena Alvarez LPN - 10/12/2023 1:49 PM EDT Fall Risk Plan of Care Documentation: - Current medications reconciled Patient encouraged to: - Exercise - Provide education materials for Core strengthening - Utilize assistive/adaptive devices - Provide education materials - Avoid multifocal lenses when walking - Avoid hazards in home - Provide education materials - Maintain a regular toileting schedule Rosa Elena Alvarez LPN 10/12/2023 * Dayne Dean MD - 10/12/2023 1:36 PM EDT Images from the original note were not included. History of Present Illness Tanisha Hollingsworth is a 87 year old female that presents for Cough (Sinus drainage, cough x sev wks) Patient presents to clinic for an acute visit and is accompanied by her spouse. Patient reports that her symptoms started few weeks ago with cough as well as nasal congestion. She has had postnasal drainage all along but has been gradually worsening. Cough is constant but denies any associated shortness of breath or wheezing. States that coughing bouts can "choke" her. If only sips water to rinseher mouth and then swallows. Denies having any sore throat or dysphagia. Does report otalgia right greater than left. Denies any otorrhea. Her appetite has been stable. Also complains of chronic lightheadedness-had multiple testings done in the recent past and still with unidentified etiology. Physical Exam Vitals: 10/12/23 1346 Temp: 36.4 C (97.5 F) Pulse: 72 Resp: 16 SpO2: 97% BP: 120/72 BP 120/72 | Pulse 72 | Temp 36.4 C (97.5 F) (Tympanic) | Resp 16 | Wt 87.9 kg (193 lb 12.8 oz) | SpO2 97% | BMI 37.85 kg/m | BSA 1.93 m General: alert, healthy, no distress, well nourished, and well developed Head: Normocephalic, No masses, lesions, tenderness or abnormalities Ears: External ears normal, Canals clear, TM's Normal Sinuses: Frontal, maxillary and ethmoidal tenderness noted on right side. Nose: no mucosal erythema, no mucosal edema, no purulent discharge Oropharynx: no exudate, no erythema, lips, buccal mucosa, and tongue normal, and mucous membranes are moist Neck: supple, no adenopathy Lymph: no palpable lymphadenopathy Heart: regular rate & rhythm and no murmur Lungs: chest symmetric with normal AP diameter, no chest deformities noted, lungs clear to auscultation Pulses: radial=2/4 Abdomen: abdomen soft, non-tender, normal bowel sounds, and no masses or organomegaly Extremities: no joint deformities, effusion, or inflammation, no edema Musculoskeletal: guarded cane assisted gait Assessment and Plan Acute maxillary sinusitis, recurrence not specified - Azithromycin 250 MG Oral Tablet (Zithromax Z-Nigel); Take two tablets by mouth on first day, then 1tablet daily until gone Risk and functional assessment Acute cough - Benzonatate 100 MG Oral Capsule (Tessalon Perles); Take 1 Capsule by mouth 3 times a day as needed for Cough. Do not cut, crush, or chew. Light headedness Suspect her symptoms are related to nasal congestion causing PND. Encouraged to use nasal saline rinses profusely. Can use honey for cough sx. Trial of oral antibiotics and tessalon perles. For her chronic lightheadedness symptoms, suggest discussing vestibular PT; Reviewed possibility ofmedications (Myrbetriq and HCTZ) attributing to her symptoms. Can discuss with Urogyn and PCP respectively. Patient was encouraged to call us with any questions or concerns. Wrap-Up documented in this encounter Nursing Notes * Rosa Elena Alvarez LPN - 10/12/2023 1:46 PM EDT Chief Complaint Patient presents with Cough Sinus drainage, cough x sev wks documented in this encounter Plan of Treatment Upcoming Encounters Date Type Department Care Team (Late st Contact Info) Description 03/05/2024 3:00 PM EST Office Visit [facility] [address] [place] [phone] Paco Spears, [address] [place] [phone] 06/22/2024 11:20 AM EDT Office Visit [facility] [address] [place] [address] [phone] Venita Carlson MD [address] [place] [address] Health Maintenance Due Date Last Done Comments Albumin/Creatinine Ratio 12/28/1953 Zoster Vaccines (1 of 2) 12/28/1983 Adult Wellness Visit 12/28/1999 *BISPHONATE OR OTHER ACCEPTABLE MEDICATION NEEDED FOR OSTEOPOROSIS (REFER TO SMARTSET #1146) 10/09/2019 DXA Scan 12/05/2020 12/05/2018, 12/06, 12/31/2015, Additional history exists COVID-19 Vaccine ( season) 2022 07/23/2021, 06/24/2021, 01/06/2021, Additional history exists Depression Screening 03/22/2023 03/22/2022 DTaP,Tdap,and Td Vaccines (2 - Td or Tdap) 05/06/2023 05/05/2013, 11/19/2010, 12/07/1999 Influenza Vaccine (FLU shot) (#1) 2023 12/06/2022, 11/23/2021, 11/18/2020, Additional history exists HbA1c 02/10/2024 02/09/2023 Pneumococcal Vaccine: 65+ Years Completed 01/05/2015, 04/24/2014, 03/04/2005, Additional history exists VITAMIN D LEVEL ONCE IN A LIFETIME-USE SMARTSET# [id number] Completed 02/09/2023, 01/20/2022, 10/31/2019, Additional history exists HPV (Gardasil) Vaccine Aged Out No lo nger eligible based on patient's age to complete this topic Hepatitis B Vaccine Aged Out No longe r eligible based on patient's age to complete this topic MENINGOCOCCAL (MENACTRA/MENVEO) Aged Out No longer eligible based on patient's age to complete this topic documented as of this encounter Medical Devices Not on filedocumented as of this encounter Visit Diagnoses Diagnosis Acute maxillary sinusitis, recurrence not specified- Primary Risk and functional assessment Screening for unspecified condition Acute cough Light headedness Dizziness and giddiness documented in this encounter Care Teams House Worker Relationship Specialty Start Date End Date Paco Spears DO [address] [place] [address] PCP - General Family Medicine 04/22/21 documented as of this encounter
--- OUTSIDE RECORDS SUMMARY | 2023-11-18 04:09 | External Medical Summary | Summary of Care ---
Author Name Unknown Organization [facility] Address [address] [place] [address] Phone [phone] Care Team Providers Care Site Operations Manager Name Role Phone KevinPaco zaman Primary Care Provider [phone] Reason for Visit * Reason Comments NEW PATIENT Encounter Details Date Type Department Care Team (Late st Contact Info) Description 11/02/2023 1:00 PM EDT Office Visit [facility] [address] [place] [address] Bruce Shepherd DO [address] [place] [address] Chronic cough* Allergies Active Allergy Reactions Criticality Noted Date Comments Acetic Acid 04/14/2021 Heart palpatations Adhesive Tape 08/14/2001 local skin irritation Amoxicillin-Pot Clavulanate Edema Other,Other (Please comment) Medium 11/19/2010 palpitations Chocolate Flavor 12/21/2019 [place] 12/21/2019 Latex Rash High 12/21/2019 Naproxen Other [...] as of this encounter (statuses as of 11/02/2023) Medications Medication Sig Dispensed Refills Start Date End Date Status aspirin 81 MG chewable tabletIndications :Carotid stenosis, non-symptomatic, bilateral Take 1 Tablet by mouth in the morning. with food.. 100 Tab 5 07/20/2016 Active Acetaminophen 500 MG Oral Tablet Chewable Take by mouth as needed for Pain, Breakthrough. Active Fluticasone-Salme terol 250-50 MCG/ACT Inhalation Aerosol Powder Breath Activated [...] Active Atorvastatin Calcium 20 MG Oral Tablet (Lipitor)Indicati ons:History of non-ST elevation myocardial infarction (NSTEMI),Dyslipid emia,Carotid stenosis, non-symptomatic, bilateral TAKE ONE TABLET BY MOUTH EVERY MORNING 90 Tablet 3 01/10/2023 Active hydroCHLOROthiazi de 25 MG Oral Tablet (Hydrodiuril)Nandini cations:HTN, goal below 130/80 Take 1 Tablet by mouth in the morning. 30 Tablet 11 03/30/2023 Active Myrbetriq 50 MG Oral Tablet Extended Release 24 Hour (Mirabegron ER) Take 1 Tablet by mouth in the morning. 90 Tablet 3 07/06/2023 Active Meclizine HCl 12.5 MG Oral Tablet (Antivert)Indicat ions:Dizziness Take 1 Tablet by mouth 3 times a day as needed for Dizziness. 90 Tablet 3 07/29/2023 Active Vitamin D3 50 MCG (2000 UT) Oral CapsuleIndication s:Vitamin D deficiency TAKE ONE CAPSULE BY MOUTH EVERY MORNING 90 Capsule 1 09/30/2023 Active Clobetasol Propionate 0.05 % External Ointment (Temovate)Indicat ions:Rash and nonspecific skin eruption Apply to rash on trunk and extremities twice a day as needed 120 g 10/11/2023 Active Benzonatate 100 MG Oral Capsule (Tessalon Perlfabiano)Indication s:Acute cough Take 1 Capsule by mouth 3 times a day as needed for Cough. Do not cut, crush, or chew. 50 Capsule 1 10/12/2023 Active Azithromycin 250 MG Oral Tablet (Zithromax Z-Nigel)Indications :Acute maxillary sinusitis, recurrence not specified Take two tablets by mouth on first day, then 1 tablet daily until gone 6 Tablet 10/12/2023 Discontinue d(Medicatio n List Clean Up) Hospital, Clinic, or Other Facility Administered Medication Ordered Dose Route Frequency Start Date End Date Status Albuterol Sulfate (Proventil) (2.5 MG/3ML) 0.083% inhalation solution 2.5 mgIndications:Malaise and fatigue,SOB (shortness of breath) on exertion,Light headedness,Chronic diastolic heart failure secondary to coronary artery disease (HCC),LVH (left ventricular hypertrophy) 2.5 mg NEBULIZER ONCE PRN 02/09/2023 02/09/2024 Active documented as of this encounter (statuses as of 11/02/2023) Active Problems Problem Noted Date Diagnosed Date [...] as of this encounter (statuses as of 11/02/2023) Resolved Problems Problem Noted Date Diagnosed Date [...] ICD-10 update of inactive term PURE HYPERCHOLESTEROLEM 10/17/1997 12/0 10/2008 Overview: Per Lipid Taxonomy. Menopause 10/14/1997 07/20/2016 FAMILY HX NH- father and brother 09/11/2019 FAM HX- COLON CANCER: mgm + (2) maternal aunts 09/11/2019 Abdominal pain 07/20/2016 Other osteoporosis without c urrent pathological fracture 07/20/2016 Overview: ICD-10 update of inactive term documented as of this encounter (statuses as of 11/02/2023) Immunizations Name Administration Dates Next Due COVID-19 mRNA, LNP-s, No Pre serve, 2-Dose Series (Taykey) 07/23/2021,06/24/2021,01/06/2021,04/26,04/05/2020 Covid-19 Ad26, Single Dose (Amitive/J&Adept Cloud) 04/26/2020,04/05/2020 Pneumococcal Conjugate Vacc, 13 Valent (Prevnar) [...] Sign Reading Time Taken Comments Blood Pressure - - Pulse - - Temperature 36.4 C (97.5 F) 11/02/2023 1:04 PM ED T Respiratory Rate - - Oxygen Saturation - - Inhaled Oxygen Concentration - - Weight 87 kg (191 lb 14.4 oz) 11/02/2023 1:04 PM EDT Height 152.4 cm (5') 11/02/2023 1:04 PM EDT Body Mass Index 37.48 11/02/2023 1:04 PM EDT documented in this encounter Progress Notes * Bruce Shepherd DO - 11/02/2023 1:13 PM EDT 11/02/2023 HISTORY OF PRESENT ILLNESS This 87 year old YO female is seen at the request of Paco Spears DO for the evaluation of a chronic cough. This has been going on for approximately 7-8 months. Patient states it can wake her up in the middle of the night with a coughing spell which requires her to drink water to relieve. Shedoes not smoke. Has not seen Pulmonology for this entity. Denies any specific alleviating or exacerbating factors. She denies any hemoptysis. Also gets some intermittent ear discomfort. Denies any otorrhea. 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, lateral Advanced directives, counseling/discussion Severe obesity with body mass index (BMI) of 35.0 to 39.9 with serious comorbidity (HCC) History of non-ST elevation myocardial infarction (NSTEMI) Closed fracture of sternum with routine healing Chronic diastolic heart failure secondary to coronary artery disease (HCC) Gastroesophageal reflux disease without esophagitis Acute on chronic diastolic congestive heart failure (HCC) PVD (peripheral vascular disease) ([facility]) Trigeminal neuralgia Trigger finger of right thumb Prediabetes Past Medical History: Diagnosis Date Abdominal pain Arthritis Carpal tunnel syndrome 12/13/2018 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 Chase's note of 09/16/98) Cystocele, midline Disorder of intestine 1995 hx of bowel obstruction DVT (deep venous thrombosis) ([facility]) legs Factor V Leiden ([facility]) has both genes FAM HX- COLON CANCER: mgm + (2) maternal aunts FAMILY HX NH- father and brother H/O acute pancreatitis after gb removal HTN (hypertension) Hypercholesteremia Other osteoporosis Rotator cuff syndrome Past Surgical History: Procedure Laterality Date COLONOSCOPY, DIAGNOSTIC (RECTUM) 09/01/07 diverticulosis COLORECTAL CANCER SCREEN; COLON 08/17/01 Negative- repeat in 5-10 years DEXA SCAN/BONE MINERAL AXIAL Lumbar: -2.26 Femoral neck: -1.03 DEXA SCAN/BONE MINERAL AXIAL 2007 repeat 2010 EXERCISE ECHO 03/06/02 Negative for ischemic findings; EF =65%; hypertensive response EXERCISE ECHO 10/13/05 Neg for ischemic changes INFORMATION 1996 bowel obstruction INFORMATION Left L breast cyst removal KNEE ARTHROSCOPY, DIAGNOSTIC Knee Arthroscopy x2 LAPAROSCOPY, SURG/CHOLECYSTECTOMY 1994 Cholecystectomy, Laproscopic NM CARDIAC BLOOD POOL PLANAR 05/10/08 Negative nuclear stress test:nl LV function REMOVE CATARACT, INSERT LENS PROSTH Left 11/2011 left- Dr. Encarnacion REMOVE CATARACT, INSERT LENS PROSTH Right 01/03/2012 right-Dr. Encarnacion REMOVE GALLBLADDER 1989 REPAIR RUPTURED ROTATOR CUFF, CHRON Right 09/10/03 right shoulder TENDON SHEATH INCISION, FINGER Right 12/15/2022 TRIGGER FINGER RELEASE performed by Rosas Cerrato MD at OR [facility] [address] Medications Current Outpatient Medications Medication Sig Dispense Refill aspirin 81 MG chewable tablet Take 1 Tablet by mouth in the morning. with food.. 100 Tab 5 Acetaminophen 500 MG Oral Tablet Chewable Take by mouth as needed for Pain, Breakthrough. Fluticasone-Salmeterol 250-50 MCG/ACT Inhalation Aerosol Powder Breath Activated (Advair Diskus) Inhale 1 Puff by mouth in the morning and 1 Puff before bedtime. 60 Each 5 ProAir HFA 108 (90 Base) MCG/ACT Inhalation Aerosol Solution Inhale 2 Puffs by mouth in the morningand 2 Puffs at noon and 2 Puffs in the evening and 2 Puffs before bedtime. -using 2/d. 8 g 3 Atorvastatin Calcium 20 MG Oral Tablet (Lipitor) TAKE ONE TABLET BY MOUTH EVERY MORNING 90 Tablet 3 hydroCHLOROthiazide 25 MG Oral Tablet (Hydrodiuril) Take 1 Tablet by mouth in the morning. 30 Tablet 11 Myrbetriq 50 MG Oral Tablet Extended Release 24 Hour (Mirabegron ER) Take 1 Tablet by mouth in the morning. 90 Tablet 3 Meclizine HCl 12.5 MG Oral Tablet (Antivert) Take 1 Tablet by mouth 3 times a day as needed for Dizziness. 90 Tablet 3 Vitamin D3 50 MCG (2000 UT) Oral Capsule TAKE ONE CAPSULE BY MOUTH EVERY MORNING 90 Capsule 1 Clobetasol Propionate 0.05 % External Ointment (Temovate) Apply to rash on trunk and extremities twice a day as needed 120 g 0 Benzonatate 100 MG Oral Capsule (Tessalon Perles) Take 1 Capsule by mouth 3 times a day as needed for Cough. Do not cut, crush, or chew. 50 Capsule 1 Current Facility-Administered Medications Medication Dose Route Frequency Provider Last Rate Last Admin Albuterol Sulfate (Proventil) (2.5 MG/3ML) 0.083% inhalation solution 2.5 mg 2.5 mg Nebulizer Once PRN Paco Spears DO Allergies Review of patient's allergies indicates: Allergen Reactions Latex Rash Sulfa Antibiotics Heart palpatations Amoxicillin-Pot Clavulanate Edema Other and Other (Please comment) palpitations Acetic Acid Heart palpatations Adhesive Tape local skin irritation Chocolate Flavor [place] Oxycodone-Acetaminophen Other reaction(s): Irregular Heart Rate Peanut Oil Percocet Very sick to stomach Prednisone Other (Please comment) Heart racing per pt Procaine Other reaction(s): HEART RACING Salicylates GI upset Tramadol Stomach upset, palpitations Naproxen Other (Please comment) Palpitations, stomach upset, and "nervousness" Oxycodone Other reaction(s): RACING HEART Penicillins Other reaction(s): NAUSEA, RASH Family History Family History Problem Relation Name Age of Onset Cancer Grandmother (Maternal) colon Heart Disorder Father age 61 Diabetes Father Heart Disorder Grandfather (Paternal) in 40s Cancer Aunt (Unspecified) colon cancer- m. aunt Cancer Aunt (Unspecified) same Heart Disorder Brother s/p NH Other (Other) Other no ovarian/breast cancer Heart Disorder Mother Social History Social History Tobacco Use Smoking status: Never Smokeless tobacco: Never Substance Use Topics Alcohol use: No Vaping/E-Cigarette Use Vaping/E-Cigarette Use Never User Vaping/E-Cigarette Substances Other No Flavoring No THC No Cannabidiol (CBD) No Vaping/E-Cigarette Devices Disposable No Pre-filled or Refillable Cartridge No Refillable Tank No Pre-filled Pod No Review of Systems Negative for constitutional, eyes, cardiac, pulmonary, hepatic, renal, digestive, hematologic, epileptic, syncopal, musculo-skeletal, mental health, integumentary, hypertensive, lipid, arthritic, diabetic, thyroid, or neurologic disorders (except as listed in the PMH and Problem List). Physical Examination: Temp 36.4 C (97.5 F) (Tympanic) | Ht 1.524 m (5') | Wt 87 kg (191 lb 14.4 oz) | BMI 37.48 kg/m | BSA 1.92 m PHYSICAL EXAM General: This is a healthy appearing female who appears her stated age. The patient is alert and appropriately verbally conversant without hoarseness. Face: The face was inspected and no cutaneous masses or lesions were visualized. There was no erythema or edema noted. Facial movement was symmetric without weakness. No skin lesions were detected. There was no sinus tenderness elicited. The parotid and submandibular glands were normal to palpation. Eyes: Extra-ocular muscle function was intact. No nystagmus was observed. Pupils were equal. Cranial Nerves: Cranial nerves II, III, IV, and were noted to be intact via extra-ocular muscle movement testing. Cranial nerve VII noted to be intact and symmetric by facial movement. Cranial nerve VIII was tested with tuning fork examination and revealed symmetric hearing. Cranial nerves IX and X noted to be intact by gag reflex and palatal movement. Cranial nerve XII noted to be intact by active and symmetric tongue movement. Nose: Examination of the nose revealed no masses, polyps, mucopus, or other lesion. The nasal septum was non-obstructing. The turbinates were without abnormality. Oral Cavity: Examination of the oral cavity revealed no mass lesions nor infection. The palate was noted to be intact without evidence of clefting. The tongue exhibited normal mobility. Mucosa was moist without lesion. The lips were free of lesion. Gums were free of inflammation. Dentition: Unremarkable Oropharynx: The oral pharynx was free of mass lesion or mucosal abnormality. The palate was noted to be without lesion. The uvula was normal appearing. The tonsils were unremarkable. Ears: Examination of the ears revealed that the auricles were normally formed with no lesions. The external auditory canals were cleaned of any obstructing cerumen. The tympanic membranes were intactand freely mobile to pneumatoscopy. There are no significant retraction pockets. There is no inflammation visualized. No effusions are seen. Neck: Visualization and palpation of the neck revealed no mass lesions, no thyromegaly or thyroid masses. No skin lesions or inflammatory processes were detected. The cervical musculature was normal to palpation. Lymphatics (cervical): There were no palpable lymph nodes in the posterior triangle, submandibular triangle, jugulodigastric region, or central neck. Lungs: Breathing quietly. No use of accessory muscles. Heart: Regular rate. No JVD. Procedure: Due to patient's inability to cooperate with mirror exam or concern for structures otherwise not evaluated, fiberoptic examination of the larynx was performed. The nose was first topically decongested with topical oxymetazoline 0.05% spray and topically anesthetized with topical Lidocaine 4% spray. Nasopharynx was visualized and was without masses or lesions. Fiberoptic examination revealed no mass lesions. Vocal cord mobility was normal without paralysis or paresis. There was no significant edema or erythema of the larynx. No vocal cord masses were visualized. Exam was negative for post cricoid or pyriform sinuses lesions. The patient tolerated the procedure well. Patient should refrain from eating or drinking for 30-45 minutes due to anesthesia of the pharynx and possible interference with swallowing. Procedure: In order to assess the paranasal sinuses, endoscopy of the nose and paranasal sinuses was performed. The nose was decongested with topical oxymetazoline 0.05% spray and then anesthetized with topicalLidocaine 4% spray. The scope was used to examine each side of the nose. There were no masses visualized. The nasal mucosa was without lesion. The middle meatus on each side was clear of mass, polyp,or mucopus. The septum was non-obstructing. The nasopharynx was without lesion. The patient tolerated the procedure well. Assessment: 87-year-old female with chronic cough. Plan: - patient reassured her comprehensive head neck exam and nasal endoscopy and fiberoptic laryngoscopy were all unremarkable. I reviewed the video with her and her in detail. -no obvious evidence of a head and neck cause of her chronic cough. -recommend she and PCP consider Pulmonology evaluation. -follow-up with me p.r.n. I spent a total of 45 minutes on the date of service in preparation, delivery, and documentation ofthe care provided to the above patient, excluding any time spent on the performance of any procedures or separately billable services. Bruce Shepherd DO, [facility] Construction Skills Teacher, Department of Otolaryngology-Head and Neck Surgery [facility], [place] 11/02/2023 1:53 PM documented in this encounter Nursing Notes * Rivka Reddy LPN - 11/02/2023 1:00 PM EDT Chief Complaint Patient presents with NEW PATIENT Patient presents today for evaluation of her throat and persistent cough. Cough is worsening. Mostly productive. Drinking water to clear throat. Sneezing often. Ear aches. Has allergies and PND. Normal chest x ray. Saw pulm had PFTs. She states she uses saline spray, no nasal rinses. Pt states she chokes on beef, cutting foods smaller and eating slower seems to help but feels like something is stuck in the throat. Pt states she is fatigue and always lightheaded. Has been to sleep Ctr. She states she had nasal polyps removed in younger years. States she get nasal congestion at night, keep her head of bed elevated. documented in this encounter Plan of Treatment Upcoming Encounters Date Type Department Care Team (Late st Contact Info) Description 03/05/2024 3:00 PM EST Office Visit Family Practice [facility] [address] [facility] [place] [address] Paco Spears DO [address] [facility] [place] [address] 06/22/2024 11:20 AM EDT Office Visit Neurology [facility] [address] [facility] [place] [address] Venita Carlson MD [address] [place] [address] Health Maintenance Due Date Last Done Comments Albumin/Creatinine Ratio 12/28/1953 Zoster Vaccines (1 of 2) 12/28/1983 Adult Wellness Visit 12/28/1999 *BISPHONATE OR OTHER ACCEPTABLE MEDICATION NEEDED FOR OSTEOPOROSIS (REFER TO SMARTSET #1146) 10/09/2019 DXA Scan 12/05/2020 12/05/2018, 12/06, 12/31/2015, Additional history exists COVID-19 Vaccine ( season) 2022 07/23/2021, 06/24/2021, 01/06/2021, Additional history exists Depression Screening 03/22/2023 03/22/2022 DTap/Tdap Vaccines (2 - Td or Tdap) 05/06/2023 05/05/2013, 11/19/2010, 12/07/1999 Influenza Vaccine (FLU shot) (#1) 2023 12/06/2022, 11/23/2021, 11/18/2020, Additional history exists HbA1c 02/10/2024 02/09/2023 Pneumococcal Vaccine: 65+ Years Completed 01/05/2015, 04/24/2014, 03/04/2005, Additional history exists VITAMIN D LEVEL ONCE IN A LIFETIME-USE SMARTSET# 13456 Completed 02/09/2023, 01/20/2022, 10/31/2019, Additional history exists [...] as of this encounter Visit Diagnoses Diagnosis Chronic cough- Primary Cough documented in this encounter Care Teams Site Operations Manager Relationship Specialty Start Date End Date Paco Spears DO [address] [place] [address] PCP - General Family Medicine 04/22/21 documented as of this encounter
--- OUTSIDE RECORDS SUMMARY | 2023-11-18 04:09 | External Medical Summary | Summary of Care ---
Author Name Unknown Organization [facility] Address [address] [place] [address] Phone [phone] Care Team Providers Care Sales Department Supervisor Name Role Phone Ana Artis DO Primary Care Provider [phone] Reason for Visit * Reason Comments eRx-Medication Refill Encounter Details Date Type Department Care Team (Late st Contact Info) Description 11/01/2023 Refill Family Practice [facility] [place] 200 [facility] [place] [address] Ana Artis DO 200 [facility] [place] [address] Allergies Active Allergy Reactions Criticality Noted Date Comments Acetic Acid 04/14/2021 Heart palpatations Adhesive Tape 08/14/2001 local skin irritation Amoxicillin-Pot Clavulanate Edema Other,Other (Please comment) Medium 11/19/2010 palpitations Chocolate Flavor 12/21/2019 [place] 12/21/2019 Latex Rash High 12/21/2019 Naproxen Other [...] as of this encounter (statuses as of 11/03/2023) Medications Medication Sig Dispensed Refills Start Date End Date Status aspirin 81 MG chewable tabletIndication s:Carotid stenosis, non-symptomatic, bilateral Take 1 Tablet by mouth in the morning. with food.. 100 Tab 5 07/20/2016 Active Acetaminophen 500 MG Oral Tablet Chewable Take by mouth as needed for Pain, Breakthrough. Active ProAir HFA 108 (90 Base) MCG/ACT Inhalation Aerosol Solution Inhale 2 Puffs by mouth in the morning and 2 Puffs at noon and 2 Puffs in the evening and 2 Puffs before bedtime. -using 2/d. 8 g 3 10/13/2022 Active Atorvastatin Calcium 20 MG Oral Tablet (Lipitor)Indicat ions:History of non-ST elevation myocardial infarction (NSTEMI),Dyslipi demia,Carotid stenosis, non-symptomatic, bilateral TAKE ONE TABLET BY MOUTH EVERY MORNING 90 Tablet 3 01/10/2023 Active hydroCHLOROthiaz ananda 25 MG Oral Tablet (Hydrodiuril)Ind ications:HTN, goal below 130/80 Take 1 Tablet by mouth in the morning. 30 Tablet 11 03/30/2023 Active Myrbetriq 50 MG Oral Tablet Extended Release 24 Hour (Mirabegron ER) Take 1 Tablet by mouth in the morning. 90 Tablet 3 07/06/2023 Active Meclizine HCl 12.5 MG Oral Tablet (Antivert)Indica tions:Dizziness Take 1 Tablet by mouth 3 times a day as needed for Dizziness. 90 Tablet 3 07/29/2023 Active Vitamin D3 50 MCG (2000 UT) Oral CapsuleIndicatio ns:Vitamin D deficiency TAKE ONE CAPSULE BY MOUTH EVERY MORNING 90 Capsule 1 09/30/2023 Active Clobetasol Propionate 0.05 % External Ointment (Temovate)Indica tions:Rash and nonspecific skin eruption Apply to rash on trunk and extremities twice a day as needed 120 g 10/11/2023 Active Benzonatate 100 MG Oral Capsule (Tessalnavjot Miller)Indicatio ns:Acute cough Take 1 Capsule by mouth 3 times a day as needed for Cough. Do not cut, crush, or chew. 50 Capsule 1 10/12/2023 Active Fluticasone-Salm eterol 250-50 MCG/ACT Inhalation Aerosol Powder Breath Activated (Advair Diskus) INHALE ONE PUFF BY MOUTH IN THE MORNING AND BEFORE BEDTIME 60 Each 5 11/03/2023 Active Fluticasone-Salm eterol 250-50 MCG/ACT Inhalation Aerosol Powder Breath Activated (Advair Diskus) Inhale 1 Puff by mouth in the morning and 1 Puff before bedtime. 60 Each 5 10/01/2022 Discontinued Hospital, Clinic, or Other Facility Administered Medication Ordered Dose Route Frequency Start Date End Date Status Albuterol Sulfate (Proventil) (2.5 MG/3ML) 0.083% inhalation solution 2.5 mgIndications:Malaise and fatigue,SOB (shortness of breath) on exertion,Light headedness,Chronic diastolic heart failure secondary to coronary artery disease (HCC),LVH (left ventricular hypertrophy) 2.5 mg NEBULIZER ONCE PRN 02/09/2023 02/09/2024 Active documented as of this encounter (statuses as of 11/03/2023) Active Problems Problem Noted Date Diagnosed Date [...] as of this encounter (statuses as of 11/03/2023) Resolved Problems Problem Noted Date Diagnosed Date [...] as of this encounter (statuses as of 11/03/2023) Immunizations Name Administration Dates Next Due COVID-19 mRNA, LNP-s, No Pre serve, 2-Dose Series ([employer] 07/23/2021,06/24/2021,01/06/2021,04/26,04/05/2020 Covid-19 Ad26, Single Dose (Donny/J&J) 04/26/2020,04/05/2020 Pneumococcal Conjugate Vacc, 13 Valent (Prevnar) 01/05/2015 Pneumococcal Polysaccharide PPV23 (Pneumovax) 04/24/2014 Season Influenza, Quad, PF, Adjuvanted, 65+ Yrs, IM (FLUAD) 12/04/2019 Seasonal Influenza Virus Vac cine, Unspecified Formulation 11/17/2018 Seasonal Influenza, High Dos e, Trivalent, PF, IM (Fluzone HD) 12/05/2018,12/24/2016,12/06/2015 Seasonal Influenza, PF, 6 M & above, IM , (FluLaval or Fluzone) 11/29/2017 Seasonal Influenza, Quadriva lent Hd (Fluzone Hd) 12/06/2022,11/23/2021,11/18/2020 Seasonal Influenza, Quadriva lent, No Preserve, IM 11/18/2016,12/10/2015,12/10/2014 Seasonal Influenza, Trivalen t, (IIV3), PF, (Fluzone) 02/26/2015 Seasonal Influenza, Trivalen t, (IIV3), with Preserv, (Fluzone) 11/12/2013,12/13/2012,11/16/2011,11/19,12/16/2009,12/09/2008,12/11/2007 ,12/19/2006,01/06/2006 Seasonal Influenza, Trivalen t, Adjuvanted, 65+ YRS, PF, (Fluad) 12/04/2019,11/17/2018 TD, Preservative Free 11/19/2010 TDAP, Age 7 [...] encounter Miscellaneous Notes * Telephone Encounter - Ness Navarro RPh - 11/03/2023 1:15 PM EDTSigned Prescriptions: Disp Refills Fluticasone-Salmeterol 250-50 MCG/ACT Inha*60 Each5 Sig: INHALE ONE PUFF BY MOUTH IN THE MORNING AND BEFORE BEDTIMEAuthorizing Provider: ANA ARTIS User: NESS NAVARRO documented in this encounter Plan of Treatment Upcoming Encounters Date Type Department Care Team (Late st Contact Info) Description 03/05/2024 3:00 PM EST Office Visit [facility] Practice [facility] [address] [place] [address] Ana Artis, DO [address] [place] [address] 06/22/2024 11:20 AM EDT Office Visit Neurology [facility] [place] 200 [facility] [place] [address] Venita Carlson MD 200 [facility] [place] [address] Health Maintenance Due Date Last Done Comments [...] D LEVEL ONCE IN A LIFETIME-USE SMARTSET# [id number] Completed 02/09/2023, 01/20/2022, 10/31/2019, Additional history exists [...] filedocumented as of this encounter Care Teams Sales Department Supervisor Relationship Specialty Start Date End Date Ana Artis DO [address] [place] [address] PCP - General Family Medicine 04/22/21 documented as of this encounter
--- OUTSIDE RECORDS SUMMARY | 2023-11-18 04:09 | External Medical Summary | Summary of Care ---
Author Name Unknown Organization [facility] Address [address] [place] [address] Phone [phone] Care Team Providers Care Manager Printing Name Role Phone Ana Artis DO Primary Care Provider [phone] Reason for Visit * Reason Onset Date Comments Medication Refill 10/10/2023 Encounter Details Date Type Department Care Team (Late st Contact Info) Description 10/10/2023 Refill Family Practice [facility] [place] 200 [facility] [place] [address] Ana Artis DO 200 [facility] [place] [address] Rash and nonspecific skin eruption Allergies Active Allergy Reactions Criticality Noted Date Comments Acetic Acid 04/14/2021 Heart palpatations Adhesive Tape 08/14/2001 local skin irritation Amoxicillin-Pot Clavulanate Edema Other,Other (Please comment) Medium 11/19/2010 palpitations Chocolate Flavor 12/21/2019 [place] 12/21/2019 Latex Rash High 12/21/2019 Naproxen Other [...] as of this encounter (statuses as of 10/11/2023) Medications Medication Sig Dispensed Refills Start Date [...] day as needed 120 g 10/11/2023 Active Clobetasol Propionate 0.05 % External Ointment (Temovate)Indicat ions:Rash and nonspecific skin eruption APPLY TO RASH ON TRUNK AND EXTREMITIES TWICE A DAY NEEDED 120 g 05/14/2022 Discontinue d(Refill) Hospital, Clinic, or Other Facility Administered Medication Ordered Dose Route Frequency Start Date End Date Status Albuterol Sulfate (Proventil) (2.5 MG/3ML) 0.083% inhalation solution 2.5 mgIndications:Malaise and fatigue,SOB (shortness of breath) on exertion,Light headedness,Chronic diastolic heart failure secondary to coronary artery disease (HCC),LVH (left ventricular hypertrophy) 2.5 mg NEBULIZER ONCE PRN 02/09/2023 02/09/2024 Active documented as of this encounter (statuses as of 10/11/2023) Active Problems Problem Noted Date Diagnosed Date [...] as of this encounter (statuses as of 10/11/2023) Resolved Problems Problem Noted Date Diagnosed Date [...] Lipid Taxonomy. Menopause 10/14/1997 07/20/2016 FAMILY HX [place]- father and brother 09/11/2019 FAM HX- COLON CANCER: mgm + (2) maternal aunts 09/11/2019 Abdominal pain 07/20/2016 Other osteoporosis without c urrent pathological fracture 07/20/2016 Overview: ICD-10 update of inactive term documented as of this encounter (statuses as of 10/11/2023) Immunizations Name Administration Dates Next Due COVID-19 mRNA, LNP-s, No Pre serve, 2-Dose Series ([employer]) 07/23/2021,06/24/2021,01/06/2021,04/26,04/05/2020 Covid-19 Ad26, Single Dose (Donny/J&J) 04/26/2020,04/05/2020 [...] encounter Miscellaneous Notes * Telephone Encounter - Ana Artis DO - 10/11/2023 11:45 AM EDTSigned Prescriptions: Disp Refills Clobetasol Propionate 0.05 % External Oint*120 g 0 Sig: Apply to rash on trunk and extremities twice a day as needed Authorizing Provider: ANA ARTIS * Telephone Encounter - Rivka Dixon LPN - 10/11/2023 8:01 AM EDTPending Prescriptions: Disp Refills Clobetasol Propionate 0.05 % External Oint*120 g 0 Sig: Apply to rash on trunk and extremities twice a day as needed * Telephone Encounter - Doreen Oshea OSA - 10/10/2023 5:10 PM EDT Did you pend patient's preferred pharmacy and medication before forwarding?yes Pharmacy: [facility] [id number] Pending Prescriptions: Disp Refills Clobetasol Propionate 0.05 % External Oin*120 g 0 Sig: Apply to rash on trunk and extremities twice a day as needed Last Visit: 07/29/2023 (in office), Visit date not found (telemedicine) Next Visit: 03/05/2024 If no future appointments scheduled, and last appointment is greater than a year ago, please schedule patient for a follow-up appointment Last date the medication was ordered: [id number] Is this request for a controlled substance?No Urine Drug Screen:No results found. However, due to the size of the patient record, not all encounters were searched. Please check Results Review for a complete set of results. Patient Phone Numbers Labs: Lab Results Component Value Date/Time CREAT 0.7 02/09/2023 12:29 PM CREAT 0.8 01/02/2020 03:43 PM POTASSIUM 4.3 02/09/2023 12:29 PM POTASSIUM 4.0 01/02/2020 03:43 PM TSH 1.89 02/09/2023 12:29 PM TSH 3.01 10/31/2019 07:14 AM LDLCALC 48 04/23/2021 11:41 AM LDLCALC 53 10/31/2019 07:14 AM LDLDIRECT NOT APPLICABLE 10/31/2019 07:14 AM ALT 17 02/09/2023 12:29 PM ALT 18 10/31/2019 07:14 AM HGBA1C 5.8 (H) 02/09/2023 12:29 PM documented in this encounter Plan of Treatment Upcoming Encounters Date Type Department Care Team ([facility] st Contact Info) Description 10/12/2023 1:40 PM EDT Office Visit [facility] [address] [phone] Dayne Dean MD [address] [place] [address] [id number] 03/05/2024 3:00 PM EST Office Visit Family Practice [facility] 200 [facility] [place] [address] Ana Artis DO 200 [facility] [place], [place] [address] 06/22/2024 11:20 AM EDT Office Visit Neurology [facility] 200 [facility] [place] [address] Venita Carlson MD 200 [facility] [place], [place] [address] Health Maintenance Due Date Last Done Comments [...] D LEVEL ONCE IN A LIFETIME-USE SMARTSET# [id number] Completed 02/09/2023, 01/20/2022, 10/31/2019, Additional history exists [...] as of this encounter Visit Diagnoses Diagnosis Rash and nonspecific skin eruption Rash and other nonspecific skin eruption documented in this encounter Care Teams Manager Printing Relationship Specialty Start Date End Date Ana Artis DO [address] [place] [address] PCP - General Family Medicine 04/22/21 documented as of this encounter
--- OUTSIDE RECORDS SUMMARY | 2023-11-18 04:09 | External Medical Summary | Summary of Care ---
Author Name Unknown Organization [facility] Address [address] [place] [address] Phone [phone] Care Team Providers Care Tennis Court Attendant Name Role Phone Paco Spears DO Primary Care Provider [phone] Reason for Visit * Reason Comments eRx-Medication Refill Encounter Details Date Type Department Care Team (Late st Contact Info) Description 09/30/2023 Refill Family Practice [facility] [place] 200 [facility] [place] [address] Paco Spears DO 200 [facility] [place] [address] Vitamin D deficiency Allergies Active Allergy Reactions Criticality Noted Date Comments Acetic Acid 04/14/2021 Heart palpatations Adhesive Tape 08/14/2001 local skin irritation Amoxicillin-Pot Clavulanate Edema Other,Other (Please comment) Medium 11/19/2010 palpitations Chocolate Flavor 12/21/2019 [place] 12/21/2019 Latex Rash High 12/21/2019 Naproxen Other [...] as of this encounter (statuses as of 09/30/2023) Medications Medication Sig Dispensed Refills Start Date End Date Status aspirin 81 MG chewable tabletIndication s:Carotid stenosis, non-symptomatic, bilateral Take 1 Tablet by mouth in the morning. with food.. 100 Tab 5 07/20/2016 Active Acetaminophen 500 MG Oral Tablet Chewable Take by mouth as needed for Pain, Breakthrough. Active Clobetasol Propionate 0.05 % External Ointment (Temovate)Indica tions:Rash and nonspecific skin eruption APPLY TO RASH ON TRUNK AND EXTREMITIES TWICE A DAY NEEDED 120 g 05/14/2022 Active Fluticasone-Salm eterol 250-50 MCG/ACT Inhalation Aerosol [...] EVERY MORNING 90 Capsule 1 09/30/2023 Active Vitamin D3 50 MCG (2000 UT) Oral CapsuleIndicatio ns:Vitamin D deficiency Take 1 Capsule by mouth in the morning. 90 Capsule 1 03/30/2023 Discontinued Hospital, Clinic, or Other Facility Administered Medication Ordered Dose Route Frequency Start Date End Date Status Albuterol Sulfate (Proventil) (2.5 MG/3ML) 0.083% inhalation solution 2.5 mgIndications:Malaise and fatigue,SOB (shortness of breath) on exertion,Light headedness,Chronic diastolic heart failure secondary to coronary artery disease (HCC),LVH (left ventricular hypertrophy) 2.5 mg NEBULIZER ONCE PRN 02/09/2023 02/09/2024 Active documented as of this encounter (statuses as of 09/30/2023) Active Problems Problem Noted Date Diagnosed Date [...] as of this encounter (statuses as of 09/30/2023) Resolved Problems Problem Noted Date Diagnosed Date [...] ICD-10 update of inactive term PURE HYPERCHOLESTEROLEM 10/17/1997/10/2008 Overview: Per Lipid Taxonomy. Menopause 10/14/1997 07/20/2016 FAMILY HX [place]- father and brother 09/11/2019 FAM HX- COLON CANCER: mgm + (2) maternal aunts 09/11/2019 Abdominal pain 07/20/2016 Other osteoporosis without c urrent pathological fracture 07/20/2016 Overview: ICD-10 update of inactive term documented as of this encounter (statuses as of 09/30/2023) Immunizations Name Administration Dates Next Due COVID-19 mRNA, LNP-s, No Pre serve, 2-Dose Series ([employer]) 07/23/2021,06/24/2021,01/06/2021,04/26,04/05/2020 Covid-19 Ad26, Single Dose (Donny/J&J) 04/26/2020,04/05/2020 [...] encounter Miscellaneous Notes * Telephone Encounter - Candido Shaver MD - 09/30/2023 1:34 PM EDTSigned Prescriptions: Disp Refills Vitamin D3 50 MCG (2000 UT) Oral Capsule 90 Cap*1 Sig: TAKE ONE CAPSULE BY MOUTH EVERY MORNING Authorizing Provider: CANDIDO SHAVER * Telephone Encounter - Thea Linares RPh - 09/30/2023 12:57 PM EDT Pending Prescriptions: Disp Refills Vitamin D3 50 MCG (2000 UT) Oral Capsule [*90 Cap*1 Sig: TAKE ONE CAPSULE BY MOUTH EVERY MORNING * Telephone Encounter - Thea Linares RPh - 09/30/2023 12:56 PM EDT [facility] is currently not authorized to approve refills for the pended medication(s) per refill protocol. Please approve if appropriate. Thank you, Alejo QuinteroD, MELANY Clinical Pharmacist [facility] ([facility]) 09/30/23 12:56 PM [phone] documented in this encounter Plan of Treatment Upcoming Encounters Date Type Department Care Team (Late st Contact Info) Description 03/05/2024 3:00 PM EST Office Visit Family Practice [facility] 200 [facility] [place] [address] Paco Spears DO 200 [facility] [place] [address] 06/22/2024 11:20 AM EDT Office Visit Neurology [facility] 200 [facility] [place] [address] Venita Carlson MD 200 [facility] [place] [address] Health Maintenance Due Date Last Done Comments [...] D LEVEL ONCE IN A LIFETIME-USE SMARTSET# [id number] Completed 02/09/2023, 01/20/2022, 10/31/2019, Additional history exists [...] as of this encounter Visit Diagnoses Diagnosis Vitamin D deficiency Unspecified vitamin D deficiency documented in this encounter Care Teams Tennis Court Attendant Relationship Specialty Start Date End Date Paco Spears DO [address] [place] [address] PCP - General Family Medicine 04/22/21 documented as of this encounter
--- OUTSIDE RECORDS SUMMARY | 2023-11-18 04:10 | External Medical Summary | Summary of Care ---
Author Name Unknown Organization [facility] Address [address] [place] [address] Phone [phone] Care Team Providers Care Truck Driver Name Role Phone KevinPaco zaman Primary Care Provider [phone] Reason for Visit * Reason Onset Date Comments Advice 08/02/2023 Re: CPAP Encounter Details Date Type Department Care Team (Late st Contact Info) Description 08/02/2023 [facility] [address] [facility] [place] [address] Suni Garcia DO [address] [facility] [place] [address] Advice (Re: CPAP) Allergies Active Allergy Reactions Criticality Noted Date Comments Acetic Acid 04/14/2021 Heart palpatations Adhesive Tape 08/14/2001 local skin irritation Amoxicillin-Pot Clavulanate Edema Other,Other (Please comment) Medium 11/19/2010 palpitations Chocolate Flavor 12/21/2019 [place] 12/21/2019 Latex Rash High 12/21/2019 Naproxen Other [...] as of this encounter (statuses as of 08/02/2023) Medications Medication Sig Dispensed Refills Start Date [...] as of this encounter (statuses as of 08/02/2023) Active Problems Problem Noted Date Diagnosed Date [...] as of this encounter (statuses as of 08/02/2023) Resolved Problems Problem Noted Date Diagnosed Date [...] Lipid Taxonomy. Menopause 10/14/1997 07/20/2016 FAMILY HX [place]- father and brother 09/11/2019 FAM HX- COLON CANCER: mgm + (2) maternal aunts 09/11/2019 Abdominal pain 07/20/2016 Other osteoporosis without c urrent pathological fracture 07/20/2016 Overview: ICD-10 update of inactive term documented as of this encounter (statuses as of 08/02/2023) Immunizations Name Administration Dates Next Due COVID-19 mRNA, LNP-s, No Pre serve, 2-Dose Series ([employer]) 07/23/2021,06/24/2021,01/06/2021,04/26,04/05/2020 Covid-19 Ad26, Single Dose (Donny/J&J) 04/26/2020,04/05/2020 [...] Tetanus/Diptheria (ADULT) 12/07/1999 TD, Preservative Free 11/19/2010 TDAP (age 11 and older)(Adacel) 05/05/2013 documented as of this encounter Social [...] encounter Miscellaneous Notes * Telephone Encounter - Chantal Gooden OSA - 08/02/2023 2:16 PM EDT Patients called back to say they have made appt with Dentist to nils mouthpiece direction * Telephone Encounter - Shira Robb LPN - 08/02/2023 11:26 AM EDT I spoke with Mr Darrick, who says, "Bottom line, please tell Dr [...] to Dr. Garcia about . Please call [phone] documented in this encounter Plan of Treatment Upcoming Encounters Date Type Department Care Team (Late st Contact Info) Description 10/05/2023 12:40 PM EDT Office Visit Otolaryngology [facility] [address] [address] Russ Granados PA-C [address] [place] [address] 03/05/2024 3:00 PM EST Office Visit Family Practice [facility] [place] [address] Paco Spears DO [address] [facility] [place] [address] 06/22/2024 11:20 AM EDT Office Visit Neurology [facility] [place] [address] Venita Carlson MD 200 [facility] [place] [address] Health Maintenance Due Date Last Done Comments Albumin/Creatinine Ratio 12/28/1953 Zoster Vaccines (1 of 2) 12/28/1983 *BISPHONATE OR OTHER ACCEPTABLE MEDICATION NEEDED FOR OSTEOPOROSIS (REFER TO SMARTSET #[id number]) 10/09/2019 DXA Scan 12/05/2020 12/05/2018, 12/06, 12/31/2015, Additional history exists COVID-19 Vaccine (2022- season) 2022 07/23/2021, 06/24/2021, 01/06/2021, Additional history exists Depression Screening 03/22/2023 03/22/2022 DTaP,Tdap,and Td Vaccines (2 - Td or Tdap) 05/06/2023 05/05/2013, 11/19/2010, 12/07/1999 HbA1c 02/10/2024 02/09/2023 Pneumococcal Vaccine: 65+ Years Completed 01/05/2015, 04/24/2014, 03/04/2005, Additional history exists Influenza Vaccine (FLU shot) Completed 04/2022, 11/23/2021, 11/18/2020, Additional history exists VITAMIN D LEVEL ONCE IN A LIFETIME-USE SMARTSET# [id number] Completed 02/09/2023, 01/20/2022, 10/31/2019, Additional history exists [...] filedocumented as of this encounter Care Teams Truck Driver Relationship Specialty Start Date End Date Paco Spears DO [address] [place] [address] PCP - General Family Medicine 04/22/21 documented as of this encounter
--- OUTSIDE RECORDS SUMMARY | 2023-11-18 04:10 | External Medical Summary | Summary of Care ---
Author Name Unknown Organization [facility] Address [address] [place] [address] Phone [phone] Care Team Providers Care Monorail Charger Operator Name Role Phone KevinPaco zaman Primary Care Provider [phone] Reason for Visit * Reason Onset Date Comments Advice 08/02/2023 Encounter Details Date Type Department Care Team (Late st Contact Info) Description 08/02/2023 Telephone [facility] [address] [place] [address] Suni Garcia DO [address] [place] [facility] [address] Advice Allergies Active Allergy Reactions Criticality Noted Date Comments Acetic Acid 04/14/2021 Heart palpatations Adhesive Tape 08/14/2001 local skin irritation Amoxicillin-Pot Clavulanate Edema Other,Other (Please comment) Medium 11/19/2010 palpitations Chocolate Flavor 12/21/2019 [place] 12/21/2019 Latex Rash High 12/21/2019 Naproxen Other [...] Lipid Taxonomy. Menopause 10/14/1997 07/20/2016 FAMILY HX [place]- father and brother 09/11/2019 FAM HX- COLON CANCER: mgm + (2) maternal aunts 09/11/2019 Abdominal pain 07/20/2016 Other osteoporosis without c urrent pathological fracture 07/20/2016 Overview: ICD-10 update of inactive term documented as of this encounter (statuses as of 08/02/2023) Immunizations Name Administration Dates Next Due COVID-19 mRNA, LNP-s, No Pre serve, 2-Dose Series ([employer]) 07/23/2021,06/24/2021,01/06/2021,04/26,04/05/2020 Covid-19 Ad26, Single Dose (Donny/J&J) 04/26/2020,04/05/2020 [...] Preserve, IM 12/05/2018,12/24/2016,12/06/2015 TD, Preservative Free 11/19/2010 TDAP (age 9 [...] to Dr. Garcia about . Please call [phone] documented in this encounter Plan of Treatment Upcoming Encounters Date Type Department Care Team (Late st Contact Info) Description 10/05/2023 12:40 PM EDT Office Visit Otolaryngology [facility] [address] [place] [address] Russ Granados PA-C [address] [place] [address] 03/05/2024 3:00 PM EST Office Visit Family Practice [facility] [address] [facility] [place] [address] Paco Spears, [address] [facility] [place] [address] 06/22/2024 11:20 AM EDT Office Visit Neurology [facility] [address] [place] [address] Venita Carlson MD [address] [place] [address] Health Maintenance Due Date Last Done Comments [...] D LEVEL ONCE IN A LIFETIME-USE SMARTSET# [id number] Completed 02/09/2023, 01/20/2022, 10/31/2019, Additional history exists [...] filedocumented as of this encounter Care Teams Monorail Charger Operator Relationship Specialty Start Date End Date Paco Spears DO [address] [place] [address] PCP - General Family Medicine 04/22/21 documented as of this encounter
--- OUTSIDE RECORDS SUMMARY | 2023-11-18 04:10 | External Medical Summary | Summary of Care ---
Author Name Unknown Organization [facility] Address [address] [place] [address] Phone [phone] Care Team Providers Care Relay Man Name Role Phone KevinPaco zaman Primary Care Provider [phone] Reason for Visit * Reason Onset Date Comments Advice 08/02/2023 Encounter Details Date Type Department Care Team (Late st Contact Info) Description 08/02/2023 Telephone [facility] [address] [facility] [place] [address] Suni Garcia DO [address] [facility] [place] [address] Advice Allergies Active Allergy Reactions Criticality Noted Date Comments Acetic Acid 04/14/2021 Heart palpatations Adhesive Tape 08/14/2001 local skin irritation Amoxicillin-Pot Clavulanate Edema Other,Other (Please comment) Medium 11/19/2010 palpitations Chocolate Flavor 12/21/2019 [place] 12/21/2019 Latex Rash High 12/21/2019 Naproxen Other [...] Lipid Taxonomy. Menopause 10/14/1997 07/20/2016 FAMILY HX [place]- father and brother 09/11/2019 FAM HX- COLON CANCER: mgm + (2) maternal aunts 09/11/2019 Abdominal pain 07/20/2016 Other osteoporosis without c urrent pathological fracture 07/20/2016 Overview: ICD-10 update of inactive term documented as of this encounter (statuses as of 08/02/2023) Immunizations Name Administration Dates Next Due COVID-19 mRNA, LNP-s, No Pre serve, 2-Dose Series (SpeechTrans) 07/23/2021,06/24/2021,01/06/2021,04/26,04/05/2020 Covid-19 Ad26, Single Dose (Donny/J&J) 04/26/2020,04/05/2020 [...] 11:26 AM EDT I spoke with Mr Hollingsworth, who says, "Bottom line, please tell Dr [...] to Dr. Garcia about . Please call [phone] documented in this encounter Plan of Treatment Upcoming Encounters Date Type Department Care Team (Late st Contact Info) Description 10/05/2023 12:40 PM EDT Office Visit Otolaryngology [facility] [address] [address] Russ Granados PA-C [address] [place] [address] 03/05/2024 3:00 PM EST Office Visit Family Practice [facility] [address] [place] [address] Paco Spears DO [address] [place] [address] 06/22/2024 11:20 AM EDT Office Visit Neurology [facility] [address] [place] [address] Venita Carlson MD [address] [facility] [place] [place] [address] Health Maintenance Due Date Last Done Comments [...] D LEVEL ONCE IN A LIFETIME-USE SMARTSET# [id number] Completed 02/09/2023, 01/20/2022, 10/31/2019, Additional history exists [...] filedocumented as of this encounter Care Teams Relay Man Relationship Specialty Start Date End Date Paco Spears DO [address] [place] [address] PCP - General Family Medicine 04/22/21 documented as of this encounter
--- OUTSIDE RECORDS SUMMARY | 2023-11-18 04:10 | External Medical Summary | Summary of Care ---
Author Name Unknown Organization [facility] Address [address] [place] [address] Phone [phone] Care Team Providers Care Residential Interior Designer Name Role Phone KevinPaco zaman Primary Care Provider [phone] Reason for Visit * Reason Onset Date Comments Advice 08/02/2023 Re: CPAP Encounter Details Date Type Department Care Team (Late st Contact Info) Description 08/02/2023 Telephone [facility] [address] [facility] [place] [address] Suni Garcia DO [address] [facility] [place] [address] Advice (Re: CPAP) Allergies Active Allergy Reactions Criticality Noted Date Comments Acetic Acid 04/14/2021 Heart palpatations Adhesive Tape 08/14/2001 local skin irritation Amoxicillin-Pot Clavulanate Edema Other,Other (Please comment) Medium 11/19/2010 palpitations Chocolate Flavor 12/21/2019 [place] 12/21/2019 Latex Rash High 12/21/2019 Naproxen Other [...] Lipid Taxonomy. Menopause 10/14/1997 07/20/2016 FAMILY HX [place]- father and brother 09/11/2019 FAM HX- COLON CANCER: mgm + (2) maternal aunts 09/11/2019 Abdominal pain 07/20/2016 Other osteoporosis without c urrent pathological fracture 07/20/2016 Overview: ICD-10 update of inactive term documented as of this encounter (statuses as of 08/02/2023) Immunizations Name Administration Dates Next Due COVID-19 mRNA, LNP-s, No Pre serve, 2-Dose Series ([employer]) 07/23/2021,06/24/2021,01/06/2021,04/26,04/05/2020 Covid-19 Ad26, Single Dose (Donny/J&J) 04/26/2020,04/05/2020 [...] to Dr. Garcia about . Please call [phone] documented in this encounter Plan of Treatment Upcoming Encounters Date Type Department Care Team (Late st Contact Info) Description 10/05/2023 12:40 PM EDT Office Visit Otolaryngology [facility] [address] [address] Russ Granados PA-C [address] [place] [address] 03/05/2024 3:00 PM EST Office Visit Family Practice [facility] [address] [place] [address] Paco Spears, DO [address] [place] [address] 06/22/2024 11:20 AM EDT Office Visit Neurology [facility] [address] [place] [address] Venita Carlson MD [address] [facility] [place] [address] Health Maintenance Due Date Last Done Comments [...] D LEVEL ONCE IN A LIFETIME-USE SMARTSET# [id number] Completed 02/09/2023, 01/20/2022, 10/31/2019, Additional history exists [...] filedocumented as of this encounter Care Teams Residential Interior Designer Relationship Specialty Start Date End Date Paco Spears DO [address] [place] [address] [address] PCP - General Family Medicine 04/22/21 documented as of this encounter
--- OUTSIDE RECORDS SUMMARY | 2023-11-18 04:10 | External Medical Summary | Summary of Care ---
Author Name Unknown Organization [facility] Address [address] [place] [address] Phone [phone] Care Team Providers Care Security Control Center Operator Name Role Phone KevinPaco zaman Primary Care Provider [phone] Reason for Visit * Reason Onset Date Comments Advice 08/02/2023 Re: CPAP Encounter Details Date Type Department Care Team (Late st Contact Info) Description 08/02/2023 [facility]phone [facility] [address] [facility] [place] [address] Suni Garcia DO [address] [place] [address] Advice (Re: CPAP) Allergies Active Allergy Reactions Criticality Noted Date Comments Acetic Acid 04/14/2021 Heart palpatations Adhesive Tape 08/14/2001 local skin irritation Amoxicillin-Pot Clavulanate Edema Other,Other (Please comment) Medium 11/19/2010 palpitations Chocolate Flavor 12/21/2019 [place] 12/21/2019 Latex Rash High 12/21/2019 Naproxen Other [...] Lipid Taxonomy. Menopause 10/14/1997 07/20/2016 FAMILY HX [place]- father and brother 09/11/2019 FAM HX- COLON CANCER: mgm + (2) maternal aunts 09/11/2019 Abdominal pain 07/20/2016 Other osteoporosis without c urrent pathological fracture 07/20/2016 Overview: ICD-10 update of inactive term documented as of this encounter (statuses as of 08/05/2023) Immunizations Name Administration Dates Next Due COVID-19 mRNA, LNP-s, No Pre serve, 2-Dose Series (Züm XR) 07/23/2021,06/24/2021,01/06/2021,04/26,04/05/2020 Covid-19 Ad26, Single Dose (Donny/J&J) 04/26/2020,04/05/2020 [...] encounter Miscellaneous Notes * Telephone Encounter - Suni Garcia DO [...] who says, "Bottom line, please tell Dr Garcia Tanisha doesn't want to use theCPAP or oral device." I talked with him about health risks associated with untreated KIM, but he said they are "aware and willing to take the risk." * Telephone Encounter - Chantal Gooden OSA - 08/02/2023 10:43 AM EDT Patients would like to talk to Dr. Garcia about . Please call [phone] documented in this encounter Plan of Treatment Upcoming Encounters Date Type Department Care Team (Late st Contact Info) Description 10/05/2023 12:40 PM EDT Office Visit Otolaryngology [facility] [address] [address] Russ Granados PA-C [address] [place] [address] 03/05/2024 3:00 PM EST Office Visit Family Practice [facility] [address] [facility] [place] [address] Paco Spears DO [address] [facility] [place] [address] 06/22/2024 11:20 AM EDT Office Visit Neurology [facility] [address] [facility] [place] [address] Venita Carlson MD [address] [facility] [place] [address] Health Maintenance Due Date Last Done Comments [...] D LEVEL ONCE IN A LIFETIME-USE SMARTSET# [id number] Completed 02/09/2023, 01/20/2022, 10/31/2019, Additional history exists [...] filedocumented as of this encounter Care Teams Security Control Center Operator Relationship Specialty Start Date End Date Paco Spears DO [address] [place] [address] PCP - General Family Medicine 04/22/21 documented as of this encounter
--- OUTSIDE RECORDS SUMMARY | 2023-11-18 04:10 | External Medical Summary | Summary of Care ---
Author Name Unknown Organization [facility] Address [address] [place] [address] Phone [phone] Care Team Providers Care Aquatic Performer Name Role Phone KevinPaco zaman Primary Care Provider [phone] Reason for Visit * Reason Onset Date Comments Advice 08/02/2023 Re: CPAP Encounter Details Date Type Department Care Team (Late st Contact Info) Description 08/02/2023 Telephone [facility] [address] [facility] [place] [address] Suni Garcia DO [address] [facility] [place] [address] Advice (Re: CPAP) Allergies Active Allergy Reactions Criticality Noted Date Comments Acetic Acid 04/14/2021 Heart palpatations Adhesive Tape 08/14/2001 local skin irritation Amoxicillin-Pot Clavulanate Edema Other,Other (Please comment) Medium 11/19/2010 palpitations Chocolate Flavor 12/21/2019 [place] 12/21/2019 Latex Rash High 12/21/2019 Naproxen Other [...] Lipid Taxonomy. Menopause 10/14/1997 07/20/2016 FAMILY HX [place]- father and brother 09/11/2019 FAM HX- COLON CANCER: mgm + (2) maternal aunts 09/11/2019 Abdominal pain 07/20/2016 Other osteoporosis without c urrent pathological fracture 07/20/2016 Overview: ICD-10 update of inactive term documented as of this encounter (statuses as of 08/02/2023) Immunizations Name Administration Dates Next Due COVID-19 mRNA, LNP-s, No Pre serve, 2-Dose Series (POKKT) 07/23/2021,06/24/2021,01/06/2021,04/26,04/05/2020 Covid-19 Ad26, Single Dose (Donny/J&J) 04/26/2020,04/05/2020 [...] to Dr. Garcia about . Please call [phone] documented in this encounter Plan of Treatment Upcoming Encounters Date Type Department Care Team (Late st Contact Info) Description 10/05/2023 12:40 PM EDT Office Visit Otolaryngology [facility] [address] [address] Russ Granados PA-C [address] [place] [address] 03/05/2024 3:00 PM EST Office Visit Family Practice [facility] [address] [facility] [place] [address] Paco Spears DO [address] [facility] [place] [address] 06/22/2024 11:20 AM EDT Office Visit Neurology [facility] [address] [facility] [place] [address] Venita Carlson MD [address] [facility] [place] [address] Health Maintenance Due Date Last Done Comments [...] D LEVEL ONCE IN A LIFETIME-USE SMARTSET# [id number] Completed 02/09/2023, 01/20/2022, 10/31/2019, Additional history exists [...] filedocumented as of this encounter Care Teams Aquatic Performer Relationship Specialty Start Date End Date Paco Spears DO [address] [place] [address] PCP - General Family Medicine 04/22/21 documented as of this encounter
--- OUTSIDE RECORDS SUMMARY | 2023-11-18 04:11 | External Medical Summary | Summary of Care ---
Author Name Unknown Organization [facility] Address [address] [place] [address] Phone [phone] Care Team Providers Care Side Panel Hanger Name Role Phone KevinPaco zaman Primary Care Provider [phone] Reason for Referral * Evaluate & Treat - Unlimited Visits (Within 30 days (routine)) - Authorized Specialty Diagnoses / Procedures Referred By Sally solitario Referred To Contact Neurology Diagnoses Parkinsonism, unspecified Parkinsonism type (HCC) Suni Garcia DO [address] [employer] [place] [address] Referral ID Status Reason Start Date Expiration Date Visits Requested Visits Authorized [id number] Authorized Specialty Services Required 06/10/2023 999 999 Question Answer Referral Priority Within 30 days (routine) Where should this appointment be scheduled? [facility] - Approved by Dr. Carlson This patient already has care established with Neurology. Do not place this order. Please use Ask A Doc to expedite care. Acknowledge Is this referral being placed for insurance purposes ONLY No, patient needs appointment [facility] NEUROLOGY REFERRAL QUESTIONS Movement Encounter Details Date Type Department Care Team (Late st Contact Info) Description 06/10/2023 Orders Only Sleep Disorders Ctr [facility]dy [facility] [address] [place] [phone] Suni Garcia DO [address] [place] [address] Parkinsonism, unspecified Parkinsonism type (HCC)*; KIM (obstructive sleep apnea) Allergies Active Allergy Reactions Criticality Noted Date Comments Acetic Acid 04/14/2021 Heart palpatations Adhesive Tape 08/14/2001 local skin irritation Amoxicillin-Pot Clavulanate Edema Other,Other (Please comment) Medium 11/19/2010 palpitations Chocolate Flavor 12/21/2019 [place] 12/21/2019 Latex Rash High 12/21/2019 Naproxen Other [...] as of this encounter (statuses as of 06/10/2023) Medications Medication Sig Dispensed Refills Start Date End Date Status aspirin 81 MG chewable tabletIndications:C arotid stenosis, non-symptomatic, bilateral Take 1 Tablet by mouth in the morning. with food.. 100 Tab 5 07/20/2016 Active Acetaminophen 500 MG Oral Tablet Chewable Take by mouth as needed for Pain, Breakthrough. 0 Active Clobetasol Propionate 0.05 % External Ointment (Temovate)Indicatio ns:Rash and nonspecific skin eruption APPLY TO RASH ON TRUNK AND EXTREMITIES TWICE A DAY NEEDED 120 g 0 05/14/2022 Active Omeprazole 20 MG Oral Capsule Delayed Release (PriLOSEC)Indicatio ns:Gastroesophageal reflux disease without esophagitis Take 1 Capsule by mouth in the morning. 1 hour before the first meal of the day, and before bedtime on empty stomach. For acid/chronic cough. 60 Capsule 5 08/05/2022 Active Fluticasone-Salmete rol 250-50 MCG/ACT Inhalation Aerosol [...] EVERY MORNING 90 Tablet 3 01/10/2023 Active Myrbetriq 50 MG Oral Tablet Extended Release 24 Hour (Mirabegron ER) Take 1 Tablet by mouth in the morning. 90 Tablet 3 01/31/2023 Active Vitamin D3 50 MCG (2000 UT) Oral CapsuleIndications: Vitamin D deficiency Take 1 Capsule by mouth in the morning. 90 Capsule 1 03/30/2023 Active hydroCHLOROthiazide 25 MG Oral Tablet (Hydrodiuril)Indica tions:HTN, goal below 130/80 Take 1 Tablet by mouth in the morning. 30 Tablet 11 03/30/2023 Active Hospital, Clinic, or Other Facility Administered [...] as of this encounter (statuses as of 06/10/2023) Active Problems Problem Noted Date Diagnosed Date [...] as of this encounter (statuses as of 06/10/2023) Resolved Problems Problem Noted Date Diagnosed Date [...] Lipid Taxonomy. Menopause 10/14/1997 07/20/2016 FAMILY HX [place]- father and brother 09/11/2019 FAM HX- COLON CANCER: mgm + (2) maternal aunts 09/11/2019 Abdominal pain 07/20/2016 Other osteoporosis without c urrent pathological fracture 07/20/2016 Overview: ICD-10 update of inactive term documented as of this encounter (statuses as of 06/10/2023) Immunizations Name Administration Dates Next Due COVID-19 mRNA, LNP-s, No Pre serve, 2-Dose Series ([place]) 07/23/2021,06/24/2021,01/06/2021,04/26,04/05/2020 Covid-19 Ad26, Single Dose ([employer] 04/26/2020,04/05/2020 Pneumococcal Conjugate Vacc, 13 Valent (Prevnar) [...] Care Team (Late st Contact Info) Description 07/06/2023 11:05 AM EDT Office Visit Urogynecology Jayde Merchant [address] [place] [address] Juan Pablo Moss MD [address] [place] [address] Nurse Mayur Urotony Hayes [address] [place] [address] 07/14/2023 11:20 AM EDT Office Visit Neurology [facility] [address] [place] [address] Venita Carlson MD [address] [place] [address] 07/29/2023 11:00 AM EDT PulmDiagnostic Sleep Lab Freddy Merchant [address] [place] [address] Mayur, Sleep Med Home Study Freddy [address] [place] [address] 08/30/2023 2:00 PM EDT [facility] [address] [place] [address] Suni Garcia, [address] [place] [address] Scheduled Referrals Name Type Priority Associated Diagnoses Orde r Schedule NEUROLOGY REFERRAL OP Referral Within 30 days (routine) Parkinsonism, unspecified Parkinsonism type (HCC) Ordered: 06/10/2023 Health Maintenance Due Date Last Done Comments [...] D LEVEL ONCE IN A LIFETIME-USE SMARTSET# [id number] Completed 02/09/2023, 01/20/2022, 10/31/2019, Additional history exists [...] as of this encounter Visit Diagnoses Diagnosis Parkinsonism, unspecified Parkinsonism type (HCC)- Primary KIM (obstructive sleep apnea) Obstructive sleep apnea (adult) (pediatric) documented in this encounter Care Teams Side Panel Hanger Relationship Specialty Start Date End Date Paco Spears DO [facility] [place] [address] PCP - General Family Medicine 04/22/21 documented as of this encounter
--- OUTSIDE RECORDS SUMMARY | 2023-11-18 04:11 | External Medical Summary | Summary of Care ---
Author Name Unknown Organization [facility] Address [address] [place] [address] Phone [phone] Care Team Providers Care Hand Woodworking Sander Name Role Phone KevinPaco zaman Primary Care Provider [phone] Reason for Visit * Reason Comments Follow Up Encounter Details Date Type Department Care Team (Late st Contact Info) Description 07/06/2023 11:05 AM EDT Office Visit Urogynecology Jayde Merchant [address] [place] [address] Juan Pablo Moss MD [address] [place] [address] Nurse tEhel Merchant [address] [place] [address] Mixed incontinence urge and stress*; Atrophic vaginitis; Uterovaginal prolapse, incomplete; Cystocele, midline Allergies Active Allergy Reactions Criticality Noted Date Comments Acetic Acid 04/14/2021 Heart palpatations Adhesive Tape 08/14/2001 local skin irritation Amoxicillin-Pot Clavulanate Edema Other,Other (Please comment) Medium 11/19/2010 palpitations Chocolate Flavor 12/21/2019 [place] 12/21/2019 Latex Rash High 12/21/2019 Naproxen Other [...] as of this encounter (statuses as of 07/06/2023) Medications Medication Sig Dispensed Refills Start Date [...] Omeprazole 20 MG Oral Capsule Delayed Release (PriLOSEC)Indicat ions:Gastroesopha geal reflux disease without esophagitis Take 1 Capsule by mouth in the morning. 1 hour before the first meal of the day, and before bedtime on empty stomach. For acid/chronic cough. 60 Capsule 5 08/05/2022 Active Additional Information Patient not taking.Reported on 07/06/2023 Fluticasone-Salme terol 250-50 MCG/ACT Inhalation Aerosol Powder Breath Activated (Advair Diskus) Inhale 1 Puff by mouth in the morning and 1 Puff before bedtime. 60 Each 5 10/01/2022 Active Additional Information Patient not taking.Reported on 07/06/2023 ProAir HFA 108 (90 Base) MCG/ACT Inhalation [...] 3 01/10/2023 Active Vitamin D3 50 MCG (1999) Oral CapsuleIndication s:Vitamin D deficiency Take 1 Capsule by mouth in the morning. 90 Capsule 1 03/30/2023 Active hydroCHLOROthiazi de 25 MG Oral Tablet (Hydrodiuril)Nandini cations:HTN, goal below 130/80 Take 1 Tablet by mouth in the morning. 30 Tablet 11 03/30/2023 Active Myrbetriq 50 MG Oral Tablet Extended Release 24 Hour (Mirabegron ER) Take 1 Tablet by mouth in the morning. 90 Tablet 3 07/06/2023 Active Myrbetriq 50 MG Oral Tablet Extended Release 24 Hour (Mirabegron ER) Take 1 Tablet by mouth in the morning. 90 Tablet 3 01/31/2023 Discontinue d(Refill) Hospital, Clinic, or Other Facility [...] as of this encounter (statuses as of 07/06/2023) Active Problems Problem Noted Date Diagnosed Date [...] as of this encounter (statuses as of 07/06/2023) Resolved Problems Problem Noted Date Diagnosed Date [...] Lipid Taxonomy. Menopause 10/14/1997 07/20/2016 FAMILY HX [place]- father and brother 09/11/2019 FAM HX- COLON CANCER: mgm + (2) maternal aunts 09/11/2019 Abdominal pain 07/20/2016 Other osteoporosis without c urrent pathological fracture 07/20/2016 Overview: ICD-10 update of inactive term documented as of this encounter (statuses as of 07/06/2023) Immunizations Name Administration Dates Next Due COVID-19 mRNA, LNP-s, No Pre serve, 2-Dose Series (Power-One) 07/23/2021,06/24/2021,01/06/2021,04/26,04/05/2020 Covid-19 Ad26, Single Dose (DogVacay/[employer]) 04/26/2020,04/05/2020 Pneumococcal Conjugate Vacc, 13 Valent (Prevnar) [...] Sign Reading Time Taken Comments Blood Pressure 122/78 07/06/2023 11:08 AM EDT Pulse - - Temperature - - Respiratory Rate - - Oxygen Saturation - - Inhaled Oxygen Concentration - - Weight - - Height - - Body Mass Index - - documented in this encounter Progress Notes * Juan Pablo Moss MD - 07/06/2023 10:52 AM EDT Tanisha Hollingsworth presents for a follow up visit at [facility]. She was previously seen for N39.46 Mixed incontinence urge and stress (primary encounter diagnosis) N95.2 Atrophic vaginitis N81.2 Uterovaginal prolapse, incomplete N81.11 Cystocele, midline Since last seen, Mrs. Hollingsworth is practicing her Kegel exercises daily and taking Myrbetriq 50 mg daily. No side effects reported. Urinary: excellent urinary control. No incontinence. Nocturia just once a night. Daytime voiding 4-5 times a day. Emptying without difficulty. No dysuria. GI: nl BM Cdl Service Technician: no prolapse symptoms Overall is pleased with current treatment plan and wishes to continue current treatment. Concerns: none Allergies: Review of patient's allergies indicates: Allergen Reactions Latex Rash Sulfa Antibiotics Heart palpatations Amoxicillin-Pot Clavulanate Edema Other and Other (Please comment) palpitations Acetic Acid Heart palpatations Adhesive Tape local skin irritation Chocolate Flavor [place] Oxycodone-Acetaminophen Other reaction(s): Irregular Heart Rate Peanut Oil Percocet Very sick to stomach Prednisone Other (Please comment) Heart racing per pt Procaine Other reaction(s): HEART RACING Salicylates GI upset Tramadol Stomach upset, palpitations Naproxen Other (Please comment) Palpitations, stomach upset, and "nervousness" Oxycodone Other reaction(s): RACING HEART Penicillins Other reaction(s): NAUSEA, RASH Active Medications: Current Outpatient Medications Medication Sig Dispense Refill aspirin 81 MG chewable tablet Take 1 Tablet by mouth in the morning. with food.. 100 Tab 5 Acetaminophen 500 MG Oral Tablet Chewable Take by mouth as needed for Pain, Breakthrough. Clobetasol Propionate 0.05 % External Ointment (Temovate) APPLY TO RASH ON TRUNK AND EXTREMITIES TWICE A DAY NEEDED 120 g 0 Omeprazole 20 MG Oral Capsule Delayed Release (PriLOSEC) Take 1 Capsule by mouth in the morning. 1 hour before the first meal of the day, and before bedtime on empty stomach. For acid/chronic cough. 60 Capsule 5 Fluticasone-Salmeterol 250-50 MCG/ACT Inhalation Aerosol Powder Breath [...] BY MOUTH EVERY MORNING 90 Tablet 3 Myrbetriq 50 MG Oral Tablet Extended Release 24 Hour (Mirabegron ER) Take 1 Tablet by mouth in the morning. 90 Tablet 3 Vitamin D3 50 MCG (2000 UT) Oral Capsule Take 1 Capsule by mouth in the morning. 90 Capsule 1 hydroCHLOROthiazide 25 MG Oral Tablet (Hydrodiuril) Take 1 Tablet by mouth in the morning. 30 Tablet 11 Current Facility-Administered Medications Medication Dose Route Frequency Provider Last Rate Last Admin Albuterol Sulfate (Proventil) (2.5 MG/3ML) 0.083% inhalation solution 2.5 mg 2.5 mg Nebulizer Once PRN Paco Spears DO 2.5 mg at 07/17/23 1136 Albuterol Sulfate (Proventil) (2.5 MG/3ML) 0.083% inhalation solution 2.5 mg 2.5 mg Nebulizer Once PRN Paco Spears DO ROS: No Change since previous visit Impression: This is a 87 year old with Mixed incontinence urge and stress (Primary) Atrophic vaginitis Uterovaginal prolapse, incomplete Cystocele, midline Symptoms well controlled. Will renew the Myrbetriq prescription and continue Kegel exercises. All questions answered Follow up in 1 year. I spent a total of 20 minutes on the date of service in preparation, delivery, and documentation ofthe care provided to Tanisha Hollingsworth excluding any time spent in the performance of separately billed services. Juan Pablo Moss MD 07/06/2023 10:52 AM documented in this encounter Nursing Notes * Tammi Roth MED ASSIST - 07/06/2023 11:17 AM EDT Medication follow up Once overnight. Frequency 4-5 times a day. documented in this encounter Plan of Treatment Upcoming Encounters Date Type Department Care Team (Late st Contact Info) Description 07/26/2023 3:40 PM EDT [facility] [place] [address] [place] [phone] Suni Garcia DO [address] [place] [address] 06/22/2024 11:20 AM EDT Office Visit Neurology [facility] Gordillo [place] [address] [place] [address] Venita Carlson MD [address] [facility] [place] [address] Health Maintenance Due Date Last Done Comments [...] D LEVEL ONCE IN A LIFETIME-USE SMARTSET# [id number] Completed 02/09/2023, 01/20/2022, 10/31/2019, Additional history exists [...] as of this encounter Visit Diagnoses Diagnosis Mixed incontinence urge and stress- Primary Mixed incontinence urge and stress (male)(female) Atrophic vaginitis Postmenopausal atrophic vaginitis Uterovaginal prolapse, incomplete Cystocele, midline documented in this encounter Care Teams Hand Woodworking Sander Relationship Specialty Start Date End Date Paco Spears DO [address] [place] [address] PCP - General Family Medicine 04/22/21 documented as of this encounter
--- OUTSIDE RECORDS SUMMARY | 2023-11-18 04:11 | External Medical Summary | Summary of Care ---
Author Name Unknown Organization [facility] Address [address] [place] [address] Phone [phone] Care Team Providers Care Document Manager Name Role Phone KevinPaco zaman Primary Care Provider [phone] Reason for Visit * Reason Onset Date Comments Scheduling 05/31/2023 hst Encounter Details Date Type Department Care Team (Late st Contact Info) Description 05/31/2023 Telephone Sleep Disorders Ctr [facility] [address] [place] [phone] Services, Scheduling [address] [place] [address] Scheduling (hst) Allergies Active Allergy Reactions Criticality Noted Date Comments Acetic Acid 04/14/2021 Heart palpatations Adhesive Tape 08/14/2001 local skin irritation Amoxicillin-Pot Clavulanate Edema Other,Other (Please comment) Medium 11/19/2010 palpitations Chocolate Flavor 12/21/2019 [place] 12/21/2019 Latex Rash High 12/21/2019 Naproxen Other [...] as of this encounter (statuses as of 06/22/2023) Medications Medication Sig Dispensed Refills Start Date [...] 3 01/31/2023 Active Vitamin D3 50 MCG (1999 UT) [...] as of this encounter (statuses as of 06/22/2023) Active Problems Problem Noted Date Diagnosed Date [...] as of this encounter (statuses as of 06/22/2023) Resolved Problems Problem Noted Date Diagnosed Date Resolved Date Carpal tunnel syndrome 12/13/201809/10 ADVANCE DIRECTIVE INFORMATION 08/25/2018 09/11/2019 Overview: Pt accepted brochure Scanned 2014 Vaginal irritation from pessary 08/25/2018 03/22/2022 Vaginal erosion secondary to pessary use 08/04/2018 05/21/2020 Stress incontinence 08/04/2018 09/11/19 Nocturnal enuresis 08/04/2018 0 Papilloma of vestibule of nose 11/18/2016 09/11/2019 Acute bronchitis, complicated 11/11/2009 07/20/2016 Dyslipidemia, goal to be determined 02/11/2009 01/25/2013 Overview: Per Lipid Taxonomy. Cystocele, midline 10/29/2004 0 Headache 10/17/1997 07/20/2016 Overview: ICD-10 update of inactive term PURE HYPERCHOLESTEROLEM 10/17/199710/2008 Overview: Per Lipid Taxonomy. Menopause 10/14/1997 07/20/2016 FAMILY HX [place]- father and brother 09/11/2019 FAM HX- COLON CANCER: mgm + (2) maternal aunts 09/11/2019 Abdominal pain 07/20/2016 Other osteoporosis without c urrent pathological fracture 07/20/2016 Overview: ICD-10 update of inactive term documented as of this encounter (statuses as of 06/22/2023) Immunizations Name Administration Dates Next Due COVID-19 mRNA, LNP-s, No Pre serve, 2-Dose Series (Tattoodo) 07/23/2021,06/24/2021,01/06/2021,04/26,04/05/2020 Covid-19 Ad26, Single Dose (Donny/J&J) 04/26/2020,04/05/2020 [...] encounter Miscellaneous Notes * Telephone Encounter - Latisha Dawson OSA - 06/22/2023 10:50 AM EDT Pt cx hst * Telephone Encounter - Latisha Dawson OSA - 06/01/2023 2:11 PM EDT Attempted again. No dial tone or answer. * Telephone Encounter - Latisha Dawson OSA - 06/01/2023 9:17 AM EDT Attempted to contact patient's at his phone number. Phone doesn't ring. I will attempted tocontact again later. * Telephone Encounter - Thea Proctor OSA - 05/31/2023 5:27 PM EDT Pt's Willy called in wanting to reschedule HST schedule for 524. Requesting a return callas soon as possible. Please Advise. documented in this encounter Plan of Treatment Upcoming Encounters Date Type Department Care Team (Late st Contact Info) Description 06/23/2023 9:20 AM EDT Office Visit Neurology [facility]ij[facility] Gordillo [place] [address] [place] [address] Venita Carlson MD 200 [place] [address] 07/06/2023 11:05 AM EDT Office Visit Urogynecology Jayde eMrchant [address] [facility] [place] [address] Juan Pablo Moss MD [address] [place] [address] Nurse Ethel Merchant [address] [place] [address] 08/30/2023 2:00 PM EDT Office Visit Sleep Disorders Ctr [facility]dy [facility] [place] [facility] [place] [phone] Suni Garcia DO [address] [place] [address] Health Maintenance Due Date Last Done Comments [...] D LEVEL ONCE IN A LIFETIME-USE SMARTSET# [id number] Completed 02/09/2023, 01/20/2022, 10/31/2019, Additional history exists [...] filedocumented as of this encounter Care Teams Document Manager Relationship Specialty Start Date End Date Paco Spears DO [address] [place] [address] PCP - General Family Medicine 04/22/21 documented as of this encounter
--- OUTSIDE RECORDS SUMMARY | 2023-11-18 04:11 | External Medical Summary | Summary of Care ---
Author Name Unknown Organization [facility] Address [address] [place] [address] Phone [phone] Care Team Providers Care Ocean Export Agent Name Role Phone Paco Spears DO Primary Care Provider [phone] Reason for Visit * Reason Comments Dizziness Patient would like t o discuss test results due to continuation of dizziness. 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 (HCC); Severe obesity with body mass index (BMI) of 35.0 to 39.9 with serious comorbidity (HCC); Acute on chronic diastolic congestive heart failure (HCC) Allergies Active Allergy Reactions Criticality Noted Date Comments Acetic Acid 04/14/2021 Heart palpatations Adhesive Tape 08/14/2001 local skin irritation Amoxicillin-Pot Clavulanate Edema Other,Other (Please comment) Medium 11/19/2010 palpitations Chocolate Flavor 12/21/2019 [place] 12/21/2019 Latex Rash High 12/21/2019 Naproxen Other [...] as of this encounter (statuses as of 07/29/2023) Medications Medication Sig Dispensed Refills Start Date [...] the morning. 90 Capsule 1 03/30/2023 Active hydroCHLOROthiaz ananda 25 MG Oral Tablet [...] for Dizziness. 90 Tablet 3 07/29/2023 Active Omeprazole 20 MG Oral Capsule Delayed Release (PriLOSEC)Indica tions:Gastroesop hageal reflux disease without esophagitis Take 1 Capsule by mouth in the morning. 1 hour before the first meal of the day, and before bedtime on empty stomach. For acid/chronic cough. 60 Capsule 5 08/05/2022 Discontinued Hospital, Clinic, or Other Facility Administered [...] as of this encounter (statuses as of 07/29/2023) Active Problems Problem Noted Date Diagnosed Date [...] as of this encounter (statuses as of 07/29/2023) Resolved Problems Problem Noted Date Diagnosed Date [...] Lipid Taxonomy. Menopause 10/14/1997 07/20/2016 FAMILY HX [place]- father and brother 09/11/2019 FAM HX- COLON CANCER: mgm + (2) maternal aunts 09/11/2019 Abdominal pain 07/20/2016 Other osteoporosis without c urrent pathological fracture 07/20/2016 Overview: ICD-10 update of inactive term documented as of this encounter (statuses as of 07/29/2023) Immunizations Name Administration Dates Next Due COVID-19 mRNA, LNP-s, No Pre serve, 2-Dose Series (ByteShield) 07/23/2021,06/24/2021,01/06/2021,04/26,04/05/2020 Covid-19 Ad26, Single Dose (Appurify/J&J) 04/26/2020,04/05/2020 Pneumococcal Conjugate Vacc, 13 Valent (Prevnar) [...] Sign Reading Time Taken Comments Blood Pressure 122/64 07/29/2023 1:29 PM EDT Pulse 76 07/29/2023 1:29 PM EDT Temperature 37 C (98.6 F) 07/29/2023 1:29 PM EDT Respiratory Rate - - Oxygen Saturation 95% 07/29/2023 1:29 PM EDT Inhaled Oxygen Concentration - - Weight 88.4 kg (194 lb 12.8 oz) 07/29/2023 1:29 PM EDT Height 152.4 cm (5') 07/29/2023 1:29 PM EDT Body Mass Index 38.04 07/29/2023 1:29 PM EDT documented in this encounter Progress Notes * Paco Spears, - 07/29/2023 2:03 PM EDT Subjective: Tanisha Hollingsworth is a 87 year old female. Chief Complaint Patient presents with Dizziness Patient would like to discuss test results due to continuation of dizziness. HPI: PT here for follow-up of dizziness. We discussed testing we've done, specialist she's seen, and what neurology last said. We discussed her sleep apnea. We discussed options and using a CPAP. They plamn to try this. Ear ache comes and goes, mostly when laying down. R ear bothers her. This has been for a few weeks.They are trying to schedule with ENT. She is using flonase. Could start Claritin. 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 with food.. 100 Tab 5 Acetaminophen 500 MG Oral Tablet Chewable Take by mouth as needed for Pain, Breakthrough. Clobetasol Propionate 0.05 % External Ointment (Temovate) APPLY TO RASH ON TRUNK AND EXTREMITIES TWICE A DAY NEEDED 120 g 0 Fluticasone-Salmeterol 250-50 MCG/ACT Inhalation Aerosol Powder Breath [...] BY MOUTH EVERY MORNING 90 Tablet 3 Vitamin D3 50 MCG (2000 UT) Oral Capsule Take 1 Capsule by mouth in the morning. 90 Capsule 1 hydroCHLOROthiazide 25 MG Oral Tablet (Hydrodiuril) Take 1 Tablet by mouth in the morning. 30 Tablet 11 Myrbetriq 50 MG Oral Tablet Extended Release 24 Hour (Mirabegron ER) Take 1 Tablet by mouth in the morning. 90 Tablet 3 Current Facility-Administered Medications Medication Dose Route Frequency Provider Last Rate Last Admin Albuterol Sulfate (Proventil) (2.5 MG/3ML) 0.083% inhalation solution 2.5 mg 2.5 mg Nebulizer Once PRN Paco Spears DO 2.5 mg at 09/20/22 1136 Albuterol Sulfate (Proventil) (2.5 MG/3ML) 0.083% inhalation solution 2.5 mg 2.5 mg Nebulizer Once PRN Paco Spears DO Review of patient's allergies indicates: Allergen Reactions Latex Rash Sulfa Antibiotics Heart palpatations Amoxicillin-Pot Clavulanate Edema Other and Other (Please comment) palpitations Acetic Acid Heart palpatations Adhesive Tape local skin irritation Chocolate Flavor [place] Oxycodone-Acetaminophen Other reaction(s): Irregular Heart Rate Peanut Oil Percocet Very sick to stomach Prednisone Other (Please comment) Heart racing per pt Procaine Other reaction(s): HEART RACING Salicylates GI upset Tramadol Stomach upset, palpitations Naproxen Other (Please comment) Palpitations, stomach upset, and "nervousness" Oxycodone Other reaction(s): RACING HEART Penicillins Other reaction(s): NAUSEA, RASH OBJECTIVE: BP 122/64 | Pulse 76 | Temp 37 C (98.6 F) (Tympanic) | Ht 1.524 m (5') | Wt 88.4 kg (194 lb 12.8 oz) | SpO2 95% | BMI 38.04 kg/m | BSA 1.93 m Estimated body mass index is 38.04 kg/m as calculated from the following: Height as of this encounter: 1.524 m (5'). Weight as of this encounter: 88.4 kg (194 lb 12.8 oz). BP Readings from Last 3 Encounters: 07/29/23 122/64 07/26/23 120/62 07/06/23 122/78 Wt Readings from Last 3 Encounters: 07/29/23 88.4 kg (194 lb 12.8 oz) 07/26/23 88.9 kg (196 lb) 06/23/23 89 kg (196 lb 3.2 oz) ROS: Negative except for above PHYSICAL EXAM: General: alert, healthy, and no distress Head: Normocephalic, No masses, lesions, tenderness or abnormalities Ears: External ears normal, Canals clear, TM's Normal ASSESSMENT/Plan Dizziness (Primary) - Meclizine HCl 12.5 MG Oral Tablet (Antivert); Take 1 Tablet by mouth 3 times a day as needed for Dizziness. Chronic diastolic heart failure secondary to coronary artery disease (HCC) Severe obesity with body mass index (BMI) of 35.0 to 39.9 with serious comorbidity (HCC) Acute on chronic diastolic congestive heart failure (HCC) I spent a total of 30 minutes on the date of service in preparation, delivery, and documentation ofthe care provided to this patient, excluding any time spent on the performance of any procedure or separately billable services. I was surprised that I didn't see meclizine on Tanisha's past med list. I'm certain it was tried at some point before. Will try again to see if it helps Otherwise I would definitely pursue treating KIM. The above was discussed and understanding was expressed. Paco Spears DO documented in this encounter Nursing Notes * Angelito Rojas MED ASSIST - 07/29/2023 1:29 PM EDT Chief Complaint Patient presents with Dizziness Patient would like to discuss test results due to continuation of dizziness. documented in this encounter Plan of Treatment Upcoming Encounters Date Type Department Care Team (Late st Contact Info) Description 10/05/2023 12:40 PM EDT Office Visit Otolaryngology [facility] [address] [place] [address] Russ Granados PA-C [address] [place] [address] 03/05/2024 3:00 PM EST Office Visit Family Practice [facility] [place] [address] [place] [address] Paco Spears DO [address] [place] [address] [address] 06/22/2024 11:20 AM EDT Office Visit Neurology [facility] [place] [address] [place] [address] Venita Carlson MD [address] [place] [address] Health Maintenance Due Date Last Done Comments [...] D LEVEL ONCE IN A LIFETIME-USE SMARTSET# [id number] Completed 02/09/2023, 01/20/2022, 10/31/2019, Additional history exists [...] as of this encounter Visit Diagnoses Diagnosis Dizziness- Primary Dizziness and giddiness Chronic diastolic heart failure secondary to coronary artery disease (HCC) Severe obesity with body mass index (BMI) of 35.0 to 39.9 with serious comorbidity (HCC) Acute on chronic diastolic congestive heart failure (HCC) Acute on chronic diastolic heart failure documented in this encounter Care Teams Ocean Export Agent Relationship Specialty Start Date End Date Paco Spears DO [address] [place] [address] PCP - General Family Medicine 04/22/21 documented as of this encounter
--- OUTSIDE RECORDS SUMMARY | 2023-11-18 04:11 | External Medical Summary | Summary of Care ---
Author Name Unknown Organization [facility] Address [address] [place] [address] Phone [phone] Care Team Providers Care Sales Apprentice Name Role Phone MalouPaco egan Flor ROBERTSON Primary Care Provider [phone] Reason for Visit * Reason Comments Return Neuro * Evaluate & Treat - Unlimited Visits (Within 30 days (routine)) - Authorized Specialty Diagnoses / Procedures Referred By Sally anaya Referred To Contact Neurology Diagnoses Parkinsonism, unspecified Parkinsonism type (HCC) Suni Garcia DO [address] [place] [address] Referral ID Status Reason Start Date Expiration Date Visits Requested Visits Authorized [id number] Authorized Specialty Services Required 06/10/2023 999 999 Encounter Details Date Type Department Care Team (Late st Contact Info) Description 06/23/2023 9:20 AM EDT Office Visit Neurology Vijaya Gordillo [place] [address] [facility] [place] [address] Venita Carlson MD [address] [facility] [place] [address] Essential tremor* Allergies Active Allergy Reactions Criticality Noted Date Comments Acetic Acid 04/14/2021 Heart palpatations Adhesive Tape 08/14/2001 local skin irritation Amoxicillin-Pot Clavulanate Edema Other,Other (Please comment) Medium 11/19/2010 palpitations Chocolate Flavor 12/21/2019 [place] 12/21/2019 Latex Rash High 12/21/2019 Naproxen Other [...] as of this encounter (statuses as of 06/23/2023) Medications Medication Sig Dispensed Refills Start Date [...] as of this encounter (statuses as of 06/23/2023) Active Problems Problem Noted Date Diagnosed Date [...] as of this encounter (statuses as of 06/23/2023) Resolved Problems Problem Noted Date Diagnosed Date [...] Lipid Taxonomy. Menopause 10/14/1997 07/20/2016 FAMILY HX CO- father and brother 09/11/2019 FAM HX- COLON CANCER: mgm + (2) maternal aunts 09/11/2019 Abdominal pain 07/20/2016 Other osteoporosis without c urrent pathological fracture 07/20/2016 Overview: ICD-10 update of inactive term documented as of this encounter (statuses as of 06/23/2023) Immunizations Name Administration Dates Next Due COVID-19 mRNA, LNP-s, No Pre serve, 2-Dose Series (OnePage[employer]M) 07/23/2021,06/24/2021,01/06/2021,04/26,04/05/2020 Covid-19 Ad26, Single Dose ([employer]/J&J) 04/26/2020,04/05/2020 Pneumococcal Conjugate Vacc, 13 Valent (Prevnar) [...] Sign Reading Time Taken Comments Blood Pressure 130/78 06/23/2023 9:17 AM EDT Pulse 78 06/23/2023 9:17 AM EDT Temperature 36.9 C (98.5 F) 06/23/2023 9:17 AM ED T Respiratory Rate 16 06/23/2023 9:17 AM EDT Oxygen Saturation 98% 06/23/2023 9:17 AM EDT Inhaled Oxygen Concentration - - Weight 89 kg (196 lb 3.2 oz) 06/23/2023 9:17 AM EDT Height - - Body Mass Index 38.32 05/31/2023 1:37 PM EDT documented in this encounter Progress Notes * Venita Carlson MD - 06/23/2023 9:42 AM EDT CLINIC NOTES Neurology [address] [address] Tanisha Hollingsworth : 1935 NEUROLOGY OUTPATIENT NOTE 06/23/2023 HISTORY: The patient is referred for consultation by Dr. Kevin Galvez, who will be receiving a copy of this note. Patient is known to me for atypical facial pain. She has a longstanding tremor. She saw Dr. Gaytan in 2005 for the same her father had an intention tremor. The tremor does not interfere. The patient has chronic gait dysfunction thought to be on our part related to Neuropathy possibly chronic vascular changes age Past Medical History: Diagnosis Date Abdominal pain Arthritis Carpal tunnel syndrome 12/13/2018 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 Chase's note of 09/16/98) Cystocele, midline Disorder of intestine 1995 hx of bowel obstruction DVT (deep venous thrombosis) ([facility]) legs Factor V Leiden ([facility]) has both genes FAM HX- COLON CANCER: mgm + (2) maternal aunts FAMILY HX [place]- father and brother H/O acute pancreatitis after gb removal HTN (hypertension) Hypercholesteremia Other osteoporosis Rotator cuff syndrome Patient Active Problem List Diagnosis Code Homozygous Factor V Leiden mutation ([facility]) D68.51 Degeneration of lumbosacral intervertebral disc M51.37 Degeneration of thoracic intervertebral disc M51.34 Coronary artery calcification seen on CAT scan I25.10 Dyslipidemia E78.5 HTN, goal below 130/80 I10 High risk for fracture due to osteoporosis by DEXA scan M81.0 Urinary incontinence without sensory awareness N39.42 Cystocele, lateral N81.12 Advanced directives, counseling/discussion Z71.89 Severe obesity with body mass index (BMI) of 35.0 to 39.9 with serious comorbidity ([facility]) E66.01 History of non-ST elevation myocardial infarction (NSTEMI) I25.2 Closed fracture of sternum with routine healing S22.20XD Chronic diastolic heart failure secondary to coronary artery disease ([facility]) I50.32, I25.10 Gastroesophageal reflux disease without esophagitis K21.9 Acute on chronic diastolic congestive heart failure ([facility]) I50.33 PVD (peripheral vascular disease) ([facility]) I73.9 Trigeminal neuralgia G50.0 Trigger finger of right thumb M65.311 Prediabetes R73.03 Past Surgical History: Procedure Laterality Date COLONOSCOPY, DIAGNOSTIC (RECTUM) 09/01/07 diverticulosis COLORECTAL CANCER SCREEN; COLON 08/17/01 Negative- repeat in 5-10 years DEXA SCAN/BONE MINERAL AXIAL Lumbar: -2.26 Femoral neck: -1.03 DEXA SCAN/BONE MINERAL AXIAL 2007 repeat 2010 EXERCISE ECHO 03/06/02 Negative for ischemic findings; EF =65%; hypertensive response EXERCISE ECHO 10/13/05 Neg for ischemic changes INFORMATION 1995 bowel obstruction INFORMATION Left L breast cyst removal KNEE ARTHROSCOPY, DIAGNOSTIC Knee Arthroscopy x2 LAPAROSCOPY, SURG/CHOLECYSTECTOMY 1994 Cholecystectomy, Laproscopic NM CARDIAC BLOOD POOL PLANAR 05/10/08 Negative nuclear stress test:nl LV function REMOVE CATARACT, INSERT LENS PROSTH Left 11/2011 left- Dr. Encarnacion REMOVE CATARACT, INSERT LENS PROSTH Right 01/03/2012 right-Dr. Encarnacion REMOVE GALLBLADDER 1990 REPAIR RUPTURED ROTATOR CUFF, CHRON Right 09/10/03 right shoulder TENDON SHEATH INCISION, FINGER Right 12/15/2022 TRIGGER FINGER RELEASE performed by Rosas Cerrato MD at OR [facility] Social History Socioeconomic History Marital status: Spouse name: Ran Number of children: 4 Years of education: Not on file Highest education level: Not on file Occupational History Occupation: retired Tobacco Use Smoking status: Never Smokeless tobacco: Never Vaping Use Vaping Use: Never used Substance and Sexual Activity Alcohol use: No Drug use: No Sexual activity: Not Currently Partners: Male Other Topics Concern Service Not Asked Blood Transfusions No Caffeine Concern Not Asked Occupational Exposure Not Asked Hobby Hazards Not Asked Sleep Concern Not Asked Stress Concern Not Asked Weight Concern Not Asked Special Diet No Back Care Not Asked Exercise Yes Comment: yoga daily Bike Helmet Not Asked Seat Belt Yes Self-Exams Yes Comment: breast Social History Narrative Not on file Social Determinants of Health Financial Resource Strain: Not on file Food Insecurity: No Food Insecurity (09/11/2019) Hunger Vital Sign Worried About Running Out of Food in the Last Year: Never true Ran Out of Food in the Last Year: Never true Transportation Needs: Not on file Physical Activity: Not on file Stress: Not on file Social Connections: Not on file Intimate Partner Violence: Not on file Housing Stability: Not on file Family History Problem Relation Age of Onset Cancer Grandmother (Maternal) colon Heart Disorder Father age 61 Diabetes Father Heart Disorder Grandfather (Paternal) in 40s Cancer Aunt (Unspecified) colon cancer- m. aunt Cancer Aunt (Unspecified) same Heart Disorder Brother s/p CO Other (Other) Other no ovarian/breast cancer Heart Disorder Mother Current Outpatient Medications Medication Sig Dispense Refill [...] mg 2.5 mg Nebulizer Once PRN Paco Spears, DO Review of patient's allergies indicates: Allergen Reactions Latex Rash Sulfa Antibiotics Heart palpatations Amoxicillin-Pot Clavulanate Edema Other and Other (Please comment) palpitations Acetic Acid Heart palpatations Adhesive Tape local skin irritation Chocolate Flavor [place] Oxycodone-Acetaminophen Other reaction(s): Irregular Heart Rate Peanut Oil Percocet Very sick to stomach Prednisone Other (Please comment) Heart racing per pt Procaine Other reaction(s): HEART RACING Salicylates GI upset Tramadol Stomach upset, palpitations Naproxen Other (Please comment) Palpitations, stomach upset, and "nervousness" Oxycodone Other reaction(s): RACING HEART Penicillins Other reaction(s): NAUSEA, RASH Results for orders placed or performed in visit on 11/02/22 CBC Result Value Ref Range WBC 5.43 4.00 - 10.80 K/uL RBC 4.53 3.85 - 5.15 M/uL HGB 13.7 12.0 - 15.3 g/dL HCT 42.6 36.0 - 45.2 % MCV 94.0 81.5 - 97.5 fL MCH 30.2 27.0 - 34.0 pg MCHC 32.2 32.0 - 36.0 g/dL RDW 14.5 11.5 - 15.5 % PLT 317 140 - 400 K/uL MPV 9.5 6.6 - 11.1 fL Results for orders placed or performed in visit on 01/20/22 BASIC METABOLIC PANEL Result Value Ref Range BUN 20 6 - 20 mg/dL Creatinine 0.8 0.5 - 1.0 mg/dL Estimated Glomerular Filtration Rate 71 >=60 mL/min Sodium 138 135 - 146 mmol/L Potassium 4.4 3.5 - 5.1 mmol/L Chloride 99 98 - 107 mmol/L CO2 28 22 - 32 mmol/L Anion Gap 11 7 - 15 mmol/L Glucose 102 70 - 120 mg/dL Calcium 10.1 8.4 - 10.2 mg/dL Results for orders placed or performed in visit on 01/03/15 LIPID PANEL Result Value Ref Range HOURS FASTING 12 hours Triglycerides 96 <200 mg/dL Cholesterol 216 (H) <200 mg/dL HDL Cholesterol 69 >39 mg/dL Cholesterol-HDL Ratio 3.1 LDL Cholesterol 128 0 - 129 mg/dL Results for orders placed or performed in visit on 04/23/21 LIPID PANEL WITH DIRECT LDL IF TG IS HIGH Result Value Ref Range Triglycerides 53 <=174 mg/dL Cholesterol 121 <200 mg/dL HDL Cholesterol 62 >49 mg/dL Non-HDL Cholesterol 59 <=159 mg/dL LDL Cholesterol 48 <=129 mg/dL Lab Results Component Value Date/Time HEMOGLOBIN A1C - [facility] 5.8 (H) 02/09/2023 12:29 PM Lab Results Component Value Date/Time TSH - [facility] 1.89 02/09/2023 12:29 PM TSH - [facility] 2.25 01/20/2022 01:41 PM TSH - [facility] 2.43 06/26/2020 08:57 AM TSH - [facility] 3.01 10/31/2019 07:14 AM TSH - [facility] 2.64 10/04/2013 08:25 AM TSH - [facility] 2.87 11/18/2011 07:39 AM Antinuclear Antibody Interpretation, IFA Date Value Ref Range Status 07/18/2020 Negative Negative Final Antinuclear Antibody Titer, IFA Date Value Ref Range Status 07/18/2020 <1:40 <1:40 Titer Final Results for orders placed or performed in visit on 02/09/23 VITAMIN B12 Result Value Ref Range Vitamin B12 454 232 - 1,245 pg/mL Results for orders placed or performed in visit on 07/18/20 FOLIC ACID Result Value Ref Range Folic Acid 13.7 >4.5 ng/mL No results found for: "[id number]" No results found for: "[id number]" No results found for: "[id number]" 25OH VITAMIN D TOTAL (ng/mL) Date Value 10/31/2019 34 07/21/2016 25 10/18/2009 38.3 25-Hydroxy Vitamin D (ng/mL) Date Value 02/09/2023 20 01/20/2022 21 Vitamin D Level Interpretation deficient: <20 ng/ml insufficient: 20-30 ng/ml normal: 31-100 ng/ml REVIEW OF SYSTEMS: as above PHYSICAL EXAM: BP 130/78 | Pulse 78 | Temp 36.9 C (98.5 F) (Tympanic) | Resp 16 | Wt 89 kg (196lb 3.2 oz) | SpO2 98% | BMI 38.32 kg/m | BSA 1.94 m The patient is awake and alert speech and language are normal affect is appropriate there is normalblink frequency normal facial animation no head voice or jaw tremor is noted there is rare resting tremor but it is not of a pill rolling variety and if she truly relaxes it resolves. There is a mildto moderate tremor with intention bilaterally she has not bradykinetic. Her gait is not narrow based there may be a minor increase in steps per turn. IMPRESSION: This patient has an essential tremor or familial tremor with a family history of the same. It is not interfering. She occasionally has some tremor at rest which I suspect is overflow. Shedoes not have bradykinesia cogwheel rigidity. I suspect her gait dysfunction which has been a longstanding is poly factorial related to age peripheral neuropathy chronic vascular changes on MRI brain. I will see her back yearly to further assess tremor. Her facial pain has resolved Venita Carlson MD 06/23/2023 9:42 AM documented in this encounter Nursing Notes * Tresa Narayan MED ASSIST - 06/23/2023 9:15 AM EDT Chief Complaint Patient presents with Return Neuro documented in this encounter Plan of Treatment Upcoming Encounters Date Type Department Care Team (Late st Contact Info) Description 07/06/2023 11:05 AM EDT Office Visit Urogynecology Jayde Merchant [address] [place] [address] Juan Pablo Moss MD [address] [place] [address] Nurse Ethel Merchant [address] [place] [address] 08/30/2023 2:00 PM EDT Office Visit Sleep Disorders Ctr Freddy Merchant [place] [address] [phone] Suni Garcia DO [address] [place] [address] Scheduled Referrals Name Type Priority Associated Diagnoses [...] D LEVEL ONCE IN A LIFETIME-USE SMARTSET# [id number] Completed 02/09/2023, 01/20/2022, 10/31/2019, Additional history exists [...] as of this encounter Visit Diagnoses Diagnosis Essential tremor- Primary Essential and other specified forms of tremor documented in this encounter Care Teams Sales Apprentice Relationship Specialty Start Date End Date Paco Spears DO [address] [place] [address] PCP - General Family Medicine 04/22/21 documented as of this encounter
--- OUTSIDE RECORDS SUMMARY | 2023-11-18 04:11 | External Medical Summary | Summary of Care ---
Author Name Unknown Organization [facility] Address [address] [place] [address] Phone [phone] Care Team Providers Care Digital Ad Trafficker Name Role Phone KevinPaco zaman Primary Care Provider [phone] Reason for Visit * Reason Comments Follow Up Review Sleep Study WatchPat Encounter Details Date Type Department Care Team (Late st Contact Info) Description 07/26/2023 3:40 PM EDT Office Visit Sleep Disorders [facility] [address] [facility] [place] [phone] Suni Garcia DO [address] [facility] [address] KIM (obstructive sleep apnea)* Allergies Active Allergy Reactions Criticality Noted Date Comments Acetic Acid 04/14/2021 Heart palpatations Adhesive Tape 08/14/2001 local skin irritation Amoxicillin-Pot Clavulanate Edema Other,Other (Please comment) Medium 11/19/2010 palpitations Chocolate Flavor 12/21/2019 Mono 12/21/2019 Latex Rash High 12/21/2019 Naproxen Other [...] as of this encounter (statuses as of 07/26/2023) Medications Medication Sig Dispensed Refills Start Date [...] A DAY NEEDED 120 g 05/14/2022 Active Omeprazole 20 MG Oral Capsule [...] the morning. 90 Tablet 3 07/06/2023 Active Hospital, Clinic, or Other Facility Administered [...] as of this encounter (statuses as of 07/26/2023) Active Problems Problem Noted Date Diagnosed Date [...] as of this encounter (statuses as of 07/26/2023) Resolved Problems Problem Noted Date Diagnosed Date [...] as of this encounter (statuses as of 07/26/2023) Immunizations Name Administration Dates Next Due COVID-19 mRNA, LNP-s, No Pre serve, 2-Dose Series ([employer]) 07/23/2021,06/24/2021,01/06/2021,04/26,04/05/2020 Covid-19 Ad26, Single Dose (Don[employer]/J&J) 04/26/2020,04/05/2020 [...] Sign Reading Time Taken Comments Blood Pressure 120/62 07/26/2023 3:23 PM EDT Pulse 92 07/26/2023 3:23 PM EDT Temperature 36.6 C (97.8 F) 07/26/2023 3:23 PM ED T Respiratory Rate 16 07/26/2023 3:23 PM EDT Oxygen Saturation 95% 07/26/2023 3:23 PM EDT Inhaled Oxygen Concentration - - Weight 88.9 kg (196 lb) 07/26/2023 3:23 PM EDT Height 152.4 cm (5') 07/26/2023 3:23 PM EDT Body Mass Index 38.28 07/26/2023 3:23 PM EDT documented in this encounter Patient Instructions * Patient Instructions* Suni Garcia, DO - 07/26/2023 3:49 PM EDT Oral Appl[address] Alexander De [facility] [facility] [address] [place] [address] [email or web address] [facility] [address] [place], [place] Dr. Jorge Khan [facility] [address] [place], [place] Dr. Oscar Carlos [address] [place], [place] [phone]. Edmond Vasquez [address] [place] [address] [address] [place], [place] Dr. Pierce Marroquin [facility] [address] [place], [place] Dr. Par[facility] [address] [place] Dr. Armando Andrew [facility] [address] [place] [address] [email or web address] -> then click "Find an AADSMDentist" and search in your location documented in this encounter Progress Notes * Suni Garcia DO - 07/26/2023 3:39 PM EDT Sleep Medicine Follow-Up Clinic Note HISTORY: Ms. Tanisha Hollingsworth is a 87 year old female w/ a pmh of diastolic heart failure, HTN, NSTEMI, GERD, prediabetes, and trigeminal neuralgia who is in clinic today for results of the recent sleep study. She recalls that this sleep study was more comfortable than her previous. When she used PAP in the past, she didn't like having to sleep on her back. She tried a FFM and a more minimal option. Travel Screening Question 07/26/2023 3:24 PM EDT - Filed by Patient Do you have any of the following new or worsening symptoms? Cough None of these Have you recently been in contact with someone who was sick? No / Unsure Gibbon Sleepiness Scale Question 07/26/2023 3:27 PM EDT - Incomplete What is the chance you will doze off in the following situation? Sitting and reading Slight chance of dozing Watching TV Slight chance of dozing Sitting inactive in a public place, such as a theater or meeting Slight chance of dozing As a passenger in a car for an hour without a break No chance of dozing Lying down to rest in the afternoon when circumstances permit When sitting and talking to someone When sitting quietly after lunch without alcohol In a car, while stopped for a few minutes in traffic WatchPAT 06/15/23: pAHI (3%) 21.1 pAHI (4%) 9.1 O2 Raul 83% <89% O2 0.2 mins Past Medical History: Diagnosis Date Abdominal pain Arthritis Carpal tunnel syndrome 12/13/2018 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 Chase's note of 09/16/98) Cystocele, midline Disorder of intestine 1995 hx of bowel obstruction DVT (deep venous thrombosis) (HCC) legs Factor V Leiden (HCC) has both genes FAM HX- COLON CANCER: mgm + (2) maternal aunts FAMILY HX [place]- father and brother H/O acute pancreatitis after [...] performed by Rosas Cerrato MD at OR [facility] Current Outpatient Medications Medication Sig Dispense Refill [...] 90 Tablet 3 Vitamin D3 50 MCG (1999 [place]) Oral Capsule Take 1 Capsule by [...] Adhesive Tape local skin irritation Chocolate Flavor Mono Oxycodone-Acetaminophen Other reaction(s): Irregular Heart Rate Peanut Oil Percocet Very sick to stomach Prednisone Other (Please comment) Heart racing per pt Procaine Other reaction(s): HEART RACING Salicylates GI upset Tramadol Stomach upset, palpitations Naproxen Other (Please comment) Palpitations, stomach upset, and "nervousness" Oxycodone Other reaction(s): RACING HEART Penicillins Other reaction(s): NAUSEA, RASH PHYSICAL EXAM: BP 120/62 | Pulse 92 | Temp 36.6 C (97.8 F) (Tympanic) | Resp 16 | Ht 1.524 m (5') | Wt 88.9 kg(196 lb) | SpO2 95% | BMI 38.28 kg/m | BSA 1.94 m Constitutional: Alert, oriented in no acute distress Skin: no markings on face Chest: Normal respiratory effort at rest Neuro: Normal speech and comprehension Psych: Appropriate mood and affect Echo 04/20/23: EF 65% ASSESSMENT/PLAN: Mild to moderate Obstructive Sleep Apnea We went over the diagnosis of obstructive sleep apnea with the patient, as well as the possible treatment options. Patient opted to try oral appliance If not a good option, will consider PAP Even a mild to moderate weight loss should result in significant improvement in the patients nocturnal respiratory events. Strenuous exercise, which activates the sympathetic nervous system (adrenaline system) not only helps with weight loss, glucose, and mood, but also improves sleep quality, and upper respiratory muscle tone during sleep. Avoid driving, operating heavy machinery or engaging in any activity that requires full alertness if feeling sleepy, drowsy or otherwise impaired. Follow-up with Sleep Medicine will depend on treatment option obtained. Suni Garcia DO I spent a total of 30-39 minutes (exact time 30 mins) on the date of service in preparation, delivery, and documentation of the care provided to Tanisha Hollingsworth excluding any time spent in the performance of separately billed services. documented in this encounter Nursing Notes * Alyce Carter LPN - 07/26/2023 3:26 PM EDT Chief Complaint Patient presents with Follow Up Review Sleep Study WatchPat Cpap-not using-stopped after just a few months DME: [place] 4-5 yrs ago documented in this encounter Plan of Treatment Upcoming Encounters Date Type Department Care Team (Late st Contact Info) Description 06/22/2024 11:20 AM EDT Office Visit [facility] [place] [address] [facility] [place], [place] [address] Venita Carlson MD [address] [facility] [place], [place] [address] Health Maintenance Due Date Last Done Comments Albumin/Creatinine Ratio 12/28/1953 Zoster Vaccines (1 of 2) 12/28/1983 *BISPHONATE OR OTHER ACCEPTABLE MEDICATION NEEDED FOR OSTEOPOROSIS (REFER TO SMARTSET #1146) 10/09/2019 DXA Scan 12/05/2020 12/05/2018, 12/06, 12/31/2015, Additional history exists COVID-19 Vaccine (8 2022-24 season) 2022 07/23/2021, 06/24/2021, 01/06/2021, Additional history exists Depression Screening 03/22/2023 03/22/2022 DTaP,Tdap,and Td Vaccines (2 - Td or Tdap) 05/06/2023 05/05/2013, 11/19/2010, 12/07/1999 HbA1c 02/10/2024 02/09/2023 Pneumococcal Vaccine: 65+ Years Completed 01/05/2015, 04/24/2014, 03/04/2005, Additional history exists Influenza Vaccine (FLU shot) Completed 04/2022, 11/23/2021, 11/18/2020, Additional history exists VITAMIN D LEVEL ONCE IN A LIFETIME-USE SMARTSET# 91303 Completed 02/09/2023, 01/20/2022, 10/31/2019, Additional history exists [...] as of this encounter Visit Diagnoses Diagnosis KIM (obstructive sleep apnea)- Primary Obstructive sleep apnea (adult) (pediatric) documented in this encounter Care Teams Digital Ad Trafficker Relationship Specialty Start Date End Date Paco Spears DO [address] [place] [address] PCP - General Family Medicine 04/22/21 documented as of this encounter
--- OUTSIDE RECORDS SUMMARY | 2023-11-18 04:11 | External Medical Summary | Summary of Care ---
Author Name Unknown Organization [facility] Address [address] [place] [address] Phone [phone] Care Team Providers Care Telegraph Printer Mechanic Name Role Phone KevinPaco zaman Primary Care Provider [phone] Reason for Visit * Reason Onset Date Comments Sleep Apnea Device 06/22/2023 Encounter Details Date Type Department Care Team (Late st Contact Info) Description 06/22/2023 Telephone Sleep Lab, [facility] [address] [place], [place] [phone] Suni Garcia DO [address] [place] [address] Sleep Apnea Device Allergies Active Allergy Reactions Criticality Noted Date Comments Acetic Acid 04/14/2021 Heart palpatations Adhesive Tape 08/14/2001 local skin irritation Amoxicillin-Pot Clavulanate Edema Other,Other (Please comment) Medium 11/19/2010 palpitations Chocolate Flavor 12/21/2019 [place] 12/21/2019 Latex Rash High 12/21/2019 Naproxen Other [...] update of inactive term PURE HYPERCHOLESTEROLEM 10/17/1997 1210/2008 Overview: Per Lipid Taxonomy. Menopause 10/14/1997 07/20/2016 [...] mRNA, LNP-s, No Pre serve, 2-Dose Series ([employer]) 07/23/2021,06/24/2021,01/06/2021,04/26,04/05/2020 Covid-19 Ad26, Single Dose (Donny/J&J) 04/26/2020,04/05/2020 [...] encounter Miscellaneous Notes * Telephone Encounter - Fallon Naqvi RPSGT - 06/22/2023 3:37 PM EDT Watchpat study was successfully uploaded. Date of Service: 06/15/2023 documented in this encounter Plan of Treatment Upcoming Encounters Date Type Department Care Team (Late st Contact Info) Description 06/23/2023 9:20 AM EDT Office Visit Neurology Vijaya Gordillo [place] [address] [facility] [place] [address] [facility] [address] 07/06/2023 11:05 AM EDT Office Visit Urogynecology Jayde Merchant [address] [place] [address] Juan Pablo Moss MD [address] [place] [address] Nurse Ethel Merchant [address] [place] [address] 08/30/2023 2:00 PM EDT Office Visit [facility] Venecia Ramirez [address] [place] [phone] Suni Garcia DO [address] [place] [address] Health Maintenance Due Date Last Done Comments Albumin/Creatinine Ratio 12/28/1953 Zoster Vaccines (1 of 2) 12/28/1983 *BISPHONATE OR OTHER ACCEPTABLE MEDICATION NEEDED FOR OSTEOPOROSIS (REFER TO SMARTSET #1146) 10/09/2019 DXA Scan 12/05/2020 12/05/2018, 12/06, 12/31/2015, Additional history exists COVID-19 Vaccine (2022-24 season) 2022 07/23/2021, 06/24/2021, 01/06/2021, Additional history exists Depression Screening 03/22/2023 03/22/2022 DTaP,Tdap,and Td Vaccines (2 - Td or Tdap) 05/06/2023 05/05/2013, 11/19/2010, 12/07/1999 HbA1c 02/10/2024 02/09/2023 Pneumococcal Vaccine: 65+ Years Completed 01/05/2015, 04/24/2014, 03/04/2005, Additional history exists Influenza Vaccine (FLU shot) Completed 04/2022, 11/23/2021, 11/18/2020, Additional history exists VITAMIN D LEVEL ONCE IN A LIFETIME-USE SMARTSET# [id number] Completed 02/09/2023, 01/20/2022, 10/31/2019, Additional history exists [...] filedocumented as of this encounter Care Teams Telegraph Printer Mechanic Relationship Specialty Start Date End Date Paco Spears DO [address] [place] [address] PCP - General Family Medicine 04/22/21 documented as of this encounter
--- OUTSIDE RECORDS SUMMARY | 2023-11-18 04:11 | External Medical Summary | Summary of Care ---
Author Name Unknown Organization [facility] Address [address] [place] [address] Phone [phone] Care Team Providers Care Waitstaff Name Role Phone Paco Spears Primary Care Provider [phone] Reason for Visit * Reason Onset Date Comments MyCode Nonconsent - Not interested at this time 06/23/2023 Encounter Details Date Type Department Care Team (Late st Contact Info) Description 06/23/2023 Orders Only Outcomes Research Department [address] [place], [place] [id number] Samuel Pink CHRA MyCode Nonconsent Documentation Allergies Active Allergy Reactions Criticality Noted Date Comments Acetic Acid 04/14/2021 Heart palpatations Adhesive Tape 08/14/2001 local skin irritation Amoxicillin-Pot Clavulanate Edema Other,Other (Please comment) Medium 11/19/2010 palpitations Chocolate Flavor 12/21/2019 [place] 12/21/2019 Latex Rash High 12/21/2019 Naproxen Other [...] Lipid Taxonomy. Menopause 10/14/1997 07/20/2016 FAMILY HX [place]- father and brother 09/11/2019 FAM HX- COLON CANCER: mgm + (2) maternal aunts 09/11/2019 Abdominal pain 07/20/2016 Other osteoporosis without c urrent pathological fracture 07/20/2016 Overview: ICD-10 update of inactive term documented as of this encounter (statuses as of 06/23/2023) Immunizations Name Administration Dates Next Due COVID-19 mRNA, LNP-s, No Pre serve, 2-Dose Series ([employer]) 07/23/2021,06/24/2021,01/06/2021,04/26,04/05/2020 Covid-19 Ad26, Single Dose (Donny/J&J) 04/26/2020,04/05/2020 [...] on file documented as of this encounter Progress Notes * Apryl, Mykala, CHRA - 06/23/2023 10:52 AM EDT MyCode Nonconsent Documentation Tanisha Hollingsworth was approached in the clinic regarding participation in the MyCode Project and did not consent. documented in this encounter Plan of Treatment Upcoming Encounters Date Type Department Care Team (Late st Contact Info) Description 07/06/2023 11:05 AM EDT Office Visit Urogynecology Jayde Merchant [address] [place] [address] Juan Pablo Moss MD [address] [place] [address] Nurse Ethel Merchant [address] [place] [address] 08/30/2023 2:00 PM EDT Office Visit [facility] Venecia Ramirez [address] [place] [phone] Suni Garcia DO [address] [place] [address] 06/22/2024 11:20 AM EDT Office Visit Neurology Vijaya Gordillo [place] [address] [facility] [place] [address] Venita Carlson MD [address] [facility] [place] [address] Health Maintenance Due Date Last Done Comments [...] D LEVEL ONCE IN A LIFETIME-USE SMARTSET# [id number] Completed 02/09/2023, 01/20/2022, 10/31/2019, Additional history exists [...] filedocumented as of this encounter Care Teams Waitstaff Relationship Specialty Start Date End Date Paco Spears DO [address] [place] [address] PCP - General Family Medicine 04/22/21 documented as of this encounter
--- OUTSIDE RECORDS SUMMARY | 2023-11-18 04:12 | External Medical Summary | Summary of Care ---
Author Name Unknown Organization [facility] Address [address] [place] [address] Phone [phone] Care Team Providers Care News Content Specialist Name Role Phone KevinPaco zaman Primary Care Provider [phone] Reason for Visit * Reason Onset Date Comments Scheduling 05/31/2023 hst Encounter Details Date Type Department Care Team (Late st Contact Info) Description 05/31/2023 Telephone Sleep Disorders Ctr [facility] [address] [place] [phone] Services, Scheduling [address] [place] [address] Scheduling (hst) Allergies Active Allergy Reactions Criticality Noted Date Comments Acetic Acid 04/14/2021 Heart palpatations Adhesive Tape 08/14/2001 local skin irritation Amoxicillin-Pot Clavulanate Edema Other,Other (Please comment) Medium 11/19/2010 palpitations Chocolate Flavor 12/21/2019 [place] 12/21/2019 Latex Rash High 12/21/2019 Naproxen Other [...] as of this encounter (statuses as of 06/01/2023) Medications Medication Sig Dispensed Refills Start Date [...] as of this encounter (statuses as of 06/01/2023) Active Problems Problem Noted Date Diagnosed Date [...] as of this encounter (statuses as of 06/01/2023) Resolved Problems Problem Noted Date Diagnosed Date [...] as of this encounter (statuses as of 06/01/2023) Immunizations Name Administration Dates Next Due COVID-19 mRNA, LNP-s, No Pre serve, 2-Dose Series ([employer]) 07/23/2021,06/24/2021,01/06/2021,04/26,04/05/2020 Covid-19 Ad26, Single Dose (Donny/J&J) 04/26/2020,04/05/2020 [...] in wanting to reschedule HST schedule for 5..24. Requesting a return callas soon as possible. Please Advise. documented in this encounter Plan of Treatment Upcoming Encounters Date Type Department Care Team (Late st Contact Info) Description 06/06/2023 3:40 PM EDT Office Visit Family Practice [facility] [address] [facility] [place] [address] Paco Spears, DO [address] [facility] [place] [address] 07/06/2023 11:05 AM EDT Office Visit Urogynecology Jayde Merchant [address] [place] [address] Juan Pablo Moss MD [address] [place] [address] Nurse Ethel Merchant [address] [place] [address] 07/27/2023 2:00 PM EDT PulmDiagnostic Sleep Lab Freddy Tillmans [address] [place] [address] [facility]dy [address] [place] [address] 08/30/2023 2:00 PM EDT Office Visit Sleep Disorders Ctr Freddy Merchant [place] [address] [place] [phone] Suni Garcia, [address] [place] [address] Health Maintenance Due Date Last Done Comments [...] D LEVEL ONCE IN A LIFETIME-USE SMARTSET# [id number] Completed 02/09/2023, 01/20/2022, 10/31/2019, Additional history exists [...] filedocumented as of this encounter Care Teams News Content Specialist Relationship Specialty Start Date End Date Paco Spears DO [address] [place] [address] PCP - General Family Medicine 04/22/21 documented as of this encounter
--- OUTSIDE RECORDS SUMMARY | 2023-11-18 04:12 | External Medical Summary | Summary of Care ---
Author Name Unknown Organization [facility] Address [address] [place] [address] Phone [phone] Care Team Providers Care Last Waxer Name Role Phone Paco Spears DO Primary Care Provider [phone] Reason for Visit * Reason Comments NEW PATIENT Daytime Sleepiness Fatigue * Evaluate & Treat - Unlimited Visits (Within 30 days (routine)) - Authorized Specialty Diagnoses / Procedures Referred By Sally solitario Referred To Contact Sleep Medicine / Sleep Disorders Diagnoses Daytime somnolence Paco Spears DO [address] [place] [address] Referral ID Status Reason Start Date Expiration Date Visits Requested Visits Authorized [id number] Authorized Specialty Services Required 03/30/2023 2 2 Encounter Details Date Type Department Care Team (Late st Contact Info) Description 05/31/2023 1:40 PM EDT Office Visit Sleep Disorders Ctr Freddy Merchant [place] [address] [place] [phone] Suni Garcia DO [address] [place] [address] KIM (obstructive sleep apnea)* Allergies Active Allergy Reactions Criticality Noted Date Comments Acetic Acid 04/14/2021 Heart palpatations Adhesive Tape 08/14/2001 local skin irritation Amoxicillin-Pot Clavulanate Edema Other,Other (Please comment) Medium 11/19/2010 palpitations Chocolate Flavor 12/21/2019 [place] 12/21/2019 Latex Rash High 12/21/2019 Naproxen Other [...] as of this encounter (statuses as of 06/07/2023) Medications Medication Sig Dispensed Refills Start Date [...] 3 01/31/2023 Active Vitamin D3 50 MCG (1999) Oral CapsuleIndications: Vitamin D deficiency Take 1 [...] as of this encounter (statuses as of 06/07/2023) Active Problems Problem Noted Date Diagnosed Date [...] as of this encounter (statuses as of 06/07/2023) Resolved Problems Problem Noted Date Diagnosed Date [...] Lipid Taxonomy. Menopause 10/14/1997 07/20/2016 FAMILY HX [place]- father and brother 09/11/2019 FAM HX- COLON CANCER: mgm + (2) maternal aunts 09/11/2019 Abdominal pain 07/20/2016 Other osteoporosis without c urrent pathological fracture 07/20/2016 Overview: ICD-10 update of inactive term documented as of this encounter (statuses as of 06/07/2023) Immunizations Name Administration Dates Next Due COVID-19 mRNA, LNP-s, No Pre serve, 2-Dose Series ([employer]) 07/23/2021,06/24/2021,01/06/2021,04/26,04/05/2020 Covid-19 Ad26, Single Dose ([employer]Tubis&Tubis) 04/26/2020,04/05/2020 Pneumococcal Conjugate Vacc, 13 Valent (Prevnar) [...] Sign Reading Time Taken Comments Blood Pressure 128/80 05/31/2023 1:37 PM EDT Pulse 81 05/31/2023 1:37 PM EDT Temperature 36 C (96.8 F) 05/31/2023 1:37 PM EDT Respiratory Rate 16 05/31/2023 1:37 PM EDT Oxygen Saturation 98% 05/31/2023 1:37 PM EDT Inhaled Oxygen Concentration - - Weight 88.9 kg (196 lb) 05/31/2023 1:37 PM EDT Height 152.4 cm (5') 05/31/2023 1:37 PM EDT Body Mass Index 38.28 05/31/2023 1:37 PM EDT documented in this encounter Progress Notes * Suni Garcia, DO - 05/31/2023 1:42 PM EDT INITIAL SLEEP DISORDERS CLINIC EVALUATION Ms. Tanisha Hollingsworth is a 87 year old female w/ a pmh of diastolic heart failure, HTN, NSTEMI, GERD, prediabetes, and trigeminal neuralgia who was referred to the Sleep Medicine Clinic by Dr. Spears for excessive daytime sleepiness. Ms. Hollingsworth was previously diagnosed with KIM and started on PAP while living in [place]. After she fell and had her arm in a sling, she stopped using PAP. She is wondering if her sleep issues could be causing her to feel "loopy." With her "loopy" sensation she feels movement difficulties and memory issues. Denies vertigo. She has started mumbling. Her hand writing has changed subtly. She has a tremor which she also notes with movement. There are times it is hard for her to initiate movement. And she has some anosmia (had Covid in past). No obvious c hange in bowel function. The patient reports having ("+" indicates reports, "-" indicates denies): - Snoring - Apneas + Mouth breathing, if partiualry congested + Acid reflux at night, depending on diet - Nocturia, not since medicated + Morning headaches, dull [place] - Night sweats Parasomnias Symptoms: - Sleepwalking - Dream-enactment Excessive Daytime Sleepiness: - Drowsy driving + Sleepy with sedentary activity Marshall Sleepiness Scale Question 05/31/2023 1:45 PM EDT - Filed by Alyce Frost LPN What is the chance you will doze off in the following situation? Sitting and reading High chance of dozing Watching TV High chance of dozing Sitting inactive in a public place, such as a theater or meeting No chance of dozing As a passenger in a car for an hour without a break High chance of dozing Lying down to rest in the afternoon when circumstances permit No chance of dozing When sitting and talking to someone No chance of dozing When sitting quietly after lunch without alcohol High chance of dozing In a car, while stopped for a few minutes in traffic No chance of dozing Score (range: 0 - 24) 12 Functional Outcomes Of Sleep Question 05/31/2023 1:46 PM EDT - Filed by Alyce Frost LPN Please complete the following questions. Do you have difficulty concentrating because you are sleepy or tired? Yes, moderate Do you have difficulty remembering things because you are sleepy or tired? Yes, moderate Do you have difficulty operating a motor vehicle for short distances (less than 100 miles) because you become sleepy? No Do you have difficulty operating a motor vehicle for long distances (more than 100 miles) because you become sleepy? No Do you have difficulty visiting family or friends in their home because you become sleepy or tired?No Has your relationship with family, friends, or work colleagues been affected because you are sleepyor tired? No Do you have difficulty watching a movie or video because you become sleepy or tired? Yes, extreme Do you have difficulty being as active as you want to be in the evening because you are tired or sleepy? No Do you have difficulty being as active as you want to be in the morning because you are tired or sleepy? Yes, a little Has your mood been affected because you are sleepy or tired? No Score (range: 10 - 40) 32 Sleep Schedule: Work: retired Bedtime 10-11pm Time to fall asleep 5 mins Number Times Awake/ Reason 1x/night is she has something on her mind Back to Sleep Sometimes an hour Awake Time/Alarm 7:30-8:15 AM without alarm Naps May keep dozing and then go back to sleep for an hour Multiple cat naps each day Past Medical History: Diagnosis Date Abdominal pain [...] mgm + (2) maternal aunts FAMILY HX [place]- father and brother H/O acute pancreatitis after [...] performed by Rosas Cerrato MD at [facility] Current Outpatient Medications Medication Sig Dispense Refill [...] mg Nebulizer Once PRN Paco Spears, DO 2.5 mg at 09/20/22 1136 Albuterol Sulfate (Proventil) (2.5 MG/3ML) 0.083% inhalation solution 2.5 mg 2.5 mg Nebulizer Once PRN Paco Spears, DO Review of patient's allergies indicates: Allergen Reactions Latex Rash Sulfa Antibiotics Heart palpatations Amoxicillin-Pot Clavulanate Edema Other and Other (Please comment) palpitations Acetic Acid Heart palpatations Adhesive Tape local skin irritation Chocolate Flavor [place] Oxycodone-Acetaminophen Other reaction(s): Irregular Heart Rate Peanut Oil Percocet Very sick to stomach Prednisone Other (Please comment) Heart racing per pt Procaine Other reaction(s): HEART RACING Salicylates GI upset Tramadol Stomach upset, palpitations Naproxen Other (Please comment) Palpitations, stomach upset, and "nervousness" Oxycodone Other reaction(s): RACING HEART Penicillins Other reaction(s): NAUSEA, RASH Social History Tobacco Use Smoking status: Never Smokeless tobacco: Never Vaping Use Vaping Use: Never used Substance Use Topics Alcohol use: No Drug use: No Family History Problem Relation Age of Onset Cancer Grandmother (Maternal) colon Heart Disorder Father age 61 Diabetes Father Heart Disorder Grandfather (Paternal) in 40s Cancer Aunt (Unspecified) colon cancer- m. aunt Cancer Aunt (Unspecified) same Heart Disorder Brother s/p [place] Other (Other) Other no ovarian/breast cancer Heart Disorder Mother Review Of Systems: All other systems negative except those noted in HPI and below: BP 128/80 | Pulse 81 | Temp 36 C (96.8 F) (Tympanic) | Resp 16 | Ht 1.524 m (5') | Wt 88.9 kg (196 lb) | SpO2 98% | BMI 38.28 kg/m | BSA 1.94 m Neck Circumference= 14.25 inches PHYSICAL EXAMINATION: Constitutional: Alert, oriented in no acute distress Skin: no markings on face where mask fits Chest: Normal respiratory effort at rest Psych: Appropriate mood and affect Neuro: Pill rolling tremor at rest and postural tremor Subtle rigidity with passive range of motion on Lt UE Some sticking with finger tap and toe tap Gait with cane Echo 04/20/23: EF 65% ASSESSMENT: Probable Obstructive Sleep Apnea as suggested by non-refreshing sleep, daytime sleepiness or fatigue, nocturia, nocturnal GERD, morning headaches, neck size, obesity, hypertension, fasting hyperglycemia, insulin resistance. Concern for movement issues - tremor and possible bradykinesia PLAN: - We went over a possible diagnosis of obstructive sleep apnea. We discussed the risks of sleep apnea including higher rates of hypertension, heart disease, cardiac arrhythmias, stroke, and motor vehicle accidents. We discussed the strengths, weaknesses and differences of in-lab polysomnography vs home sleep apnea studies. We will plan for a WatchPAT/home sleep apnea test (per patient preference)and will go over results at 4 week follow up. Electronically signed: Suni Garcia DO Sleep Medicine I spent a total of Greater than 55 mins (exact time 60 mins) on the date of service in preparation,delivery, and documentation of the care provided to Tanisha Hollingsworth excluding any time spent in theperformance of separately billed services. documented in this encounter Nursing Notes * Alyce Frost LPN - 05/31/2023 1:47 PM EDT Chief Complaint Patient presents with NEW PATIENT Daytime Sleepiness Fatigue PSG- pt had 2 and they both done in [place] Cpap-has not used in approx 5 years Neck: 14.25" Marshall Sleepiness Scale Question 05/31/2023 1:45 PM EDT - Filed by Alyce Frost LPN What is the chance you will doze off in the following situation? Sitting and reading High chance of dozing Watching TV High chance of dozing Sitting inactive in a public place, such as a theater or meeting No chance of dozing As a passenger in a car for an hour without a break High chance of dozing Lying down to rest in the afternoon when circumstances permit No chance of dozing When sitting and talking to someone No chance of dozing When sitting quietly after lunch without alcohol High chance of dozing In a car, while stopped for a few minutes in traffic No chance of dozing Score (range: 0 - 24) 12 Functional Outcomes Of Sleep Question 05/31/2023 1:46 PM EDT - Filed by Alyce Frost LPN Please complete the following questions. Do you have difficulty concentrating because you are sleepy or tired? Yes, moderate Do you have difficulty remembering things because you are sleepy or tired? Yes, moderate Do you have difficulty operating a motor vehicle for short distances (less than 100 miles) because you become sleepy? No Do you have difficulty operating a motor vehicle for long distances (more than 100 miles) because you become sleepy? No Do you have difficulty visiting family or friends in their home because you become sleepy or tired?No Has your relationship with family, friends, or work colleagues been affected because you are sleepyor tired? No Do you have difficulty watching a movie or video because you become sleepy or tired? Yes, extreme Do you have difficulty being as active as you want to be in the evening because you are tired or sleepy? No Do you have difficulty being as active as you want to be in the morning because you are tired or sleepy? Yes, a little Has your mood been affected because you are sleepy or tired? No Score (range: 10 - 40) 32 documented in this encounter Plan of Treatment Upcoming Encounters Date Type Department Care Team (Late st Contact Info) Description 07/06/2023 11:05 AM EDT Office Visit Urogynecology Jayde Merchant [address] [place] [address] Juan Pablo Moss MD [address] [place] [address] Nurse Ethel Merchant [address] [place] [address] 07/29/2023 11:00 AM EDT PulmDiagnostic Sleep Lab Freddy Merchant [address] [place] [address] [facility] Mer[facility] Study Freddy [address] [place] [address] 08/30/2023 2:00 PM EDT Office Visit Sleep Disorders Ctr Freddy Merchant [place] [address] [place] [phone] Suni Garcia DO [address] [place] [address] Scheduled Orders Name Type Priority Associated Diagnoses Orde r Schedule TIMED SLEEP STUDY, UNATTEND, HR/O2 SAT/RESP Procedures Routine KIM (obstructive sleep apnea) Ordered: 05/31/2023 Health Maintenance Due Date Last Done Comments [...] D LEVEL ONCE IN A LIFETIME-USE SMARTSET# [id number] Completed 02/09/2023, 01/20/2022, 10/31/2019, Additional history exists [...] (pediatric) documented in this encounter Care Teams Last Waxer Relationship Specialty Start Date End Date Paco Spears DO [facility] [place] [address] PCP - General Family Medicine 04/22/21 documented as of this encounter
--- OUTSIDE RECORDS SUMMARY | 2023-11-18 04:12 | External Medical Summary | Summary of Care ---
Author Name Unknown Organization [facility] Address [address] [place] [address] Phone [phone] Care Team Providers Care Eap Clinician Name Role Phone KevinPaco zaman Primary Care Provider [phone] Reason for Visit * Reason Onset Date Comments Scheduling 05/31/2023 hst Encounter Details Date Type Department Care Team (Late st Contact Info) Description 05/31/2023 Telephone Sleep Disorders Ctr [facility] [address] [place] [phone] Services, Scheduling [address] [place] [address] Scheduling (hst) Allergies Active Allergy Reactions Criticality Noted Date Comments Acetic Acid 04/14/2021 Heart palpatations Adhesive Tape 08/14/2001 local skin irritation Amoxicillin-Pot Clavulanate Edema Other,Other (Please comment) Medium 11/19/2010 palpitations Chocolate Flavor 12/21/2019 [place] 12/21/2019 Latex Rash High 12/21/2019 Naproxen Other [...] as of this encounter (statuses as of 05/31/2023) Medications Medication Sig Dispensed Refills Start Date [...] as of this encounter (statuses as of 05/31/2023) Active Problems Problem Noted Date Diagnosed Date [...] as of this encounter (statuses as of 05/31/2023) Resolved Problems Problem Noted Date Diagnosed Date [...] as of this encounter (statuses as of 05/31/2023) Immunizations Name Administration Dates Next Due COVID-19 mRNA, LNP-s, No Pre serve, 2-Dose Series ([employer]) 07/23/2021,06/24/2021,01/06/2021,04/26,04/05/2020 Covid-19 Ad26, Single Dose (Donny/J&J) 04/26/2020,04/05/2020 [...] encounter Miscellaneous Notes * Telephone Encounter - Thea Proctor OSA - 05/31/2023 5:27 PM EDT Pt's Willy called in wanting to reschedule HST schedule for 24. Requesting a return callas soon as possible. Please Advise. documented in this encounter Plan of Treatment Upcoming Encounters Date Type Department Care Team (Late st Contact Info) Description 06/06/2023 3:40 PM EDT Office Visit Family Practice [facility] [place] [address] [facility] [place] [address] Paco Spears, DO [address] [facility] [place] [address] 07/06/2023 11:05 AM EDT Office Visit Urogynecology Jayde Merchant [address] [place] [address] Juan Pablo Moss MD [address] [place] [address] Nurse Ethel Merchant [address] [place] [address] 07/27/2023 2:00 PM EDT PulmDiagnostic Sleep Lab Freddy Merchant [address] [place] [address] [facility] Freddy [address] [place] [address] 08/30/2023 2:00 PM EDT Office Visit Sleep Disorders Ctr Freddy [facility] [place] [address] [place] [phone] Suni Garcia DO [address] [place] [address] Health Maintenance Due Date Last Done Comments [...] D LEVEL ONCE IN A LIFETIME-USE SMARTSET# [id number] Completed 02/09/2023, 01/20/2022, 10/31/2019, Additional history exists [...] filedocumented as of this encounter Care Teams Eap Clinician Relationship Specialty Start Date End Date Paco [place] [address] [place] [address] PCP - General Family Medicine 04/22/21 documented as of this encounter
--- OUTSIDE RECORDS SUMMARY | 2023-11-18 04:12 | External Medical Summary | Summary of Care ---
Author Name Unknown Organization [facility] Address [address] [place] [address] Phone [phone] Care Team Providers Care Clinical Research Nurse Name Role Phone KevinPaco zaman Primary Care Provider [phone] Reason for Visit * Reason Onset Date Comments Scheduling 05/31/2023 hst Encounter Details Date Type Department Care Team (Late st Contact Info) Description 05/31/2023 Telephone Sleep Disorders Ctr [facility] [address] [place] [phone] Services, Scheduling [address] [place] [address] Scheduling (hst) Allergies Active Allergy Reactions Criticality Noted Date Comments Acetic Acid 04/14/2021 Heart palpatations Adhesive Tape 08/14/2001 local skin irritation Amoxicillin-Pot Clavulanate Edema Other,Other (Please comment) Medium 11/19/2010 palpitations Chocolate Flavor 12/21/2019 [place] 12/21/2019 Latex Rash High 12/21/2019 Naproxen Other [...] mRNA, LNP-s, No Pre serve, 2-Dose Series ([employer]) 07/23/2021,06/24/2021,01/06/2021,04/26,04/05/2020 Covid-19 Ad26, Single Dose (Donny/J&J) 04/26/2020,04/05/2020 [...] in wanting to reschedule HST schedule for 5.22.24. Requesting a return callas soon as possible. Please Advise. documented in this encounter Plan of Treatment Upcoming Encounters Date Type Department Care Team (Late st Contact Info) Description 06/06/2023 3:40 PM EDT Office Visit Family Practice [facility] [address] [place] [address] Paco Spears, [address] ON [facility] OF [facility] [place] [address] 07/06/2023 11:05 AM EDT Office Visit Urogynecology [address] [place] [address] Juan Pablo Moss MD [address] [place] [address] Nurse Ethel Merchant Freddy [address] [place] [address] 07/29/2023 11:00 AM EDT PulmDiagnostic Sleep Lab Freddy Merchant [address] [place] [address] [facility]dy [address] [place] [address] 08/30/2023 2:00 PM EDT Office Visit Sleep Disorders Ctr [facility]ine Mer[facility] [place] [address] [place] [phone] Suni Garcia DO [address] [place] [address] Health Maintenance Due Date Last Done Comments [...] D LEVEL ONCE IN A LIFETIME-USE SMARTSET# [id number] Completed 02/09/2023, 01/20/2022, 10/31/2019, Additional history exists [...] filedocumented as of this encounter Care Teams Clinical Research Nurse Relationship Specialty Start Date End Date Paco Spears DO [address] [place] [address] PCP - General Family Medicine 04/22/21 documented as of this encounter
--- NOTE | 2023-11-18 04:18 | CT Scan Report ---
Exam(s): CT ABDOMEN + PELVIS Without Contrast EXAM: CT Abdomen and Pelvis Without Intravenous Contrast CLINICAL HISTORY: Reason for exam: right flank pain. TECHNIQUE: Axial computed tomography images of the abdomen and pelvis without intravenous contrast. CTDI is 27.98 mGy and DLP is 1190.84 mGy-cm. Automated exposure control was utilized for the study. A dose lowering technique was utilized adhering to the principles of ALARA. COMPARISON: CT abdomen/pelvis on 09/07/2019 FINDINGS: Lung bases: Unremarkable. No mass. No consolidation. Heart: Coronary artery calcifications. ABDOMEN: Liver: Unremarkable. Gallbladder and bile ducts: Prior cholecystectomy. No ductal dilation. Pancreas: Atrophy of the pancreas. No ductal dilation. Spleen: Unremarkable. No splenomegaly. Adrenals: Unremarkable. No mass. Kidneys and ureters: Unremarkable. No obstructing stones. No hydronephrosis. Stomach and bowel: Evaluation of the stomach is limited underdistention. Diverticulosis without evidence of diverticulitis. No small bowel obstruction. PELVIS: Appendix: Normal appendix. Bladder: Unremarkable. No stones. Reproductive: Unremarkable as visualized. ABDOMEN and PELVIS: Intraperitoneal space: Unremarkable. No free air. No significant fluid collection. Bones/joints: Degenerative changes of the spine. Grade 1 anterolisthesis of L4 on L5 and L5 on S1. No acute fracture. No dislocation. Soft tissues: Small fat-containing umbilical hernia. Vasculature: Atherosclerotic changes of the vasculature. No abdominal aortic aneurysm. Lymph nodes: Unremarkable. No enlarged lymph nodes. IMPRESSION: No acute findings in the abdomen or pelvis. Electronically signed by: Jr Love M.D. 11/18/23 04:17 AM
--- NOTE | 2023-11-18 06:00 | History & Physical Report ---
Date of Service November 18, 2023 Assessment & Plan (1) Acute right flank pain: Plan: 87-year-old female with past medical history significant for dyslipidemia, prediabetes, history of non-ST elevated MO and moderate coronary artery disease, chronic diastolic CHF, hypertension, peripheral vascular disease, obesity, GERD, cystocele, degenerative lumbosacral disc, history of trigeminal neuralgia, history of homozygous factor V Leiden mutation, history of urinary incontinence, who lives at home with her ambulates with a cane and four-wheel cart comes because of severe pain in the right lower back and right flank region started yesterday morning. Currently pain is resolved. Patient blood pressure was initially high improved with the pain control. Troponin is mildly elevated. Denies any chest pain. Currently denies any shortness of breath. Has chronic cough. Chronic runny nose. Currently no headache. Vision is okay. No sore throat. No abdominal pain. Normal bowel and bladder movements. Currently resting comfortably. Patient states recently couple of weeks ago her blood pressure medication dose was reduced to half because of lightheadedness. Acute right flank pain Currently improved with pain medication CT abdomen pelvis unremarkable Labs unremarkable musculoskeletal? Will monitor Elevated blood pressure Possibly from pain Currently improved Recently her hydrochlorothiazide dose was reduced to 12.5 mg daily -will contin ue IV labetalol as needed Will monitor Mild elevation troponin Mostly demand ischemia Initial troponin 39 repeat is 35 We will follow with serial enzymes If trending up will get echo and cardiac consult History of non-ST elevated MO Moderate CAD On aspirin and statin Prediabetes Will follow HbA1c levels Hyperlipidemia On statin Chronic diastolic CHF On hydrochlorothiazide Will monitor for volume overload Peripheral vascular disease On aspirin and statin Chronic cough Respiratory bio fire negative DVT prophylaxis Heparin subcu Disposition Observation med/telemetry Full code. History of Present Illness Chief Complaint: Back pain ,elevated blood pressure and elevated troponin Primary Care Provider: Paco Spears DO 87-year-old female with past medical history significant for dyslipidemia, prediabetes, history of non-ST elevated MO and moderate coronary artery disease, chronic diastolic CHF, hypertension, peripheral vascular disease, obesity, GERD, cystocele, degenerative lumbosacral disc, history of trigeminal neuralgia, history of homozygous factor V Leiden mutation, history of urinary incontinence, who lives at home with her ambulates with a cane and four-wheel cart comes because of severe pain in the right lower back and right flank region started yesterday morning. Currently pain is resolved. Patient blood pressure was initially high improved with the pain control. Troponin is mildly elevated. Denies any chest pain. Currently denies any shortness of breath. Has chronic cough. Chronic runny nose. Currently no headache. Vision is okay. No sore throat. No abdominal pain. Normal bowel and bladder movements. Currently resting comfortably. Patient states recently couple of weeks ago her blood pressure medication dose was reduced to half because of lightheadedness. Past medical history. As mentioned above Past surgical history. Colonoscopy. Left breast cyst removal. Knee arthroscopy. Laparoscopic cholecystectomy. Bilateral cataracts. Repair of right shoulder ruptured rotator cuff. Right trigger finger release. Social history. . No smoking. No alcohol use. No drug use. Family history. Aunt had colon cancer. Maternal grandmother had colon cancer. Father had diabetes. Heart disorder. Mother had a heart disorder. Brother had MO. Allergies Allergy/AdvReac Type Severity Reaction Status Date / Time latex Allergy Intermediate RASH - Verified 09/05/21 17:30 ITCHING Sulfa (Sulfonamide Allergy Intermediate HIVES Verified 09/05/21 17:30 Antibiotics) adhesive Allergy Mild RASH Verified 01/30/20 11:18 amoxicillin Allergy Mild RASH Verified 09/05/21 17:30 clavulanic acid Allergy Mild RASH Verified 09/05/21 17:30 oxycodone Allergy Mild RACING Verified 09/05/21 17:30 HEART prednisone AdvReac Mild GI SYMPTOMS Verified 09/05/21 17:30 salicylates AdvReac Mild GI SYMPTOMS Verified 09/05/21 17:30 tramadol AdvReac Mild did not Verified 09/05/21 21:51 feel well aspirin AdvReac Unknown NAUSEA Unverified 09/05/21 17:30 naproxen AdvReac Unknown GI SYMPTOMS Verified 09/05/21 17:30 Penicillins AdvReac Unknown NAUSEA Unverified 01/30/20 11:18 procaine AdvReac Unknown HEART Unverified 01/30/20 11:18 RACING chocolate flavor AdvReac Verified 09/05/21 17:31 citric acid AdvReac Verified 09/08/21 07:28 [place] [employer]atives AdvReac Verified 09/05/21 17:31 peanut AdvReac Verified 09/05/21 17:31 Home Medications Medication Instructions Recorded Confirmed Type albuterol sulfate 90 mcg/actuation 2 puff inhalation QID PRN 11/18/23 11/18/23 History aerosol inhaler Shortness Of Breath Or Wheezing aspirin 81 mg tablet,delayed 81 mg PO DAILY 11/18/23 11/18/23 History release atorvastatin 20 mg tablet 20 mg PO DAILY 11/18/23 11/18/23 History benzonatate 100 mg capsule 100 mg PO TID PRN Cough 11/18/23 11/18/23 History cholecalciferol (vitamin D3) 50 50 mcg PO DAILY 11/18/23 11/18/23 History mcg (2,000 unit) capsule fluticasone 250 mcg-salmeterol 50 1 inh inhalation BID 11/18/23 11/18/23 History mcg/dose blistr powdr for inhalation hydrochlorothiazide 25 mg tablet 12.5 mg PO DAILY 11/18/23 11/18/23 History mirabegron 50 mg tablet,extended 50 mg PO DAILY 11/18/23 11/18/23 History release 24 hr (Myrbetriq) Past Med/Surg History Problem List (Updated 11/18/23 @ 00:10 by Partha Franco MD) Elevated troponin (Acute) Severe hypertension (Acute) Acute right flank pain (Acute) NSTEMI (non-ST elevated myocardial infarction) CHF (congestive heart failure) Closed fracture of zygomatic arch with routine healing (Acute) Fall as cause of accidental injury at home as place of occurrence (Acute) Contusion of right shoulder (Acute) Contusion of knee (Acute) Closed head injury (Acute) Rotator cuff tear arthropathy of left shoulder Proximal humeral fracture Diverticulitis Bronchitis (Acute 10/25/12) Deep venous thrombosis of lower extremity (Acute 10/25/12) Gross hematuria (Acute) Kidney stone (Acute 10/25/12) H/O knee surgery (Acute 10/25/12) Pancreatitis (Acute 10/25/12) Prolapse of vaginal reich (Acute) Pyuria (Acute) Sciatica (Acute 11/28/12) H/O shoulder surgery (Acute 10/25/12) Urge incontinence (Acute) H/O sciatica KIM (obstructive sleep apnea) Factor V Leiden Dyslipidemia HTN (hypertension) Diverticulitis (Acute) Abdominal pain (Acute) Episcleritis (Acute) Iritis (Acute) Pain, eye, right (Acute) Medical History (Updated 11/18/23 @ 00:10 by Partha Franco MD) Blood clot in vein Chronic lower back pain Surgical History H/O colonoscopy 2007: mild-moderate diverticulosis sigmoid colon History of cataract surgery Hx laparoscopic cholecystectomy Family History Other Cancer Diabetes Heart disease Social History Smoking Status: Never smoker Second Hand Exposure: No; Do You Dip or Chew Tobacco: No; Hx Alcohol Use: No Hx Substance Use: No Preferred Language: Yi Communication Ability: Effective Air Bag Buffer Required: No Beliefs That Will Affect Care: None marital status: Current Living Situation: Spouse and Personal Care Facility current occupational status: retired How many Children do You have: 4 Other Information That Helps Us Care for You: No Feels Safe at Home: Yes Safety Concerns: Feels Safe At This Time Assistive Devices: Cane and Glasses Review of Systems Review of Systems: All systems reviewed & are unremarkable except as noted in HPI & below Physical Exam Physical Exam: General- Not in distress Head- atraumatic Eyes- PERRL. ENT- oropharynx clear Neck- supple, no JVD. Lungs- clear to auscultation no wheezing or crackles Heart- regular rate and rhythm; no murmur, no gallop. Abdomen- normal bowel sounds, soft, nontender, no distension Extremities- B/L lower extremity present, no erythema seen Neuro- alert, oriented PERRLA no facial palsy; no dysarthria; moves extremities Results & Data Results & Data Vital Signs (Past 12 Hours) Vital Signs Temp Pulse Pulse Resp BP BP BP 11/18/23 04:00 65 16 130/56 L 11/18/23 02:00 68 18 146/56 H 11/18/23 01:48 72 11/17/23 23:18 72 20 191/104 H 11/17/23 21:45 78 20 11/17/23 21:45 77 20 203/90 H 11/17/23 21:44 77 11/17/23 21:27 36.6 C 78 18 211/8 H Pulse Ox O2 Del Method O2 Flow Rate 11/18/23 04:00 96 Nasal Cannula 2 11/18/23 02:00 97 Nasal Cannula 2 11/18/23 01:48 11/17/23 23:18 91 Room Air 11/17/23 21:45 96 Room Air 11/17/23 21:45 96 Room Air 11/17/23 21:44 11/17/23 21:27 96 Room Air Diagnostic Findings Laboratory Results WBC 6.96 K/ul (4.8-10.8) 11/17/23 21:40 RBC 4.29 M/uL (4.20-5.40) 11/17/23 21:40 Hgb 13.1 g/dl (12.0-16.0) 11/17/23 21:40 Hct 38.9 % (37.0-47.0) 11/17/23 21:40 MCV 90.7 fL (80.0-100.0) 11/17/23 21:40 MCH 30.5 pg (25.0-34.0) 11/17/23 21:40 MCHC 33.7 g/dL (32.0-36.0) 11/17/23 21:40 RDW Std Deviation 47.1 fL (36.4-46.3) H 11/17/23 21:40 RDW Coeff of [place] 14.1 % (11.5-14.5) 11/17/23 21:40 Plt Count 298 K/uL (130-400) 11/17/23 21:40 MPV 9.0 fL (9.4-12.4) L 11/17/23 21:40 Immature Gran % (Auto) 0.3 % 11/17/23 21:40 Neut % (Auto) 48.4 % 11/17/23 21:40 Lymph % (Auto) 37.4 % 11/17/23 21:40 [place] % (Auto) 11.1 % 11/17/23 21:40 Eos % (Auto) 2.2 % 11/17/23 21:40 Baso % (Auto) 0.6 % 11/17/23 21:40 Neut # (Auto) 3.38 K/uL (1.40-6.50) 11/17/23 21:40 Lymph # (Auto) 2.60 K/uL (1.20-3.40) 11/17/23 21:40 [place] # (Auto) 0.77 K/uL (0.11-0.59) H 11/17/23 21:40 Eos # (Auto) 0.15 K/uL (0.00-0.50) 11/17/23 21:40 Baso # (Auto) 0.04 K/uL (0.00-0.20) 11/17/23 21:40 Immature Gran # (Auto) 0.02 K/uL (0.01-0.20) 11/17/23 21:40 PT 10.5 Seconds (9.0-12.0) 11/17/23 21:40 INR 1.0 (0.9-1.1) 11/17/23 21:40 Sodium 132 mmol/L (136-145) L 11/17/23 21:40 Potassium 3.8 mmol/L (3.5-5.1) 11/17/23 21:40 Chloride 99 mmol/L (98-107) 11/17/23 21:40 Carbon Dioxide 26 mmol/L (21-32) 11/17/23 21:40 Anion Gap 7 (3-11) 11/17/23 21:40 BUN 20 mg/dl (6-23) 11/17/23 21:40 Creatinine 0.67 mg/dl (0.6-1.2) 11/17/23 21:40 Est Cr Clr Drug Dosing Not Reportable 11/17/23 21:40 Est GFR ( Amer) 90.3 ml/min 11/17/23 21:40 Est GFR (Non-Af Amer) 77.9 ml/min 11/17/23 21:40 BUN/Creatinine Ratio 29.9 (10-20) H 11/17/23 21:40 Glucose 101 mg/dl (70-99(Fasting)) H 11/17/23 21:40 Calcium 9.4 mg/dl (8.6-10.3) 11/17/23 21:40 Total Bilirubin 0.4 mg/dl (0.2-1.0) 11/17/23 21:40 AST 17 U/L (13-39) 11/17/23 21:40 ALT 19 U/L (7-52) 11/17/23 21:40 Alkaline Phosphatase 110 U/L (34-104) H 11/17/23 21:40 Troponin I High Sens 35.4 pg/ml (0-14) H 11/17/23 23:36 Total Protein 7.3 gm/dl (6.0-8.3) 11/17/23 21:40 Albumin 4.0 gm/dl (3.4-5.0) 11/17/23 21:40 Globulin 3.3 gm/dl (2.5-4.0) 11/17/23 21:40 Albumin/Globulin Ratio 1.2 (0.9-2) 11/17/23 21:40 Lipase 14 U/L (11-82) 11/17/23 21:40 Urine Color Yellow 11/18/23 02:20 Urine Appearance Clear (Clear) 11/18/23 02:20 Urine pH 6.0 (4.5-7.5) 11/18/23 02:20 Ur Specific [place] 1.015 (1.000-1.030) 11/18/23 02:20 Urine Protein Negative (Negative) 11/18/23 02:20 Urine Glucose (UA) Negative (Negative) 11/18/23 02:20 Urine Ketones Negative (Negative) 11/18/23 02:20 Urine Blood Negative (Negative) 11/18/23 02:20 Urine Nitrite Negative (Negative) 11/18/23 02:20 Urine Bilirubin Negative (Negative) 11/18/23 02:20 Urine Urobilinogen Negative (Negative) 11/18/23 02:20 Ur Leukocyte Esterase Negative (Negative) 11/18/23 02:20 Adenovirus (PCR) Not Detected (NotDetected) 11/18/23 00:43 B. pertussis DNA (PCR) Not Detected (NotDetected) 11/18/23 00:43 B.parapertussis DNA PCR Not Detected (NotDetected) 11/18/23 00:43 C. pneumoniae DNA (PCR) Not Detected (NotDetected) 11/18/23 00:43 Coronavirus OC43 (PCR) Not Detected (NotDetected) 11/18/23 00:43 Coronavirus HKU1 (PCR) Not Detected (NotDetected) 11/18/23 00:43 Coronavirus 229E (PCR) Not Detected (NotDetected) 11/18/23 00:43 SARS-CoV-2 (PCR) Not Detected (NotDetected) 11/18/23 00:43 Coronavirus NL63 (PCR) Not Detected (NotDetected) 11/18/23 00:43 Human Metapneumovir PCR Not Detected (NotDetected) 11/18/23 00:43 Influenza Type A (PCR) Not Detected (NotDetected) 11/18/23 00:43 Influenza Type B (PCR) Not Detected (NotDetected) 11/18/23 00:43 M. pneumoniae (PCR) Not Detected (NotDetected) 11/18/23 00:43 Parainfluenza 1 (PCR) Not Detected (NotDetected) 11/18/23 00:43 Parainfluenza 2 (PCR) Not Detected (NotDetected) 11/18/23 00:43 Parainfluenza 3 (PCR) Not Detected (NotDetected) 11/18/23 00:43 Parainfluenza 4 (PCR) Not Detected (NotDetected) 11/18/23 00:43 RSV (PCR) Not Detected (NotDetected) 11/18/23 00:43 Entero/Rhino (PCR) Not Detected (NotDetected) 11/18/23 00:43 Impressions Abdomen/Pelvis CT 11/17/23 23:23 Exam(s): CT ABDOMEN + PELVIS Without Contrast EXAM: CT Abdomen and Pelvis Without Intravenous Contrast CLINICAL HISTORY: Reason for exam: right flank pain. TECHNIQUE: Axial computed tomography images of the abdomen and pelvis without intravenous contrast. CTDI is 27.98 mGy and DLP is 1190.84 mGy-cm. Automated exposure control was utilized for the study. A dose lowering technique was utilized adhering to the principles of ALARA. COMPARISON: CT abdomen/pelvis on 09/07/2019 FINDINGS: Lung bases: Unremarkable. No mass. No consolidation. Heart: Coronary artery calcifications. ABDOMEN: Liver: Unremarkable. Gallbladder and bile ducts: Prior cholecystectomy. No ductal dilation. Pancreas: Atrophy of the pancreas. No ductal dilation. Spleen: Unremarkable. No splenomegaly. Adrenals: Unremarkable. No mass. Kidneys and ureters: Unremarkable. No obstructing stones. No hydronephrosis. Stomach and bowel: Evaluation of the stomach is limited underdistention. Diverticulosis without evidence of diverticulitis. No small bowel obstruction. PELVIS: Appendix: Normal appendix. Bladder: Unremarkable. No stones. Reproductive: Unremarkable as visualized. ABDOMEN and PELVIS: Intraperitoneal space: Unremarkable. No free air. No significant fluid collection. Bones/joints: Degenerative changes of the spine. Grade 1 anterolisthesis of L4 on L5 and L5 on S1. No acute fracture. No dislocation. Soft tissues: Small fat-containing umbilical hernia. Vasculature: Atherosclerotic changes of the vasculature. No abdominal aortic aneurysm. Lymph nodes: Unremarkable. No enlarged lymph nodes. IMPRESSION: No acute findings in the abdomen or pelvis. Electronically signed by: Jr Love M.D. 11/18/23 04:17 AM ECG Additional Comments: ECG. Normal sinus rhythm rate of 78. No acute ST changes seen. Code Status & VTE Plan VTE Prophylaxis Plan VTE Prophylaxis will be ordered: Yes
--- NOTE | 2023-11-18 07:06 | XRay Report ---
XR chest 1V portable CLINICAL HISTORY: Cough. COMPARISON STUDY: Chest CT September 05, 2021. Chest radiograph September 09, 2021. FINDINGS: Old deformity of the left humeral head and neck is incidentally noted. Lung volumes are nor mal. Lungs are clear. There is no pneumothorax or pleural effusion. Cardiomediastinal silhouette is s table. There is no evidence for pulmonary edema. IMPRESSION: No acute cardiopulmonary findings. ACT 112: Negative or not required by law. Electronically signed by: Blu Betancur M.D. 11/18/2023 7:05 AM
[2023-11-18] MEDS ORDERED: POLYETHYLENE (MIRALAX) 17 GM PACK PO PRN (07:35)
[2023-11-18] MEDS ORDERED: ALBUTEROL HFA 8 GM INHALER INH PRN (07:35)
[2023-11-18] MEDS ORDERED: LABETALOL HCL IV 5 MG/ML 20ML IV PRN (07:35)
[2023-11-18] MEDS ORDERED: ACETAMINOPHEN 325 MG TAB PO PRN (07:35)
[2023-11-18] MEDS ORDERED: HYDROmorphone INJ 0.5 MG/0.5 ML SYR IV PRN (07:35)
[2023-11-18] MEDS ORDERED: ONDANSETRON INJ 2 MG/ML 2 ML VIAL IV PRN (07:35)
[2023-11-18] MEDS: CHOLECALCIFEROL 25 MCG (1000 UNITS) TAB PO SCH (09:34)
[2023-11-18] MEDS: ASPIRIN 81 MG ECTAB PO SCH (09:34)
[2023-11-18] MEDS: ATORVASTATIN 20 MG TAB PO SCH (09:34)
[2023-11-18] MEDS: hydroCHLOROthiazide 25 MG TAB PO SCH (09:34)
[2023-11-18] MEDS: FLUTICASONE/VILANTEROL 100/25MCG 14 PUFFS/INHALER INH SCH (09:35)
[2023-11-18] MEDS: BENZONATATE 100 MG CAPSULE PO PRN (09:44)
[2023-11-18 11:48] VITALS: RESP 18
[2023-11-18] MEDS: VIBEGRON 75 MG TAB PO SCH (12:59)
[2023-11-18] MEDS: HEPARIN SOD 5,000 UNIT/0.5 ML VIAL SQ SCH (13:00)
--- NOTE | 2023-11-18 13:51 | Electrocardiogram Report ---
Test Reason : Blood Pressure : */* mmHG Vent. Rate : 78 BPM Atrial Rate : 78 BPM P-R Int : 162 ms QRS Dur : 82 ms QT Int : 402 ms P-R-T Axes : 53 15 24 degrees QTcB Int : 458 ms Normal sinus rhythm Normal ECG When compared with ECG of 08-Sep-2021 05:56, Left bundle branch block is no longer Present Confirmed by Mohit Aldana ([id number]) on 11/18/2023 1:51:03 PM Referred By: REFERRED SELF Confirmed By: Mohit Aldana
--- NOTE | 2023-11-18 16:06 | Communication Note ---
Date of Service: November 18, 2023 evaluated at bedside Reports dizziness and vertigo, chronic in nature Denies recurrence of back pain Exam RRR, Resp CTAB, moving all extremities equally, no distress #Back pain Plan to monitor for recurrence #Dizziness/Vertigo Discontinue HCTZ Consider alternative BP agent rest of plan per hp
[2023-11-18] MEDS: FLUTICASONE/SALMETEROL 250/50 (ADVAIR) 14 PUFF/1 INHALER INH SCH (23:26)
[2023-11-19 05:47] LABS: Basophils # (auto) 0.02 K/uL (0.00-0.20); Basophils % (auto) 0.4 %; Eosinophils # (auto) 0.15 K/uL (0.00-0.50); Eosinophils % (auto) 3.3 %; Hematocrit (blood only) 37.8 % (37.0-47.0); Hemoglobin 12.5 g/dl (12.0-16.0); Immature Granulocytes # (auto) 0.01 K/uL (0.01-0.20); Immature Granulocytes % (auto) 0.2 %; Lymphocytes # (auto) 2.19 K/uL (1.20-3.40); Lymphocytes % (auto) 47.6 %; Mean Corpuscular Hemoglobin 30.4 pg (25.0-34.0); Mean Corpuscular Hgb Conc 33.1 g/dL (32.0-36.0); Mean Platelet Volume 8.9 fL (9.4-12.4); Monocytes # (auto) 0.52 K/uL (0.11-0.59); Monocytes % (auto) 11.3 %; Neutrophils # (auto) 1.71 K/uL (1.40-6.50); Neutrophils % (auto) 37.2 %; Platelet Count 271 K/uL (130-400); RDW Coefficient of Variation 14.1 % (11.5-14.5); RDW Standard Deviation 47.8 fL (36.4-46.3); Red Blood Count 4.11 M/uL (4.20-5.40)
[2023-11-19 05:57] LABS: BUN Creatinine Ratio 23.5 (10-20); Creatinine Clr Calc Pharmacy 54.9 ml/min; Est GFR (African American) 89.9 ml/min; Est GFR (Non-African American) 77.6 ml/min; Potassium 3.9 mmol/L (3.5-5.1)
[2023-11-19 07:36] LABS: Estimated Average Glucose 117 mg/dl; Hemoglobin A1C 5.7 % (4.5-5.6)
[2023-11-19 10:47] VITALS: TEMP 97.3; O2SAT 97
[2023-11-19 11:28] VITALS: BP 129/62; PULSE 72
--- NOTE | 2023-11-19 12:56 | Discharge Summary ---
Discharge Summary Date of Service November 19, 2023 Principal Dx & Hospital Course #1 = Principal Diagnosis (1) Acute right flank pain: Ms. Hollingsworth is an 87-year-old female with past medical history significant for dyslipidemia, prediabetes, history of non-ST elevated CT and moderate coronary artery disease, chronic diastolic CHF, hypertension, peripheral vascular disease, obesity, GERD, cystocele, degenerative lumbosacral disc, history of trigeminal neuralgia, history of homozygous factor V Leiden mutation, history of urinary incontinence, who lives at home with her ambulates with a cane and four-wheel cart admitted for right flank/mid back pain. Pain resolved in ED with IV analgesia. Further discussion revealed this pain is similar to prior spasms. Discussed CT AP findings with patient, which did not reveal acute findings, but notes DJD of spine and Grade 1 anterolisthesis of L4 on L5 and L5 on S1. Pain did not return for over 24 hours therefore no steroids or other agents intiaed. PT worked with patient and cleared for home. Patient is noted to have persistent veritgo and dizziness. Blood pressures stable since admission once pain crisis resolved. Discontinued HCTZ which patient reports on day of discharge she does feel more steady. All questions answered and patient verbalized understanding of discharge plan. #Acute right flank pain likely spasm Currently improved with pain medication CT abdomen pelvis unremarkable resolved #Elevated blood pressure likely iso severe pain, resolved #Dizziness Currently improved Recently her hydrochlorothiazide dose was reduced to 12.5 mg daily - Discontinued #Mild elevation troponin Mostly demand ischemia iso hypertensive state on admission Initial troponin 39 repeat is 35 #History of non-ST elevated CT #Moderate CAD On aspirin and statin #Prediabetes a1c 5.7% #Hyperlipidemia On statin #Chronic diastolic CHF discontinued hydrochlorothiazide follow up with PCP #Peripheral vascular disease On aspirin and statin #Chronic cough Respiratory bio fire negative Notes For Next Care Provider Medication Changes From Visit Discontinued HCTZ Admission HPI Per Admitting Provider 87-year-old female with past medical history significant for dyslipidemia, prediabetes, history of non-ST elevated CT and moderate coronary artery disease, chronic diastolic CHF, hypertension, peripheral vascular disease, obesity, GERD, cystocele, degenerative lumbosacral disc, history of trigeminal neuralgia, history of homozygous factor V Leiden mutation, history of urinary incontinence, who lives at home with her ambulates with a cane and four-wheel cart comes because of severe pain in the right lower back and right flank region started yesterday morning. Currently pain is resolved. Patient blood pressure was initially high improved with the pain control. Troponin is mildly elevated. Denies any chest pain. Currently denies any shortness of breath. Has chronic cough. Chronic runny nose. Currently no headache. Vision is okay. No sore throat. No abdominal pain. Normal bowel and bladder movements. Currently resting comfortably. Patient states recently couple of weeks ago her blood pressure medication dose was reduced to half because of lightheadedness. Past medical history. As mentioned above Past surgical history. Colonoscopy. Left breast cyst removal. Knee arthroscopy. Laparoscopic cholecystectomy. Bilateral cataracts. Repair of right shoulder ruptured rotator cuff. Right trigger finger release. Social history. . No smoking. No alcohol use. No drug use. Family history. Aunt had colon cancer. Maternal grandmother had colon cancer. Father had diabetes. Heart disorder. Mother had a heart disorder. Brother had CT. Admission Exam Per Admitting Provider General- Not in distress Head- atraumatic Eyes- PERRL. ENT- oropharynx clear Neck- supple, no JVD. Lungs- clear to auscultation no wheezing or crackles Heart- regular rate and rhythm; no murmur, no gallop. Abdomen- normal bowel sounds, soft, nontender, no distension Extremities- B/L lower extremity present, no erythema seen Neuro- alert, oriented PERRLA no facial palsy; no dysarthria; moves extremities Discharge Exam Constitutional WD/WN, vitals as above Respiratory normal respiratory effort, lungs clear to auscultation Cardiovascular RRR, no murmur, no edema Gastrointestinal (Abdomen) normal bowel sounds, soft, nontender, no hepatosplenomegaly Updated Medication List Medication Instructions Recorded Confirmed Type albuterol sulfate 90 mcg/actuation 2 puff inhalation QID PRN 11/18/23 11/18/23 History aerosol inhaler Shortness Of Breath Or Wheezing aspirin 81 mg tablet,delayed 81 mg PO DAILY 11/18/23 11/18/23 History release atorvastatin 20 mg tablet 20 mg PO DAILY 11/18/23 11/18/23 History benzonatate 100 mg capsule 100 mg PO TID PRN Cough 11/18/23 11/18/23 History cholecalciferol (vitamin D3) 50 50 mcg PO DAILY 11/18/23 11/18/23 History mcg (2,000 unit) capsule fluticasone 250 mcg-salmeterol 50 1 inh inhalation BID 11/18/23 11/18/23 History mcg/dose blistr powdr for inhalation hydrochlorothiazide 25 mg tablet 12.5 mg PO DAILY 11/18/23 11/18/23 History mirabegron 50 mg tablet,extended 50 mg PO DAILY 11/18/23 11/18/23 History release 24 hr (Simtabetrmeg) Hospital Stay Data Consultations 11/18/23 06:05 ED Decision to Admit Stat Diagnostic Imagining Performed 11/17/23 23:23 CT Abd and Pelvis [CT abd pelvis wo con] Stat Pending Results Patient Have Any Pending Studies at Discharge: No Discharge Instructions Given to Patient (Per Discharging Provider) You were admitted for back pain suspected to be a severe spasm. It resolved with IV medication and did not return for over 24 hours. You were noted to experience ongoing dizziness. It is recommended you stop Hydrochlorothiazide. Please discuss need for further antihypertensive with your primary care provider. Your blood pressure was elevated given severe pain and remained within a good level since pain resolved. Total Time Total Time Spent Total Time Spent (In Minutes): 35
--- NOTE | 2023-11-20 13:22 | Electrocardiogram Report ---
Test Reason : Blood Pressure : */* mmHG Vent. Rate : 69 BPM Atrial Rate : 69 BPM P-R Int : 132 ms QRS Dur : 78 ms QT Int : 428 ms P-R-T Axes : * 30 27 degrees QTcB Int : 458 ms Normal sinus rhythm Normal ECG When compared with ECG of 17-Nov-2023 21:49, T wave inversion no longer evident in Anterior leads Confirmed by Christiano Olivia ([id number]) on 11/20/2023 1:21:49 PM Referred By: REFERRED SELF Confirmed By: Christiano Olivia
== END 2023-11-19 11:50 | disposition home or self-care (01) ==
LOC: ED 21:17 → 2N 11-18 05:38 → INTOOBSV 11-18 05:38 → 2N 11-18 07:34